=== PATIENT | male | born 1950 | race Caucasian/White ===

== ENCOUNTER 2017-06-25 06:55 | Inpatient (IN) ==
[2017-06-25] MEDS ORDERED: DIAZEPAM 5 MG TABLET PO ONE ×2 (07:51→13:22)
[2017-06-25 08:33] LABS: Basophils # 0.1 10*3/uL (0.0-0.2); Eosinophils # 0.1 10*3/uL (0.0-0.87); Eosinophils % 1.6 % (0.00-10.9); Hematocrit 39.7 VOL% (42.0-52.0); Hemoglobin 14.1 GM/DL (14.0-18.0); Immature Granulocytes % 0.3 %; Immature Granulocytes Absolute 0.02 #; Lymphocytes # 1.4 10*3/uL (1.4-4.0); Lymphocytes % 20.5 % (21.2-54.2); Mean Corpuscular HGB Conc 35.5 GM/DL (32-36); Mean Corpuscular Hemoglobin 30 PG (27-34); Mean Platelet Volume 8.4 FL (9.6-12.0); Monocytes # 0.7 10*3/uL (0.11-0.8); Monocytes % 9.4 % (1.7-12.7); Neutrophils # 4.7 10*3/uL (1.4-7.4); Neutrophils % 67.2 % (38.7-73.9); Platelet Count 255 T/CUMM (130-400); Red Blood Count 4.67 MC/CUMM (3.8-5.5); Red Cell Distribution Width 12.7 % (9.3-17.3)
[2017-06-25] MEDS ORDERED: DIAZEPAM 5 MG TABLET ONE ×2 (08:34→13:18)
[2017-06-25 08:42] LABS: INR 1.1; PT Patient Result 11.4 SECS; Partial Thromboplastin Time 30.8 SECS (0-40)
[2017-06-25] MEDS: SODIUM CHLORIDE 0.45% 1,000 ML IV SCH (08:51)
--- NOTE | 2017-06-25 09:02 | IR History and Physical Update ---
IR Pre-Procedure - History and Physical H&P was reviewed, the patient examined and there: are no changes in the patients condition since last H&P was completed. Reason for procedure:: 67-year-old male with right upper lobe pulmonary nodule, positive PET scan. Needs biopsy. Severe COPD with emphysema. High risk of pneumothorax. - Dictation Physical: refer to scanned H&P - Physical Exam Vital Signs: Last Vital Signs Temp 98.1 F 06/25/17 07:51 Pulse 82 06/25/17 07:51 Resp 18 06/25/17 07:51 BP 126/79 06/25/17 07:51 Pulse Ox 95 06/25/17 07:51 Mental Status: alert and oriented - Sedation IR anesthesia plan for sedation: none ASA Class: III - Risks Risks: Procedures explained. Risks discussed include, but not limited to, the following:[Bleeding including hemoptysis, pneumothorax, chest tube placement, hospitalization] All questions answered. The following alternatives were discussed:[None] Risks and benefits discussed with: patient Consent obtained from: patient Assessment and Plan - Time spent with patient Time spent with patient: Less than 30 minutes (1) Pulmonary nodule Status: Chronic Assessment and plan: Assessment: Right upper lobe pulmonary nodule, positive PET scan. Plan: Percutaneous biopsy under CT guidance. Current Visit: Yes
--- NOTE | 2017-06-25 14:03 | Operative Note ---
Date of procedure: 06/25/17 Pre-op diagnosis: RUL SPN Post-op diagnosis: same Procedure: CT guided biopsy RUL pulmonary nodule Anesthesia: local Surgeon / Physician: Owen Franklin Estimated blood loss: none Specimens: other (2 x 18 ga cores) Condition: stable Disposition: same day Results - Labs CBC & BMP: 06/25/17 08:29 - Impressions Successful biopsy Discharge Plan - Discharge Data Disposition: Disch To Home/Self Care Condition at Discharge: Stable Discharge Diet: advance to your usual diet Activity: resume usual activities as tolerated Hygiene: no restrictions Weight Bearing at Discharge: full weight bearing Driving: not for (24 hours) - Discharge Medications No Action Metoprolol Succinate Xl 50 tablet PO DAILY Budesonide/Formoterol 160-4.5 [Symbicort 160-4.5] 2 puff INH BID Melatonin 5 mg Tablet 5 mg PO BEDTIME Diltiazem Cd Cap [Cardizem Cd] 120 mg PO DAILY capsule Aspirin [Ecotrin] 81 mg PO DAILY Theophylline ER Tab 100 mg PO BID Tamsulosin [Flomax] 0.4 mg PO DAILY Montelukast Tab [Singulair Tab] 10 mg PO DAILY Ipratropium/Albuterol Inhaler [Combivent Respimat Inhaler] 1 puff INH DIRECTED - Follow Up or Referral Follow Up: Kristopher Marte MD [Primary Care Provider] - - Forms/Instructions Instructions: Noel Biopsy by Radiology
--- NOTE | 2017-06-25 14:18 | XRay Report ---
Exam: XR chest post procedure Date: 06/25/2017 7:53 AM Indication: Post Right lung biopsy Comparison: None Technical: Inspiration and expiration imaging Findings: Patchy area of masslike density in the right upper chest measuring approximately up to 6.3 cm. Underlying COPD with hyperinflation is present. ASVD is present. Small pneumothorax is present in the apical region measuring 2.9 cm. Impression: 1. Right apical pneumothorax measuring approximately 5% to 10% at this time with masslike densities in the right mid chest with underlying COPD. Critical test Findings discussed with Dr. Franklin PROCEDURE INTERPRETED AT [facility] DEPARTMENT OF RADIOLOGY Final Report Signed by: Dr. Kristopher Lofton
--- NOTE | 2017-06-25 15:13 | CT Report ---
CT biopsy lung wo coreRT Indication: Right upper lobe pulmonary nodule. CT-GUIDED BIOPSY RIGHT UPPER LOBE PULMONARY NODULE Description: A formal timeout was performed. Patient was placed supine on the CT table and storage management architect imaging obtained. The right midaxillary skin upper chest wall skin overlying the target lesion was prepped and draped in a sterile fashion. 5 cc 1% lidocaine was injected. Under CT fluoroscopic guidance, a 17-gauge guide needle was advanced into the lesion. Multiple 18-gauge core biopsies were obtained. Specimen was sent for routine pathology. The needle was removed and final CT imaging showed no evidence of pneumothorax. Patient tolerated the procedure well. Specimen: 2 x 18 gauge core samples right upper lobe pulmonary nodule Impression: CT-guided biopsy right upper lobe pulmonary nodule. PROCEDURE INTERPRETED AT [facility] DEPARTMENT OF RADIOLOGY Final Report Signed by: Owen Franklin M.D.
--- NOTE | 2017-06-25 16:11 | XRay Report ---
XR chest inspiration expiratio Indication: Lung biopsy. Pneumothorax post procedure. Post procedure chest radiograph, 2 views: Inspiratory and expiratory views of the chest were obtained. Right pneumothorax has increased in size since 1406 hours. Is now approximately 25%. Impression: Increasing right pneumothorax. PROCEDURE INTERPRETED AT [facility] DEPARTMENT OF RADIOLOGY Final Report Signed by: Owen Franklin M.D.
--- NOTE | 2017-06-25 16:18 | Post Interventional Procedure ---
Pre-op diagnosis: Worsening pneumothorax after lung biopsy Post-op diagnosis: same Procedure: Right chest tube placement Flouroscopy: 0.1 min Radiologist: Owen Franklin Anesthesia: local Specimens: none sent Estimated blood loss: none Complications: none Condition: stable Description/Findings: LCWS overnight Assessment and Plan - Time spent with patient Time spent with patient: Less than 30 minutes (1) Pulmonary nodule Status: Chronic Assessment and plan: Assessment: Right upper lobe pulmonary nodule, positive PET scan. Plan: Percutaneous biopsy under CT guidance. Current Visit: Yes
--- NOTE | 2017-06-25 17:19 | XRay Report ---
XR chest post procedure Indication: Right chest tube placement for pneumothorax following lung biopsy. Chest 2 views: Small caliber anterior right chest tube has been placed since the study obtained 1 hour earlier. The right pneumothorax is decreased in size, now 10%. Right upper lobe nodule and atelectasis of the basilar segment right upper lobe are present but improved from the previous exam. Impression: Placement of chest tube with decreased size of pneumothorax, now 10%. Improved aeration right lung. PROCEDURE INTERPRETED AT [facility] DEPARTMENT OF RADIOLOGY Final Report Signed by: Owen Franklin M.D.
--- NOTE | 2017-06-25 18:33 | Pulmonology History & Physical ---
History of Present Illness Chief complaint: Pneumothorax. COPD. Asthma. Right upper lung pulmonary nodule. History of present illness: Rob Loja, [facility], acting as scribe for Dr. Kristopher Marte Mr. Panchal is a 67-year-old white male who earlier today underwent CT-guided needle biopsy of the right upper lung pulmonary nodule by interventional radiology. Initially postbiopsy there was a right apical pneumothorax measuring approximately 5-10% but on repeat chest x-ray several hours later this had increased to approximately 25%. We were contacted by Dr. Franklin for admission after chest tube was placed. The patient was seen today along with his . He is now on the floor with a chest tube in place. He is doing well and is without complaints. The patient and his state that they were told that Dr. Franklin was able to get 3 good specimens. There was sent to pathology and the results are, of course, pending at the time of this dictation. The patient denies any increased shortness of breath. There is been no cardiac angina or palpitations. No dysphasia or reflux. No hemoptysis. No TIA symptoms or syncope. No change in bowel or bladder habits. All other systems are reviewed and were negative. Allergies: SSKI and Augmentin Medications: See list Past medical history: Positive for allergic sinusitis, COPD with bronchospastic disease, high blood pressure, BPH which is followed by Dr. Jarret Jernigan, colon polyps followed by Dr. Narayanan, negative C scope in July 2016, and hospitalization in 2014 with severe pneumonia. [facility] showed a new nodule in the periphery of the right upper lung. This was not present on chest x-rays dating back a number of years. PET scan was done and this showed highly avid uptake in the right upper lung pulmonary nodule compatible with hypermetabolic malignancy. No additional abnormal pulmonary or mediastinal uptake was seen. Also there was highly avid uptake involving a segment of the proximal to mid sigmoid colon. Corresponding CT findings suggestive the possibility of possible low-grade diverticulitis. Dr. Faby Narayanan said to consider endoscopy to help exclude the possibility of underlying colon cancer. Social history: Previously Dr. Aparicio have been the patient's primary care doctor. Patient is a college graduate. 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 The patient is . His 's name is Salena. Family history: His father had colon cancer. His mother had pancreatic cancer and also her mother had pancreatic cancer. His mother also had lung cancer and he is not certain whether this was primary or metastatic. Past procedures: The patient had pulmonary function test on 06/28/2013 and at that time his forced vital capacity was 2.06 L or 49% of predicted. FEV1 was 0.82 L or 24% of predicted. His O2 sats were 98% on room air. Pulmonary function test done 05/13/2017 showed severe obstructive disease. FEV1/FVC was 37 % of predicted. FEF 25/75 was 13% of predicted. Marked positive response to inhaled bronchodilators. 16% increase in FVC. 6% increase in FEV1. 2% increase in FEF 25/75. No restrictive disease. FVC was 3.13 L or 79% of predicted. DLCO was 56%. DLCO/VA was 53%. Severe diffusion defect. O2 sat was 96%. Severe decrease in maximum voluntary ventilation at 38 L/min or 32% of predicted. Improvement compared to studies done 06/28/2013. FVC has increased from 2.06 L to 3.13 L. FEV1 has increased from 0.82 L to 1.04 L. MCV is essentially unchanged. Previously 35 L/min now 38 L/min. Patient had bronchoscopy by Dr. Aparicio 01/06/2015. There were no abnormalities found. Laboratory: White count is 7000 with 67.2% segs, 20.5% lymphs, 9.4% monos; H&H 14.1/39.7 with low to low normal indices and normal red blood cell distribution with; platelet count 255,000; INR 1.1 Home Medications Medication Instructions Recorded Confirmed Type Budesonide/Formoterol 160-4.5 2 puff INH BID 01/06/15 06/25/17 History [Symbicort 160-4.5] Metoprolol Succinate Xl 50 tablet PO DAILY 01/06/15 06/25/17 History Melatonin 5 mg Tablet 5 mg PO BEDTIME 01/07/15 06/25/17 History Diltiazem Cd Cap [Cardizem Cd] 120 mg PO DAILY capsule 01/10/15 06/25/17 Rx Aspirin [Ecotrin] 81 mg PO DAILY 06/20/17 06/25/17 History Ipratropium/Albuterol Inhaler 1 puff INH DIRECTED 06/20/17 06/25/17 History [Combivent Respimat Inhaler] Montelukast Tab [Singulair Tab] 10 mg PO DAILY 06/25/17 06/25/17 History Tamsulosin [Flomax] 0.4 mg PO DAILY 06/25/17 06/25/17 History Theophylline ER Tab 100 mg PO BID 06/25/17 06/25/17 History Allergies Allergy/AdvReac Type Severity Reaction Status Date / Time Amoxicillin [From Augmentin] Allergy Mild RASH Verified 06/25/17 07:42 clavulanic acid Allergy Mild RASH Verified 06/25/17 07:42 [From Augmentin] SSKI Allergy SWELLING Uncoded 06/25/17 07:42 Medical,Surgical,& Family Hx - Medical History Cardio: History of: Cardiac Dysrhythmia (tachycardia DUE TO PNEUMONIA.), Hypertension, Cardiovascular Problems (DR BROWN SIGNED OFF 2014.) Neurology: No history of: Seizures HEENT: History of: Eye Problem (GLASSES.), Dental Problems (UPPER DENTURE) Respiratory: History of: Bronchitis (SEASONAL), COPD, Pneumonia, Respiratory Problems (FLU VAC- YES 2015; PNEU VAC- YES.) Genitourinary: History of: Prostate Problems (BPH) Gastrointestinal: History of: GERD (OCCASIONAL), Polyps (REMOVED.), GI Problems (GI INFECTION .) Musculoskeletal: History of: Back/Neck Problems (brachial cleft cyst removal 1995. BACK PAIN.) Hematology: History of: Anemia No history of: Blood Transfusion Reaction - Surgical History Cardiac Surgeries: Patient Denies: Cardiac Catheterization Abdominal Surgeries: Surgical HX of: Colonoscopy (DR NARAYANAN), EGD Orthopedic Surgeries: Patient denies;: Spinal Surgery - Family History Family History: Reports;: Family Cancer (Mother and Father ca) - Social History Smoking Status: Former smoker Frequency of Alcohol Use: Rarely Type of Drug Use: None Results - Labs CBC & BMP: 06/25/17 08:29 Exam (Pulmonay) H&P - Constitutional Vitals: Period Temp Pulse Resp BP Sys/Paz Pulse Ox Last 24 Hr 97.3 F-98.1 F 81-106 16-24 114-136/62-90 88-95 Exam: Psych: Oriented x 3; a pleasant and cooperative patient HEENT: Pupils, irises, sclera, conjunctiva, and eyelids are normal. The face is symmetrical without rash or masses. Lips, tongue, buccal mucosa, soft and hard palates, and pharynx are WNL Neck: Symmetrical. Thyroid was not palpated. Lymphatics: No submandibular, cervical, or supraclavicular adenopathy Chest: Symmetrical and hyperinflated with mild to moderate prolongation of expiration; chest tube is in place CV: Heart sounds were distant. There was no appreciable murmur, rub or gallop Arterial: Carotids reveal good upstroke without bruit. Upper extremity pulses were palpable. Lower extremity pulses were not palpated. There was no evidence of ischemia. Venous: Exam of the neck, upper, and lower extremities is normal Abd: No appreciable organomegaly, masses, tenderness, or bruit; Bowel sounds are positive 4; The aorta was not palpated /Rectal: Deferred Extremities: No clubbing, cyanosis, edema, or obvious DVT Skin: No cancerous or infectious lesions of the exposed, examined skin; the perineal area was not examined M/S: Age appropriate loss of the normal curvature of the cervical, thoracic, and lumbar spine Neurological: Cranial nerves are intact, Long tract motor function is intact; Sensory exam was not done; gait was not tested. The remainder of the exam was noncontributory. Impression: #1: Acute pneumothorax status post CT-guided needle biopsy of a right upper lung pulmonary nodule requiring chest tube placement #2: Right upper lung pulmonary nodule requiring CT-guided needle biopsy. Pathology is pending. #3: COPD with bronchospastic disease #4: Past history of tobacco abuse. Stop smoking in 2010. #5: BPH followed by Dr. Jarret Jernigan #6: Hypertension #7: History of recurrent upper respiratory infections which exacerbate his pulmonary problems #8: See past history Plan: #1: Admit to inpatient #2: Chest x-ray in the morning #3: Chest tube management as per Dr. Franklin #4: Resume home medications #5: Follow-up pathology when available #6: See orders
[2017-06-25] MEDS ORDERED: IPRATROPIUM/ALBUTEROL INHALER INH SCH (19:00)
[2017-06-25] MEDS: BUDESONIDE/FORMOTEROL 160-4.5 INHALER 6 GM INH SCH (20:59)
[2017-06-25] MEDS ORDERED: MELATONIN 3 MG TABLET PO SCH (21:00)
[2017-06-25] MEDS: THEOPHYLLINE ER 100 MG TABLET PO SCH (21:22)
--- NOTE | 2017-06-26 08:34 | XRay Report ---
XR chest 2V Date: 06/26/2017 4:00 AM History: Chest tube Comparison: 06/25/2017 Technique: PA and lateral chest Findings: The heart remains small and compressed by the over expanded lungs. Stable right pleural catheter. Smaller less than 10% right pneumothorax. Minimally reduced parenchymal findings in the right upper lobe with persistent nodule. Stable mediastinum and osseous structures. Impression: Bullous emphysema with smaller less than 10% right pneumothorax and stable right pleural catheter. Reduced hemorrhage/infiltration in the right upper lobe at junction of right lower lobe with residual underlying nodule. PROCEDURE INTERPRETED AT [facility] DEPARTMENT OF RADIOLOGY Final Report Signed by: Dr. Jacki Ross
[2017-06-26] MEDS ORDERED: TAMSULOSIN 0.4 MG CAPSULE PO SCH (09:00)
[2017-06-26] MEDS ORDERED: ASPIRIN EC 81 MG TABLET PO SCH (09:00)
[2017-06-26] MEDS ORDERED: METOPROLOL SUCCINATE XL 50 MG TABLET PO SCH (09:00)
[2017-06-26] MEDS ORDERED: DILTIAZEM CD 120 MG CAPSULE PO SCH (09:00)
[2017-06-26] MEDS ORDERED: MONTELUKAST 10 MG TABLET PO SCH (09:00)
[2017-06-26] MEDS: THEOPHYLLINE ER 100 MG TABLET PO SCH (09:46)
[2017-06-26] MEDS: BUDESONIDE/FORMOTEROL 160-4.5 INHALER 6 GM INH SCH (09:51)
--- NOTE | 2017-06-26 10:37 | Pulmonology Progress Note ---
Pulmonary - PN: Subj Interval history: Rob Loja, [facility]-, acting as scribe for Dr. Kristopher Marte Mr. Panchal is a 67-year-old white male who was admitted 06/25/2017. At the time of admission, our impressions were: #1: Acute pneumothorax status post CT-guided needle biopsy of a right upper lung pulmonary nodule requiring chest tube placement #2: Right upper lung pulmonary nodule requiring CT-guided needle biopsy. Pathology is pending. #3: COPD with bronchospastic disease #4: Past history of tobacco abuse. Stop smoking in 2010. #5: BPH followed by Dr. Jarret Jernigan #6: Hypertension #7: History of recurrent upper respiratory infections which exacerbate his pulmonary problems #8: See past history 06/26/2017. Patient was seen today along with his , his client renewal specialist, and Mariana Panchal RN. Patient's chest x-ray this morning shows a less than 10% right pneumothorax. The right pleural catheter is stable. Suction has been removed and the stopcock has been turned off as per Dr. Franklin. Repeat chest x-ray is pending at the time of this dictation. Hopefully the pneumothorax is will not enlarged. If it does not, we anticipate discharge later on this afternoon. This was discussed with the patient and his to their understanding and they are in agreement. Yesterday the patient underwent needle biopsy of the right upper lung nodule. Pathology is still pending. Medications have been reviewed. Her medications were restarted yesterday. Labs been reviewed. No new labs were drawn today. Exam (Progress Note) - Constitutional Vitals: Period Temp Pulse Resp BP Sys/Paz Pulse Ox Last 24 Hr 97.3 F-98.2 F 75-106 16-24 114-136/62-90 88-95 Exam: Chest is fairly clear; chest tube is in place Heart no gallop Abdomen is nontender and nondistended; bowel sounds are positive 4 Extremities with nothing to suggest acute deep venous thrombophlebitis Psychiatric oriented 3 Neurologic long-term motor function is intact Plan: Follow-up repeat chest x-ray when available. Continue other present treatment. If pneumothorax does not enlarge, anticipate discharge later on this afternoon. Results - Labs CBC & BMP: 06/25/17 08:29 Specialty Discharge - Follow Up or Referrals Follow up with: Kristopher Marte MD [Primary Care Provider] -
[2017-06-26] MEDS: SODIUM CHLORIDE 0.45% 1,000 ML IV SCH (11:06)
[2017-06-26 13:14] VITALS: BP 130/76
--- NOTE | 2017-06-26 13:19 | Event Note ---
Chest tube clamped for 4 hours. A 2% right apical pneumothorax has remained stable during that time. Chest tube removed. Okay to discharge.
--- NOTE | 2017-06-26 13:26 | XRay Report ---
XR chest inspiration expiratio Indication: Follow-up tiny apical pneumothorax after 4 hours chest tube clamped. Post procedure chest radiograph, 2 views: Inspiratory and expiratory views of the chest were obtained. Tiny right apical pneumothorax is unchanged after chest tube removed. Impression: No change in tiny apical pneumothorax. PROCEDURE INTERPRETED AT [facility] DEPARTMENT OF RADIOLOGY Final Report Signed by: Owen Franklin M.D.
--- NOTE | 2017-06-26 13:27 | Interventional Radiology Rpt ---
IR thoracentesis w cath insert Indication: Right pneumothorax after lung biopsy. Progressive symptoms. RIGHT CHEST TUBE PLACEMENT WITH FLUOROSCOPY Description: A formal timeout was performed. Right upper anterior chest wall was prepped and draped in a sterile fashion. Under fluoroscopic guidance, a vascular needle was advanced into the right pleural space between the anterior right second and third ribs. Needle was exchanged over a wire for a 8 [place]ian pigtail drain catheter. Pigtail was formed in the pleural space and anchored with a StatLock device. Patient was placed on a Pleur-evac and transferred to the floor in stable condition. Fluoroscopy time: 0.1 minute, one image saved. Impression: Placement of small-caliber right chest tube for pneumothorax. PROCEDURE INTERPRETED AT [facility] DEPARTMENT OF RADIOLOGY Final Report Signed by: Owen Franklin M.D.
--- NOTE | 2017-06-26 13:28 | XRay Report ---
XR chest inspiration expiratio Indication: Chest tube clamped for 4 hours. Post procedure chest radiograph, 2 views: Inspiratory and expiratory views of the chest were obtained. A 2% right apical pneumothorax has been stable since 4 hours ago. Chest tube position is unchanged. Impression: Stable tiny right apical pneumothorax. PROCEDURE INTERPRETED AT [facility] DEPARTMENT OF RADIOLOGY Final Report Signed by: Owen Franklin M.D.
--- NOTE | 2017-06-26 18:26 | Discharge Summary ---
Hospital Course - Hospital Course Hospital Course: Rob Loja, [facility], acting as scribe for Dr. Kristopher Marte Mr. Panchal is a 67-year-old white male who underwent CT-guided needle biopsy of a right upper lung pulmonary nodule on 06/25/2017. Initially, postbiopsy there is a right apical pneumothorax measuring approximately 5-10% but on repeat chest x-ray several hours later this had increased to approximately 25%. Dr. Franklin contacted Dr. Marte and it was felt in the patient's best interest to hospitalize him. Dr. Franklin placed a chest tube in the patient was admitted to Dr. Marte's service. The next day the chest tube was clamped and chest x-ray showed a less than 10% right pneumothorax. The chest tube was removed and chest x-ray proximally 4 hours later showed no change in the tiny right apical pneumothorax. In speaking with Dr. Franklin, it was felt that the patient was safe for discharge which was earlier than initially thought was going to be possible. The patient was stable. He had no shortness of breath. There was no hemoptysis. He has been scheduled for follow-up appointment with Rob Loja , nurse practitioner, in approximately 1 week. At discharge, pathology from the needle biopsy is pending. White count is 7000 with 67.2% segs, 20.5% lymphs, 9.4% monos; H&H 14.1/39.7 with low to low normal indices and normal red blood cell distribution width; platelet count 255,000; INR 1.1 For more information regarding Mr. Panchal' past medical history, social history, family history, past procedures, admit labs, admit x-ray and admit exam, please see the admission note dated 06/25/2017. Impression: #1: Acute pneumothorax status post CT-guided needle biopsy of a right upper lung pulmonary nodule requiring chest tube placement #2: Right upper lung pulmonary nodule requiring CT-guided needle biopsy. Pathology is pending. #3: COPD with bronchospastic disease #4: Past history of tobacco abuse. Stop smoking in 2010. #5: BPH followed by Dr. Jarret Jernigan #6: Hypertension #7: History of recurrent upper respiratory infections which exacerbate his pulmonary problems #8: See past history Plan: Flomax 0.4 mg daily, melatonin 5 mg at bedtime, Combivent Respimat inhaler as needed, Cardizem CD 120 mg daily, Symbicort 160/4.52 puffs twice daily, Ecotrin 81 mg daily, theophylline ER 100 mg twice daily, metoprolol succinate XL 50 mg daily, and Singulair 10 mg daily. The patient has been scheduled to follow-up with Rob Loja, nurse practitioner, in approximately 1 week. He can be seen sooner if needed. Specialty Discharge - Follow Up or Referrals Follow up with: Kristopher Marte MD [Primary Care Provider] - 07/03/17 1:00 pm (Appointment with Rob Loja BIOPSYCHOLOGIST) Discharge Plan - Discharge Data Disposition: Disch To Home/Self Care - Discharge Medications Continue Metoprolol Succinate Xl 50 tablet PO DAILY Budesonide/Formoterol 160-4.5 [Symbicort 160-4.5] 2 puff INH BID Melatonin 5 mg Tablet 5 mg PO BEDTIME Diltiazem Cd Cap [Cardizem Cd] 120 mg PO DAILY capsule Aspirin [Ecotrin] 81 mg PO DAILY Theophylline ER Tab 100 mg PO BID Tamsulosin [Flomax] 0.4 mg PO DAILY Montelukast Tab [Singulair Tab] 10 mg PO DAILY Ipratropium/Albuterol Inhaler [Combivent Respimat Inhaler] 1 puff INH DIRECTED - Follow Up or Referral Follow Up: Kristopher Marte MD [Primary Care Provider] - 07/03/17 1:00 pm (Appointment with Rob Loja BIOPSYCHOLOGIST) - Forms/Instructions Instructions: Chest Tubes (DC), Dyspnea (GEN), Noel Biopsy by Radiology Exam - Constitutional Vitals: Period Temp Pulse Resp BP Sys/Paz Pulse Ox Last 24 Hr 97.6 F-98.2 F 75-97 18-20 119-130/69-89 92-95 DS: Provider Date of admission: 06/25/17 18:36 Primary care physician: Kristopher Marte MD Attending physician on admission: Owen Franklin MD Discharging clinician: SHANIQUA Modi
--- NOTE | 2017-07-07 11:15 | Pathology Report from [facility] ---
[facility] ACCESSION # : [id number] PATIENT NAME : Mick Hines ORDERING DR : ELOISE COOPER MD CLINICAL HX: RUL lung nodule - Positive PET scan - Smoker POST-OP DX: Same SPECIMEN INFO: Right upper lobe lung, CT kai cut biopsy x 2 GROSS DESCRIPTION: The specimen is received in formalin labeled with the patients name CORNELIA HINES and RUL LUNG consists of four chaves tissue fragments measuring from 0.3 x 0.1 cm to 1.0 x 0.1 cm. Submitted in one cassette. 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 Nuclear crowing/ molding is present. Numerous mitoses are identified. The majority of tumor cells have little cytoplasm, however, there are focal areas where the tumor cells have increased amount of cytoplasm. Submitted immunostains demonstrate that the tumor cells are TTF-1 and synaptophysin positive, focally CK7 positive , and CK20, napsin A and p40 negative. This staining pattern and the histologic appearance support the diagnosis of high grade neuroendocrine carcinoma, and the lack of nucleoli, the scant amount of cytoplasm in the majority of tumor cells and nuclear crowding/molding favors small cell carcinoma. COLLECTED DATE: 06/25/2017 [facility] REPORT DATE: 07/07/2017 ELECTRONICALLY SIGNED BY: uW Teixeira M.D. 07/07/2017 - 7:28:52 [facility]D
--- NOTE | 2017-07-08 09:02 | Physician Query Form ---
CLICK EDIT DOCUMENT TO SELECT QUERY ANSWER --> OK --> SIGN Risa Singh RN, CCDS Certified Clinical [employer] (W) [phone] (F) [phone] [email or web address] PROVIDERS: Make your selection(s) from the choices in EACH section by typing an "x" and enter comments in the comment section. Please use your independent medical judgment in providing your response. This request does not imply that any particular answer is desired or expected. 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 Nuclear crowing/ molding is present. Numerous mitoses are identified. The majority of tumor cells have little cytoplasm, however, there are focal areas where the tumor cells have increased amount of cytoplasm. Submitted immunostains demonstrate that the tumor cells are TTF-1 and synaptophysin positive, focally CK7 positive , and CK20, napsin A and p40 negative. This staining pattern and the histologic appearance support the diagnosis of high grade neuroendocrine carcinoma, and the lack of nucleoli, the scant amount of cytoplasm in the majority of tumor cells and nuclear crowding/molding favors small cell carcinoma. Abnormal Pathology findings are not reported unless an authorized provider indicates their clinical significance Please select the best choice: ( ) I agree with the Pathology findings ( ) I disagree with the Pathology findings ( ) No clinical significance ( ) Other/clarification of findings, please specify: ( ) Clinically unable to determine COMMENTS: PLEASE ALSO DOCUMENT RESPONSE IN PROGRESS NOTES AND/OR DISCHARGE SUMMARY Use of terms such as suspected, likely, or probable (associated with a specific diagnosis that is being evaluated, monitored, or treated as if it exists) are acceptable and can be restated in the discharge summary if not ruled out. [facility]
--- NOTE | 2017-07-08 13:30 | Physician Query Form ---
CLICK EDIT DOCUMENT TO SELECT QUERY ANSWER --> OK --> SIGN Risa Singh RN, CCDS Certified Clinical [employer] (W) [phone] (F) [phone] [email or web address] PROVIDERS: Make your selection(s) from the choices in EACH section by typing an "x" and enter comments in the comment section. Please use your independent medical judgment in providing your response. This request does not imply that any particular answer is desired or expected. 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 Nuclear crowing/molding is present. Numerous mitoses are identified. The majority of tumor cells have little cytoplasm, however, there are focal areas where the tumor cells have increased amount of cytoplasm. Submitted immunostains demonstrate that the tumor cells are TTF-1 and synaptophysin positive, focally CK7 positive, and CK20, napsin A and p40 negative. This staining pattern and the histologic appearance support the diagnosis of high grade neuroendocrine carcinoma, and the lack of nucleoli, the scant amount of cytoplasm in the majority of tumor cells and nuclear crowding/molding favors small cell carcinoma. Abnormal Pathology findings are not reported unless an authorized provider indicates their clinical significance Please select the best choice: ( ) I agree with the Pathology findings ( ) I disagree with the Pathology findings ( ) No clinical significance ( ) Other/clarification of findings, please specify: ( ) Clinically unable to determine COMMENTS: Why do you want to know if I (we) agree? That is the pathologist's job. Dr. Marte says you can ask the pathologist if he/she agrees. That might be more meaningful. PLEASE ALSO DOCUMENT RESPONSE IN PROGRESS NOTES AND/OR DISCHARGE SUMMARY Use of terms such as suspected, likely, or probable (associated with a specific diagnosis that is being evaluated, monitored, or treated as if it exists) are acceptable and can be restated in the discharge summary if not ruled out. JUAN A
== END 2017-06-26 15:44 | disposition home or self-care (01) | DRG 201 ==
LOC: N.RAD 06:55 → N.SDSINP 06:56 → N.5E 16:44
PROVIDERS: ADMIT Radiology Diagnostic Radiology; ATTEND Radiology Diagnostic Radiology

== ENCOUNTER 2019-05-22 15:00 | Inpatient (IN) ==
[2019-05-22] MEDS ORDERED: methylPREDNISolone SOD SUC 125 MG/2 ML VIAL IV STA (15:57)
[2019-05-22] MEDS ORDERED: ONDANSETRON 4 MG/2 ML VIAL IV STA (15:57)
[2019-05-22] MEDS ORDERED: LEVOFLOXACIN INJ 750 MG in PREMIX 1 EACH IV STA (15:57)
[2019-05-22] MEDS ORDERED: ALBUTEROL 2.5 MG/3 ML NEB RESP TX SCH (16:00)
[2019-05-22 16:45] LABS: Basophils # 0.1 10*3/uL (0.0-0.2); Basophils % 0.5 % (0.0-0.8); Hematocrit 45.4 VOL% (42.0-52.0); Immature Granulocytes % 0.5 %; Immature Granulocytes Absolute 0.07 #; Lymphocytes # 0.7 10*3/uL (1.4-4.0); Lymphocytes % 5.3 % (21.2-54.2); Mean Corpuscular HGB Conc 35.2 GM/DL (32-36); Mean Platelet Volume 9.2 FL (9.6-12.0); Monocytes % 8.7 % (1.7-12.7); Platelet Count 344 T/CUMM (130-400); Red Blood Count 5.16 MC/CUMM (3.8-5.5); Red Cell Distribution Width 11.7 % (9.3-17.3); White Blood Count 12.9 T/CUMM (4-12)
[2019-05-22 16:54] LABS: INR 1.1; PT Patient Result 11.4 SECS (9.6-12.2); Partial Thromboplastin Time 27.5 SECS (20.8-36.0)
[2019-05-22 17:10] LABS: Alanine Aminotransferase 18 U/L (16-61); Albumin 3.7 G/DL (3.4-5.0); Alkaline Phosphatase 60 U/L (45-117); Aspartate Amino Transferase 17 U/L (0-37); Blood Urea Nitrogen 74 MG/DL (7-18); Calcium 10.4 MG/DL (8.5-10.1); Glucose 145 MG/DL (74-106); Osmolality,Calculated 279.2 MOS/KG (273-304); Total Protein 8.1 G/DL (6.4-8.3)
[2019-05-22 17:11] LABS: Troponin I < 0.015 NG/ML (0.00-0.045)
[2019-05-22] MEDS ORDERED: SODIUM CHLORIDE 0.9% 1,000 ML IV STA (17:18)
[2019-05-22] MEDS ORDERED: DIPHENHYDRAMINE ACETAMINOPHEN PO PRN (17:25)
[2019-05-22] MEDS ORDERED: METOPROLOL TARTRATE 5 MG/5 ML VIAL IV STA (17:45)
[2019-05-22] MEDS ORDERED: ZALEPLON 5 MG CAPSULE PO PRN (17:51)
[2019-05-22] MEDS ORDERED: PROMETHAZINE 25 MG/1 ML VIAL IM PRN (17:51)
[2019-05-22] MEDS ORDERED: ACETAMINOPHEN 325 MG TABLET PO PRN (17:51)
[2019-05-22] MEDS ORDERED: guaiFENesin/DM ER 600-30 MG TABLET PO PRN (17:51)
[2019-05-22] MEDS ORDERED: ONDANSETRON 4 MG/2 ML VIAL IV PRN (17:51)
[2019-05-22] MEDS ORDERED: diphenhydrAMINE CAP 25 MG CAPSULE PO PRN (17:51)
[2019-05-22] MEDS ORDERED: SODIUM CHLORIDE 0.45% 1,000 ML IV SCH (18:00)
[2019-05-22] MEDS ORDERED: SODIUM CHLORIDE 0.9% 1,000 ML IV SCH (19:00)
[2019-05-22] MEDS: methylPREDNISolone SOD SUC 40 MG/1 ML VIAL IV SCH (20:22)
[2019-05-22] MEDS: HEPARIN 5,000 UNIT/1 ML VIAL SUBCUT SCH (20:23)
[2019-05-22] MEDS: MELATONIN 3 MG TABLET PO SCH (20:23)
[2019-05-22] MEDS: DOCUSATE SODIUM 100 MG CAPSULE PO SCH (20:23)
[2019-05-22] MEDS: METOPROLOL TARTRATE 50 MG TABLET PO SCH (20:23)
[2019-05-22] MEDS: SODIUM CHLORIDE 0.9% 1,000 ML IV SCH (20:38)
[2019-05-22] MEDS: ALBUTEROL/IPRATROPIUM 3 ML NEB RESP TX SCH (20:46)
[2019-05-22] MEDS ORDERED: THEOPHYLLINE ER 100 MG TABLET PO SCH (21:00)
[2019-05-22] MEDS ORDERED: ALUM/MAG/SIMETH/LIDO VISC 1:1 30 ML BOTTLE PO ONE (21:51)
[2019-05-22] MEDS ORDERED: LEVALBUTEROL 0.31 MG/3 ML NEB RESP TX PRN (21:52)
[2019-05-22] MEDS: BUDESONIDE/FORMOTEROL 160-4.5 INHALER 6 GM INH SCH (22:18)
[2019-05-23] MEDS: ALBUTEROL/IPRATROPIUM 3 ML NEB RESP TX SCH ×2 (00:49→10:04)
[2019-05-23 01:48] LABS: Apearance,Urine Slightly Hazy (Clear); Bilirubin,Urine Negative (Negative); Blood, Urine Small mg/dL (Negative); Glucose,Urine (UA) Negative (Negative); Hyaline Casts,Urine 54 /LPF (0-3); Ketones,Urine 5 mg/dL (Negative); Mucus,Urine Occasional /LPF (Occasional); Nitrite,Urine Negative (Negative); Protein,Urine Negative; RBC,Urine 1 /HPF (0-4); Renal Epithelial Cells,Urine Occasional /HPF (<1); Squamous Epithelial Cell,Urine Occasional /HPF (0-10); Urine Color Yellow (Yellow); Urine Specific Gravity 1.018 (1.001-1.035); Urine Urobilinogen < 2.0 EU/DL (0.2-1.0); WBC,Urine 7 /HPF (0-6)
[2019-05-23 03:13] LABS: Basophils % 0.2 % (0.0-0.8); Hematocrit 40.1 VOL% (42.0-52.0); Hemoglobin 14.1 GM/DL (14.0-18.0); Immature Granulocytes % 0.4 %; Immature Granulocytes Absolute 0.04 #; Lymphocytes # 0.5 10*3/uL (1.4-4.0); Lymphocytes % 5.1 % (21.2-54.2); Mean Corpuscular HGB Conc 35.2 GM/DL (32-36); Mean Corpuscular Volume 88.3 FL (87-102); Mean Platelet Volume 9.1 FL (9.6-12.0); Monocytes % 3.9 % (1.7-12.7); Neutrophils % 90.4 % (38.7-73.9); Platelet Count 291 T/CUMM (130-400); Red Blood Count 4.54 MC/CUMM (3.8-5.5); Red Cell Distribution Width 11.7 % (9.3-17.3); White Blood Count 9.5 T/CUMM (4-12)
[2019-05-23] MEDS: methylPREDNISolone SOD SUC 40 MG/1 ML VIAL IV SCH (03:22)
[2019-05-23] MEDS: HEPARIN 5,000 UNIT/1 ML VIAL SUBCUT SCH ×3 (03:22→17:16)
[2019-05-23 03:31] LABS: Bilirubin,Total 0.8 MG/DL (0.2-1.0); Calcium 9.1 MG/DL (8.5-10.1); Osmolality,Calculated 281.8 MOS/KG (273-304); Total Protein 6.6 G/DL (6.4-8.3)
[2019-05-23 03:35] LABS: Risk Ratio 2.18; Thyroid Stimulating Hormone 0.516 uIU/ml (0.358-3.74); VLDL CHOLESTEROL 16.8 MG/DL
[2019-05-23] MEDS ORDERED: LEVALBUTEROL 1.25 MG/3 ML NEB RESP TX PRN ×2 (04:05→07:04)
[2019-05-23] MEDS: SODIUM CHLORIDE 0.9% 1,000 ML IV SCH ×3 (04:08→18:57)
[2019-05-23] MEDS ORDERED: METOPROLOL TARTRATE 5 MG/5 ML VIAL IV ONE (04:58)
[2019-05-23] MEDS: TAMSULOSIN 0.4 MG CAPSULE PO SCH (08:14)
[2019-05-23] MEDS: BUDESONIDE/FORMOTEROL 160-4.5 INHALER 6 GM INH SCH ×2 (08:14→21:46)
[2019-05-23] MEDS: ACETYLCYSTEINE 600 MG CAPSULE PO SCH (08:14)
[2019-05-23] MEDS: DOCUSATE SODIUM 100 MG CAPSULE PO SCH ×2 (08:14→21:46)
[2019-05-23] MEDS: MONTELUKAST 10 MG TABLET PO SCH (08:14)
[2019-05-23] MEDS: METOPROLOL TARTRATE 50 MG TABLET PO SCH ×2 (08:14→21:46)
[2019-05-23] MEDS ORDERED: METOPROLOL TARTRATE 5 MG/5 ML VIAL IV PRN (08:19)
[2019-05-23] MEDS ORDERED: MORPHINE 4 MG/1 ML VIAL IV ONE (08:32)
[2019-05-23] MEDS ORDERED: LORazepam 2 MG/1 ML VIAL IV ONE (08:32)
[2019-05-23 08:43] LABS: ABG Base Excess 1.1 MMOL/L (-2.5-2.5); ABG HCO3 25.2 MMOL/L (20-26); ABG PCO2 60.8 MM HG (35-48); ABG PH 7.298 (7.35-7.45); ABG TCO2 25.6 MMOL/L (23-27)
[2019-05-23] MEDS ORDERED: ASPIRIN EC 81 MG TABLET PO SCH (09:00)
[2019-05-23] MEDS ORDERED: ALPRAZolam 0.25 MG TABLET PO SCH (09:00)
[2019-05-23] MEDS ORDERED: PANTOPRAZOLE 40 MG TABLET PO SCH (09:00)
[2019-05-23] MEDS ORDERED: METOPROLOL SUCCINATE XL 50 MG TABLET PO SCH (09:00)
[2019-05-23 09:07] LABS: Basophils # 0.1 10*3/uL (0.0-0.2); Basophils % 0.4 % (0.0-0.8); Hematocrit 44.3 VOL% (42.0-52.0); Hemoglobin 15.1 GM/DL (14.0-18.0); Immature Granulocytes % 0.5 %; Immature Granulocytes Absolute 0.06 #; Lymphocytes # 0.5 10*3/uL (1.4-4.0); Lymphocytes % 4.1 % (21.2-54.2); Mean Corpuscular HGB Conc 34.1 GM/DL (32-36); Mean Corpuscular Volume 90.2 FL (87-102); Monocytes % 4.2 % (1.7-12.7); Neutrophils % 90.8 % (38.7-73.9); Platelet Count 354 T/CUMM (130-400); Red Blood Count 4.91 MC/CUMM (3.8-5.5); Red Cell Distribution Width 11.9 % (9.3-17.3); White Blood Count 12.4 T/CUMM (4-12)
[2019-05-23] MEDS: MEROPENEM 500 MG in SODIUM CHLORIDE 0.9% 100 ML IV SCH ×2 (09:20→21:47)
[2019-05-23 09:27] LABS: Band Neutrophils 59 % (0-10); Lymphocytes 4 % (20-55); Metamyelocytes 5 %; Platelet Estimate Normal; Segmented Neutrophils 29 % (50-85); Total Cells Counted 100
[2019-05-23] MEDS: methylPREDNISolone SOD SUC 125 MG/2 ML VIAL IV SCH ×2 (09:27→18:01)
[2019-05-23 09:32] LABS: Anisocytosis Slight; Macrocytosis Slight
[2019-05-23 09:40] LABS: Osmolality,Calculated 284.7 MOS/KG (273-304)
[2019-05-23] MEDS ORDERED: ALBUTEROL NEB SOLN 5 MG/ML 20 ML/BOTTLE CONT NEB ONE (09:45)
[2019-05-23 09:56] LABS: Alanine Aminotransferase 16 U/L (16-61); Albumin 2.8 G/DL (3.4-5.0); Alkaline Phosphatase 43 U/L (45-117); Aspartate Amino Transferase 24 U/L (0-37); Blood Urea Nitrogen 71 MG/DL (7-18); CKMB % 3.8 %; Calcium 8.9 MG/DL (8.5-10.1); Glucose 149 MG/DL (74-106); Osmolality,Calculated 281.9 MOS/KG (273-304); Total Protein 6.3 G/DL (6.4-8.3); Troponin I < 0.015 NG/ML (0.00-0.045)
[2019-05-23] MEDS: AZITHROMYCIN INJ 500 MG in SODIUM CHLORIDE 0.9% 250 ML IV SCH (10:02)
[2019-05-23] MEDS: LEVALBUTEROL 1.25 MG/3 ML NEB RESP TX SCH ×4 (10:45→23:37)
[2019-05-23] MEDS ORDERED: LEVOFLOXACIN INJ 500 MG in PREMIX 1 EACH IV SCH (11:00)
[2019-05-23 11:30] LABS: Allen Test Positive; Pt O2 Delivery Device BIPAP
[2019-05-23 11:35] LABS: ABG Base Excess -1.5 MMOL/L (-2.5-2.5); ABG HCO3 26.2 MMOL/L (20-26); ABG Oxygen Saturation 98.7 % (95-100); ABG PCO2 55.7 MM HG (35-48); ABG PO2 173.8 MM HG (80-95); ABG TCO2 27.9 MMOL/L (23-27)
[2019-05-23 14:20] LABS: Allen Test Positive; Pt O2 Delivery Device BIPAP
[2019-05-23 14:21] LABS: ABG Base Excess -2.3 MMOL/L (-2.5-2.5); ABG HCO3 22.5 MMOL/L (20-26); ABG Oxygen Saturation 98.7 % (95-100); ABG PCO2 51.8 MM HG (35-48); ABG PH 7.296 (7.35-7.45); ABG TCO2 21.7 MMOL/L (23-27)
[2019-05-23] MEDS ORDERED: ETOMIDATE 20 MG/10 ML VIAL IV ONE ×2 (14:32→14:40)
[2019-05-23] MEDS ORDERED: SUCCINYLCHOLINE 200 MG/10 ML VIAL ONE (14:33)
[2019-05-23] MEDS ORDERED: NOREPINEPHRINE 4 MG/4 ML VIAL IV ONE (14:54)
[2019-05-23] MEDS ORDERED: SODIUM CHLORIDE 0.9% 1,000 ML IV ONE (15:03)
[2019-05-23] MEDS ORDERED: NOREPINEPHRINE 8 MG in SODIUM CHLORIDE 0.9% 242 ML IV PRN (15:03)
[2019-05-23] MEDS: THEOPHYLLINE ER (24 HR) 200 MG CAPSULE PO SCH (15:46)
[2019-05-23] MEDS: MORPHINE 4 MG/1 ML VIAL IV PRN (16:01)
[2019-05-23 16:04] LABS: Apearance,Urine Slightly Hazy (Clear); Bilirubin,Urine Negative (Negative); Blood, Urine Negative (Negative); Glucose,Urine (UA) Negative (Negative); Ketones,Urine 5 mg/dL (Negative); Mucus,Urine Occasional /LPF (Occasional); Nitrite,Urine Negative (Negative); Protein,Urine Negative; RBC,Urine 1 /HPF (0-4); Urine Color Yellow (Yellow); Urine Specific Gravity 1.021 (1.001-1.035); Urine Urobilinogen < 2.0 EU/DL (0.2-1.0); WBC,Urine 3 /HPF (0-6)
[2019-05-23 16:23] LABS: ABG Base Excess -2.9 MMOL/L (-2.5-2.5); ABG Oxygen Saturation 99.3 % (95-100); ABG PCO2 60.8 MM HG (35-48); ABG TCO2 23.2 MMOL/L (23-27); Allen Test Positive; Pt O2 Delivery Device Ventilator
[2019-05-23] MEDS: DEXMEDETOMIDINE 200 MCG in SODIUM CHLORIDE 0.9% 48 ML IV PRN (16:39)
[2019-05-23] MEDS: MELATONIN 3 MG TABLET PO SCH (21:45)
[2019-05-23] MEDS: PANTOPRAZOLE 40 MG VIAL IV SCH (21:48)
[2019-05-24] MEDS: methylPREDNISolone SOD SUC 125 MG/2 ML VIAL IV SCH ×3 (00:49→17:48)
[2019-05-24] MEDS: DEXMEDETOMIDINE 200 MCG in SODIUM CHLORIDE 0.9% 48 ML IV PRN ×5 (01:13→23:04)
[2019-05-24] MEDS: LEVALBUTEROL 1.25 MG/3 ML NEB RESP TX SCH ×6 (02:07→23:10)
[2019-05-24 03:24] LABS: ABG Base Excess 0.8 MMOL/L (-2.5-2.5); ABG HCO3 25.1 MMOL/L (20-26); ABG Oxygen Saturation 96.1 % (95-100); ABG PH 7.383 (7.35-7.45); ABG PO2 80.2 MM HG (80-95); ABG TCO2 23.2 MMOL/L (23-27); Allen Test Positive; Pt O2 Delivery Device Ventilator
[2019-05-24] MEDS: MEROPENEM 1,000 MG in SODIUM CHLORIDE 0.9% 100 ML IV SCH ×3 (04:58→20:57)
[2019-05-24 09:01] LABS: Basophils # 0.1 10*3/uL (0.0-0.2); Basophils % 0.5 % (0.0-0.8); Hematocrit 34.1 VOL% (42.0-52.0); Immature Granulocytes % 1.4 %; Immature Granulocytes Absolute 0.25 #; Lymphocytes # 0.6 10*3/uL (1.4-4.0); Lymphocytes % 3.3 % (21.2-54.2); Mean Corpuscular HGB Conc 34.6 GM/DL (32-36); Mean Corpuscular Volume 91.4 FL (87-102); Mean Platelet Volume 9.8 FL (9.6-12.0); Monocytes % 4.2 % (1.7-12.7); Neutrophils % 90.6 % (38.7-73.9)
[2019-05-24 09:09] LABS: Albumin 2.5 G/DL (3.4-5.0); Bilirubin,Total 0.8 MG/DL (0.2-1.0); Calcium 9.2 MG/DL (8.5-10.1); Osmolality,Calculated 294.8 MOS/KG (273-304); Total Protein 5.8 G/DL (6.4-8.3)
[2019-05-24 09:11] LABS: Hemoglobin 11.8 GM/DL (14.0-18.0); Red Blood Count 3.73 MC/CUMM (3.8-5.5); White Blood Count 17.9 T/CUMM (4-12)
[2019-05-24 09:12] LABS: Platelet Count 261 T/CUMM (130-400)
[2019-05-24] MEDS: AZITHROMYCIN INJ 500 MG in SODIUM CHLORIDE 0.9% 250 ML IV SCH (09:32)
[2019-05-24] MEDS: LEVOFLOXACIN INJ 500 MG in PREMIX 1 EACH IV SCH (09:32)
[2019-05-24] MEDS: PANTOPRAZOLE 40 MG VIAL IV SCH ×2 (09:33→20:51)
[2019-05-24 09:41] LABS: Band Neutrophils 14 % (0-10); Hypochromasia 1+; Lymphocytes 2 % (20-55); Platelet Estimate Adequate; Segmented Neutrophils 82 % (50-85); Total Cells Counted 100
[2019-05-24 09:42] LABS: Macrocytosis Slight
[2019-05-24] MEDS: TAMSULOSIN 0.4 MG CAPSULE PO SCH (10:29)
[2019-05-24] MEDS: ACETYLCYSTEINE 600 MG CAPSULE PO SCH (10:29)
[2019-05-24] MEDS: MONTELUKAST 10 MG TABLET PO SCH (10:29)
[2019-05-24] MEDS: BUDESONIDE/FORMOTEROL 160-4.5 INHALER 6 GM INH SCH ×2 (10:30→21:54)
[2019-05-24] MEDS: METOPROLOL TARTRATE 50 MG TABLET PO SCH ×2 (10:30→20:52)
[2019-05-24] MEDS ORDERED: AMINOPHYLLINE 250 MG in SODIUM CHLORIDE 0.9% 100 ML IV ONE (11:00)
[2019-05-24] MEDS: SODIUM CHLORIDE 0.9% 1,000 ML IV SCH (13:41)
[2019-05-24] MEDS: ASPIRIN CHEW 81 MG TABLET PO SCH (13:42)
[2019-05-24] MEDS: DOCUSATE SODIUM 100 MG CAPSULE PO SCH ×2 (13:42→20:52)
[2019-05-24] MEDS ORDERED: LEVOFLOXACIN INJ 750 MG in PREMIX 1 EACH IV SCH ×2 (17:00→18:00)
[2019-05-24] MEDS: AMINOPHYLLINE 500 MG in SODIUM CHLORIDE 0.9% 480 ML IV SCH (17:49)
[2019-05-24] MEDS: MELATONIN 3 MG TABLET PO SCH (20:51)
[2019-05-24] MEDS: THEOPHYLLINE ER (24 HR) 200 MG CAPSULE PO SCH (22:25)
[2019-05-25] MEDS: methylPREDNISolone SOD SUC 125 MG/2 ML VIAL IV SCH ×3 (01:42→20:57)
[2019-05-25] MEDS: LEVALBUTEROL 1.25 MG/3 ML NEB RESP TX SCH ×5 (02:31→20:14)
[2019-05-25] MEDS: SODIUM CHLORIDE 0.9% 1,000 ML IV SCH ×2 (03:22→16:13)
[2019-05-25 04:05] LABS: Basophils % 0.3 % (0.0-0.8); Hematocrit 30.4 VOL% (42.0-52.0); Hemoglobin 10.3 GM/DL (14.0-18.0); Immature Granulocytes % 1.3 %; Immature Granulocytes Absolute 0.14 #; Lymphocytes # 0.3 10*3/uL (1.4-4.0); Lymphocytes % 2.9 % (21.2-54.2); Mean Corpuscular HGB Conc 33.9 GM/DL (32-36); Mean Corpuscular Volume 92.1 FL (87-102); Mean Platelet Volume 10.1 FL (9.6-12.0); Monocytes % 5.8 % (1.7-12.7); Neutrophils % 89.7 % (38.7-73.9); Platelet Count 213 T/CUMM (130-400); Red Cell Distribution Width 12.2 % (9.3-17.3); White Blood Count 10.8 T/CUMM (4-12)
[2019-05-25 04:26] LABS: Allen Test Positive; Pt O2 Delivery Device Ventilator
[2019-05-25 04:28] LABS: ABG Base Excess 1.5 MMOL/L (-2.5-2.5); ABG HCO3 26.9 MMOL/L (20-26); ABG Oxygen Saturation 98.4 % (95-100); ABG PCO2 45.7 MM HG (35-48); ABG PH 7.387 (7.35-7.45); ABG PO2 128.3 MM HG (80-95); ABG TCO2 28.3 MMOL/L (23-27)
[2019-05-25] MEDS: DEXMEDETOMIDINE 200 MCG in SODIUM CHLORIDE 0.9% 48 ML IV PRN ×4 (04:29→20:35)
[2019-05-25 04:39] LABS: Albumin 2.2 G/DL (3.4-5.0); Bilirubin,Total 0.8 MG/DL (0.2-1.0); Calcium 8.7 MG/DL (8.5-10.1); Osmolality,Calculated 296.1 MOS/KG (273-304); Total Protein 5.3 G/DL (6.4-8.3)
[2019-05-25 04:48] LABS: Band Neutrophils 28 % (0-10); Lymphocytes 2 % (20-55); Metamyelocytes 2 %; Segmented Neutrophils 63 % (50-85); Total Cells Counted 100
[2019-05-25 04:49] LABS: Hypochromasia 2+; Platelet Estimate Normal
[2019-05-25] MEDS: MEROPENEM 1,000 MG in SODIUM CHLORIDE 0.9% 100 ML IV SCH ×3 (04:54→20:58)
[2019-05-25] MEDS: PANTOPRAZOLE 40 MG VIAL IV SCH ×2 (09:26→20:58)
[2019-05-25] MEDS: LEVOFLOXACIN INJ 500 MG in PREMIX 1 EACH IV SCH (09:27)
[2019-05-25] MEDS: AZITHROMYCIN INJ 500 MG in SODIUM CHLORIDE 0.9% 250 ML IV SCH ×2 (09:27→10:51)
[2019-05-25] MEDS ORDERED: POTASSIUM PHOSPHATE 30 MMOL in SODIUM CHLORIDE 0.9% 250 ML IV ONE (12:00)
[2019-05-25] MEDS ORDERED: PROPOFOL 200 MG/20 ML VIAL IV ONE (13:26)
[2019-05-25] MEDS ORDERED: ETOMIDATE 40 MG/20 ML VIAL IV ONE (13:26)
[2019-05-25] MEDS: DOCUSATE SODIUM 100 MG CAPSULE PO SCH (13:30)
[2019-05-25] MEDS: TAMSULOSIN 0.4 MG CAPSULE PO SCH (13:30)
[2019-05-25] MEDS: ASPIRIN CHEW 81 MG TABLET PO SCH (13:30)
[2019-05-25] MEDS: METOPROLOL TARTRATE 50 MG TABLET PO SCH (13:30)
[2019-05-25] MEDS: MONTELUKAST 10 MG TABLET PO SCH (13:31)
[2019-05-25] MEDS: BUDESONIDE/FORMOTEROL 160-4.5 INHALER 6 GM INH SCH (13:31)
[2019-05-25] MEDS: ACETYLCYSTEINE 600 MG CAPSULE PO SCH (13:31)
[2019-05-25] MEDS: FLUCONAZOLE INJ 100 MG in IV BAG 1 EACH IV SCH (13:51)
[2019-05-25] MEDS: MORPHINE 4 MG/1 ML VIAL IV PRN ×2 (16:21→23:23)
[2019-05-25] MEDS: AMINOPHYLLINE 500 MG in SODIUM CHLORIDE 0.9% 480 ML IV SCH (18:27)
[2019-05-25] MEDS: METOCLOPRAMIDE 10 MG/2 ML VIAL IV SCH ×2 (18:27→23:23)
[2019-05-26] MEDS: LEVALBUTEROL 1.25 MG/3 ML NEB RESP TX SCH ×7 (00:08→22:56)
[2019-05-26] MEDS: DEXMEDETOMIDINE 200 MCG in SODIUM CHLORIDE 0.9% 48 ML IV PRN ×4 (01:03→21:48)
[2019-05-26 03:46] LABS: Basophils # 0.1 10*3/uL (0.0-0.2); Basophils % 0.7 % (0.0-0.8); Hematocrit 34.3 VOL% (42.0-52.0); Hemoglobin 11.1 GM/DL (14.0-18.0); Immature Granulocytes % 3.2 %; Immature Granulocytes Absolute 0.49 #; Lymphocytes % 6.8 % (21.2-54.2); Mean Corpuscular HGB Conc 32.4 GM/DL (32-36); Mean Corpuscular Volume 96.6 FL (87-102); Mean Platelet Volume 10.2 FL (9.6-12.0); Monocytes % 0.7 % (1.7-12.7); Neutrophils % 88.6 % (38.7-73.9); Platelet Count 179 T/CUMM (130-400); Red Blood Count 3.55 MC/CUMM (3.8-5.5); Red Cell Distribution Width 12.8 % (9.3-17.3); White Blood Count 15.3 T/CUMM (4-12)
[2019-05-26] MEDS: MORPHINE 4 MG/1 ML VIAL IV PRN ×2 (03:48→17:30)
[2019-05-26 04:11] LABS: Band Neutrophils 6 % (0-10); Hypochromasia Slight; Lymphocytes 3 % (20-55); Platelet Estimate Adequate; Segmented Neutrophils 86 % (50-85); Total Cells Counted 100
[2019-05-26 04:28] LABS: Albumin 2.2 G/DL (3.4-5.0); Bilirubin,Total 0.5 MG/DL (0.2-1.0); Calcium 8.2 MG/DL (8.5-10.1); Osmolality,Calculated 302.3 MOS/KG (273-304); Total Protein 4.9 G/DL (6.4-8.3)
[2019-05-26 04:36] LABS: ABG Base Excess 0.5 MMOL/L (-2.5-2.5); ABG HCO3 24.9 MMOL/L (20-26); ABG Oxygen Saturation 98.6 % (95-100); ABG PCO2 51.7 MM HG (35-48); ABG PH 7.329 (7.35-7.45); ABG TCO2 24.6 MMOL/L (23-27)
[2019-05-26 04:37] LABS: Allen Test Positive; Pt O2 Delivery Device Ventilator
[2019-05-26] MEDS: SODIUM CHLORIDE 0.9% 1,000 ML IV SCH ×3 (05:27→18:55)
[2019-05-26] MEDS: MEROPENEM 1,000 MG in SODIUM CHLORIDE 0.9% 100 ML IV SCH ×3 (05:41→21:40)
[2019-05-26] MEDS: METOCLOPRAMIDE 10 MG/2 ML VIAL IV SCH ×3 (06:35→18:22)
[2019-05-26] MEDS: PANTOPRAZOLE 40 MG VIAL IV SCH ×2 (10:42→21:36)
[2019-05-26] MEDS: methylPREDNISolone SOD SUC 125 MG/2 ML VIAL IV SCH ×2 (10:43→21:38)
[2019-05-26] MEDS: LEVOFLOXACIN INJ 500 MG in PREMIX 1 EACH IV SCH (10:43)
[2019-05-26] MEDS: FLUCONAZOLE INJ 100 MG in IV BAG 1 EACH IV SCH (10:43)
[2019-05-26] MEDS: FAT EMULSION 20% 250 ML IV SCH (16:12)
[2019-05-26] MEDS ORDERED: DEXTROSE 10% 1,000 ML IV PRN (17:00)
[2019-05-26] MEDS: AMINOPHYLLINE 500 MG in SODIUM CHLORIDE 0.9% 480 ML IV SCH (18:23)
[2019-05-26] MEDS: TRACE ELEMENTS (5) 1 ML, MULTIVITAMIN INJ 10 ML in AMINO ACIDS/DEXT/LYTES 4.25-5% 2,000 ML IV SCH (20:53)
[2019-05-26] MEDS: METOPROLOL TARTRATE 5 MG/5 ML VIAL IV SCH (22:28)
[2019-05-27] MEDS: METOCLOPRAMIDE 10 MG/2 ML VIAL IV SCH ×5 (00:28→23:04)
[2019-05-27] MEDS: METOPROLOL TARTRATE 5 MG/5 ML VIAL IV SCH ×5 (00:30→23:07)
[2019-05-27] MEDS: DEXMEDETOMIDINE 200 MCG in SODIUM CHLORIDE 0.9% 48 ML IV PRN ×2 (02:35→10:59)
[2019-05-27] MEDS: LEVALBUTEROL 1.25 MG/3 ML NEB RESP TX SCH ×6 (02:36→22:33)
[2019-05-27 04:07] LABS: ABG Base Excess 5.8 MMOL/L (-2.5-2.5); ABG HCO3 31.3 MMOL/L (20-26); ABG Oxygen Saturation 96.8 % (95-100); ABG PH 7.415 (7.35-7.45); ABG PO2 92.6 MM HG (80-95); ABG TCO2 32.9 MMOL/L (23-27); Allen Test Positive; Pt O2 Delivery Device Ventilator
[2019-05-27 04:10] LABS: Basophils # 0.2 10*3/uL (0.0-0.2); Basophils % 0.8 % (0.0-0.8); Hematocrit 32.6 VOL% (42.0-52.0); Hemoglobin 10.6 GM/DL (14.0-18.0); Immature Granulocytes % 2.1 %; Immature Granulocytes Absolute 0.41 #; Lymphocytes # 0.4 10*3/uL (1.4-4.0); Lymphocytes % 1.8 % (21.2-54.2); Mean Corpuscular HGB Conc 32.5 GM/DL (32-36); Mean Corpuscular Volume 96.4 FL (87-102); Mean Platelet Volume 9.6 FL (9.6-12.0); Monocytes % 2.6 % (1.7-12.7); NRBC # 0.02 10*3/uL; Neutrophils % 92.7 % (38.7-73.9); Platelet Count 225 T/CUMM (130-400); Red Blood Count 3.38 MC/CUMM (3.8-5.5); Red Cell Distribution Width 12.9 % (9.3-17.3); White Blood Count 19.8 T/CUMM (4-12)
[2019-05-27 04:29] LABS: INR 1.1; PT Patient Result 11.5 SECS (9.6-12.2); Partial Thromboplastin Time 28.7 SECS (20.8-36.0)
[2019-05-27 04:34] LABS: Bilirubin,Total 0.5 MG/DL (0.2-1.0); Calcium 8.1 MG/DL (8.5-10.1)
[2019-05-27 04:36] LABS: Prealbumin 8.4 MG/DL (20-40)
[2019-05-27 04:59] LABS: Band Neutrophils 1 % (0-10); Lymphocytes 2 % (20-55); Platelet Estimate Normal; Polychromasia Few; Segmented Neutrophils 95 % (50-85); Smudge Cells Few; Total Cells Counted 100
[2019-05-27] MEDS: MEROPENEM 1,000 MG in SODIUM CHLORIDE 0.9% 100 ML IV SCH ×3 (05:46→20:20)
[2019-05-27 08:19] LABS: ABG Base Excess 6.8 MMOL/L (-2.5-2.5); ABG HCO3 30.6 MMOL/L (20-26); ABG Oxygen Saturation 98.6 % (95-100); ABG PCO2 59.5 MM HG (35-48); ABG PH 7.366 (7.35-7.45); ABG TCO2 30.5 MMOL/L (23-27)
[2019-05-27] MEDS: SODIUM CHLORIDE 0.9% 1,000 ML IV SCH ×2 (08:41→12:57)
[2019-05-27] MEDS ORDERED: DEXTROSE 50% 25 GM/50 ML VIAL IV PRN (10:49)
[2019-05-27] MEDS ORDERED: GLUCAGON 1 MG VIAL IM PRN (10:49)
[2019-05-27] MEDS: DORNASE ALFA 2.5 MG/2.5 ML VIAL RESP TX SCH ×2 (11:10→20:49)
[2019-05-27] MEDS: SODIUM CHLORIDE 0.45% 1,000 ML IV SCH (11:17)
[2019-05-27] MEDS: methylPREDNISolone SOD SUC 125 MG/2 ML VIAL IV SCH (11:18)
[2019-05-27] MEDS: FLUCONAZOLE INJ 100 MG in IV BAG 1 EACH IV SCH (11:19)
[2019-05-27] MEDS: LEVOFLOXACIN INJ 500 MG in PREMIX 1 EACH IV SCH (11:20)
[2019-05-27] MEDS: PANTOPRAZOLE 40 MG VIAL IV SCH ×2 (11:20→20:18)
[2019-05-27] MEDS ORDERED: POTASSIUM PHOSPHATE 40 MMOL in SODIUM CHLORIDE 0.9% 250 ML IV ONE (12:00)
[2019-05-27] MEDS: INSULIN LISPRO 100 UNIT/ML SUBCUT SCH ×2 (12:16→17:49)
[2019-05-27 13:36] LABS: ABG Base Excess 8.3 MMOL/L (-2.5-2.5); ABG Oxygen Saturation 92.9 % (95-100); ABG PCO2 52.1 MM HG (35-48); ABG PH 7.426 (7.35-7.45); ABG PO2 61.7 MM HG (80-95); ABG TCO2 30.7 MMOL/L (23-27)
[2019-05-27] MEDS: FAT EMULSION 20% 250 ML IV SCH (14:38)
[2019-05-27 14:47] LABS: ABG Base Excess 8.6 MMOL/L (-2.5-2.5); ABG HCO3 32.3 MMOL/L (20-26); ABG Oxygen Saturation 93.8 % (95-100); ABG PCO2 50.6 MM HG (35-48); ABG PH 7.438 (7.35-7.45); ABG PO2 63.1 MM HG (80-95); ABG TCO2 30.6 MMOL/L (23-27)
[2019-05-27] MEDS: AMINOPHYLLINE 500 MG in SODIUM CHLORIDE 0.9% 480 ML IV SCH (17:50)
[2019-05-27] MEDS ORDERED: LORazepam 2 MG/1 ML VIAL IV PRN (18:01)
[2019-05-27] MEDS ORDERED: LORazepam 2 MG/1 ML VIAL ONE (18:22)
[2019-05-27] MEDS: TRACE ELEMENTS (5) 1 ML, MULTIVITAMIN INJ 10 ML in AMINO ACIDS/DEXT/LYTES 4.25-5% 2,000 ML IV SCH (18:30)
[2019-05-28] MEDS: SODIUM CHLORIDE 0.45% 1,000 ML IV SCH ×2 (00:08→14:50)
[2019-05-28] MEDS: INSULIN LISPRO 100 UNIT/ML SUBCUT SCH ×5 (00:26→23:41)
[2019-05-28] MEDS: LEVALBUTEROL 1.25 MG/3 ML NEB RESP TX SCH ×6 (02:29→23:28)
[2019-05-28 05:11] LABS: Hemoglobin 12.5 GM/DL (14.0-18.0); Immature Granulocytes % 3.6 %; Immature Granulocytes Absolute 1.45 #; Lymphocytes # 0.6 10*3/uL (1.4-4.0); Lymphocytes % 1.4 % (21.2-54.2); Mean Corpuscular HGB Conc 32.1 GM/DL (32-36); Mean Platelet Volume 10.6 FL (9.6-12.0); Monocytes % 1.9 % (1.7-12.7); NRBC # 0.02 10*3/uL; Neutrophils % 93.1 % (38.7-73.9); Platelet Count 228 T/CUMM (130-400); Red Blood Count 4.02 MC/CUMM (3.8-5.5); Red Cell Distribution Width 12.9 % (9.3-17.3)
[2019-05-28] MEDS: METOCLOPRAMIDE 10 MG/2 ML VIAL IV SCH ×4 (05:12→23:42)
[2019-05-28] MEDS: METOPROLOL TARTRATE 5 MG/5 ML VIAL IV SCH ×4 (05:14→23:42)
[2019-05-28] MEDS: MEROPENEM 1,000 MG in SODIUM CHLORIDE 0.9% 100 ML IV SCH ×3 (05:19→20:42)
[2019-05-28 05:22] LABS: White Blood Count 40.6 T/CUMM (4-12)
[2019-05-28 05:33] LABS: Band Neutrophils 2 % (0-10); Lymphocytes 2 % (20-55); Platelet Estimate Adequate; Segmented Neutrophils 95 % (50-85); Total Cells Counted 100
[2019-05-28 06:02] LABS: Calcium 8.5 MG/DL (8.5-10.1)
[2019-05-28] MEDS: DORNASE ALFA 2.5 MG/2.5 ML VIAL RESP TX SCH ×2 (07:38→20:47)
[2019-05-28] MEDS ORDERED: METOPROLOL TARTRATE 5 MG/5 ML VIAL IV ONE ×2 (09:01→10:28)
[2019-05-28 09:20] LABS: ABG Base Excess 3.6 MMOL/L (-2.5-2.5); ABG HCO3 27.6 MMOL/L (20-26); ABG Oxygen Saturation 95.9 % (95-100); ABG PCO2 60.8 MM HG (35-48); ABG PH 7.322 (7.35-7.45); ABG PO2 81.7 MM HG (80-95); ABG TCO2 28.2 MMOL/L (23-27); Allen Test Positive
[2019-05-28] MEDS: LEVOFLOXACIN INJ 500 MG in PREMIX 1 EACH IV SCH (09:38)
[2019-05-28] MEDS: PANTOPRAZOLE 40 MG VIAL IV SCH ×2 (09:38→20:42)
[2019-05-28] MEDS: FLUCONAZOLE INJ 100 MG in IV BAG 1 EACH IV SCH (11:23)
[2019-05-28] MEDS: methylPREDNISolone SOD SUC 40 MG/1 ML VIAL IV SCH (11:29)
[2019-05-28] MEDS ORDERED: DILTIAZEM 50 MG/10 ML VIAL IV ONE (11:33)
[2019-05-28] MEDS ORDERED: DILTIAZEM 25 MG/5 ML VIAL IV ONE (11:35)
[2019-05-28] MEDS ORDERED: dilTIAZem Drip 125 MG/125 ML PREMIX IV SCH (13:30)
[2019-05-28 14:42] LABS: ABG Base Excess 1.3 MMOL/L (-2.5-2.5); ABG HCO3 25.4 MMOL/L (20-26); ABG PCO2 66.6 MM HG (35-48); ABG PH 7.266 (7.35-7.45); ABG PO2 71.2 MM HG (80-95); ABG TCO2 27.3 MMOL/L (23-27); Allen Test Positive; Pt O2 Delivery Device CPAP
[2019-05-28] MEDS: TRACE ELEMENTS (5) 1 ML, MULTIVITAMIN INJ 10 ML in AMINO ACIDS/DEXT/LYTES 4.25-5% 2,000 ML IV SCH (15:21)
[2019-05-28] MEDS: FAT EMULSION 20% 250 ML IV SCH (15:35)
[2019-05-28] MEDS: TRACE ELEMENTS (5) 1 ML, MULTIVITAMIN INJ 10 ML in AMINO ACIDS/DEXT/LYTES 5-15% 1,000 ML IV SCH ×2 (15:49→17:45)
[2019-05-28 15:59] LABS: ABG Base Excess 1.9 MMOL/L (-2.5-2.5); ABG HCO3 26.1 MMOL/L (20-26); ABG Oxygen Saturation 95.5 % (95-100); ABG PCO2 55.7 MM HG (35-48); ABG PH 7.327 (7.35-7.45); ABG PO2 77.5 MM HG (80-95); ABG TCO2 26.1 MMOL/L (23-27); Allen Test Positive; Pt O2 Delivery Device BIPAP
[2019-05-28] MEDS ORDERED: ETOMIDATE 20 MG/10 ML VIAL IV ONE ×2 (16:43→16:50)
[2019-05-28] MEDS ORDERED: PROPOFOL 1,000 MG/100 ML BOTTLE IV ONE (16:44)
[2019-05-28] MEDS ORDERED: SUCCINYLCHOLINE 200 MG/10 ML VIAL ONE (16:44)
[2019-05-28] MEDS ORDERED: SUCCINYLCHOLINE 200 MG/10 ML VIAL IV ONE (16:50)
[2019-05-28] MEDS: METOPROLOL TARTRATE 5 MG/5 ML VIAL IV ONE ×2 (17:09→17:44)
[2019-05-28] MEDS ORDERED: LORazepam 2 MG/1 ML VIAL IV ONE (17:21)
[2019-05-28] MEDS ORDERED: SODIUM CHLORIDE 0.9% 1,000 ML IV ONE (17:36)
[2019-05-28 17:39] LABS: Calcium 8.1 MG/DL (8.5-10.1); Osmolality,Calculated 283.7 MOS/KG (273-304)
[2019-05-28] MEDS: DEXMEDETOMIDINE 200 MCG in SODIUM CHLORIDE 0.9% 48 ML IV PRN (17:59)
[2019-05-28] MEDS ORDERED: PROPOFOL 1,000 MG/100 ML BOTTLE IV SCH (18:00)
[2019-05-28 18:12] LABS: ABG Base Excess 0.8 MMOL/L (-2.5-2.5); ABG HCO3 25.2 MMOL/L (20-26); ABG Oxygen Saturation 99.9 % (95-100); ABG PCO2 58.4 MM HG (35-48); ABG PH 7.297 (7.35-7.45); ABG TCO2 25.9 MMOL/L (23-27)
[2019-05-28] MEDS: AMINOPHYLLINE 500 MG in SODIUM CHLORIDE 0.9% 480 ML IV SCH (18:41)
[2019-05-28] MEDS: LORazepam 2 MG/1 ML VIAL IV PRN (21:23)
[2019-05-28] MEDS: NOREPINEPHRINE 8 MG in SODIUM CHLORIDE 0.9% 242 ML IV PRN (23:01)
[2019-05-29] MEDS: DEXMEDETOMIDINE 200 MCG in SODIUM CHLORIDE 0.9% 48 ML IV PRN ×6 (00:10→23:28)
[2019-05-29] MEDS: LEVALBUTEROL 1.25 MG/3 ML NEB RESP TX SCH ×7 (04:11→23:04)
[2019-05-29 04:28] LABS: ABG HCO3 27.1 MMOL/L (20-26); ABG Oxygen Saturation 99.8 % (95-100); ABG PCO2 39.5 MM HG (35-48); ABG PH 7.445 (7.35-7.45); ABG TCO2 24.4 MMOL/L (23-27); Allen Test Positive; Pt O2 Delivery Device Ventilator
[2019-05-29] MEDS: MORPHINE 4 MG/1 ML VIAL IV PRN ×2 (05:09→23:20)
[2019-05-29] MEDS: LORazepam 2 MG/1 ML VIAL IV PRN ×2 (05:36→21:47)
[2019-05-29] MEDS: MEROPENEM 1,000 MG in SODIUM CHLORIDE 0.9% 100 ML IV SCH ×3 (06:05→20:59)
[2019-05-29] MEDS: METOPROLOL TARTRATE 5 MG/5 ML VIAL IV SCH ×4 (06:05→23:41)
[2019-05-29] MEDS: INSULIN LISPRO 100 UNIT/ML SUBCUT SCH ×4 (06:06→23:42)
[2019-05-29] MEDS: METOCLOPRAMIDE 10 MG/2 ML VIAL IV SCH ×4 (06:06→23:42)
[2019-05-29 06:13] LABS: Calcium 8.3 MG/DL (8.5-10.1); Osmolality,Calculated 286.5 MOS/KG (273-304)
[2019-05-29 06:26] LABS: Basophils % 0.1 % (0.0-0.8); Hematocrit 32.3 VOL% (42.0-52.0); Hemoglobin 10.6 GM/DL (14.0-18.0); Immature Granulocytes % 4.5 %; Immature Granulocytes Absolute 1.54 #; Lymphocytes # 0.6 10*3/uL (1.4-4.0); Lymphocytes % 1.9 % (21.2-54.2); Mean Corpuscular HGB Conc 32.8 GM/DL (32-36); Mean Corpuscular Volume 96.7 FL (87-102); Monocytes % 2.2 % (1.7-12.7); NRBC # 0.02 10*3/uL; Neutrophils % 91.3 % (38.7-73.9); Platelet Count 225 T/CUMM (130-400); Red Blood Count 3.34 MC/CUMM (3.8-5.5); Red Cell Distribution Width 12.6 % (9.3-17.3); White Blood Count 34.5 T/CUMM (4-12)
[2019-05-29 07:22] LABS: Band Neutrophils 10 % (0-10); Lymphocytes 4 % (20-55); Platelet Estimate Normal; Segmented Neutrophils 82 % (50-85); Total Cells Counted 100
[2019-05-29 07:23] LABS: Anisocytosis Slight
[2019-05-29] MEDS: DORNASE ALFA 2.5 MG/2.5 ML VIAL RESP TX SCH ×2 (07:37→19:09)
[2019-05-29] MEDS: PANTOPRAZOLE 40 MG VIAL IV SCH ×2 (09:48→20:59)
[2019-05-29] MEDS: LEVOFLOXACIN INJ 500 MG in PREMIX 1 EACH IV SCH (09:48)
[2019-05-29] MEDS: FLUCONAZOLE INJ 100 MG in IV BAG 1 EACH IV SCH (12:20)
[2019-05-29] MEDS: methylPREDNISolone SOD SUC 40 MG/1 ML VIAL IV SCH (12:21)
[2019-05-29] MEDS: NOREPINEPHRINE 8 MG in SODIUM CHLORIDE 0.9% 242 ML IV PRN (15:14)
[2019-05-29] MEDS: TRACE ELEMENTS (5) 1 ML, MULTIVITAMIN INJ 10 ML in AMINO ACIDS/DEXT/LYTES 5-15% 2,000 ML IV SCH (16:12)
[2019-05-29] MEDS: FAT EMULSION 20% 250 ML IV SCH (16:12)
[2019-05-29] MEDS: AMINOPHYLLINE 500 MG in SODIUM CHLORIDE 0.9% 480 ML IV SCH (19:01)
[2019-05-30] MEDS: LEVALBUTEROL 1.25 MG/3 ML NEB RESP TX SCH ×6 (02:38→23:39)
[2019-05-30 04:21] LABS: ABG Oxygen Saturation 98.2 % (95-100); ABG PCO2 43.4 MM HG (35-48); ABG PH 7.396 (7.35-7.45); ABG TCO2 27.4 MMOL/L (23-27); Allen Test Positive; Pt O2 Delivery Device Ventilator
[2019-05-30] MEDS: DEXMEDETOMIDINE 200 MCG in SODIUM CHLORIDE 0.9% 48 ML IV PRN ×4 (04:46→21:30)
[2019-05-30] MEDS: MEROPENEM 1,000 MG in SODIUM CHLORIDE 0.9% 100 ML IV SCH ×3 (04:47→20:46)
[2019-05-30 05:45] LABS: Osmolality,Calculated 290.3 MOS/KG (273-304)
[2019-05-30] MEDS: METOPROLOL TARTRATE 5 MG/5 ML VIAL IV SCH ×4 (06:01→23:08)
[2019-05-30] MEDS: METOCLOPRAMIDE 10 MG/2 ML VIAL IV SCH ×4 (06:01→23:08)
[2019-05-30] MEDS: INSULIN LISPRO 100 UNIT/ML SUBCUT SCH ×4 (06:01→23:39)
[2019-05-30] MEDS: DORNASE ALFA 2.5 MG/2.5 ML VIAL RESP TX SCH ×2 (07:53→19:31)
[2019-05-30] MEDS: LEVOFLOXACIN INJ 500 MG in PREMIX 1 EACH IV SCH (09:14)
[2019-05-30] MEDS: PANTOPRAZOLE 40 MG VIAL IV SCH ×2 (09:14→20:45)
[2019-05-30] MEDS: FLUCONAZOLE INJ 100 MG in IV BAG 1 EACH IV SCH (11:39)
[2019-05-30] MEDS: methylPREDNISolone SOD SUC 40 MG/1 ML VIAL IV SCH (11:40)
[2019-05-30] MEDS: LORazepam 2 MG/1 ML VIAL IV PRN (11:59)
[2019-05-30] MEDS: FAT EMULSION 20% 250 ML IV SCH (17:10)
[2019-05-30] MEDS: TRACE ELEMENTS (5) 1 ML, MULTIVITAMIN INJ 10 ML in AMINO ACIDS/DEXT/LYTES 5-15% 2,000 ML IV SCH (18:40)
[2019-05-30] MEDS: AMINOPHYLLINE 500 MG in SODIUM CHLORIDE 0.9% 480 ML IV SCH (18:42)
[2019-05-30] MEDS: MORPHINE 4 MG/1 ML VIAL IV PRN (23:07)
[2019-05-31] MEDS: DEXMEDETOMIDINE 200 MCG in SODIUM CHLORIDE 0.9% 48 ML IV PRN ×3 (02:12→11:31)
[2019-05-31] MEDS: LEVALBUTEROL 1.25 MG/3 ML NEB RESP TX SCH ×5 (03:42→19:33)
[2019-05-31 04:13] LABS: ABG HCO3 23.6 MMOL/L (20-26); ABG PCO2 51.5 MM HG (35-48); ABG TCO2 23.5 MMOL/L (23-27); Pt O2 Delivery Device Ventilator
[2019-05-31 05:40] LABS: Basophils # 0.1 10*3/uL (0.0-0.2); Basophils % 0.4 % (0.0-0.8); Hematocrit 31.6 VOL% (42.0-52.0); Hemoglobin 10.4 GM/DL (14.0-18.0); Immature Granulocytes % 4.1 %; Immature Granulocytes Absolute 0.93 #; Lymphocytes # 0.4 10*3/uL (1.4-4.0); Lymphocytes % 1.8 % (21.2-54.2); Mean Corpuscular HGB Conc 32.9 GM/DL (32-36); Mean Corpuscular Volume 95.2 FL (87-102); Mean Platelet Volume 10.3 FL (9.6-12.0); Monocytes % 2.3 % (1.7-12.7); Neutrophils % 91.4 % (38.7-73.9); Platelet Count 213 T/CUMM (130-400); Red Blood Count 3.32 MC/CUMM (3.8-5.5); Red Cell Distribution Width 12.5 % (9.3-17.3); White Blood Count 22.7 T/CUMM (4-12)
[2019-05-31] MEDS: METOCLOPRAMIDE 10 MG/2 ML VIAL IV SCH ×4 (06:02→23:38)
[2019-05-31] MEDS: METOPROLOL TARTRATE 5 MG/5 ML VIAL IV SCH ×4 (06:02→23:39)
[2019-05-31] MEDS: MEROPENEM 1,000 MG in SODIUM CHLORIDE 0.9% 100 ML IV SCH ×2 (06:03→15:40)
[2019-05-31] MEDS: INSULIN LISPRO 100 UNIT/ML SUBCUT SCH ×4 (06:03→23:38)
[2019-05-31 06:16] LABS: Calcium 8.4 MG/DL (8.5-10.1); Osmolality,Calculated 289.3 MOS/KG (273-304)
[2019-05-31 06:20] LABS: Prealbumin 12.9 MG/DL (20-40)
[2019-05-31 06:50] LABS: Band Neutrophils 1 % (0-10); Lymphocytes 1 % (20-55); Platelet Estimate Adequate; Segmented Neutrophils 97 % (50-85); Total Cells Counted 100
[2019-05-31] MEDS: DORNASE ALFA 2.5 MG/2.5 ML VIAL RESP TX SCH ×2 (08:12→19:43)
[2019-05-31] MEDS: LEVOFLOXACIN INJ 500 MG in PREMIX 1 EACH IV SCH (09:20)
[2019-05-31] MEDS: PANTOPRAZOLE 40 MG VIAL IV SCH ×2 (09:23→20:41)
[2019-05-31] MEDS: FLUCONAZOLE INJ 100 MG in IV BAG 1 EACH IV SCH (10:47)
[2019-05-31] MEDS: methylPREDNISolone SOD SUC 40 MG/1 ML VIAL IV SCH (10:47)
[2019-05-31] MEDS: MORPHINE 4 MG/1 ML VIAL IV PRN (11:28)
[2019-05-31] MEDS: FAT EMULSION 20% 250 ML IV SCH (15:39)
[2019-05-31] MEDS: DEXMEDETOMIDINE 400 MCG in SODIUM CHLORIDE 0.9% 96 ML IV PRN (16:56)
[2019-05-31] MEDS: TRACE ELEMENTS (5) 1 ML, MULTIVITAMIN INJ 10 ML in AMINO ACIDS/DEXT/LYTES 5-15% 2,000 ML IV SCH (18:30)
[2019-05-31] MEDS: LORazepam 2 MG/1 ML VIAL IV PRN (21:42)
[2019-06-01] MEDS: LEVALBUTEROL 1.25 MG/3 ML NEB RESP TX SCH ×7 (01:50→22:55)
[2019-06-01] MEDS: MORPHINE 4 MG/1 ML VIAL IV PRN ×2 (02:31→13:17)
[2019-06-01] MEDS: DEXMEDETOMIDINE 400 MCG in SODIUM CHLORIDE 0.9% 96 ML IV PRN ×4 (03:20→20:04)
[2019-06-01 03:35] LABS: ABG Base Excess 0.2 MMOL/L (-2.5-2.5); ABG HCO3 25.7 MMOL/L (20-26); ABG Oxygen Saturation 96.7 % (95-100); ABG PH 7.374 (7.35-7.45); ABG PO2 91.7 MM HG (80-95); Allen Test Positive; Pt O2 Delivery Device Ventilator
[2019-06-01] MEDS: AMINOPHYLLINE 500 MG in SODIUM CHLORIDE 0.9% 480 ML IV SCH (04:01)
[2019-06-01 04:55] LABS: Basophils % 0.2 % (0.0-0.8); Hematocrit 28.5 VOL% (42.0-52.0); Hemoglobin 9.3 GM/DL (14.0-18.0); Immature Granulocytes % 3.1 %; Immature Granulocytes Absolute 0.67 #; Lymphocytes # 0.3 10*3/uL (1.4-4.0); Lymphocytes % 1.2 % (21.2-54.2); Mean Corpuscular HGB Conc 32.6 GM/DL (32-36); Mean Corpuscular Volume 95.3 FL (87-102); Mean Platelet Volume 10.7 FL (9.6-12.0); Monocytes % 2.1 % (1.7-12.7); Neutrophils % 93.4 % (38.7-73.9); Platelet Count 209 T/CUMM (130-400); Red Blood Count 2.99 MC/CUMM (3.8-5.5); Red Cell Distribution Width 12.5 % (9.3-17.3); White Blood Count 21.9 T/CUMM (4-12)
[2019-06-01 05:13] LABS: Calcium 8.3 MG/DL (8.5-10.1); Osmolality,Calculated 288.3 MOS/KG (273-304)
[2019-06-01 05:25] LABS: Hypochromasia 1+; Lymphocytes 2 % (20-55); Ovalocytes Slight; Platelet Estimate Adequate; Segmented Neutrophils 95 % (50-85); Total Cells Counted 100
[2019-06-01] MEDS: INSULIN LISPRO 100 UNIT/ML SUBCUT SCH ×3 (05:56→18:33)
[2019-06-01] MEDS: METOCLOPRAMIDE 10 MG/2 ML VIAL IV SCH ×4 (05:57→23:55)
[2019-06-01] MEDS: METOPROLOL TARTRATE 5 MG/5 ML VIAL IV SCH ×4 (05:57→23:55)
[2019-06-01] MEDS: DORNASE ALFA 2.5 MG/2.5 ML VIAL RESP TX SCH ×2 (07:43→20:05)
[2019-06-01] MEDS ORDERED: LORazepam 2 MG/1 ML VIAL ONE (09:20)
[2019-06-01] MEDS: LORazepam 2 MG/1 ML VIAL IV PRN ×2 (09:23→20:19)
[2019-06-01] MEDS: PANTOPRAZOLE 40 MG VIAL IV SCH ×2 (09:32→20:19)
[2019-06-01] MEDS: methylPREDNISolone SOD SUC 40 MG/1 ML VIAL IV SCH (12:09)
[2019-06-01] MEDS: FLUCONAZOLE INJ 100 MG in IV BAG 1 EACH IV SCH (12:16)
[2019-06-01] MEDS: TRACE ELEMENTS (5) 1 ML, MULTIVITAMIN INJ 10 ML in AMINO ACIDS/DEXT/LYTES 5-15% 2,000 ML IV SCH (17:12)
[2019-06-02] MEDS: INSULIN LISPRO 100 UNIT/ML SUBCUT SCH ×4 (00:21→17:47)
[2019-06-02] MEDS: LEVALBUTEROL 1.25 MG/3 ML NEB RESP TX SCH ×6 (03:10→23:54)
[2019-06-02] MEDS: AMINOPHYLLINE 500 MG in SODIUM CHLORIDE 0.9% 480 ML IV SCH (03:30)
[2019-06-02 04:16] LABS: ABG Base Excess 0.8 MMOL/L (-2.5-2.5); ABG HCO3 25.6 MMOL/L (20-26); ABG Oxygen Saturation 98.1 % (95-100); ABG PCO2 41.6 MM HG (35-48); ABG PH 7.407 (7.35-7.45); ABG TCO2 26.9 MMOL/L (23-27)
[2019-06-02 05:13] LABS: Basophils # 0.1 10*3/uL (0.0-0.2); Basophils % 0.3 % (0.0-0.8); Hematocrit 29.8 VOL% (42.0-52.0); Hemoglobin 9.8 GM/DL (14.0-18.0); Immature Granulocytes % 1.9 %; Immature Granulocytes Absolute 0.48 #; Lymphocytes # 0.4 10*3/uL (1.4-4.0); Lymphocytes % 1.6 % (21.2-54.2); Mean Corpuscular HGB Conc 32.9 GM/DL (32-36); Mean Corpuscular Volume 95.2 FL (87-102); Mean Platelet Volume 10.6 FL (9.6-12.0); Monocytes % 1.9 % (1.7-12.7); Neutrophils % 94.3 % (38.7-73.9); Platelet Count 243 T/CUMM (130-400); Red Blood Count 3.13 MC/CUMM (3.8-5.5); Red Cell Distribution Width 12.7 % (9.3-17.3); White Blood Count 25.6 T/CUMM (4-12)
[2019-06-02 05:43] LABS: Band Neutrophils 1 % (0-10); Lymphocytes 1 % (20-55); Segmented Neutrophils 97 % (50-85); Total Cells Counted 100
[2019-06-02 05:44] LABS: Hypochromasia 1+; Platelet Estimate Adequate
[2019-06-02] MEDS: METOPROLOL TARTRATE 5 MG/5 ML VIAL IV SCH ×3 (05:52→17:47)
[2019-06-02] MEDS: METOCLOPRAMIDE 10 MG/2 ML VIAL IV SCH ×3 (05:52→17:47)
[2019-06-02] MEDS: DORNASE ALFA 2.5 MG/2.5 ML VIAL RESP TX SCH ×2 (07:56→20:30)
[2019-06-02] MEDS: FLUCONAZOLE INJ 100 MG in IV BAG 1 EACH IV SCH (10:24)
[2019-06-02] MEDS: PANTOPRAZOLE 40 MG VIAL IV SCH ×2 (10:24→20:56)
[2019-06-02] MEDS: methylPREDNISolone SOD SUC 40 MG/1 ML VIAL IV SCH (11:24)
[2019-06-02] MEDS: AMIODARONE 200 MG TABLET PO SCH ×2 (13:15→20:56)
[2019-06-02] MEDS: DEXMEDETOMIDINE 400 MCG in SODIUM CHLORIDE 0.9% 96 ML IV PRN (15:25)
[2019-06-02] MEDS: LORazepam 2 MG/1 ML VIAL IV PRN (16:42)
[2019-06-02] MEDS: FLUCONAZOLE INJ 200 MG in PREMIX 1 EACH IV SCH (17:47)
[2019-06-03] MEDS: METOCLOPRAMIDE 10 MG/2 ML VIAL IV SCH ×5 (00:29→23:42)
[2019-06-03] MEDS: METOPROLOL TARTRATE 5 MG/5 ML VIAL IV SCH ×5 (00:31→23:35)
[2019-06-03] MEDS: INSULIN LISPRO 100 UNIT/ML SUBCUT SCH ×4 (00:36→18:39)
[2019-06-03] MEDS: DEXMEDETOMIDINE 400 MCG in SODIUM CHLORIDE 0.9% 96 ML IV PRN ×2 (00:44→12:36)
[2019-06-03 03:22] LABS: ABG Base Excess -0.1 MMOL/L (-2.5-2.5); ABG HCO3 24.4 MMOL/L (20-26); ABG Oxygen Saturation 98.9 % (95-100); ABG PCO2 42.3 MM HG (35-48); ABG PH 7.381 (7.35-7.45); ABG TCO2 23.1 MMOL/L (23-27)
[2019-06-03] MEDS: LEVALBUTEROL 1.25 MG/3 ML NEB RESP TX SCH ×6 (03:33→23:10)
[2019-06-03] MEDS: AMINOPHYLLINE 500 MG in SODIUM CHLORIDE 0.9% 480 ML IV SCH (04:31)
[2019-06-03 05:09] LABS: Basophils % 0.1 % (0.0-0.8); Hemoglobin 8.4 GM/DL (14.0-18.0); Immature Granulocytes % 0.9 %; Immature Granulocytes Absolute 0.15 #; Lymphocytes # 0.4 10*3/uL (1.4-4.0); Lymphocytes % 2.4 % (21.2-54.2); Mean Corpuscular HGB Conc 33.6 GM/DL (32-36); Mean Corpuscular Volume 95.1 FL (87-102); Mean Platelet Volume 10.4 FL (9.6-12.0); Monocytes % 2.1 % (1.7-12.7); Neutrophils % 94.5 % (38.7-73.9); Platelet Count 217 T/CUMM (130-400); Red Blood Count 2.63 MC/CUMM (3.8-5.5); Red Cell Distribution Width 12.6 % (9.3-17.3)
[2019-06-03 05:13] LABS: INR 1.1; PT Patient Result 11.6 SECS (9.6-12.2); Partial Thromboplastin Time 33.4 SECS (20.8-36.0)
[2019-06-03 05:30] LABS: Band Neutrophils 1 % (0-10); Hypochromasia 1+; Lymphocytes 3 % (20-55); Platelet Estimate Adequate; Segmented Neutrophils 96 % (50-85); Total Cells Counted 100
[2019-06-03 05:31] LABS: Calcium 7.8 MG/DL (8.5-10.1); Osmolality,Calculated 287.4 MOS/KG (273-304)
[2019-06-03 05:56] LABS: Prealbumin 11.5 MG/DL (20-40)
[2019-06-03] MEDS: DORNASE ALFA 2.5 MG/2.5 ML VIAL RESP TX SCH ×2 (07:27→20:00)
[2019-06-03] MEDS: LORazepam 2 MG/1 ML VIAL IV PRN ×2 (09:17→13:17)
[2019-06-03] MEDS: AMIODARONE 200 MG TABLET PO SCH ×3 (09:23→21:59)
[2019-06-03] MEDS: PANTOPRAZOLE 40 MG VIAL IV SCH ×2 (09:31→21:58)
[2019-06-03] MEDS ORDERED: POTASSIUM CHLORIDE RIDER 10 MEQ in PREMIX 1 EACH IV PRN (09:52)
[2019-06-03 11:05] LABS: ABG Base Excess 1.6 MMOL/L (-2.5-2.5); ABG HCO3 25.9 MMOL/L (20-26); ABG Oxygen Saturation 97.5 % (95-100); ABG PCO2 50.7 MM HG (35-48); ABG PH 7.349 (7.35-7.45); ABG PO2 97.4 MM HG (80-95); ABG TCO2 25.7 MMOL/L (23-27); Allen Test Positive
[2019-06-03] MEDS: methylPREDNISolone SOD SUC 40 MG/1 ML VIAL IV SCH (12:13)
[2019-06-03] MEDS: POTASSIUM CHLORIDE RIDER 20 MEQ in PREMIX 1 EACH IV PRN (13:18)
[2019-06-03] MEDS: FLUCONAZOLE INJ 200 MG in PREMIX 1 EACH IV SCH (16:17)
[2019-06-04] MEDS: INSULIN LISPRO 100 UNIT/ML SUBCUT SCH ×4 (00:51→18:18)
[2019-06-04 03:07] LABS: Basophils % 0.1 % (0.0-0.8); Hematocrit 28.3 VOL% (42.0-52.0); Hemoglobin 9.3 GM/DL (14.0-18.0); Immature Granulocytes Absolute 0.21 #; Lymphocytes # 0.4 10*3/uL (1.4-4.0); Lymphocytes % 2.1 % (21.2-54.2); Mean Corpuscular HGB Conc 32.9 GM/DL (32-36); Mean Corpuscular Volume 95.9 FL (87-102); Mean Platelet Volume 10.2 FL (9.6-12.0); Neutrophils % 94.8 % (38.7-73.9); Platelet Count 279 T/CUMM (130-400); Red Blood Count 2.95 MC/CUMM (3.8-5.5); Red Cell Distribution Width 12.7 % (9.3-17.3); White Blood Count 20.3 T/CUMM (4-12)
[2019-06-04] MEDS: LEVALBUTEROL 1.25 MG/3 ML NEB RESP TX SCH ×5 (03:08→19:53)
[2019-06-04 03:16] LABS: INR 1.1; PT Patient Result 11.6 SECS (9.6-12.2); Partial Thromboplastin Time 31.4 SECS (20.8-36.0)
[2019-06-04 03:29] LABS: Calcium 7.7 MG/DL (8.5-10.1); Osmolality,Calculated 281.5 MOS/KG (273-304)
[2019-06-04] MEDS: LORazepam 2 MG/1 ML VIAL IV PRN ×2 (04:10→12:09)
[2019-06-04 04:19] LABS: ABG Base Excess 2.6 MMOL/L (-2.5-2.5); ABG HCO3 26.7 MMOL/L (20-26); ABG Oxygen Saturation 98.5 % (95-100); ABG PCO2 44.7 MM HG (35-48); ABG PH 7.401 (7.35-7.45); ABG TCO2 25.4 MMOL/L (23-27)
[2019-06-04] MEDS: METOPROLOL TARTRATE 5 MG/5 ML VIAL IV SCH ×3 (05:16→18:22)
[2019-06-04] MEDS: METOCLOPRAMIDE 10 MG/2 ML VIAL IV SCH ×3 (05:17→18:19)
[2019-06-04] MEDS: POTASSIUM CHLORIDE RIDER 20 MEQ in PREMIX 1 EACH IV PRN (05:18)
[2019-06-04 05:30] LABS: Lymphocytes 3 % (20-55); Platelet Estimate Normal; Segmented Neutrophils 95 % (50-85); Total Cells Counted 100
[2019-06-04] MEDS: DEXMEDETOMIDINE 400 MCG in SODIUM CHLORIDE 0.9% 96 ML IV PRN ×2 (05:35→16:14)
[2019-06-04] MEDS: DORNASE ALFA 2.5 MG/2.5 ML VIAL RESP TX SCH ×2 (07:08→19:53)
[2019-06-04] MEDS: PANTOPRAZOLE 40 MG VIAL IV SCH ×2 (08:11→21:56)
[2019-06-04] MEDS: AMIODARONE 200 MG TABLET PO SCH ×3 (08:11→21:54)
[2019-06-04] MEDS ORDERED: LORazepam 2 MG/1 ML VIAL ONE (11:59)
[2019-06-04] MEDS: methylPREDNISolone SOD SUC 40 MG/1 ML VIAL IV SCH (12:18)
[2019-06-04] MEDS: ACYCLOVIR INJ 700 MG in SODIUM CHLORIDE 0.9% 250 ML IV SCH ×2 (12:19→18:28)
[2019-06-04] MEDS: FLUCONAZOLE INJ 200 MG in PREMIX 1 EACH IV SCH (16:15)
[2019-06-04] MEDS: AMINOPHYLLINE 500 MG in SODIUM CHLORIDE 0.9% 480 ML IV SCH (16:15)
[2019-06-05] MEDS: INSULIN LISPRO 100 UNIT/ML SUBCUT SCH ×4 (00:30→18:33)
[2019-06-05] MEDS: METOCLOPRAMIDE 10 MG/2 ML VIAL IV SCH ×4 (00:31→18:21)
[2019-06-05] MEDS: METOPROLOL TARTRATE 5 MG/5 ML VIAL IV SCH ×4 (00:33→18:15)
[2019-06-05] MEDS: LEVALBUTEROL 1.25 MG/3 ML NEB RESP TX SCH ×7 (00:50→23:50)
[2019-06-05] MEDS: DEXMEDETOMIDINE 400 MCG in SODIUM CHLORIDE 0.9% 96 ML IV PRN ×3 (01:29→17:38)
[2019-06-05] MEDS: ACYCLOVIR INJ 700 MG in SODIUM CHLORIDE 0.9% 250 ML IV SCH ×3 (03:04→18:30)
[2019-06-05] MEDS: AMINOPHYLLINE 500 MG in SODIUM CHLORIDE 0.9% 480 ML IV SCH (03:04)
[2019-06-05 03:29] LABS: Basophils % 0.1 % (0.0-0.8); Hematocrit 24.3 VOL% (42.0-52.0); Hemoglobin 7.9 GM/DL (14.0-18.0); Immature Granulocytes % 0.8 %; Lymphocytes # 0.3 10*3/uL (1.4-4.0); Lymphocytes % 2.4 % (21.2-54.2); Mean Corpuscular HGB Conc 32.5 GM/DL (32-36); Mean Corpuscular Volume 95.7 FL (87-102); Mean Platelet Volume 10.3 FL (9.6-12.0); Monocytes % 2.3 % (1.7-12.7); Neutrophils % 94.4 % (38.7-73.9); Platelet Count 230 T/CUMM (130-400); Red Blood Count 2.54 MC/CUMM (3.8-5.5); Red Cell Distribution Width 12.6 % (9.3-17.3); White Blood Count 13.1 T/CUMM (4-12)
[2019-06-05 04:16] LABS: ABG Base Excess 0.3 MMOL/L (-2.5-2.5); ABG HCO3 25.8 MMOL/L (20-26); ABG Oxygen Saturation 98.6 % (95-100); ABG PCO2 45.7 MM HG (35-48); ABG PH 7.369 (7.35-7.45); ABG PO2 150.6 MM HG (80-95); ABG TCO2 27.2 MMOL/L (23-27)
[2019-06-05 06:28] LABS: Band Neutrophils 2 % (0-10); Lymphocytes 2 % (20-55); Metamyelocytes 1 %; Segmented Neutrophils 93 % (50-85); Total Cells Counted 100
[2019-06-05 06:29] LABS: Hypochromasia 1+; Platelet Estimate Normal
[2019-06-05] MEDS: DORNASE ALFA 2.5 MG/2.5 ML VIAL RESP TX SCH ×2 (07:31→20:07)
[2019-06-05] MEDS: AMIODARONE 200 MG TABLET PO SCH ×3 (08:58→20:18)
[2019-06-05] MEDS: PANTOPRAZOLE 40 MG VIAL IV SCH ×2 (08:59→20:19)
[2019-06-05] MEDS: methylPREDNISolone SOD SUC 40 MG/1 ML VIAL IV SCH (12:02)
[2019-06-05] MEDS ORDERED: LORazepam 2 MG/1 ML VIAL ONE (14:36)
[2019-06-05] MEDS: LORazepam 2 MG/1 ML VIAL IV PRN (14:43)
[2019-06-05] MEDS: MICAFUNGIN 100 MG in SODIUM CHLORIDE 0.9% 100 ML IV SCH (14:47)
[2019-06-06] MEDS: INSULIN LISPRO 100 UNIT/ML SUBCUT SCH ×4 (00:04→18:18)
[2019-06-06] MEDS: LORazepam 2 MG/1 ML VIAL IV PRN ×4 (00:06→20:47)
[2019-06-06] MEDS: METOPROLOL TARTRATE 5 MG/5 ML VIAL IV SCH ×2 (00:08→06:37)
[2019-06-06] MEDS: METOCLOPRAMIDE 10 MG/2 ML VIAL IV SCH ×4 (00:13→18:19)
[2019-06-06] MEDS: ACYCLOVIR INJ 700 MG in SODIUM CHLORIDE 0.9% 250 ML IV SCH ×3 (02:52→18:22)
[2019-06-06] MEDS: DEXMEDETOMIDINE 400 MCG in SODIUM CHLORIDE 0.9% 96 ML IV PRN ×3 (03:12→19:57)
[2019-06-06 04:06] LABS: ABG Base Excess -0.1 MMOL/L (-2.5-2.5); ABG Oxygen Saturation 98.6 % (95-100); ABG PCO2 49.8 MM HG (35-48); ABG PH 7.336 (7.35-7.45); ABG PO2 148.4 MM HG (80-95); ABG TCO2 27.6 MMOL/L (23-27); Allen Test Positive; Pt O2 Delivery Device Ventilator
[2019-06-06] MEDS: LEVALBUTEROL 1.25 MG/3 ML NEB RESP TX SCH ×6 (04:12→22:29)
[2019-06-06 05:07] LABS: Basophils % 0.1 % (0.0-0.8); Hematocrit 25.4 VOL% (42.0-52.0); Hemoglobin 8.3 GM/DL (14.0-18.0); Immature Granulocytes % 0.6 %; Immature Granulocytes Absolute 0.12 #; Lymphocytes # 0.4 10*3/uL (1.4-4.0); Lymphocytes % 1.9 % (21.2-54.2); Mean Corpuscular HGB Conc 32.7 GM/DL (32-36); Mean Corpuscular Volume 94.4 FL (87-102); Mean Platelet Volume 10.9 FL (9.6-12.0); Monocytes % 2.4 % (1.7-12.7); Platelet Count 282 T/CUMM (130-400); Red Blood Count 2.69 MC/CUMM (3.8-5.5); Red Cell Distribution Width 12.4 % (9.3-17.3); White Blood Count 18.8 T/CUMM (4-12)
[2019-06-06 05:23] LABS: Calcium 7.4 MG/DL (8.5-10.1); Osmolality,Calculated 288.1 MOS/KG (273-304)
[2019-06-06 05:54] LABS: Band Neutrophils 1 % (0-10); Hypochromasia 2+; Lymphocytes 1 % (20-55); Platelet Estimate Normal; Segmented Neutrophils 96 % (50-85); Total Cells Counted 100
[2019-06-06] MEDS: AMINOPHYLLINE 500 MG in SODIUM CHLORIDE 0.9% 480 ML IV SCH (06:36)
[2019-06-06] MEDS: DORNASE ALFA 2.5 MG/2.5 ML VIAL RESP TX SCH ×2 (08:17→19:26)
[2019-06-06] MEDS ORDERED: MAGNESIUM SULF RIDER 2 GM in PREMIX 1 EACH IV ONE (09:21)
[2019-06-06] MEDS: PANTOPRAZOLE 40 MG VIAL IV SCH ×2 (09:28→20:50)
[2019-06-06] MEDS: AMIODARONE 200 MG TABLET PO SCH ×3 (09:28→20:47)
[2019-06-06] MEDS: methylPREDNISolone SOD SUC 40 MG/1 ML VIAL IV SCH (11:00)
[2019-06-06] MEDS ORDERED: LORazepam 2 MG/1 ML VIAL ONE (13:27)
[2019-06-06] MEDS: MICAFUNGIN 100 MG in SODIUM CHLORIDE 0.9% 100 ML IV SCH (15:19)
[2019-06-06] MEDS: METOPROLOL TARTRATE 5 MG/5 ML VIAL IV PRN ×2 (15:19→21:45)
[2019-06-07] MEDS: INSULIN LISPRO 100 UNIT/ML SUBCUT SCH ×4 (00:20→19:02)
[2019-06-07] MEDS: METOCLOPRAMIDE 10 MG/2 ML VIAL IV SCH ×4 (00:21→19:08)
[2019-06-07] MEDS: LEVALBUTEROL 1.25 MG/3 ML NEB RESP TX SCH ×5 (02:42→20:20)
[2019-06-07] MEDS: ACYCLOVIR INJ 700 MG in SODIUM CHLORIDE 0.9% 250 ML IV SCH ×3 (02:50→19:08)
[2019-06-07 03:37] LABS: Basophils % 0.1 % (0.0-0.8); Hematocrit 24.4 VOL% (42.0-52.0); Hemoglobin 8.2 GM/DL (14.0-18.0); Immature Granulocytes % 0.7 %; Immature Granulocytes Absolute 0.12 #; Lymphocytes # 0.4 10*3/uL (1.4-4.0); Lymphocytes % 2.6 % (21.2-54.2); Mean Corpuscular HGB Conc 33.6 GM/DL (32-36); Mean Corpuscular Volume 93.8 FL (87-102); Mean Platelet Volume 10.1 FL (9.6-12.0); Monocytes % 3.1 % (1.7-12.7); Neutrophils % 93.5 % (38.7-73.9); Platelet Count 280 T/CUMM (130-400); Red Cell Distribution Width 12.4 % (9.3-17.3); White Blood Count 16.6 T/CUMM (4-12)
[2019-06-07 03:43] LABS: ABG Base Excess 0.9 MMOL/L (-2.5-2.5); ABG HCO3 25.2 MMOL/L (20-26); ABG Oxygen Saturation 96.6 % (95-100); ABG PCO2 45.5 MM HG (35-48); ABG PH 7.371 (7.35-7.45); ABG PO2 85.8 MM HG (80-95); ABG TCO2 24.6 MMOL/L (23-27); Allen Test Positive; Pt O2 Delivery Device Ventilator
[2019-06-07 03:47] LABS: PT Patient Result 11.3 SECS (9.6-12.2); Partial Thromboplastin Time 27.4 SECS (20.8-36.0)
[2019-06-07 04:02] LABS: Calcium 7.7 MG/DL (8.5-10.1); Osmolality,Calculated 277.7 MOS/KG (273-304)
[2019-06-07 04:06] LABS: Prealbumin 14.5 MG/DL (20-40)
[2019-06-07] MEDS: LORazepam 2 MG/1 ML VIAL IV PRN ×3 (04:10→20:13)
[2019-06-07 04:23] LABS: Lymphocytes 4 % (20-55); Segmented Neutrophils 92 % (50-85); Total Cells Counted 100
[2019-06-07 04:25] LABS: Hypochromasia 1+; Platelet Estimate Normal; Reactive Lymphocytes Few
[2019-06-07] MEDS: AMINOPHYLLINE 500 MG in SODIUM CHLORIDE 0.9% 480 ML IV SCH (05:55)
[2019-06-07] MEDS: DEXMEDETOMIDINE 400 MCG in SODIUM CHLORIDE 0.9% 96 ML IV PRN ×2 (06:12→14:40)
[2019-06-07] MEDS: DORNASE ALFA 2.5 MG/2.5 ML VIAL RESP TX SCH ×2 (07:43→20:20)
[2019-06-07] MEDS: PANTOPRAZOLE 40 MG VIAL IV SCH ×2 (09:14→20:13)
[2019-06-07] MEDS: AMIODARONE 200 MG TABLET PO SCH ×3 (09:14→20:13)
[2019-06-07] MEDS ORDERED: MAGNESIUM SULF RIDER 4 GM in PREMIX 1 EACH IV PRN (09:54)
[2019-06-07] MEDS ORDERED: SODIUM CHLORIDE 0.9% 1,000 ML IV PRN (09:55)
[2019-06-07 10:37] LABS: Albumin 1.6 G/DL (3.4-5.0); Bilirubin,Direct 0.14 MG/DL (0.0-0.20); Bilirubin,Indirect 0.3 MG/DL (0.0-1.0); Bilirubin,Total 0.4 MG/DL (0.2-1.0); Total Protein 5.4 G/DL (6.4-8.3)
[2019-06-07] MEDS: methylPREDNISolone SOD SUC 40 MG/1 ML VIAL IV SCH (11:50)
[2019-06-07] MEDS: MICAFUNGIN 100 MG in SODIUM CHLORIDE 0.9% 100 ML IV SCH (14:39)
[2019-06-07 17:57] LABS: Hematocrit 31.8 VOL% (42.0-52.0)
[2019-06-07 17:59] LABS: Hemoglobin 10.7 GM/DL (14.0-18.0)
[2019-06-07] MEDS: METOPROLOL TARTRATE 50 MG TABLET PO SCH (20:13)
[2019-06-08] MEDS: LEVALBUTEROL 1.25 MG/3 ML NEB RESP TX SCH ×7 (00:33→23:17)
[2019-06-08] MEDS: INSULIN LISPRO 100 UNIT/ML SUBCUT SCH ×4 (00:33→18:36)
[2019-06-08] MEDS: METOCLOPRAMIDE 10 MG/2 ML VIAL IV SCH ×4 (01:06→18:36)
[2019-06-08] MEDS: DEXMEDETOMIDINE 400 MCG in SODIUM CHLORIDE 0.9% 96 ML IV PRN ×3 (01:24→23:30)
[2019-06-08] MEDS: ACYCLOVIR INJ 700 MG in SODIUM CHLORIDE 0.9% 250 ML IV SCH ×3 (03:22→22:35)
[2019-06-08 04:13] LABS: ABG Base Excess 0.7 MMOL/L (-2.5-2.5); ABG HCO3 25.1 MMOL/L (20-26); ABG Oxygen Saturation 97.7 % (95-100); ABG PCO2 42.4 MM HG (35-48); ABG PH 7.392 (7.35-7.45); ABG PO2 96.5 MM HG (80-95); Allen Test Positive; Pt O2 Delivery Device Ventilator
[2019-06-08 04:16] LABS: Basophils % 0.1 % (0.0-0.8); Hematocrit 29.5 VOL% (42.0-52.0); Hemoglobin 9.8 GM/DL (14.0-18.0); Immature Granulocytes % 0.4 %; Immature Granulocytes Absolute 0.05 #; Lymphocytes # 0.4 10*3/uL (1.4-4.0); Lymphocytes % 3.1 % (21.2-54.2); Mean Corpuscular HGB Conc 33.2 GM/DL (32-36); Mean Corpuscular Volume 88.3 FL (87-102); Mean Platelet Volume 10.7 FL (9.6-12.0); Neutrophils % 94.4 % (38.7-73.9); Platelet Count 238 T/CUMM (130-400); Red Blood Count 3.34 MC/CUMM (3.8-5.5); Red Cell Distribution Width 15.3 % (9.3-17.3); White Blood Count 12.4 T/CUMM (4-12)
[2019-06-08 04:18] LABS: INR 1.1; PT Patient Result 12.1 SECS (9.6-12.2); Partial Thromboplastin Time 29.7 SECS (20.8-36.0)
[2019-06-08 04:22] LABS: Calcium 7.8 MG/DL (8.5-10.1); Osmolality,Calculated 275.8 MOS/KG (273-304)
[2019-06-08 04:33] LABS: Albumin 1.5 G/DL (3.4-5.0); Bilirubin,Direct 0.24 MG/DL (0.0-0.20); Bilirubin,Indirect 0.5 MG/DL (0.0-1.0); Bilirubin,Total 0.7 MG/DL (0.2-1.0); Total Protein 5.1 G/DL (6.4-8.3)
[2019-06-08 04:46] LABS: Band Neutrophils 2 % (0-10); Hypochromasia Slight; Lymphocytes 3 % (20-55); Platelet Estimate Normal; Segmented Neutrophils 92 % (50-85); Total Cells Counted 100
[2019-06-08] MEDS: POTASSIUM CHLORIDE RIDER 20 MEQ in PREMIX 1 EACH IV PRN (04:48)
[2019-06-08] MEDS: MAGNESIUM SULF RIDER 2 GM in PREMIX 1 EACH IV PRN (04:48)
[2019-06-08] MEDS: AMINOPHYLLINE 500 MG in SODIUM CHLORIDE 0.9% 480 ML IV SCH (05:48)
[2019-06-08] MEDS: DORNASE ALFA 2.5 MG/2.5 ML VIAL RESP TX SCH ×2 (07:17→20:30)
[2019-06-08] MEDS: METOPROLOL TARTRATE 50 MG TABLET PO SCH ×2 (10:02→22:35)
[2019-06-08] MEDS: AMIODARONE 200 MG TABLET PO SCH ×3 (10:03→22:35)
[2019-06-08] MEDS: PANTOPRAZOLE 40 MG VIAL IV SCH ×2 (10:03→22:34)
[2019-06-08] MEDS: LORazepam 2 MG/1 ML VIAL IV PRN (13:14)
[2019-06-08] MEDS: methylPREDNISolone SOD SUC 40 MG/1 ML VIAL IV SCH (13:15)
[2019-06-08] MEDS: MICAFUNGIN 100 MG in SODIUM CHLORIDE 0.9% 100 ML IV SCH (15:04)
[2019-06-08] MEDS: ENOXAPARIN 60 MG/0.6 ML SYRINGE SUBCUT SCH (18:35)
[2019-06-09] MEDS: INSULIN LISPRO 100 UNIT/ML SUBCUT SCH ×4 (00:31→18:41)
[2019-06-09] MEDS: METOCLOPRAMIDE 10 MG/2 ML VIAL IV SCH ×4 (00:54→18:41)
[2019-06-09] MEDS: LEVALBUTEROL 1.25 MG/3 ML NEB RESP TX SCH ×6 (02:23→23:52)
[2019-06-09] MEDS: LORazepam 2 MG/1 ML VIAL IV PRN ×2 (04:30→20:49)
[2019-06-09 04:31] LABS: Basophils % 0.1 % (0.0-0.8); Hematocrit 29.6 VOL% (42.0-52.0); Hemoglobin 9.9 GM/DL (14.0-18.0); Immature Granulocytes % 0.6 %; Immature Granulocytes Absolute 0.06 #; Lymphocytes # 0.3 10*3/uL (1.4-4.0); Lymphocytes % 3.3 % (21.2-54.2); Mean Corpuscular HGB Conc 33.4 GM/DL (32-36); Mean Corpuscular Volume 89.4 FL (87-102); Mean Platelet Volume 10.5 FL (9.6-12.0); Monocytes % 2.3 % (1.7-12.7); Neutrophils % 93.7 % (38.7-73.9); Platelet Count 251 T/CUMM (130-400); Red Blood Count 3.31 MC/CUMM (3.8-5.5); Red Cell Distribution Width 14.5 % (9.3-17.3)
[2019-06-09 04:32] LABS: INR 1.1; PT Patient Result 11.8 SECS (9.6-12.2)
[2019-06-09 04:43] LABS: Calcium 7.7 MG/DL (8.5-10.1); Osmolality,Calculated 278.5 MOS/KG (273-304)
[2019-06-09 05:01] LABS: Albumin 1.6 G/DL (3.4-5.0); Bilirubin,Direct 0.23 MG/DL (0.0-0.20); Bilirubin,Indirect 0.4 MG/DL (0.0-1.0); Bilirubin,Total 0.6 MG/DL (0.2-1.0); Total Protein 4.6 G/DL (6.4-8.3)
[2019-06-09 05:14] LABS: Lymphocytes 4 % (20-55); Platelet Estimate Adequate; Segmented Neutrophils 95 % (50-85); Total Cells Counted 100
[2019-06-09 05:15] LABS: Hypochromasia 1+
[2019-06-09] MEDS: AMINOPHYLLINE 500 MG in SODIUM CHLORIDE 0.9% 480 ML IV SCH (05:19)
[2019-06-09] MEDS: ENOXAPARIN 60 MG/0.6 ML SYRINGE SUBCUT SCH ×2 (05:19→18:41)
[2019-06-09] MEDS: POTASSIUM CHLORIDE RIDER 20 MEQ in PREMIX 1 EACH IV PRN (05:27)
[2019-06-09] MEDS: MAGNESIUM SULF RIDER 2 GM in PREMIX 1 EACH IV PRN (05:31)
[2019-06-09] MEDS: ACYCLOVIR INJ 700 MG in SODIUM CHLORIDE 0.9% 250 ML IV SCH ×3 (05:35→22:30)
[2019-06-09 05:46] LABS: ABG HCO3 25.3 MMOL/L (20-26); ABG Oxygen Saturation 98.3 % (95-100); ABG PCO2 42.6 MM HG (35-48); ABG PH 7.393 (7.35-7.45); ABG TCO2 23.8 MMOL/L (23-27); Allen Test Positive; Pt O2 Delivery Device Ventilator
[2019-06-09] MEDS: DEXMEDETOMIDINE 400 MCG in SODIUM CHLORIDE 0.9% 96 ML IV PRN ×2 (08:30→17:27)
[2019-06-09] MEDS: DORNASE ALFA 2.5 MG/2.5 ML VIAL RESP TX SCH ×2 (08:38→20:05)
[2019-06-09] MEDS: AMIODARONE 200 MG TABLET PO SCH ×3 (10:07→20:49)
[2019-06-09] MEDS: TAMSULOSIN 0.4 MG CAPSULE PO SCH (10:07)
[2019-06-09] MEDS: methylPREDNISolone SOD SUC 40 MG/1 ML VIAL IV SCH (10:07)
[2019-06-09] MEDS: MONTELUKAST 10 MG TABLET PO SCH (10:07)
[2019-06-09] MEDS: METOPROLOL TARTRATE 50 MG TABLET PO SCH ×2 (10:08→20:49)
[2019-06-09] MEDS: PANTOPRAZOLE 40 MG VIAL IV SCH ×2 (10:18→20:52)
[2019-06-09] MEDS: MICAFUNGIN 100 MG in SODIUM CHLORIDE 0.9% 100 ML IV SCH (13:11)
[2019-06-09] MEDS ORDERED: MEROPENEM 500 MG in SODIUM CHLORIDE 0.9% 100 ML IV SCH (13:30)
[2019-06-09] MEDS: MEROPENEM 500 MG in SODIUM CHLORIDE 0.9% 100 ML IV SCH ×2 (15:26→20:52)
[2019-06-09] MEDS ORDERED: ENOXAPARIN 40 MG/0.4 ML SYRINGE SUBCUT SCH (18:00)
[2019-06-10] MEDS: METOCLOPRAMIDE 10 MG/2 ML VIAL IV SCH ×4 (01:02→18:00)
[2019-06-10] MEDS: INSULIN LISPRO 100 UNIT/ML SUBCUT SCH ×4 (01:10→18:00)
[2019-06-10] MEDS: LEVALBUTEROL 1.25 MG/3 ML NEB RESP TX SCH ×5 (03:22→19:40)
[2019-06-10 03:37] LABS: ABG HCO3 25.9 MMOL/L (20-26); ABG Oxygen Saturation 97.7 % (95-100); ABG PCO2 42.7 MM HG (35-48); ABG PH 7.401 (7.35-7.45); ABG PO2 109.3 MM HG (80-95); ABG TCO2 27.2 MMOL/L (23-27); Allen Test Positive; Pt O2 Delivery Device Ventilator
[2019-06-10] MEDS: DEXMEDETOMIDINE 400 MCG in SODIUM CHLORIDE 0.9% 96 ML IV PRN ×3 (03:42→22:56)
[2019-06-10] MEDS: MEROPENEM 500 MG in SODIUM CHLORIDE 0.9% 100 ML IV SCH ×4 (03:55→21:57)
[2019-06-10 04:14] LABS: Basophils % 0.1 % (0.0-0.8); Hematocrit 29.9 VOL% (42.0-52.0); Hemoglobin 9.9 GM/DL (14.0-18.0); Immature Granulocytes % 0.5 %; Immature Granulocytes Absolute 0.05 #; Lymphocytes # 0.4 10*3/uL (1.4-4.0); Lymphocytes % 4.5 % (21.2-54.2); Mean Corpuscular HGB Conc 33.1 GM/DL (32-36); Mean Corpuscular Volume 89.3 FL (87-102); Monocytes % 3.5 % (1.7-12.7); Neutrophils % 91.4 % (38.7-73.9); Platelet Count 274 T/CUMM (130-400); Red Blood Count 3.35 MC/CUMM (3.8-5.5); Red Cell Distribution Width 13.8 % (9.3-17.3); White Blood Count 9.3 T/CUMM (4-12)
[2019-06-10 04:18] LABS: Albumin 1.5 G/DL (3.4-5.0); Bilirubin,Total 0.5 MG/DL (0.2-1.0); Calcium 7.7 MG/DL (8.5-10.1); Total Protein 5.3 G/DL (6.4-8.3)
[2019-06-10 04:34] LABS: Prealbumin 14.1 MG/DL (20-40)
[2019-06-10 04:37] LABS: Band Neutrophils 1 % (0-10); Lymphocytes 5 % (20-55); Segmented Neutrophils 88 % (50-85); Total Cells Counted 100
[2019-06-10 04:38] LABS: Hypochromasia 1+; Platelet Estimate Adequate
[2019-06-10] MEDS: ENOXAPARIN 60 MG/0.6 ML SYRINGE SUBCUT SCH ×2 (05:18→18:00)
[2019-06-10] MEDS: POTASSIUM CHLORIDE RIDER 20 MEQ in PREMIX 1 EACH IV PRN (05:21)
[2019-06-10] MEDS: MAGNESIUM SULF RIDER 2 GM in PREMIX 1 EACH IV PRN (05:25)
[2019-06-10] MEDS: ACYCLOVIR INJ 700 MG in SODIUM CHLORIDE 0.9% 250 ML IV SCH ×3 (06:00→21:58)
[2019-06-10] MEDS: DORNASE ALFA 2.5 MG/2.5 ML VIAL RESP TX SCH (07:32)
[2019-06-10] MEDS: TAMSULOSIN 0.4 MG CAPSULE PO SCH (10:49)
[2019-06-10] MEDS: METOPROLOL TARTRATE 50 MG TABLET PO SCH ×2 (10:49→21:45)
[2019-06-10] MEDS: AMIODARONE 200 MG TABLET PO SCH ×3 (10:49→21:54)
[2019-06-10] MEDS: PANTOPRAZOLE 40 MG VIAL IV SCH ×2 (10:52→21:55)
[2019-06-10] MEDS: MONTELUKAST 10 MG TABLET PO SCH (10:55)
[2019-06-10] MEDS: methylPREDNISolone SOD SUC 40 MG/1 ML VIAL IV SCH (12:19)
[2019-06-10] MEDS: ACETYLCYSTEINE 20% 800 MG/4 ML VIAL RESP TX SCH ×2 (14:18→19:40)
[2019-06-10] MEDS: AMINOPHYLLINE 500 MG in SODIUM CHLORIDE 0.9% 480 ML IV SCH (15:29)
[2019-06-10] MEDS: MICAFUNGIN 100 MG in SODIUM CHLORIDE 0.9% 100 ML IV SCH (15:29)
[2019-06-11] MEDS: LEVALBUTEROL 1.25 MG/3 ML NEB RESP TX SCH ×6 (00:22→20:45)
[2019-06-11] MEDS: ACETYLCYSTEINE 20% 800 MG/4 ML VIAL RESP TX SCH ×4 (00:22→20:46)
[2019-06-11] MEDS: INSULIN LISPRO 100 UNIT/ML SUBCUT SCH ×4 (00:44→17:35)
[2019-06-11 03:34] LABS: ABG Base Excess 1.6 MMOL/L (-2.5-2.5); ABG HCO3 25.8 MMOL/L (20-26); ABG Oxygen Saturation 98.7 % (95-100); ABG PCO2 41.9 MM HG (35-48); ABG PH 7.408 (7.35-7.45); ABG TCO2 23.7 MMOL/L (23-27); Allen Test Positive; Pt O2 Delivery Device Ventilator
[2019-06-11] MEDS: MEROPENEM 500 MG in SODIUM CHLORIDE 0.9% 100 ML IV SCH ×4 (04:30→21:30)
[2019-06-11 04:42] LABS: Basophils % 0.2 % (0.0-0.8); Hematocrit 27.6 VOL% (42.0-52.0); Hemoglobin 9.2 GM/DL (14.0-18.0); Immature Granulocytes % 0.5 %; Immature Granulocytes Absolute 0.03 #; Lymphocytes # 0.3 10*3/uL (1.4-4.0); Lymphocytes % 5.1 % (21.2-54.2); Mean Corpuscular HGB Conc 33.3 GM/DL (32-36); Mean Corpuscular Volume 90.5 FL (87-102); Mean Platelet Volume 9.7 FL (9.6-12.0); Monocytes % 4.9 % (1.7-12.7); NRBC # 0.02 10*3/uL; Neutrophils % 89.3 % (38.7-73.9); Platelet Count 252 T/CUMM (130-400); Red Blood Count 3.05 MC/CUMM (3.8-5.5); Red Cell Distribution Width 13.6 % (9.3-17.3); White Blood Count 5.9 T/CUMM (4-12)
[2019-06-11 05:04] LABS: INR 1.1; PT Patient Result 11.4 SECS (9.6-12.2); Partial Thromboplastin Time 30.1 SECS (20.8-36.0)
[2019-06-11 05:11] LABS: Band Neutrophils 1 % (0-10); Hypochromasia 1+; Lymphocytes 5 % (20-55); Platelet Estimate Adequate; Segmented Neutrophils 92 % (50-85); Total Cells Counted 100
[2019-06-11 05:16] LABS: Albumin 1.6 G/DL (3.4-5.0); Bilirubin,Total 0.5 MG/DL (0.2-1.0); Calcium 7.6 MG/DL (8.5-10.1); Osmolality,Calculated 266.4 MOS/KG (273-304)
[2019-06-11] MEDS: METOCLOPRAMIDE 10 MG/2 ML VIAL IV SCH ×4 (05:58→18:17)
[2019-06-11] MEDS: ACYCLOVIR INJ 700 MG in SODIUM CHLORIDE 0.9% 250 ML IV SCH (06:00)
[2019-06-11] MEDS: ENOXAPARIN 60 MG/0.6 ML SYRINGE SUBCUT SCH ×2 (06:00→18:17)
[2019-06-11] MEDS: DEXMEDETOMIDINE 400 MCG in SODIUM CHLORIDE 0.9% 96 ML IV PRN (06:41)
[2019-06-11] MEDS: AMINOPHYLLINE 500 MG in SODIUM CHLORIDE 0.9% 480 ML IV SCH (08:02)
[2019-06-11] MEDS: POTASSIUM CHLORIDE RIDER 20 MEQ in PREMIX 1 EACH IV PRN (08:17)
[2019-06-11] MEDS ORDERED: DEXTROSE 10% 250 ML BAG IV PRN (11:58)
[2019-06-11 12:57] LABS: ABG Base Excess 0.2 MMOL/L (-2.5-2.5); ABG HCO3 24.6 MMOL/L (20-26); ABG Oxygen Saturation 94.7 % (95-100); ABG PH 7.373 (7.35-7.45); ABG PO2 73.5 MM HG (80-95); ABG TCO2 23.3 MMOL/L (23-27); Allen Test Positive
[2019-06-11] MEDS: AMIODARONE 200 MG TABLET PO SCH ×3 (14:31→21:33)
[2019-06-11] MEDS: TAMSULOSIN 0.4 MG CAPSULE PO SCH (14:32)
[2019-06-11] MEDS: ALPRAZolam 0.25 MG TABLET PER TUBE SCH ×2 (14:32→21:29)
[2019-06-11] MEDS: methylPREDNISolone SOD SUC 40 MG/1 ML VIAL IV SCH (15:07)
[2019-06-11] MEDS: MICAFUNGIN 100 MG in SODIUM CHLORIDE 0.9% 100 ML IV SCH (15:07)
[2019-06-11] MEDS: MONTELUKAST 10 MG TABLET PO SCH (15:19)
[2019-06-11] MEDS: PANTOPRAZOLE 40 MG VIAL IV SCH ×3 (15:22→21:30)
[2019-06-11] MEDS: METOPROLOL TARTRATE 50 MG TABLET PO SCH ×2 (16:06→21:31)
[2019-06-12] MEDS: INSULIN LISPRO 100 UNIT/ML SUBCUT SCH ×4 (00:12→18:05)
[2019-06-12] MEDS: METOCLOPRAMIDE 10 MG/2 ML VIAL IV SCH ×4 (00:13→18:13)
[2019-06-12] MEDS: LEVALBUTEROL 1.25 MG/3 ML NEB RESP TX SCH ×6 (00:37→19:46)
[2019-06-12] MEDS: ACETYLCYSTEINE 20% 800 MG/4 ML VIAL RESP TX SCH ×4 (00:37→19:46)
[2019-06-12] MEDS: AMINOPHYLLINE 500 MG in SODIUM CHLORIDE 0.9% 480 ML IV SCH ×2 (00:39→06:08)
[2019-06-12 04:18] LABS: ABG Base Excess -0.4 MMOL/L (-2.5-2.5); ABG Oxygen Saturation 96.8 % (95-100); ABG PCO2 44.8 MM HG (35-48); ABG PH 7.359 (7.35-7.45); ABG PO2 88.4 MM HG (80-95); ABG TCO2 22.8 MMOL/L (23-27); Pt O2 Delivery Device Venturi Mask
[2019-06-12] MEDS: MEROPENEM 500 MG in SODIUM CHLORIDE 0.9% 100 ML IV SCH ×3 (04:30→15:49)
[2019-06-12 05:00] LABS: Albumin 1.8 G/DL (3.4-5.0); Bilirubin,Total 0.6 MG/DL (0.2-1.0); Calcium 8.1 MG/DL (8.5-10.1); Osmolality,Calculated 266.2 MOS/KG (273-304); Total Protein 5.8 G/DL (6.4-8.3)
[2019-06-12 05:21] LABS: Basophils % 0.1 % (0.0-0.8); Hematocrit 31.8 VOL% (42.0-52.0); Hemoglobin 10.6 GM/DL (14.0-18.0); Immature Granulocytes % 0.1 %; Immature Granulocytes Absolute 0.01 #; Lymphocytes # 0.2 10*3/uL (1.4-4.0); Lymphocytes % 3.2 % (21.2-54.2); Mean Corpuscular HGB Conc 33.3 GM/DL (32-36); Mean Corpuscular Volume 90.1 FL (87-102); Mean Platelet Volume 10.3 FL (9.6-12.0); Monocytes % 3.7 % (1.7-12.7); Neutrophils % 92.9 % (38.7-73.9); Platelet Count 323 T/CUMM (130-400); Red Blood Count 3.53 MC/CUMM (3.8-5.5); Red Cell Distribution Width 13.7 % (9.3-17.3); White Blood Count 7.3 T/CUMM (4-12)
[2019-06-12 05:39] LABS: Anisocytosis 1+; Band Neutrophils 1 % (0-10); Hypochromasia 1+; Lymphocytes 5 % (20-55); Segmented Neutrophils 89 % (50-85); Total Cells Counted 100
[2019-06-12 05:40] LABS: Platelet Estimate Adequate
[2019-06-12] MEDS: ENOXAPARIN 60 MG/0.6 ML SYRINGE SUBCUT SCH (05:44)
[2019-06-12] MEDS: POTASSIUM CHLORIDE RIDER 20 MEQ in PREMIX 1 EACH IV PRN (05:44)
[2019-06-12] MEDS: PANTOPRAZOLE 40 MG VIAL IV SCH ×2 (10:15→21:21)
[2019-06-12] MEDS: TAMSULOSIN 0.4 MG CAPSULE PO SCH (10:17)
[2019-06-12] MEDS: MONTELUKAST 10 MG TABLET PO SCH (10:17)
[2019-06-12] MEDS: METOPROLOL TARTRATE 50 MG TABLET PO SCH ×2 (10:18→21:21)
[2019-06-12] MEDS: AMIODARONE 200 MG TABLET PO SCH ×3 (10:19→21:22)
[2019-06-12] MEDS: ALPRAZolam 0.25 MG TABLET PER TUBE SCH ×2 (10:43→21:22)
[2019-06-12] MEDS: methylPREDNISolone SOD SUC 40 MG/1 ML VIAL IV SCH (11:43)
[2019-06-12] MEDS: MICAFUNGIN 100 MG in SODIUM CHLORIDE 0.9% 100 ML IV SCH (15:49)
[2019-06-12] MEDS: FUROSEMIDE 20 MG/2 ML VIAL IV SCH (15:50)
[2019-06-12] MEDS: cefTRIAXone 1,000 MG in SYRINGE 1 EACH IV SCH (18:13)
[2019-06-12] MEDS: APIXABAN 5 MG TABLET PO SCH (21:22)
[2019-06-12] MEDS: THEOPHYLLINE 5.33 MG/ML 30 ML/BOTTLE PO SCH (21:24)
[2019-06-13] MEDS: LEVALBUTEROL 1.25 MG/3 ML NEB RESP TX SCH ×6 (00:03→20:05)
[2019-06-13] MEDS: ACETYLCYSTEINE 20% 800 MG/4 ML VIAL RESP TX SCH ×4 (00:03→20:05)
[2019-06-13] MEDS: METOCLOPRAMIDE 10 MG/2 ML VIAL IV SCH ×4 (00:29→18:47)
[2019-06-13] MEDS: INSULIN LISPRO 100 UNIT/ML SUBCUT SCH ×4 (00:29→18:27)
[2019-06-13 04:05] LABS: ABG Base Excess 1.7 MMOL/L (-2.5-2.5); ABG HCO3 25.9 MMOL/L (20-26); ABG Oxygen Saturation 98.7 % (95-100); ABG PCO2 53.8 MM HG (35-48); ABG PH 7.333 (7.35-7.45); ABG TCO2 25.9 MMOL/L (23-27)
[2019-06-13 05:02] LABS: Basophils % 0.2 % (0.0-0.8); Hematocrit 30.9 VOL% (42.0-52.0); Hemoglobin 10.2 GM/DL (14.0-18.0); Immature Granulocytes % 0.5 %; Immature Granulocytes Absolute 0.03 #; Lymphocytes # 0.4 10*3/uL (1.4-4.0); Mean Corpuscular Volume 90.1 FL (87-102); Mean Platelet Volume 9.5 FL (9.6-12.0); Monocytes % 7.5 % (1.7-12.7); Neutrophils % 84.8 % (38.7-73.9); Platelet Count 315 T/CUMM (130-400); Red Blood Count 3.43 MC/CUMM (3.8-5.5); Red Cell Distribution Width 13.5 % (9.3-17.3); White Blood Count 5.7 T/CUMM (4-12)
[2019-06-13 05:29] LABS: Albumin 1.7 G/DL (3.4-5.0); Bilirubin,Total 0.4 MG/DL (0.2-1.0); Calcium 7.8 MG/DL (8.5-10.1); Osmolality,Calculated 261.7 MOS/KG (273-304); Total Protein 5.4 G/DL (6.4-8.3)
[2019-06-13] MEDS: THEOPHYLLINE 5.33 MG/ML 30 ML/BOTTLE PO SCH ×3 (06:01→21:59)
[2019-06-13] MEDS: PANTOPRAZOLE 40 MG VIAL IV SCH ×2 (09:14→20:27)
[2019-06-13] MEDS: FUROSEMIDE 20 MG/2 ML VIAL IV SCH ×2 (09:14→16:18)
[2019-06-13] MEDS: MONTELUKAST 10 MG TABLET PO SCH (09:15)
[2019-06-13] MEDS: METOPROLOL TARTRATE 50 MG TABLET PO SCH ×2 (09:16→20:26)
[2019-06-13] MEDS: TAMSULOSIN 0.4 MG CAPSULE PO SCH (09:16)
[2019-06-13] MEDS: APIXABAN 5 MG TABLET PO SCH ×2 (09:16→20:26)
[2019-06-13] MEDS: AMIODARONE 200 MG TABLET PO SCH ×3 (09:17→20:26)
[2019-06-13] MEDS: POTASSIUM CHLORIDE RIDER 20 MEQ in PREMIX 1 EACH IV PRN (09:20)
[2019-06-13] MEDS ORDERED: POTASSIUM CHLORIDE 20 MEQ TABLET PO SCH (10:30)
[2019-06-13] MEDS: methylPREDNISolone SOD SUC 40 MG/1 ML VIAL IV SCH (11:44)
[2019-06-13] MEDS: ALPRAZolam 0.25 MG TABLET PER TUBE SCH ×2 (11:48→20:26)
[2019-06-13] MEDS: POTASSIUM CHLORIDE 20 MEQ/15 ML UDCUP PO SCH ×2 (12:37→20:26)
[2019-06-13] MEDS: cefTRIAXone 1,000 MG in SYRINGE 1 EACH IV SCH (16:18)
[2019-06-14] MEDS: LEVALBUTEROL 1.25 MG/3 ML NEB RESP TX SCH ×7 (00:03→22:35)
[2019-06-14] MEDS: ACETYLCYSTEINE 20% 800 MG/4 ML VIAL RESP TX SCH ×4 (00:03→19:50)
[2019-06-14] MEDS: METOCLOPRAMIDE 10 MG/2 ML VIAL IV SCH ×4 (00:31→18:51)
[2019-06-14] MEDS: INSULIN LISPRO 100 UNIT/ML SUBCUT SCH ×4 (00:35→18:50)
[2019-06-14 03:39] LABS: ABG Base Excess 3.7 MMOL/L (-2.5-2.5); ABG HCO3 27.8 MMOL/L (20-26); ABG Oxygen Saturation 91.6 % (95-100); ABG PCO2 40.5 MM HG (35-48); ABG PH 7.455 (7.35-7.45); ABG PO2 59.5 MM HG (80-95); ABG TCO2 29.1 MMOL/L (23-27); Pt O2 Delivery Device Room Air
[2019-06-14 05:43] LABS: Basophils % 0.5 % (0.0-0.8); Eosinophils % 0.2 % (0.00-10.9); Hematocrit 33.9 VOL% (42.0-52.0); Hemoglobin 11.4 GM/DL (14.0-18.0); Immature Granulocytes % 0.3 %; Immature Granulocytes Absolute 0.02 #; Lymphocytes # 0.4 10*3/uL (1.4-4.0); Lymphocytes % 6.1 % (21.2-54.2); Mean Corpuscular HGB Conc 33.6 GM/DL (32-36); Mean Corpuscular Volume 88.5 FL (87-102); Mean Platelet Volume 9.6 FL (9.6-12.0); Monocytes % 9.1 % (1.7-12.7); Neutrophils % 83.8 % (38.7-73.9); Platelet Count 391 T/CUMM (130-400); Red Blood Count 3.83 MC/CUMM (3.8-5.5); Red Cell Distribution Width 13.4 % (9.3-17.3); White Blood Count 6.6 T/CUMM (4-12)
[2019-06-14] MEDS: THEOPHYLLINE 5.33 MG/ML 30 ML/BOTTLE PO SCH ×3 (05:58→21:32)
[2019-06-14 05:59] LABS: Bilirubin,Total 0.4 MG/DL (0.2-1.0); Calcium 8.4 MG/DL (8.5-10.1); Osmolality,Calculated 262.7 MOS/KG (273-304); Total Protein 6.1 G/DL (6.4-8.3)
[2019-06-14] MEDS: POTASSIUM CHLORIDE RIDER 20 MEQ in PREMIX 1 EACH IV PRN (06:21)
[2019-06-14] MEDS: AMIODARONE 200 MG TABLET PO SCH ×3 (08:35→21:31)
[2019-06-14] MEDS: ALPRAZolam 0.25 MG TABLET PER TUBE SCH ×2 (08:35→21:31)
[2019-06-14] MEDS: APIXABAN 5 MG TABLET PO SCH ×2 (08:35→21:31)
[2019-06-14] MEDS: MONTELUKAST 10 MG TABLET PO SCH (08:35)
[2019-06-14] MEDS: TAMSULOSIN 0.4 MG CAPSULE PO SCH (08:35)
[2019-06-14] MEDS: METOPROLOL TARTRATE 50 MG TABLET PO SCH ×2 (08:35→21:32)
[2019-06-14] MEDS: PANTOPRAZOLE 40 MG VIAL IV SCH ×2 (08:38→21:31)
[2019-06-14] MEDS: FUROSEMIDE 20 MG/2 ML VIAL IV SCH ×2 (08:42→16:35)
[2019-06-14] MEDS: POTASSIUM CHLORIDE 20 MEQ/15 ML UDCUP PO SCH ×2 (09:30→21:32)
[2019-06-14 09:43] VITALS: BP 171/90
[2019-06-14] MEDS: methylPREDNISolone SOD SUC 40 MG/1 ML VIAL IV SCH (12:42)
[2019-06-14] MEDS: cefTRIAXone 1,000 MG in SYRINGE 1 EACH IV SCH (16:42)
[2019-06-15] MEDS: INSULIN LISPRO 100 UNIT/ML SUBCUT SCH ×2 (00:30→07:01)
[2019-06-15] MEDS: METOCLOPRAMIDE 10 MG/2 ML VIAL IV SCH ×4 (00:31→17:28)
[2019-06-15] MEDS: ACETYLCYSTEINE 20% 800 MG/4 ML VIAL RESP TX SCH ×3 (01:00→13:30)
[2019-06-15] MEDS: LEVALBUTEROL 1.25 MG/3 ML NEB RESP TX SCH ×4 (02:18→14:00)
[2019-06-15 02:57] LABS: ABG Base Excess 3.7 MMOL/L (-2.5-2.5); ABG HCO3 27.6 MMOL/L (20-26); ABG Oxygen Saturation 96.4 % (95-100); ABG PCO2 41.7 MM HG (35-48); ABG PH 7.438 (7.35-7.45); ABG PO2 83.1 MM HG (80-95); ABG TCO2 24.8 MMOL/L (23-27); Allen Test Positive
[2019-06-15 04:24] LABS: Basophils % 0.3 % (0.0-0.8); Hematocrit 34.2 VOL% (42.0-52.0); Hemoglobin 11.5 GM/DL (14.0-18.0); Immature Granulocytes % 0.4 %; Immature Granulocytes Absolute 0.03 #; Lymphocytes # 0.4 10*3/uL (1.4-4.0); Lymphocytes % 5.7 % (21.2-54.2); Mean Corpuscular HGB Conc 33.6 GM/DL (32-36); Mean Corpuscular Volume 87.5 FL (87-102); Mean Platelet Volume 9.5 FL (9.6-12.0); Monocytes % 10.3 % (1.7-12.7); Neutrophils % 83.3 % (38.7-73.9); Platelet Count 434 T/CUMM (130-400); Red Blood Count 3.91 MC/CUMM (3.8-5.5); Red Cell Distribution Width 13.9 % (9.3-17.3); White Blood Count 6.7 T/CUMM (4-12)
[2019-06-15 04:49] LABS: Calcium 8.5 MG/DL (8.5-10.1); Osmolality,Calculated 269.2 MOS/KG (273-304)
[2019-06-15 06:12] LABS: Band Neutrophils 2 % (0-10); Lymphocytes 4 % (20-55); Segmented Neutrophils 89 % (50-85); Total Cells Counted 100
[2019-06-15 06:13] LABS: Hypochromasia 1+; Microcytosis Slight; Platelet Estimate Increased
[2019-06-15] MEDS: MAGNESIUM SULF RIDER 2 GM in PREMIX 1 EACH IV PRN (06:47)
[2019-06-15] MEDS: POTASSIUM CHLORIDE RIDER 20 MEQ in PREMIX 1 EACH IV PRN (06:49)
[2019-06-15] MEDS ORDERED: METOPROLOL TARTRATE 50 MG TABLET PO SCH (09:00)
[2019-06-15] MEDS: FUROSEMIDE 20 MG/2 ML VIAL IV SCH (09:07)
[2019-06-15] MEDS: TAMSULOSIN 0.4 MG CAPSULE PO SCH (09:28)
[2019-06-15] MEDS: ALPRAZolam 0.25 MG TABLET PER TUBE SCH (09:28)
[2019-06-15] MEDS: MONTELUKAST 10 MG TABLET PO SCH (09:29)
[2019-06-15] MEDS: POTASSIUM CHLORIDE 20 MEQ/15 ML UDCUP PO SCH (09:29)
[2019-06-15] MEDS: AMIODARONE 200 MG TABLET PO SCH ×2 (09:29→15:49)
[2019-06-15] MEDS: APIXABAN 5 MG TABLET PO SCH (09:29)
[2019-06-15] MEDS: PANTOPRAZOLE 40 MG VIAL IV SCH (09:30)
[2019-06-15] MEDS ORDERED: DEXTROSE 5% NACL 0.45% 1,000 ML IV SCH (09:30)
[2019-06-15] MEDS: THEOPHYLLINE 5.33 MG/ML 30 ML/BOTTLE PO SCH ×2 (09:30→15:49)
[2019-06-15] MEDS: methylPREDNISolone SOD SUC 40 MG/1 ML VIAL IV SCH (12:18)
[2019-06-15] MEDS: cefTRIAXone 1,000 MG in SYRINGE 1 EACH IV SCH (17:28)
== END 2019-06-15 18:40 | DRG 870 ==
LOC: N.ED 15:00 → N.EDINP 17:44 → SUATTDRO 17:44 → N.5E 18:14 → N.CC 05-23 08:53
PROVIDERS: ADMIT Internal Medicine; ATTEND Internal Medicine

== ENCOUNTER 2019-06-15 21:08 | Inpatient (IN) ==
[2019-06-15] MEDS ORDERED: CIPROFLOXACIN IV ONE (22:55)
[2019-06-15] MEDS ORDERED: metroNIDAZOLE INJ 500 MG in PREMIX 1 EACH IV ONE (22:56)
[2019-06-15] MEDS ORDERED: POTASSIUM CHLORIDE RIDER 10 MEQ in PREMIX 1 EACH IV PRN (23:00)
[2019-06-15] MEDS ORDERED: PANTOPRAZOLE 40 MG VIAL IV SCH (23:00)
[2019-06-15] MEDS ORDERED: POTASSIUM CHLORIDE RIDER 20 MEQ in PREMIX 1 EACH IV PRN (23:00)
[2019-06-15] MEDS ORDERED: MAGNESIUM SULF RIDER 2 GM in PREMIX 1 EACH IV PRN (23:00)
[2019-06-15] MEDS ORDERED: MAGNESIUM SULF RIDER 4 GM in PREMIX 1 EACH IV PRN (23:00)
[2019-06-15 23:02] LABS: Basophils % 0.4 % (0.0-0.8); Hematocrit 36.2 VOL% (42.0-52.0); Hemoglobin 12.2 GM/DL (14.0-18.0); Immature Granulocytes % 0.7 %; Immature Granulocytes Absolute 0.05 #; Lymphocytes # 0.2 10*3/uL (1.4-4.0); Lymphocytes % 2.9 % (21.2-54.2); Mean Corpuscular HGB Conc 33.7 GM/DL (32-36); Mean Corpuscular Volume 88.9 FL (87-102); Mean Platelet Volume 9.1 FL (9.6-12.0); Monocytes % 5.5 % (1.7-12.7); Neutrophils % 90.5 % (38.7-73.9); Platelet Count 448 T/CUMM (130-400); Red Blood Count 4.07 MC/CUMM (3.8-5.5); Red Cell Distribution Width 14.1 % (9.3-17.3); White Blood Count 7.7 T/CUMM (4-12)
[2019-06-15 23:11] LABS: INR 1.1; PT Patient Result 12.2 SECS (9.6-12.2); Partial Thromboplastin Time 26.4 SECS (20.8-36.0)
[2019-06-15 23:24] LABS: Calcium 8.6 MG/DL (8.5-10.1); Osmolality,Calculated 275.5 MOS/KG (273-304)
[2019-06-15] MEDS ORDERED: TISSUE ADHESIVE 1 EACH APPLICATOR TOP ONE (23:24)
[2019-06-15] MEDS ORDERED: LIDOCAINE 1% 20 ML VIAL ONE (23:24)
[2019-06-15] MEDS ORDERED: BUPIVACAINE 0.25% /EPI 10 ML VIAL ONE (23:24)
[2019-06-16] MEDS ORDERED: NOREPINEPHRINE 4 MG/4 ML VIAL IV ONE ×2 (00:01→23:19)
[2019-06-16 00:25] LABS: Band Neutrophils 3 % (0-10); Lymphocytes 3 % (20-55); Segmented Neutrophils 87 % (50-85); Total Cells Counted 100
[2019-06-16 00:26] LABS: Anisocytosis 1+; Platelet Estimate Normal
[2019-06-16] MEDS: NOREPINEPHRINE 8 MG in SODIUM CHLORIDE 0.9% 242 ML IV PRN ×2 (00:55→23:21)
[2019-06-16] MEDS ORDERED: propofoL 200 MG/20 ML VIAL IV ONE (01:16)
[2019-06-16] MEDS ORDERED: CALCIUM CHLORIDE 1,000 MG/10 ML VIAL IV ONE (01:16)
[2019-06-16] MEDS ORDERED: DESFLURANE 1 UNIT/15 MINUTE INH ONE (01:16)
[2019-06-16] MEDS ORDERED: LIDOCAINE 100 MG/5 ML SYRINGE ONE (01:16)
[2019-06-16] MEDS ORDERED: ALBUMIN 5% 12.5 GM/250 ML VIAL IV ONE (01:16)
[2019-06-16] MEDS ORDERED: fentaNYL 100 MCG/2 ML VIAL ONE (01:17)
[2019-06-16] MEDS ORDERED: HYDROCORTISONE 100 MG VIAL ONE (01:17)
[2019-06-16] MEDS ORDERED: MIDAZOLAM 10 MG/2 ML VIAL ONE (01:17)
[2019-06-16] MEDS ORDERED: LACTATED RINGERS 1,000 ML IV ONE ×2 (01:17→03:51)
[2019-06-16] MEDS ORDERED: SUCCINYLCHOLINE 200 MG/10 ML VIAL ONE (01:17)
[2019-06-16] MEDS ORDERED: EPINEPHrine 1 MG/ML VIAL ONE (01:17)
[2019-06-16] MEDS ORDERED: ROCURONIUM 100 MG/10 ML VIAL IV ONE (01:17)
[2019-06-16] MEDS ORDERED: PHENYLEPHRINE 1 MG/10 ML SYRINGE IV ONE (01:17)
[2019-06-16] MEDS ORDERED: SODIUM CHLORIDE 0.9% 250 ML IV ONE (01:17)
[2019-06-16] MEDS ORDERED: PROMETHAZINE 25 MG/1 ML VIAL IM PRN (01:19)
[2019-06-16] MEDS ORDERED: ONDANSETRON 4 MG/2 ML VIAL IV PRN (01:19)
[2019-06-16] MEDS ORDERED: HYDROmorphone 2 MG/1 ML VIAL IV PRN (01:19)
[2019-06-16 01:41] LABS: ABG Base Excess 0.5 MMOL/L (-2.5-2.5); ABG HCO3 24.8 MMOL/L (20-26); ABG PCO2 41.9 MM HG (35-48); ABG PH 7.391 (7.35-7.45); ABG TCO2 23.3 MMOL/L (23-27)
[2019-06-16 01:48] LABS: Basophils % 0.2 % (0.0-0.8); Hematocrit 26.2 VOL% (42.0-52.0); Hemoglobin 8.8 GM/DL (14.0-18.0); Immature Granulocytes % 0.7 %; Immature Granulocytes Absolute 0.03 #; Lymphocytes # 0.2 10*3/uL (1.4-4.0); Lymphocytes % 3.8 % (21.2-54.2); Mean Corpuscular HGB Conc 33.6 GM/DL (32-36); Mean Corpuscular Volume 89.4 FL (87-102); Mean Platelet Volume 9.2 FL (9.6-12.0); Monocytes % 4.5 % (1.7-12.7); Neutrophils % 90.8 % (38.7-73.9); Platelet Count 304 T/CUMM (130-400); Red Blood Count 2.93 MC/CUMM (3.8-5.5); White Blood Count 4.2 T/CUMM (4-12)
[2019-06-16 01:51] LABS: Calcium 8.6 MG/DL (8.5-10.1)
[2019-06-16] MEDS: LACTATED RINGERS 1,000 ML IV SCH ×3 (01:53→18:28)
[2019-06-16 02:34] LABS: Band Neutrophils 6 % (0-10); Lymphocytes 2 % (20-55); Myelocytes 2 %; Segmented Neutrophils 86 % (50-85); Total Cells Counted 100
[2019-06-16 02:36] LABS: Anisocytosis 1+; Platelet Estimate Adequate
[2019-06-16 03:57] LABS: Basophils % 0.2 % (0.0-0.8); Hematocrit 30.1 VOL% (42.0-52.0); Hemoglobin 9.9 GM/DL (14.0-18.0); Immature Granulocytes % 0.5 %; Immature Granulocytes Absolute 0.05 #; Lymphocytes # 0.2 10*3/uL (1.4-4.0); Lymphocytes % 2.3 % (21.2-54.2); Mean Corpuscular HGB Conc 32.9 GM/DL (32-36); Mean Corpuscular Volume 89.3 FL (87-102); Mean Platelet Volume 9.4 FL (9.6-12.0); Monocytes % 3.1 % (1.7-12.7); Neutrophils % 93.9 % (38.7-73.9); Platelet Count 393 T/CUMM (130-400); Red Blood Count 3.37 MC/CUMM (3.8-5.5); Red Cell Distribution Width 14.3 % (9.3-17.3); White Blood Count 9.3 T/CUMM (4-12)
[2019-06-16 03:58] LABS: ABG Base Excess 0.1 MMOL/L (-2.5-2.5); ABG HCO3 24.5 MMOL/L (20-26); ABG Oxygen Saturation 98.2 % (95-100); ABG PCO2 45.9 MM HG (35-48); ABG PH 7.359 (7.35-7.45); ABG TCO2 23.5 MMOL/L (23-27)
[2019-06-16 04:10] LABS: Calcium 8.9 MG/DL (8.5-10.1); Osmolality,Calculated 282.1 MOS/KG (273-304)
[2019-06-16 04:28] LABS: Band Neutrophils 5 % (0-10); Hypochromasia 1+; Lymphocytes 2 % (20-55); Platelet Estimate Adequate; Segmented Neutrophils 90 % (50-85); Total Cells Counted 100
[2019-06-16] MEDS: metroNIDAZOLE INJ 500 MG in PREMIX 1 EACH IV SCH ×2 (07:04→15:50)
[2019-06-16] MEDS ORDERED: ALBUTEROL 2.5 MG/3 ML NEB RESP TX PRN (07:25)
[2019-06-16] MEDS: POTASSIUM CHLORIDE 20 MEQ/15 ML UDCUP PO SCH ×2 (08:35→20:26)
[2019-06-16] MEDS: METOPROLOL TARTRATE 50 MG TABLET PO SCH ×2 (08:36→20:26)
[2019-06-16] MEDS: AMIODARONE 200 MG TABLET PO SCH ×3 (08:36→20:26)
[2019-06-16] MEDS: TAMSULOSIN 0.4 MG CAPSULE PO SCH (08:36)
[2019-06-16] MEDS: MONTELUKAST 10 MG TABLET PO SCH (08:36)
[2019-06-16] MEDS: methylPREDNISolone SOD SUC 40 MG/1 ML VIAL IV SCH (08:36)
[2019-06-16] MEDS: ALPRAZolam 0.25 MG TABLET PO SCH ×2 (08:36→20:26)
[2019-06-16] MEDS: FAMOTIDINE 20 MG/2 ML VIAL IV SCH ×2 (08:37→20:26)
[2019-06-16] MEDS: AMINOPHYLLINE 500 MG in SODIUM CHLORIDE 0.9% 480 ML IV SCH (10:48)
[2019-06-16] MEDS: ALBUTEROL 2.5 MG/3 ML NEB RESP TX SCH ×3 (11:38→19:15)
[2019-06-16] MEDS: METOCLOPRAMIDE 10 MG/2 ML VIAL IV SCH ×2 (12:07→18:28)
[2019-06-16] MEDS ORDERED: ACETYLCYSTEINE 20% 6,000 MG/30 ML VIAL RESP TX SCH (13:00)
[2019-06-16] MEDS ORDERED: THEOPHYLLINE 5.33 MG/ML 30 ML/BOTTLE PO SCH (14:00)
[2019-06-16] MEDS: ACETYLCYSTEINE 20% 800 MG/4 ML VIAL RESP TX SCH (19:15)
[2019-06-17] MEDS: METOCLOPRAMIDE 10 MG/2 ML VIAL IV SCH ×4 (00:06→18:34)
[2019-06-17] MEDS: ACETYLCYSTEINE 20% 800 MG/4 ML VIAL RESP TX SCH ×5 (00:10→23:56)
[2019-06-17] MEDS: ALBUTEROL 2.5 MG/3 ML NEB RESP TX SCH ×7 (00:10→23:56)
[2019-06-17] MEDS: LACTATED RINGERS 1,000 ML IV PRN ×3 (00:35→19:40)
[2019-06-17] MEDS: LACTATED RINGERS 1,000 ML IV SCH ×3 (04:02→23:40)
[2019-06-17 04:30] LABS: Basophils % 0.4 % (0.0-0.8); Eosinophils % 0.1 % (0.00-10.9); Hematocrit 26.1 VOL% (42.0-52.0); Hemoglobin 8.7 GM/DL (14.0-18.0); Immature Granulocytes % 0.4 %; Immature Granulocytes Absolute 0.04 #; Lymphocytes # 0.5 10*3/uL (1.4-4.0); Lymphocytes % 5.7 % (21.2-54.2); Mean Corpuscular HGB Conc 33.3 GM/DL (32-36); Mean Corpuscular Volume 89.7 FL (87-102); Mean Platelet Volume 9.4 FL (9.6-12.0); Monocytes % 3.8 % (1.7-12.7); Neutrophils % 89.6 % (38.7-73.9); Platelet Count 334 T/CUMM (130-400); Red Blood Count 2.91 MC/CUMM (3.8-5.5); Red Cell Distribution Width 14.5 % (9.3-17.3); White Blood Count 9.5 T/CUMM (4-12)
[2019-06-17 04:38] LABS: ABG Base Excess 1.5 MMOL/L (-2.5-2.5); ABG HCO3 24.9 MMOL/L (20-26); ABG Oxygen Saturation 98.2 % (95-100); ABG PCO2 34.8 MM HG (35-48); ABG PH 7.473 (7.35-7.45); ABG PO2 121.4 MM HG (80-95)
[2019-06-17 04:40] LABS: INR 1.3; PT Patient Result 14.1 SECS (9.6-12.2); Partial Thromboplastin Time 39.4 SECS (20.8-36.0)
[2019-06-17 04:49] LABS: Band Neutrophils 3 % (0-10); Hypochromasia 1+; Lymphocytes 4 % (20-55); Platelet Estimate Adequate; Segmented Neutrophils 91 % (50-85); Total Cells Counted 100
[2019-06-17 04:55] LABS: Albumin 1.8 G/DL (3.4-5.0); Bilirubin,Total 0.6 MG/DL (0.2-1.0); Calcium 7.6 MG/DL (8.5-10.1); Osmolality,Calculated 276.8 MOS/KG (273-304); Total Protein 4.4 G/DL (6.4-8.3)
[2019-06-17] MEDS ORDERED: SODIUM CHLORIDE 0.9% 1,000 ML IV PRN (07:20)
[2019-06-17] MEDS: MONTELUKAST 10 MG TABLET PO SCH (08:25)
[2019-06-17] MEDS: TAMSULOSIN 0.4 MG CAPSULE PO SCH (08:25)
[2019-06-17] MEDS: METOPROLOL TARTRATE 50 MG TABLET PO SCH ×2 (08:25→20:43)
[2019-06-17] MEDS: ALPRAZolam 0.25 MG TABLET PO SCH ×2 (08:26→20:43)
[2019-06-17] MEDS: AMIODARONE 200 MG TABLET PO SCH ×3 (08:26→20:43)
[2019-06-17] MEDS: POTASSIUM CHLORIDE 20 MEQ/15 ML UDCUP PO SCH ×2 (08:27→20:43)
[2019-06-17] MEDS: methylPREDNISolone SOD SUC 40 MG/1 ML VIAL IV SCH (08:28)
[2019-06-17] MEDS: FAMOTIDINE 20 MG/2 ML VIAL IV SCH ×2 (08:28→20:43)
[2019-06-17] MEDS ORDERED: MAGNESIUM SULF RIDER 2 GM in PREMIX 1 EACH IV ONE (09:22)
[2019-06-17] MEDS ORDERED: MAGNESIUM SULF RIDER 4 GM in PREMIX 1 EACH IV ONE (09:24)
[2019-06-17] MEDS ORDERED: POTASSIUM CHLORIDE RIDER 10 MEQ in PREMIX 1 EACH IV PRN (09:24)
[2019-06-17] MEDS ORDERED: MAGNESIUM SULF RIDER 4 GM in PREMIX 1 EACH IV PRN (09:37)
[2019-06-17] MEDS: NOREPINEPHRINE 8 MG in SODIUM CHLORIDE 0.9% 242 ML IV PRN ×2 (10:21→18:35)
[2019-06-17] MEDS: AMINOPHYLLINE 500 MG in SODIUM CHLORIDE 0.9% 480 ML IV SCH (10:21)
[2019-06-17] MEDS ORDERED: METHYLENE BLUE 10 ML VIAL IV ONE (11:37)
[2019-06-17] MEDS ORDERED: PHENYLEPHRINE 10 MG/1 ML VIAL IV ONE ×3 (12:32→13:40)
[2019-06-17] MEDS ORDERED: SEVOFLURANE 1 UNIT/15 MINUTE INH ONE (13:39)
[2019-06-17] MEDS ORDERED: MIDAZOLAM 2 MG/2 ML VIAL ONE (13:39)
[2019-06-17] MEDS ORDERED: SODIUM CHLORIDE 0.9% 500 ML IV ONE (13:40)
[2019-06-17] MEDS ORDERED: ROCURONIUM 100 MG/10 ML VIAL IV ONE (13:40)
[2019-06-17] MEDS ORDERED: LACTATED RINGERS 1,000 ML IV ONE (13:40)
[2019-06-17] MEDS ORDERED: ePHEDrine 50 MG/ML AMP ONE (13:40)
[2019-06-17] MEDS ORDERED: fentaNYL 100 MCG/2 ML VIAL ONE (13:40)
[2019-06-17] MEDS ORDERED: SODIUM CHLORIDE 0.9% 1,000 ML IV ONE (13:41)
[2019-06-17] MEDS: CIPROFLOXACIN INJ 200 MG in PREMIX 1 EACH IV SCH (14:07)
[2019-06-17 14:51] LABS: ABG Base Excess -2.9 MMOL/L (-2.5-2.5); ABG HCO3 22.1 MMOL/L (20-26); ABG PCO2 34.5 MM HG (35-48); ABG PH 7.398 (7.35-7.45); ABG TCO2 18.5 MMOL/L (23-27)
[2019-06-17 14:56] LABS: Basophils # 0.1 10*3/uL (0.0-0.2); Basophils % 0.8 % (0.0-0.8); Hematocrit 39.4 VOL% (42.0-52.0); Immature Granulocytes % 0.8 %; Immature Granulocytes Absolute 0.09 #; Lymphocytes # 0.3 10*3/uL (1.4-4.0); Lymphocytes % 2.8 % (21.2-54.2); Mean Corpuscular HGB Conc 33.5 GM/DL (32-36); Mean Corpuscular Volume 91.2 FL (87-102); Mean Platelet Volume 9.5 FL (9.6-12.0); Monocytes % 2.6 % (1.7-12.7); Platelet Count 354 T/CUMM (130-400); Red Blood Count 4.32 MC/CUMM (3.8-5.5); Red Cell Distribution Width 14.2 % (9.3-17.3); White Blood Count 11.3 T/CUMM (4-12)
[2019-06-17 14:57] LABS: Hemoglobin 13.2 GM/DL (14.0-18.0)
[2019-06-17 15:02] LABS: Calcium 7.4 MG/DL (8.5-10.1); Osmolality,Calculated 279.8 MOS/KG (273-304)
[2019-06-17 15:48] LABS: Band Neutrophils 14 % (0-10); Lymphocytes 1 % (20-55); Platelet Estimate Normal; Segmented Neutrophils 82 % (50-85); Total Cells Counted 100
[2019-06-17] MEDS: POTASSIUM CHLORIDE RIDER 20 MEQ in PREMIX 1 EACH IV PRN (19:33)
[2019-06-18] MEDS: METOCLOPRAMIDE 10 MG/2 ML VIAL IV SCH ×4 (00:19→17:53)
[2019-06-18] MEDS: LACTATED RINGERS 1,000 ML IV PRN ×2 (00:44→09:02)
[2019-06-18 03:24] LABS: Basophils % 0.2 % (0.0-0.8); Hematocrit 33.7 VOL% (42.0-52.0); Hemoglobin 11.6 GM/DL (14.0-18.0); Immature Granulocytes % 0.9 %; Immature Granulocytes Absolute 0.16 #; Lymphocytes # 0.4 10*3/uL (1.4-4.0); Lymphocytes % 2.4 % (21.2-54.2); Mean Corpuscular HGB Conc 34.4 GM/DL (32-36); Mean Corpuscular Volume 89.4 FL (87-102); Mean Platelet Volume 9.8 FL (9.6-12.0); Monocytes % 1.8 % (1.7-12.7); Neutrophils % 94.7 % (38.7-73.9); Platelet Count 312 T/CUMM (130-400); Red Blood Count 3.77 MC/CUMM (3.8-5.5); Red Cell Distribution Width 14.3 % (9.3-17.3); White Blood Count 17.5 T/CUMM (4-12)
[2019-06-18 03:35] LABS: ABG Base Excess -0.3 MMOL/L (-2.5-2.5); ABG HCO3 24.2 MMOL/L (20-26); ABG Oxygen Saturation 99.3 % (95-100); ABG PCO2 31.9 MM HG (35-48); ABG PH 7.461 (7.35-7.45); ABG TCO2 20.1 MMOL/L (23-27)
[2019-06-18] MEDS: CIPROFLOXACIN INJ 200 MG in PREMIX 1 EACH IV SCH ×2 (03:43→13:32)
[2019-06-18 04:01] LABS: Albumin 1.4 G/DL (3.4-5.0); Calcium 7.1 MG/DL (8.5-10.1); Total Protein 3.9 G/DL (6.4-8.3)
[2019-06-18 04:32] LABS: Band Neutrophils 8 % (0-10); Hypochromasia 1+; Lymphocytes 1 % (20-55); Platelet Estimate Adequate; Segmented Neutrophils 88 % (50-85); Total Cells Counted 100
[2019-06-18] MEDS: ALBUTEROL 2.5 MG/3 ML NEB RESP TX SCH ×6 (04:40→22:28)
[2019-06-18] MEDS: POTASSIUM CHLORIDE RIDER 20 MEQ in PREMIX 1 EACH IV PRN (06:01)
[2019-06-18] MEDS: ACETYLCYSTEINE 20% 800 MG/4 ML VIAL RESP TX SCH ×3 (07:07→19:25)
[2019-06-18] MEDS: ALPRAZolam 0.25 MG TABLET PO SCH ×2 (08:44→20:45)
[2019-06-18] MEDS: MONTELUKAST 10 MG TABLET PO SCH (08:44)
[2019-06-18] MEDS: AMIODARONE 200 MG TABLET PO SCH ×3 (08:44→20:45)
[2019-06-18] MEDS: methylPREDNISolone SOD SUC 40 MG/1 ML VIAL IV SCH ×3 (08:46→23:30)
[2019-06-18] MEDS: TAMSULOSIN 0.4 MG CAPSULE PO SCH (08:46)
[2019-06-18] MEDS: POTASSIUM CHLORIDE 20 MEQ/15 ML UDCUP PO SCH ×2 (08:47→20:45)
[2019-06-18] MEDS: METOPROLOL TARTRATE 50 MG TABLET PO SCH ×2 (08:47→20:45)
[2019-06-18] MEDS: metroNIDAZOLE INJ 500 MG in PREMIX 1 EACH IV SCH ×2 (09:03→16:24)
[2019-06-18] MEDS: FAMOTIDINE 20 MG/2 ML VIAL IV SCH ×2 (09:10→20:45)
[2019-06-18] MEDS: LACTATED RINGERS 1,000 ML IV SCH ×2 (10:36→17:18)
[2019-06-18] MEDS ORDERED: DEXTROSE 50% 25 GM/50 ML VIAL IV PRN (12:46)
[2019-06-18] MEDS ORDERED: GLUCAGON 1 MG VIAL IM PRN (12:46)
[2019-06-18] MEDS: AMINOPHYLLINE 500 MG in SODIUM CHLORIDE 0.9% 480 ML IV SCH (13:30)
[2019-06-18] MEDS: NOREPINEPHRINE 8 MG in SODIUM CHLORIDE 0.9% 242 ML IV PRN (13:44)
[2019-06-18] MEDS: INSULIN REGULAR 100 UNIT/ML SUBCUT SCH (17:58)
[2019-06-19] MEDS: LACTATED RINGERS 1,000 ML IV SCH ×4 (00:21→20:49)
[2019-06-19] MEDS: INSULIN REGULAR 100 UNIT/ML SUBCUT SCH ×4 (00:21→18:32)
[2019-06-19] MEDS: METOCLOPRAMIDE 10 MG/2 ML VIAL IV SCH ×4 (00:22→17:40)
[2019-06-19] MEDS: metroNIDAZOLE INJ 500 MG in PREMIX 1 EACH IV SCH ×3 (00:22→17:39)
[2019-06-19] MEDS: ALBUTEROL 2.5 MG/3 ML NEB RESP TX SCH ×6 (01:05→19:20)
[2019-06-19] MEDS: ACETYLCYSTEINE 20% 800 MG/4 ML VIAL RESP TX SCH ×4 (01:05→19:20)
[2019-06-19] MEDS: CIPROFLOXACIN INJ 200 MG in PREMIX 1 EACH IV SCH ×2 (02:45→14:39)
[2019-06-19 04:48] LABS: Basophils % 0.2 % (0.0-0.8); Hematocrit 23.8 VOL% (42.0-52.0); Hemoglobin 7.9 GM/DL (14.0-18.0); Immature Granulocytes Absolute 0.12 #; Lymphocytes # 0.2 10*3/uL (1.4-4.0); Lymphocytes % 1.4 % (21.2-54.2); Mean Corpuscular HGB Conc 33.2 GM/DL (32-36); Mean Corpuscular Volume 91.5 FL (87-102); Mean Platelet Volume 9.6 FL (9.6-12.0); Monocytes % 3.2 % (1.7-12.7); Neutrophils % 94.2 % (38.7-73.9); Platelet Count 204 T/CUMM (130-400); Red Cell Distribution Width 14.6 % (9.3-17.3); White Blood Count 12.4 T/CUMM (4-12)
[2019-06-19 05:02] LABS: Osmolality,Calculated 272.1 MOS/KG (273-304)
[2019-06-19 05:07] LABS: Band Neutrophils 3 % (0-10); Hypochromasia 1+; Lymphocytes 2 % (20-55); Platelet Estimate Adequate; Segmented Neutrophils 93 % (50-85); Total Cells Counted 100
[2019-06-19] MEDS: POTASSIUM CHLORIDE RIDER 20 MEQ in PREMIX 1 EACH IV PRN ×4 (05:40→20:41)
[2019-06-19] MEDS: MAGNESIUM SULF RIDER 2 GM in PREMIX 1 EACH IV PRN (05:40)
[2019-06-19 05:56] LABS: ABG Base Excess 1.2 MMOL/L (-2.5-2.5); ABG HCO3 25.5 MMOL/L (20-26); ABG PCO2 34.7 MM HG (35-48); ABG PH 7.458 (7.35-7.45); ABG TCO2 21.5 MMOL/L (23-27)
[2019-06-19 08:16] LABS: PT Patient Result 11.2 SECS (9.6-12.2); Partial Thromboplastin Time 34.4 SECS (20.8-36.0)
[2019-06-19 10:02] LABS: ABG Base Excess 0.1 MMOL/L (-2.5-2.5); ABG HCO3 24.5 MMOL/L (20-26); ABG Oxygen Saturation 98.9 % (95-100); ABG PCO2 42.6 MM HG (35-48); ABG TCO2 23.4 MMOL/L (23-27)
[2019-06-19] MEDS: POTASSIUM CHLORIDE 20 MEQ/15 ML UDCUP PO SCH ×2 (10:14→20:43)
[2019-06-19] MEDS: AMIODARONE 200 MG TABLET PO SCH ×3 (10:14→20:42)
[2019-06-19] MEDS: TAMSULOSIN 0.4 MG CAPSULE PO SCH (10:14)
[2019-06-19] MEDS: ALPRAZolam 0.25 MG TABLET PO SCH ×2 (10:14→20:42)
[2019-06-19] MEDS: MONTELUKAST 10 MG TABLET PO SCH (10:14)
[2019-06-19] MEDS: METOPROLOL TARTRATE 50 MG TABLET PO SCH ×2 (10:16→20:42)
[2019-06-19] MEDS: FAMOTIDINE 20 MG/2 ML VIAL IV SCH ×2 (10:19→20:43)
[2019-06-19] MEDS: methylPREDNISolone SOD SUC 40 MG/1 ML VIAL IV SCH ×2 (10:22→22:07)
[2019-06-19] MEDS: AMINOPHYLLINE 500 MG in SODIUM CHLORIDE 0.9% 480 ML IV SCH (12:14)
[2019-06-19] MEDS ORDERED: FUROSEMIDE 20 MG/2 ML VIAL IV ONE (13:46)
[2019-06-19] MEDS ORDERED: GENTAMICIN INJ 440 MG in SODIUM CHLORIDE 0.9% 100 ML IV SCH (14:00)
[2019-06-19] MEDS: VANCOMYCIN INJ 1,000 MG in SODIUM CHLORIDE 0.9% 250 ML IV SCH (14:34)
[2019-06-19] MEDS: DEXMEDETOMIDINE 200 MCG in SODIUM CHLORIDE 0.9% 48 ML IV PRN ×2 (17:00→22:07)
[2019-06-19 17:59] LABS: Hematocrit 31.5 VOL% (42.0-52.0); Hemoglobin 10.5 GM/DL (14.0-18.0)
[2019-06-20] MEDS: METOCLOPRAMIDE 10 MG/2 ML VIAL IV SCH ×5 (00:23→23:07)
[2019-06-20] MEDS: INSULIN REGULAR 100 UNIT/ML SUBCUT SCH ×4 (00:23→17:44)
[2019-06-20] MEDS: metroNIDAZOLE INJ 500 MG in PREMIX 1 EACH IV SCH ×3 (00:30→15:38)
[2019-06-20] MEDS: VANCOMYCIN INJ 1,000 MG in SODIUM CHLORIDE 0.9% 250 ML IV SCH ×2 (00:36→13:06)
[2019-06-20] MEDS: POTASSIUM CHLORIDE RIDER 20 MEQ in PREMIX 1 EACH IV PRN (01:39)
[2019-06-20] MEDS: CIPROFLOXACIN INJ 200 MG in PREMIX 1 EACH IV SCH ×2 (02:34→15:40)
[2019-06-20] MEDS: ALBUTEROL 2.5 MG/3 ML NEB RESP TX SCH ×6 (03:07→20:01)
[2019-06-20 03:13] LABS: Basophils % 0.2 % (0.0-0.8); Hematocrit 28.6 VOL% (42.0-52.0); Hemoglobin 9.3 GM/DL (14.0-18.0); Immature Granulocytes % 1.2 %; Immature Granulocytes Absolute 0.13 #; Lymphocytes # 0.2 10*3/uL (1.4-4.0); Lymphocytes % 1.8 % (21.2-54.2); Mean Corpuscular HGB Conc 32.5 GM/DL (32-36); Mean Corpuscular Volume 92.6 FL (87-102); Mean Platelet Volume 9.5 FL (9.6-12.0); Monocytes % 2.8 % (1.7-12.7); Platelet Count 180 T/CUMM (130-400); Red Blood Count 3.09 MC/CUMM (3.8-5.5); Red Cell Distribution Width 14.7 % (9.3-17.3); White Blood Count 10.7 T/CUMM (4-12)
[2019-06-20] MEDS: LACTATED RINGERS 1,000 ML IV SCH ×2 (03:33→10:39)
[2019-06-20 03:52] LABS: Lymphocytes 3 % (20-55); Segmented Neutrophils 95 % (50-85); Total Cells Counted 100
[2019-06-20 03:53] LABS: Burr Cells 2+; Giant Platelets Few; Hypochromasia Slight; Platelet Estimate Normal
[2019-06-20 05:22] LABS: Osmolality,Calculated 275.1 MOS/KG (273-304)
[2019-06-20 05:31] LABS: ABG Base Excess -2.4 MMOL/L (-2.5-2.5); ABG HCO3 22.4 MMOL/L (20-26); ABG Oxygen Saturation 98.9 % (95-100); ABG PCO2 40.1 MM HG (35-48); ABG PH 7.362 (7.35-7.45); ABG TCO2 20.8 MMOL/L (23-27); Allen Test Positive; Pt O2 Delivery Device Ventilator
[2019-06-20] MEDS: MAGNESIUM SULF RIDER 2 GM in PREMIX 1 EACH IV PRN (06:11)
[2019-06-20] MEDS: ACETYLCYSTEINE 20% 800 MG/4 ML VIAL RESP TX SCH ×4 (07:02→20:01)
[2019-06-20] MEDS: DEXMEDETOMIDINE 400 MCG in SODIUM CHLORIDE 0.9% 96 ML IV PRN ×2 (07:30→17:01)
[2019-06-20] MEDS: METOPROLOL TARTRATE 50 MG TABLET PO SCH ×2 (08:08→20:39)
[2019-06-20] MEDS: AMIODARONE 200 MG TABLET PO SCH ×3 (08:08→20:39)
[2019-06-20] MEDS: ALPRAZolam 0.25 MG TABLET PO SCH ×2 (08:08→20:39)
[2019-06-20] MEDS: TAMSULOSIN 0.4 MG CAPSULE PO SCH (08:08)
[2019-06-20] MEDS: MONTELUKAST 10 MG TABLET PO SCH (08:08)
[2019-06-20] MEDS: FAMOTIDINE 20 MG/2 ML VIAL IV SCH ×2 (08:12→20:39)
[2019-06-20] MEDS: POTASSIUM CHLORIDE 20 MEQ/15 ML UDCUP PO SCH ×2 (08:23→20:39)
[2019-06-20] MEDS: methylPREDNISolone SOD SUC 40 MG/1 ML VIAL IV SCH ×2 (10:20→23:02)
[2019-06-20] MEDS: AMINOPHYLLINE 500 MG in SODIUM CHLORIDE 0.9% 480 ML IV SCH (10:26)
[2019-06-20] MEDS ORDERED: FUROSEMIDE 20 MG/2 ML VIAL IV ONE (11:43)
[2019-06-20] MEDS: SODIUM CHLORIDE 0.9% 1,000 ML IV SCH (13:07)
[2019-06-20 17:20] LABS: Basophils % 0.2 % (0.0-0.8); Hematocrit 30.8 VOL% (42.0-52.0); Immature Granulocytes % 0.9 %; Immature Granulocytes Absolute 0.12 #; Lymphocytes # 0.1 10*3/uL (1.4-4.0); Lymphocytes % 0.9 % (21.2-54.2); Mean Corpuscular HGB Conc 32.5 GM/DL (32-36); Mean Corpuscular Volume 91.9 FL (87-102); Mean Platelet Volume 9.4 FL (9.6-12.0); Monocytes % 3.3 % (1.7-12.7); Neutrophils % 94.7 % (38.7-73.9); Platelet Count 199 T/CUMM (130-400); Red Blood Count 3.35 MC/CUMM (3.8-5.5); Red Cell Distribution Width 14.9 % (9.3-17.3); White Blood Count 12.9 T/CUMM (4-12)
[2019-06-20 17:51] LABS: Band Neutrophils 1 % (0-10); Burr Cells Few; Lymphocytes 2 % (20-55); Segmented Neutrophils 94 % (50-85); Total Cells Counted 100
[2019-06-20 17:52] LABS: Platelet Estimate Adequate
[2019-06-21] MEDS: ACETYLCYSTEINE 20% 800 MG/4 ML VIAL RESP TX SCH ×3 (00:02→11:05)
[2019-06-21] MEDS: ALBUTEROL 2.5 MG/3 ML NEB RESP TX SCH ×4 (00:02→11:05)
[2019-06-21] MEDS: INSULIN REGULAR 100 UNIT/ML SUBCUT SCH ×3 (00:11→11:55)
[2019-06-21] MEDS: metroNIDAZOLE INJ 500 MG in PREMIX 1 EACH IV SCH ×2 (00:11→07:53)
[2019-06-21] MEDS: VANCOMYCIN INJ 1,000 MG in SODIUM CHLORIDE 0.9% 250 ML IV SCH ×2 (00:21→13:06)
[2019-06-21] MEDS: DEXMEDETOMIDINE 400 MCG in SODIUM CHLORIDE 0.9% 96 ML IV PRN ×2 (01:53→11:08)
[2019-06-21] MEDS: SODIUM CHLORIDE 0.9% 1,000 ML IV SCH ×2 (01:55→15:20)
[2019-06-21] MEDS: CIPROFLOXACIN INJ 200 MG in PREMIX 1 EACH IV SCH ×2 (01:59→14:07)
[2019-06-21 03:42] LABS: Basophils % 0.3 % (0.0-0.8); Hematocrit 33.9 VOL% (42.0-52.0); Hemoglobin 10.9 GM/DL (14.0-18.0); Immature Granulocytes % 1.4 %; Immature Granulocytes Absolute 0.21 #; Lymphocytes # 0.2 10*3/uL (1.4-4.0); Lymphocytes % 1.1 % (21.2-54.2); Mean Corpuscular HGB Conc 32.2 GM/DL (32-36); Mean Corpuscular Volume 93.4 FL (87-102); Mean Platelet Volume 9.5 FL (9.6-12.0); Monocytes % 2.5 % (1.7-12.7); Neutrophils % 94.7 % (38.7-73.9); Platelet Count 227 T/CUMM (130-400); Red Blood Count 3.63 MC/CUMM (3.8-5.5); Red Cell Distribution Width 15.1 % (9.3-17.3); White Blood Count 14.7 T/CUMM (4-12)
[2019-06-21 03:59] LABS: Calcium 7.1 MG/DL (8.5-10.1)
[2019-06-21 04:00] LABS: PT Patient Result 10.7 SECS (9.6-12.2); Partial Thromboplastin Time 27.9 SECS (20.8-36.0)
[2019-06-21 04:03] LABS: Prealbumin 13.6 MG/DL (20-40)
[2019-06-21 04:03] LABS: ABG Base Excess -1.6 MMOL/L (-2.5-2.5); ABG HCO3 23.1 MMOL/L (20-26); ABG Oxygen Saturation 98.6 % (95-100); ABG PCO2 51.7 MM HG (35-48); ABG TCO2 23.1 MMOL/L (23-27); Allen Test Positive; Pt O2 Delivery Device Ventilator
[2019-06-21 04:04] LABS: Band Neutrophils 3 % (0-10); Burr Cells Few; Lymphocytes 3 % (20-55); Platelet Estimate Normal; Segmented Neutrophils 91 % (50-85); Total Cells Counted 100
[2019-06-21] MEDS: MAGNESIUM SULF RIDER 2 GM in PREMIX 1 EACH IV PRN (05:09)
[2019-06-21] MEDS: POTASSIUM CHLORIDE RIDER 20 MEQ in PREMIX 1 EACH IV PRN (05:09)
[2019-06-21] MEDS: METOCLOPRAMIDE 10 MG/2 ML VIAL IV SCH ×2 (06:05→11:55)
[2019-06-21] MEDS: FAMOTIDINE 20 MG/2 ML VIAL IV SCH (08:52)
[2019-06-21] MEDS: AMIODARONE 200 MG TABLET PO SCH (08:53)
[2019-06-21] MEDS: METOPROLOL TARTRATE 50 MG TABLET PO SCH (08:53)
[2019-06-21] MEDS: POTASSIUM CHLORIDE 20 MEQ/15 ML UDCUP PO SCH (08:53)
[2019-06-21] MEDS: ALPRAZolam 0.25 MG TABLET PO SCH (08:53)
[2019-06-21] MEDS: MONTELUKAST 10 MG TABLET PO SCH (08:53)
[2019-06-21] MEDS: TAMSULOSIN 0.4 MG CAPSULE PO SCH (08:53)
[2019-06-21] MEDS: methylPREDNISolone SOD SUC 40 MG/1 ML VIAL IV SCH (10:12)
[2019-06-21] MEDS: AMINOPHYLLINE 500 MG in SODIUM CHLORIDE 0.9% 480 ML IV SCH (10:14)
[2019-06-21 14:34] VITALS: BP 125/58
[2019-06-30] MEDS ORDERED: INFLUENZA VIRUS VACCINE 0.5 ML SYRINGE IM ONE (09:00)
== END 2019-06-21 15:08 | DRG 329 ==
LOC: SUATTDRO 22:14 → N.CC 22:14
PROVIDERS: ADMIT Surgery; ATTEND Internal Medicine

== ENCOUNTER 2019-06-30 09:32 | Inpatient (IN) ==
[2019-06-30] MEDS ORDERED: ONDANSETRON 4 MG/2 ML VIAL IV PRN (10:51)
[2019-06-30] MEDS ORDERED: ALBUTEROL/IPRATROPIUM 3 ML NEB RESP TX PRN (10:51)
[2019-06-30] MEDS: LACTATED RINGERS 1,000 ML IV SCH ×2 (11:31→21:15)
[2019-06-30 11:32] LABS: Basophils # 0.1 10*3/uL (0.0-0.2); Basophils % 0.2 % (0.0-0.8); Hematocrit 33.8 VOL% (42.0-52.0); Hemoglobin 11.3 GM/DL (14.0-18.0); Immature Granulocytes % 1.5 %; Immature Granulocytes Absolute 0.42 #; Lymphocytes # 0.3 10*3/uL (1.4-4.0); Lymphocytes % 0.9 % (21.2-54.2); Mean Corpuscular HGB Conc 33.4 GM/DL (32-36); Mean Corpuscular Volume 91.4 FL (87-102); Mean Platelet Volume 9.7 FL (9.6-12.0); Neutrophils % 94.4 % (38.7-73.9); Platelet Count 267 T/CUMM (130-400); Red Cell Distribution Width 14.3 % (9.3-17.3); White Blood Count 28.2 T/CUMM (4-12)
[2019-06-30 11:51] LABS: Hypochromasia 1+; Lymphocytes 2 % (20-55); Platelet Estimate Adequate; Segmented Neutrophils 96 % (50-85); Total Cells Counted 100
[2019-06-30 11:52] LABS: Albumin 1.5 G/DL (3.4-5.0); Bilirubin,Total 0.4 MG/DL (0.2-1.0); Calcium 7.3 MG/DL (8.5-10.1); Osmolality,Calculated 265.5 MOS/KG (273-304); Total Protein 4.5 G/DL (6.4-8.3)
[2019-06-30] MEDS: ERTAPENEM 1,000 MG in SODIUM CHLORIDE 0.9% 100 ML IV SCH (12:09)
[2019-06-30] MEDS ORDERED: MAGNESIUM SULF RIDER 4 GM in PREMIX 1 EACH IV PRN (13:31)
[2019-06-30] MEDS ORDERED: DEXTROSE 50% 25 GM/50 ML VIAL IV PRN (16:19)
[2019-06-30] MEDS ORDERED: GLUCAGON 1 MG VIAL IM PRN (16:19)
[2019-06-30] MEDS: INSULIN REGULAR 100 UNIT/ML SUBCUT SCH (18:25)
[2019-06-30] MEDS: HYDROmorphone 2 MG/1 ML VIAL IV PRN (21:45)
[2019-07-01] MEDS: INSULIN REGULAR 100 UNIT/ML SUBCUT SCH ×4 (00:25→17:49)
[2019-07-01] MEDS: HYDROmorphone 2 MG/1 ML VIAL IV PRN (03:45)
[2019-07-01] MEDS: LACTATED RINGERS 1,000 ML IV SCH ×3 (05:30→23:00)
[2019-07-01 05:56] LABS: Prealbumin 28.8 MG/DL (20-40)
[2019-07-01 06:44] LABS: Basophils # 0.1 10*3/uL (0.0-0.2); Basophils % 0.3 % (0.0-0.8); Eosinophils % 0.1 % (0.00-10.9); Hematocrit 33.8 VOL% (42.0-52.0); Hemoglobin 11.3 GM/DL (14.0-18.0); Immature Granulocytes % 1.4 %; Immature Granulocytes Absolute 0.37 #; Lymphocytes # 0.8 10*3/uL (1.4-4.0); Lymphocytes % 3.1 % (21.2-54.2); Mean Corpuscular HGB Conc 33.4 GM/DL (32-36); Mean Corpuscular Volume 90.6 FL (87-102); Mean Platelet Volume 9.6 FL (9.6-12.0); Monocytes % 3.1 % (1.7-12.7); Platelet Count 299 T/CUMM (130-400); Red Blood Count 3.73 MC/CUMM (3.8-5.5); Red Cell Distribution Width 14.3 % (9.3-17.3); White Blood Count 25.9 T/CUMM (4-12)
[2019-07-01 07:04] LABS: Band Neutrophils 1 % (0-10); Hypochromasia 1+; Lymphocytes 3 % (20-55); Ovalocytes Slight; Platelet Estimate Adequate; Segmented Neutrophils 92 % (50-85); Total Cells Counted 100
[2019-07-01 07:07] LABS: Calcium 7.8 MG/DL (8.5-10.1); Osmolality,Calculated 261.7 MOS/KG (273-304)
[2019-07-01] MEDS: PANTOPRAZOLE 40 MG VIAL IV SCH (09:17)
[2019-07-01] MEDS ORDERED: ALBUTEROL 2.5 MG/3 ML NEB RESP TX PRN (09:52)
[2019-07-01] MEDS: ERTAPENEM 1,000 MG in SODIUM CHLORIDE 0.9% 100 ML IV SCH (10:34)
[2019-07-01 10:48] LABS: ABG Base Excess 8.3 MMOL/L (-2.5-2.5); ABG HCO3 31.8 MMOL/L (20-26); ABG Oxygen Saturation 87.4 % (95-100); ABG PCO2 38.8 MM HG (35-48); ABG PH 7.521 (7.35-7.45); ABG PO2 49.3 MM HG (80-95); ABG TCO2 28.1 MMOL/L (23-27); Allen Test Positive
[2019-07-01] MEDS: ALBUTEROL 2.5 MG/3 ML NEB RESP TX SCH ×3 (10:54→19:47)
[2019-07-01] MEDS ORDERED: ACETYLCYSTEINE 20% 6,000 MG/30 ML VIAL RESP TX SCH (13:00)
[2019-07-01] MEDS: MAGNESIUM SULF RIDER 2 GM in PREMIX 1 EACH IV PRN (14:17)
[2019-07-01] MEDS: THEOPHYLLINE 5.33 MG/ML 30 ML/BOTTLE PO SCH ×2 (14:29→22:09)
[2019-07-01 14:53] LABS: ABG Base Excess 4.6 MMOL/L (-2.5-2.5); ABG HCO3 27.8 MMOL/L (20-26); ABG Oxygen Saturation 93.6 % (95-100); ABG PCO2 36.7 MM HG (35-48); ABG PH 7.498 (7.35-7.45); ABG PO2 64.3 MM HG (80-95); Allen Test Positive; Pt O2 Delivery Device Venturi Mask
[2019-07-01] MEDS: ACETYLCYSTEINE 20% 800 MG/4 ML VIAL RESP TX SCH (19:47)
[2019-07-01] MEDS ORDERED: METOPROLOL TARTRATE 50 MG TABLET ONE (21:38)
[2019-07-01] MEDS: METOPROLOL TARTRATE 100 MG TABLET PO SCH (22:09)
[2019-07-01] MEDS: AMIODARONE 200 MG TABLET PO SCH (22:09)
[2019-07-02] MEDS: ALBUTEROL 2.5 MG/3 ML NEB RESP TX SCH ×6 (00:26→19:10)
[2019-07-02] MEDS: ACETYLCYSTEINE 20% 800 MG/4 ML VIAL RESP TX SCH ×4 (00:27→19:10)
[2019-07-02] MEDS: INSULIN REGULAR 100 UNIT/ML SUBCUT SCH ×5 (01:34→23:00)
[2019-07-02 04:43] LABS: Basophils # 0.1 10*3/uL (0.0-0.2); Basophils % 0.2 % (0.0-0.8); Eosinophils # 0.1 10*3/uL (0.0-0.87); Eosinophils % 0.2 % (0.00-10.9); Hematocrit 28.1 VOL% (42.0-52.0); Hemoglobin 9.5 GM/DL (14.0-18.0); Immature Granulocytes % 2.1 %; Immature Granulocytes Absolute 0.49 #; Lymphocytes # 0.4 10*3/uL (1.4-4.0); Lymphocytes % 1.8 % (21.2-54.2); Mean Corpuscular HGB Conc 33.8 GM/DL (32-36); Mean Corpuscular Volume 90.4 FL (87-102); Mean Platelet Volume 9.8 FL (9.6-12.0); Monocytes % 2.6 % (1.7-12.7); Neutrophils % 93.1 % (38.7-73.9); Platelet Count 264 T/CUMM (130-400); Red Blood Count 3.11 MC/CUMM (3.8-5.5); Red Cell Distribution Width 14.3 % (9.3-17.3); White Blood Count 23.9 T/CUMM (4-12)
[2019-07-02 05:04] LABS: INR 1.3; PT Patient Result 13.7 SECS (9.6-12.2); Partial Thromboplastin Time 29.9 SECS (20.8-36.0)
[2019-07-02 05:11] LABS: Calcium 7.6 MG/DL (8.5-10.1); Osmolality,Calculated 263.5 MOS/KG (273-304)
[2019-07-02 05:15] LABS: Eosinophils 1 % (0-10); Lymphocytes 1 % (20-55); Platelet Estimate Normal; Polychromasia Few; Segmented Neutrophils 98 % (50-85); Total Cells Counted 100
[2019-07-02] MEDS: THEOPHYLLINE 5.33 MG/ML 30 ML/BOTTLE PO SCH ×3 (06:22→21:00)
[2019-07-02] MEDS: MAGNESIUM SULF RIDER 2 GM in PREMIX 1 EACH IV PRN (06:30)
[2019-07-02] MEDS: LACTATED RINGERS 1,000 ML IV SCH ×3 (06:30→22:59)
[2019-07-02] MEDS ORDERED: MAGNESIUM SULF RIDER 2 GM in PREMIX 1 EACH IV PRN (06:53)
[2019-07-02] MEDS ORDERED: MAGNESIUM SULF RIDER 4 GM in PREMIX 1 EACH IV PRN (06:53)
[2019-07-02] MEDS ORDERED: MIDAZOLAM 2 MG/2 ML VIAL IV ONE (09:00)
[2019-07-02] MEDS ORDERED: MIDAZOLAM 2 MG/2 ML VIAL ONE (09:19)
[2019-07-02] MEDS: ENOXAPARIN 40 MG/0.4 ML SYRINGE SUBCUT SCH ×2 (09:39→20:17)
[2019-07-02] MEDS: PANTOPRAZOLE 40 MG VIAL IV SCH (09:39)
[2019-07-02] MEDS: MONTELUKAST 10 MG TABLET PO SCH (09:48)
[2019-07-02] MEDS: AMIODARONE 200 MG TABLET PO SCH ×2 (09:48→20:16)
[2019-07-02] MEDS: METOPROLOL TARTRATE 100 MG TABLET PO SCH ×2 (09:48→20:16)
[2019-07-02] MEDS: POTASSIUM CHLORIDE 20 MEQ/15 ML UDCUP PER TUBE PRN ×3 (09:52→13:47)
[2019-07-02] MEDS: ERTAPENEM 1,000 MG in SODIUM CHLORIDE 0.9% 100 ML IV SCH (10:04)
[2019-07-02] MEDS: MEROPENEM 500 MG in SODIUM CHLORIDE 0.9% 100 ML IV SCH ×2 (13:58→20:10)
[2019-07-02] MEDS: LINEZOLID INJ 600 MG in PREMIX 1 EACH IV SCH (16:26)
[2019-07-03] MEDS: ACETYLCYSTEINE 20% 800 MG/4 ML VIAL RESP TX SCH ×4 (00:10→20:01)
[2019-07-03] MEDS: ALBUTEROL 2.5 MG/3 ML NEB RESP TX SCH ×7 (00:10→23:20)
[2019-07-03] MEDS: MEROPENEM 500 MG in SODIUM CHLORIDE 0.9% 100 ML IV SCH ×4 (02:25→19:20)
[2019-07-03] MEDS: LINEZOLID INJ 600 MG in PREMIX 1 EACH IV SCH ×2 (04:00→16:10)
[2019-07-03 04:24] LABS: Basophils % 0.2 % (0.0-0.8); Eosinophils # 0.1 10*3/uL (0.0-0.87); Eosinophils % 0.4 % (0.00-10.9); Hematocrit 28.7 VOL% (42.0-52.0); Hemoglobin 9.6 GM/DL (14.0-18.0); Immature Granulocytes % 1.5 %; Immature Granulocytes Absolute 0.24 #; Lymphocytes # 0.5 10*3/uL (1.4-4.0); Lymphocytes % 3.1 % (21.2-54.2); Mean Corpuscular HGB Conc 33.4 GM/DL (32-36); Mean Corpuscular Volume 91.1 FL (87-102); Monocytes % 3.9 % (1.7-12.7); Neutrophils % 90.9 % (38.7-73.9); Platelet Count 292 T/CUMM (130-400); Red Blood Count 3.15 MC/CUMM (3.8-5.5); Red Cell Distribution Width 14.2 % (9.3-17.3)
[2019-07-03 04:38] LABS: Calcium 7.4 MG/DL (8.5-10.1); Osmolality,Calculated 264.4 MOS/KG (273-304)
[2019-07-03 04:56] LABS: Eosinophils 1 % (0-10); Hypochromasia 1+; Lymphocytes 2 % (20-55); Platelet Estimate Adequate; Segmented Neutrophils 96 % (50-85); Total Cells Counted 100
[2019-07-03] MEDS: INSULIN REGULAR 100 UNIT/ML SUBCUT SCH ×4 (05:32→23:24)
[2019-07-03] MEDS: THEOPHYLLINE 5.33 MG/ML 30 ML/BOTTLE PO SCH ×3 (05:33→21:12)
[2019-07-03] MEDS: LACTATED RINGERS 1,000 ML IV SCH (06:45)
[2019-07-03] MEDS: HYDROmorphone 2 MG/1 ML VIAL IV PRN ×2 (09:27→17:09)
[2019-07-03] MEDS: POTASSIUM CHLORIDE 20 MEQ/15 ML UDCUP PER TUBE PRN (09:29)
[2019-07-03] MEDS: METOPROLOL TARTRATE 100 MG TABLET PO SCH ×2 (09:42→20:25)
[2019-07-03] MEDS: MONTELUKAST 10 MG TABLET PO SCH (09:42)
[2019-07-03] MEDS: ENOXAPARIN 40 MG/0.4 ML SYRINGE SUBCUT SCH ×2 (09:43→20:25)
[2019-07-03] MEDS: AMIODARONE 200 MG TABLET PO SCH ×2 (09:43→20:25)
[2019-07-03] MEDS: MAGNESIUM SULF RIDER 2 GM in PREMIX 1 EACH IV PRN (09:44)
[2019-07-03] MEDS: PANTOPRAZOLE 40 MG VIAL IV SCH (09:45)
[2019-07-03] MEDS ORDERED: FUROSEMIDE 40 MG/4 ML VIAL IV ONE (12:10)
[2019-07-04] MEDS: MEROPENEM 500 MG in SODIUM CHLORIDE 0.9% 100 ML IV SCH ×4 (01:18→19:24)
[2019-07-04] MEDS: HYDROmorphone 2 MG/1 ML VIAL IV PRN (02:10)
[2019-07-04] MEDS: ALBUTEROL 2.5 MG/3 ML NEB RESP TX SCH ×6 (02:20→23:47)
[2019-07-04] MEDS: ACETYLCYSTEINE 20% 800 MG/4 ML VIAL RESP TX SCH ×5 (02:20→23:47)
[2019-07-04] MEDS: LINEZOLID INJ 600 MG in PREMIX 1 EACH IV SCH ×2 (04:00→15:44)
[2019-07-04 04:27] LABS: Basophils # 0.1 10*3/uL (0.0-0.2); Basophils % 0.3 % (0.0-0.8); Eosinophils # 0.1 10*3/uL (0.0-0.87); Eosinophils % 0.5 % (0.00-10.9); Hemoglobin 9.7 GM/DL (14.0-18.0); Immature Granulocytes % 1.7 %; Immature Granulocytes Absolute 0.27 #; Lymphocytes # 0.3 10*3/uL (1.4-4.0); Mean Corpuscular HGB Conc 33.4 GM/DL (32-36); Mean Corpuscular Volume 89.5 FL (87-102); Mean Platelet Volume 10.6 FL (9.6-12.0); Monocytes % 3.8 % (1.7-12.7); Neutrophils % 91.7 % (38.7-73.9); Platelet Count 267 T/CUMM (130-400); Red Blood Count 3.24 MC/CUMM (3.8-5.5); Red Cell Distribution Width 13.7 % (9.3-17.3)
[2019-07-04 04:50] LABS: Blood Urea Nitrogen 10 MG/DL (7-18); Estimated Glom Filtration Rate 161 ML/MIN; Glucose 99 MG/DL (74-106); Osmolality,Calculated 251.4 MOS/KG (273-304)
[2019-07-04 04:51] LABS: Anisocytosis 1+; Band Neutrophils 3 % (0-10); Lymphocytes 1 % (20-55); Platelet Estimate Adequate; Segmented Neutrophils 96 % (50-85); Total Cells Counted 100
[2019-07-04] MEDS: THEOPHYLLINE 5.33 MG/ML 30 ML/BOTTLE PO SCH ×3 (06:21→22:31)
[2019-07-04] MEDS: INSULIN REGULAR 100 UNIT/ML SUBCUT SCH ×4 (06:21→23:01)
[2019-07-04] MEDS: METOPROLOL TARTRATE 100 MG TABLET PO SCH ×2 (08:54→20:15)
[2019-07-04] MEDS: PANTOPRAZOLE 40 MG VIAL IV SCH (08:54)
[2019-07-04] MEDS: MONTELUKAST 10 MG TABLET PO SCH (08:54)
[2019-07-04] MEDS: AMIODARONE 200 MG TABLET PO SCH ×2 (08:54→20:15)
[2019-07-05] MEDS: MEROPENEM 500 MG in SODIUM CHLORIDE 0.9% 100 ML IV SCH (01:30)
[2019-07-05] MEDS ORDERED: ETOMIDATE 20 MG/10 ML VIAL IV ONE (01:38)
[2019-07-05] MEDS ORDERED: SUCCINYLCHOLINE 200 MG/10 ML VIAL ONE (01:39)
[2019-07-05] MEDS ORDERED: NOREPINEPHRINE 16 MG in SODIUM CHLORIDE 0.9% 234 ML IV PRN (02:05)
[2019-07-05] MEDS ORDERED: SODIUM CHLORIDE 0.9% 1,000 ML IV ONE (02:06)
[2019-07-05 02:45] LABS: Blood Urea Nitrogen 11 MG/DL (7-18); Calcium 6.9 MG/DL (8.5-10.1); Estimated Glom Filtration Rate 160 ML/MIN; Glucose 83 MG/DL (74-106); Osmolality,Calculated 246.6 MOS/KG (273-304)
[2019-07-05] MEDS: fentaNYL INJ 1,250 MCG in SODIUM CHLORIDE 0.9% 225 ML IV PRN ×2 (03:16→19:38)
[2019-07-05 03:29] LABS: ABG Base Excess -1.4 MMOL/L (-2.5-2.5); ABG HCO3 23.3 MMOL/L (20-26); ABG PCO2 51.2 MM HG (35-48); ABG PH 7.303 (7.35-7.45); ABG TCO2 23.5 MMOL/L (23-27); Allen Test Positive; Pt O2 Delivery Device Ventilator
[2019-07-05] MEDS: ALBUTEROL 2.5 MG/3 ML NEB RESP TX SCH ×6 (03:39→23:45)
[2019-07-05] MEDS: LINEZOLID INJ 600 MG in PREMIX 1 EACH IV SCH ×2 (04:10→16:15)
[2019-07-05 04:20] LABS: Basophils % 0.2 % (0.0-0.8); Eosinophils # 0.1 10*3/uL (0.0-0.87); Eosinophils % 0.9 % (0.00-10.9); Hematocrit 28.2 VOL% (42.0-52.0); Hemoglobin 9.3 GM/DL (14.0-18.0); Immature Granulocytes % 1.6 %; Immature Granulocytes Absolute 0.24 #; Lymphocytes # 0.4 10*3/uL (1.4-4.0); Lymphocytes % 2.9 % (21.2-54.2); Mean Corpuscular Volume 89.5 FL (87-102); Mean Platelet Volume 9.9 FL (9.6-12.0); Monocytes % 4.4 % (1.7-12.7); Platelet Count 333 T/CUMM (130-400); Red Blood Count 3.15 MC/CUMM (3.8-5.5); Red Cell Distribution Width 13.8 % (9.3-17.3); White Blood Count 14.6 T/CUMM (4-12)
[2019-07-05 04:49] LABS: Prealbumin 16.9 MG/DL (20-40)
[2019-07-05] MEDS: THEOPHYLLINE 5.33 MG/ML 30 ML/BOTTLE PO SCH ×3 (05:33→21:04)
[2019-07-05] MEDS: MAGNESIUM SULF RIDER 2 GM in PREMIX 1 EACH IV PRN (05:45)
[2019-07-05] MEDS: INSULIN REGULAR 100 UNIT/ML SUBCUT SCH ×3 (06:09→20:06)
[2019-07-05 06:37] LABS: Lymphocytes 2 % (20-55); Segmented Neutrophils 95 % (50-85); Total Cells Counted 100
[2019-07-05 06:38] LABS: Anisocytosis 1+; Hypochromasia 1+; Microcytosis 1+; Platelet Estimate Adequate
[2019-07-05] MEDS: ACETYLCYSTEINE 20% 800 MG/4 ML VIAL RESP TX SCH ×4 (07:26→23:45)
[2019-07-05] MEDS ORDERED: SODIUM PHOSPHATE INJ 30 MMOL in SODIUM CHLORIDE 0.9% 250 ML IV ONE (10:00)
[2019-07-05] MEDS ORDERED: cefTAZidime 1,000 MG in SYRINGE 1 EACH IV SCH (11:00)
[2019-07-05] MEDS ORDERED: COSYNTROPIN 0.25 MG VIAL IM ONE (11:00)
[2019-07-05] MEDS: PANTOPRAZOLE 40 MG VIAL IV SCH (11:40)
[2019-07-05] MEDS: DEXTROSE 5% NACL 0.9% 1,000 ML IV SCH (11:40)
[2019-07-05] MEDS: cefTAZidime 1,000 MG in SYRINGE 1 EACH IV SCH ×2 (11:45→20:20)
[2019-07-05] MEDS: AMIODARONE 200 MG TABLET PO SCH ×2 (16:13→20:40)
[2019-07-05] MEDS: MONTELUKAST 10 MG TABLET PO SCH (16:13)
[2019-07-05] MEDS: METOPROLOL TARTRATE 100 MG TABLET PO SCH ×2 (16:13→20:29)
[2019-07-05] MEDS ORDERED: ALTEPLASE 2 MG VIAL INTRACATH ONE (18:08)
[2019-07-05 18:44] LABS: Apearance,Urine CLEAR (Clear); Bilirubin,Urine Negative (Negative); Blood, Urine Large mg/dL (Negative); Glucose,Urine (UA) Negative (Negative); Ketones,Urine Negative (Negative); Mucus,Urine Occasional /LPF (Occasional); Nitrite,Urine Negative (Negative); Protein,Urine Negative; RBC,Urine 188 /HPF (0-4); Urine Color Straw (Yellow); Urine Specific Gravity 1.012 (1.001-1.035); Urine Urobilinogen < 2.0 EU/DL (0.2-1.0); WBC,Urine 15 /HPF (0-6)
[2019-07-05] MEDS: ENOXAPARIN 40 MG/0.4 ML SYRINGE SUBCUT SCH (20:40)
[2019-07-06] MEDS: INSULIN REGULAR 100 UNIT/ML SUBCUT SCH ×4 (00:08→19:34)
[2019-07-06] MEDS: ALBUTEROL 2.5 MG/3 ML NEB RESP TX SCH ×5 (03:22→20:24)
[2019-07-06] MEDS: cefTAZidime 1,000 MG in SYRINGE 1 EACH IV SCH ×3 (03:27→20:25)
[2019-07-06 03:46] LABS: ABG HCO3 27.1 MMOL/L (20-26); ABG PCO2 47.5 MM HG (35-48); ABG PH 7.387 (7.35-7.45); ABG TCO2 26.3 MMOL/L (23-27)
[2019-07-06 03:47] LABS: Allen Test Positive; Pt O2 Delivery Device Ventilator
[2019-07-06] MEDS: LINEZOLID INJ 600 MG in PREMIX 1 EACH IV SCH ×2 (04:22→18:41)
[2019-07-06] MEDS: fentaNYL INJ 1,250 MCG in SODIUM CHLORIDE 0.9% 225 ML IV PRN ×3 (04:23→21:15)
[2019-07-06 05:21] LABS: Basophils % 0.2 % (0.0-0.8); Eosinophils % 0.3 % (0.00-10.9); Hematocrit 24.4 VOL% (42.0-52.0); Hemoglobin 8.1 GM/DL (14.0-18.0); Immature Granulocytes % 1.3 %; Immature Granulocytes Absolute 0.18 #; Lymphocytes # 0.5 10*3/uL (1.4-4.0); Lymphocytes % 3.6 % (21.2-54.2); Mean Corpuscular HGB Conc 33.2 GM/DL (32-36); Mean Platelet Volume 9.7 FL (9.6-12.0); Monocytes % 4.6 % (1.7-12.7); Platelet Count 301 T/CUMM (130-400); Red Blood Count 2.71 MC/CUMM (3.8-5.5); Red Cell Distribution Width 14.3 % (9.3-17.3); White Blood Count 13.4 T/CUMM (4-12)
[2019-07-06 05:24] LABS: Calcium 6.9 MG/DL (8.5-10.1); Osmolality,Calculated 258.9 MOS/KG (273-304)
[2019-07-06] MEDS: DEXTROSE 5% NACL 0.9% 1,000 ML IV SCH ×3 (05:46→19:25)
[2019-07-06] MEDS: THEOPHYLLINE 5.33 MG/ML 30 ML/BOTTLE PO SCH ×3 (05:47→21:54)
[2019-07-06] MEDS: POTASSIUM CHLORIDE 20 MEQ/15 ML UDCUP PER TUBE PRN ×4 (05:49→14:00)
[2019-07-06] MEDS: MAGNESIUM SULF RIDER 2 GM in PREMIX 1 EACH IV PRN (06:00)
[2019-07-06 07:03] LABS: Anisocytosis 1+; Band Neutrophils 16 % (0-10); Eosinophils 1 % (0-10); Lymphocytes 1 % (20-55); Platelet Estimate Normal; Segmented Neutrophils 78 % (50-85); Total Cells Counted 100
[2019-07-06 07:04] LABS: Macrocytosis 1+; Smudge Cells Few
[2019-07-06] MEDS: ACETYLCYSTEINE 20% 800 MG/4 ML VIAL RESP TX SCH ×3 (07:30→20:23)
[2019-07-06] MEDS: ALBUMIN 5% 25 GM in PREMIX 1 EACH IV SCH ×2 (10:13→18:40)
[2019-07-06] MEDS: AMIODARONE 200 MG TABLET PO SCH ×2 (10:17→21:54)
[2019-07-06] MEDS: MONTELUKAST 10 MG TABLET PO SCH (10:17)
[2019-07-06] MEDS: ENOXAPARIN 40 MG/0.4 ML SYRINGE SUBCUT SCH ×2 (10:17→21:54)
[2019-07-06] MEDS: PANTOPRAZOLE 40 MG VIAL IV SCH (10:17)
[2019-07-06] MEDS: METOPROLOL TARTRATE 100 MG TABLET PO SCH ×2 (10:30→21:54)
[2019-07-06] MEDS: methylPREDNISolone SOD SUC 40 MG/1 ML VIAL IV SCH (12:22)
[2019-07-06] MEDS ORDERED: FUROSEMIDE 40 MG/4 ML VIAL IV ONE (19:32)
[2019-07-06 19:58] LABS: Allen Test Positive; Pt O2 Delivery Device Ventilator
[2019-07-06 19:59] LABS: ABG Base Excess 2.9 MMOL/L (-2.5-2.5); ABG HCO3 27.1 MMOL/L (20-26); ABG PCO2 44.5 MM HG (35-48); ABG PH 7.406 (7.35-7.45); ABG TCO2 26.4 MMOL/L (23-27)
[2019-07-07] MEDS: methylPREDNISolone SOD SUC 40 MG/1 ML VIAL IV SCH ×3 (00:55→23:34)
[2019-07-07] MEDS: ALBUMIN 5% 25 GM in PREMIX 1 EACH IV SCH ×4 (00:55→23:34)
[2019-07-07] MEDS: INSULIN REGULAR 100 UNIT/ML SUBCUT SCH ×4 (01:02→18:02)
[2019-07-07] MEDS: fentaNYL INJ 1,250 MCG in SODIUM CHLORIDE 0.9% 225 ML IV PRN ×3 (03:30→17:50)
[2019-07-07 03:51] LABS: ABG Base Excess 4.3 MMOL/L (-2.5-2.5); ABG HCO3 28.3 MMOL/L (20-26); ABG Oxygen Saturation 99.2 % (95-100); ABG PCO2 56.4 MM HG (35-48); ABG PH 7.343 (7.35-7.45); ABG TCO2 29.3 MMOL/L (23-27); Pt O2 Delivery Device Ventilator
[2019-07-07] MEDS: cefTAZidime 1,000 MG in SYRINGE 1 EACH IV SCH ×3 (04:20→20:15)
[2019-07-07] MEDS: LINEZOLID INJ 600 MG in PREMIX 1 EACH IV SCH ×2 (04:45→18:00)
[2019-07-07] MEDS: THEOPHYLLINE 5.33 MG/ML 30 ML/BOTTLE PO SCH ×3 (05:02→21:25)
[2019-07-07 05:21] LABS: INR 1.1; PT Patient Result 11.4 SECS (9.6-12.2); Partial Thromboplastin Time 35.4 SECS (20.8-36.0)
[2019-07-07 05:25] LABS: Calcium 7.2 MG/DL (8.5-10.1); Osmolality,Calculated 267.1 MOS/KG (273-304)
[2019-07-07 05:29] LABS: Basophils % 0.1 % (0.0-0.8); Hematocrit 19.7 VOL% (42.0-52.0); Immature Granulocytes % 1.2 %; Immature Granulocytes Absolute 0.13 #; Lymphocytes # 0.2 10*3/uL (1.4-4.0); Lymphocytes % 1.6 % (21.2-54.2); Mean Corpuscular HGB Conc 32.5 GM/DL (32-36); Mean Corpuscular Volume 93.4 FL (87-102); Mean Platelet Volume 9.2 FL (9.6-12.0); Monocytes % 1.3 % (1.7-12.7); Neutrophils % 95.8 % (38.7-73.9); Platelet Count 222 T/CUMM (130-400); Red Blood Count 2.11 MC/CUMM (3.8-5.5); Red Cell Distribution Width 14.5 % (9.3-17.3); White Blood Count 11.1 T/CUMM (4-12)
[2019-07-07 05:47] LABS: Hemoglobin 6.4 GM/DL (14.0-18.0)
[2019-07-07 05:56] LABS: Lymphocytes 1 % (20-55); Platelet Estimate Normal; Polychromasia Few; Segmented Neutrophils 98 % (50-85); Total Cells Counted 100
[2019-07-07] MEDS ORDERED: SODIUM CHLORIDE 0.9% 1,000 ML IV PRN (06:31)
[2019-07-07] MEDS: ACETYLCYSTEINE 20% 800 MG/4 ML VIAL RESP TX SCH ×2 (06:47→19:40)
[2019-07-07] MEDS: ALBUTEROL 2.5 MG/3 ML NEB RESP TX SCH ×4 (06:47→19:40)
[2019-07-07] MEDS: AMIODARONE 200 MG TABLET PO SCH ×2 (08:27→21:25)
[2019-07-07] MEDS: METOPROLOL TARTRATE 100 MG TABLET PO SCH ×2 (08:27→21:25)
[2019-07-07] MEDS: MONTELUKAST 10 MG TABLET PO SCH (08:27)
[2019-07-07] MEDS: PANTOPRAZOLE 40 MG VIAL IV SCH (08:28)
[2019-07-07] MEDS: DEXTROSE 5% NACL 0.9% 1,000 ML IV SCH ×3 (11:09→22:40)
[2019-07-07] MEDS: FLUCONAZOLE INJ 100 MG in IV BAG 1 EACH IV SCH (12:07)
[2019-07-07] MEDS ORDERED: FUROSEMIDE 40 MG/4 ML VIAL IV ONE (14:51)
[2019-07-07] MEDS ORDERED: PROPOFOL 1,000 MG/100 ML BOTTLE IV ONE (19:00)
[2019-07-07] MEDS: PROPOFOL 1,000 MG/100 ML BOTTLE IV SCH (19:05)
[2019-07-08] MEDS: INSULIN REGULAR 100 UNIT/ML SUBCUT SCH ×5 (00:12→22:59)
[2019-07-08] MEDS: fentaNYL INJ 1,250 MCG in SODIUM CHLORIDE 0.9% 225 ML IV PRN ×2 (01:05→09:30)
[2019-07-08 03:02] LABS: Allen Test Positive; Pt O2 Delivery Device Ventilator
[2019-07-08 03:03] LABS: ABG Base Excess 3.6 MMOL/L (-2.5-2.5); ABG HCO3 29.1 MMOL/L (20-26); ABG Oxygen Saturation 99.2 % (95-100); ABG PCO2 48.9 MM HG (35-48); ABG PH 7.392 (7.35-7.45); ABG PO2 474.2 MM HG (80-95); ABG TCO2 30.6 MMOL/L (23-27)
[2019-07-08] MEDS: cefTAZidime 1,000 MG in SYRINGE 1 EACH IV SCH ×3 (04:20→20:18)
[2019-07-08] MEDS: LINEZOLID INJ 600 MG in PREMIX 1 EACH IV SCH ×2 (04:45→17:10)
[2019-07-08 04:49] LABS: Basophils % 0.1 % (0.0-0.8); Hematocrit 25.7 VOL% (42.0-52.0); Immature Granulocytes % 0.9 %; Immature Granulocytes Absolute 0.11 #; Lymphocytes # 0.3 10*3/uL (1.4-4.0); Lymphocytes % 2.5 % (21.2-54.2); Mean Corpuscular HGB Conc 33.5 GM/DL (32-36); Mean Corpuscular Volume 90.2 FL (87-102); Mean Platelet Volume 9.2 FL (9.6-12.0); Monocytes % 2.7 % (1.7-12.7); Neutrophils % 93.8 % (38.7-73.9); Platelet Count 183 T/CUMM (130-400); Red Blood Count 2.85 MC/CUMM (3.8-5.5); Red Cell Distribution Width 14.9 % (9.3-17.3); White Blood Count 11.7 T/CUMM (4-12)
[2019-07-08 04:50] LABS: Hemoglobin 8.6 GM/DL (14.0-18.0)
[2019-07-08 05:01] LABS: INR 1.1; PT Patient Result 11.9 SECS (9.6-12.2); Partial Thromboplastin Time 34.1 SECS (20.8-36.0)
[2019-07-08 05:14] LABS: Band Neutrophils 2 % (0-10); Hypochromasia 1+; Lymphocytes 2 % (20-55); Microcytosis Slight; Segmented Neutrophils 94 % (50-85); Total Cells Counted 100
[2019-07-08 05:15] LABS: Platelet Estimate Adequate
[2019-07-08 05:16] LABS: Calcium 7.4 MG/DL (8.5-10.1); Osmolality,Calculated 271.1 MOS/KG (273-304)
[2019-07-08] MEDS: THEOPHYLLINE 5.33 MG/ML 30 ML/BOTTLE PO SCH ×3 (05:18→22:49)
[2019-07-08] MEDS: PROPOFOL 1,000 MG/100 ML BOTTLE IV SCH ×3 (06:05→23:07)
[2019-07-08] MEDS: ACETYLCYSTEINE 20% 800 MG/4 ML VIAL RESP TX SCH ×2 (07:16→19:21)
[2019-07-08] MEDS: ALBUTEROL 2.5 MG/3 ML NEB RESP TX SCH ×4 (07:16→19:21)
[2019-07-08] MEDS: ALBUMIN 5% 25 GM in PREMIX 1 EACH IV SCH ×3 (10:07→23:07)
[2019-07-08] MEDS: MONTELUKAST 10 MG TABLET PO SCH (10:07)
[2019-07-08] MEDS: AMIODARONE 200 MG TABLET PO SCH ×2 (10:07→20:18)
[2019-07-08] MEDS: METOPROLOL TARTRATE 100 MG TABLET PO SCH ×2 (10:08→20:18)
[2019-07-08] MEDS: PANTOPRAZOLE 40 MG VIAL IV SCH (10:08)
[2019-07-08] MEDS: POTASSIUM CHLORIDE 20 MEQ/15 ML UDCUP PER TUBE PRN (10:08)
[2019-07-08] MEDS: FLUCONAZOLE INJ 100 MG in IV BAG 1 EACH IV SCH (12:30)
[2019-07-08] MEDS: DEXTROSE 5% NACL 0.9% 1,000 ML IV SCH ×2 (12:30→22:39)
[2019-07-08] MEDS: methylPREDNISolone SOD SUC 40 MG/1 ML VIAL IV SCH ×2 (12:30→22:50)
[2019-07-08] MEDS ORDERED: SODIUM PHOSPHATE INJ 20 MMOL in SODIUM CHLORIDE 0.9% 250 ML IV ONE (14:30)
[2019-07-08] MEDS: MEROPENEM 500 MG in SODIUM CHLORIDE 0.9% 100 ML IV SCH (22:41)
[2019-07-09] MEDS: cefTAZidime 1,000 MG in SYRINGE 1 EACH IV SCH ×3 (02:52→20:03)
[2019-07-09] MEDS: LINEZOLID INJ 600 MG in PREMIX 1 EACH IV SCH ×2 (03:00→17:13)
[2019-07-09] MEDS: DEXTROSE 5% NACL 0.9% 1,000 ML IV SCH ×3 (03:18→20:58)
[2019-07-09 03:31] LABS: ABG Base Excess 0.8 MMOL/L (-2.5-2.5); ABG HCO3 25.2 MMOL/L (20-26); ABG Oxygen Saturation 96.6 % (95-100); ABG PCO2 45.4 MM HG (35-48); ABG PH 7.372 (7.35-7.45); ABG PO2 76.9 MM HG (80-95); ABG TCO2 24.1 MMOL/L (23-27); Allen Test Positive; Pt O2 Delivery Device Ventilator
[2019-07-09] MEDS: THEOPHYLLINE 5.33 MG/ML 30 ML/BOTTLE PO SCH ×3 (05:16→21:11)
[2019-07-09 05:29] LABS: Basophils % 0.2 % (0.0-0.8); Hematocrit 28.5 VOL% (42.0-52.0); Hemoglobin 9.3 GM/DL (14.0-18.0); Immature Granulocytes % 1.2 %; Immature Granulocytes Absolute 0.21 #; Lymphocytes # 0.2 10*3/uL (1.4-4.0); Lymphocytes % 0.9 % (21.2-54.2); Mean Corpuscular HGB Conc 32.6 GM/DL (32-36); Mean Corpuscular Volume 92.2 FL (87-102); Mean Platelet Volume 9.2 FL (9.6-12.0); Monocytes % 2.7 % (1.7-12.7); Platelet Count 224 T/CUMM (130-400); Red Blood Count 3.09 MC/CUMM (3.8-5.5); Red Cell Distribution Width 15.1 % (9.3-17.3)
[2019-07-09 05:31] LABS: INR 1.1; PT Patient Result 11.8 SECS (9.6-12.2); Partial Thromboplastin Time 32.7 SECS (20.8-36.0)
[2019-07-09 05:40] LABS: Calcium 7.5 MG/DL (8.5-10.1); Osmolality,Calculated 281.5 MOS/KG (273-304)
[2019-07-09] MEDS: INSULIN REGULAR 100 UNIT/ML SUBCUT SCH ×4 (05:42→23:31)
[2019-07-09 05:46] LABS: Osmolality,Calculated 283.4 MOS/KG (273-304)
[2019-07-09] MEDS: POTASSIUM CHLORIDE 20 MEQ/15 ML UDCUP PER TUBE PRN ×2 (05:48→10:26)
[2019-07-09 05:50] LABS: Band Neutrophils 2 % (0-10); Hypochromasia 1+; Lymphocytes 1 % (20-55); Platelet Estimate Adequate; Segmented Neutrophils 95 % (50-85); Total Cells Counted 100
[2019-07-09 05:51] LABS: Microcytosis Slight
[2019-07-09] MEDS: ACETYLCYSTEINE 20% 800 MG/4 ML VIAL RESP TX SCH ×2 (08:03→19:45)
[2019-07-09] MEDS: ALBUTEROL 2.5 MG/3 ML NEB RESP TX SCH ×4 (08:03→19:45)
[2019-07-09] MEDS: METOPROLOL TARTRATE 100 MG TABLET PO SCH ×2 (10:23→21:10)
[2019-07-09] MEDS: AMIODARONE 200 MG TABLET PO SCH ×2 (10:23→21:10)
[2019-07-09] MEDS: MONTELUKAST 10 MG TABLET PO SCH (10:23)
[2019-07-09] MEDS: MAGNESIUM SULF RIDER 2 GM in PREMIX 1 EACH IV PRN (10:25)
[2019-07-09] MEDS: ALBUMIN 5% 25 GM in PREMIX 1 EACH IV SCH ×3 (10:27→23:39)
[2019-07-09] MEDS: PANTOPRAZOLE 40 MG VIAL IV SCH (10:27)
[2019-07-09] MEDS: methylPREDNISolone SOD SUC 40 MG/1 ML VIAL IV SCH ×2 (10:27→22:00)
[2019-07-09] MEDS ORDERED: FUROSEMIDE 40 MG/4 ML VIAL IV ONE (10:30)
[2019-07-09] MEDS: ENOXAPARIN 40 MG/0.4 ML SYRINGE SUBCUT SCH ×2 (10:30→21:10)
[2019-07-09] MEDS ORDERED: SODIUM PHOSPHATE INJ 30 MMOL in SODIUM CHLORIDE 0.9% 250 ML IV ONE (13:30)
[2019-07-09] MEDS: FLUCONAZOLE INJ 100 MG in IV BAG 1 EACH IV SCH (14:05)
[2019-07-09] MEDS: PROPOFOL 1,000 MG/100 ML BOTTLE IV SCH ×2 (14:56→20:03)
[2019-07-10] MEDS: cefTAZidime 1,000 MG in SYRINGE 1 EACH IV SCH ×3 (02:30→20:09)
[2019-07-10 04:49] LABS: ABG Base Excess 3.3 MMOL/L (-2.5-2.5); ABG HCO3 27.7 MMOL/L (20-26); ABG Oxygen Saturation 98.1 % (95-100); ABG PCO2 41.6 MM HG (35-48); ABG PH 7.442 (7.35-7.45); ABG PO2 122.8 MM HG (80-95); Allen Test Positive; Pt O2 Delivery Device Ventilator
[2019-07-10 05:11] LABS: Basophils % 0.1 % (0.0-0.8); Hematocrit 27.1 VOL% (42.0-52.0); Hemoglobin 8.9 GM/DL (14.0-18.0); Immature Granulocytes Absolute 0.13 #; Lymphocytes # 0.2 10*3/uL (1.4-4.0); Lymphocytes % 1.4 % (21.2-54.2); Mean Corpuscular HGB Conc 32.8 GM/DL (32-36); Mean Corpuscular Volume 91.9 FL (87-102); Mean Platelet Volume 9.1 FL (9.6-12.0); Monocytes % 2.2 % (1.7-12.7); Neutrophils % 95.3 % (38.7-73.9); Platelet Count 184 T/CUMM (130-400); Red Blood Count 2.95 MC/CUMM (3.8-5.5); Red Cell Distribution Width 14.8 % (9.3-17.3); White Blood Count 12.6 T/CUMM (4-12)
[2019-07-10] MEDS: PROPOFOL 1,000 MG/100 ML BOTTLE IV SCH ×2 (05:17→18:41)
[2019-07-10] MEDS: INSULIN REGULAR 100 UNIT/ML SUBCUT SCH ×4 (05:35→23:58)
[2019-07-10 05:36] LABS: Calcium 7.8 MG/DL (8.5-10.1); Osmolality,Calculated 280.5 MOS/KG (273-304)
[2019-07-10] MEDS: THEOPHYLLINE 5.33 MG/ML 30 ML/BOTTLE PO SCH ×3 (05:38→21:53)
[2019-07-10] MEDS: POTASSIUM CHLORIDE 20 MEQ/15 ML UDCUP PER TUBE PRN ×3 (05:50→14:27)
[2019-07-10 06:03] LABS: Band Neutrophils 1 % (0-10); Hypochromasia 2+; Platelet Estimate Normal; Segmented Neutrophils 98 % (50-85); Total Cells Counted 100
[2019-07-10] MEDS: DEXTROSE 5% NACL 0.9% 1,000 ML IV SCH ×2 (07:15→20:10)
[2019-07-10] MEDS: ACETYLCYSTEINE 20% 800 MG/4 ML VIAL RESP TX SCH ×2 (07:33→19:27)
[2019-07-10] MEDS: ALBUTEROL 2.5 MG/3 ML NEB RESP TX SCH ×4 (07:33→19:27)
[2019-07-10] MEDS: ALBUMIN 5% 25 GM in PREMIX 1 EACH IV SCH ×3 (09:50→23:46)
[2019-07-10] MEDS: ENOXAPARIN 40 MG/0.4 ML SYRINGE SUBCUT SCH ×2 (09:57→20:09)
[2019-07-10] MEDS: PANTOPRAZOLE 40 MG VIAL IV SCH (09:58)
[2019-07-10] MEDS: MONTELUKAST 10 MG TABLET PO SCH (09:58)
[2019-07-10] MEDS: AMIODARONE 200 MG TABLET PO SCH ×2 (09:58→20:09)
[2019-07-10] MEDS: METOPROLOL TARTRATE 100 MG TABLET PO SCH ×2 (09:58→20:09)
[2019-07-10] MEDS: methylPREDNISolone SOD SUC 40 MG/1 ML VIAL IV SCH ×2 (10:02→22:00)
[2019-07-10] MEDS: FLUCONAZOLE INJ 100 MG in IV BAG 1 EACH IV SCH (11:07)
[2019-07-11] MEDS: cefTAZidime 1,000 MG in SYRINGE 1 EACH IV SCH ×3 (03:30→20:01)
[2019-07-11 03:40] LABS: ABG Base Excess 2.3 MMOL/L (-2.5-2.5); ABG HCO3 26.2 MMOL/L (20-26); ABG Oxygen Saturation 98.3 % (95-100); ABG PCO2 37.9 MM HG (35-48); ABG PH 7.457 (7.35-7.45); ABG PO2 122.2 MM HG (80-95); ABG TCO2 27.3 MMOL/L (23-27); Pt O2 Delivery Device Ventilator
[2019-07-11 04:52] LABS: Basophils % 0.1 % (0.0-0.8); Hematocrit 29.1 VOL% (42.0-52.0); Hemoglobin 9.6 GM/DL (14.0-18.0); Immature Granulocytes Absolute 0.16 #; Lymphocytes # 0.1 10*3/uL (1.4-4.0); Lymphocytes % 0.8 % (21.2-54.2); Mean Corpuscular Volume 90.7 FL (87-102); Monocytes % 1.6 % (1.7-12.7); Neutrophils % 96.5 % (38.7-73.9); Platelet Count 175 T/CUMM (130-400); Red Blood Count 3.21 MC/CUMM (3.8-5.5); Red Cell Distribution Width 14.6 % (9.3-17.3); White Blood Count 15.4 T/CUMM (4-12)
[2019-07-11 05:25] LABS: Calcium 8.1 MG/DL (8.5-10.1)
[2019-07-11 05:48] LABS: Anisocytosis 1+; Lymphocytes 2 % (20-55); Microcytosis 1+; Segmented Neutrophils 95 % (50-85); Total Cells Counted 100
[2019-07-11 05:49] LABS: Platelet Estimate Adequate
[2019-07-11] MEDS: THEOPHYLLINE 5.33 MG/ML 30 ML/BOTTLE PO SCH ×3 (05:58→21:56)
[2019-07-11] MEDS: INSULIN REGULAR 100 UNIT/ML SUBCUT SCH ×4 (06:01→23:47)
[2019-07-11] MEDS: ALBUMIN 5% 25 GM in PREMIX 1 EACH IV SCH ×3 (07:33→23:39)
[2019-07-11] MEDS: ACETYLCYSTEINE 20% 800 MG/4 ML VIAL RESP TX SCH ×2 (07:40→20:42)
[2019-07-11] MEDS: ALBUTEROL 2.5 MG/3 ML NEB RESP TX SCH ×4 (07:40→20:43)
[2019-07-11] MEDS: METOPROLOL TARTRATE 100 MG TABLET PO SCH ×2 (09:29→20:01)
[2019-07-11] MEDS: AMIODARONE 200 MG TABLET PO SCH ×2 (09:29→20:01)
[2019-07-11] MEDS: PANTOPRAZOLE 40 MG VIAL IV SCH (09:29)
[2019-07-11] MEDS: ENOXAPARIN 40 MG/0.4 ML SYRINGE SUBCUT SCH (09:29)
[2019-07-11] MEDS: POTASSIUM CHLORIDE 20 MEQ/15 ML UDCUP PER TUBE PRN (09:29)
[2019-07-11] MEDS: MONTELUKAST 10 MG TABLET PO SCH (09:30)
[2019-07-11] MEDS: MICAFUNGIN 100 MG in SODIUM CHLORIDE 0.9% 100 ML IV SCH (09:34)
[2019-07-11] MEDS: PROPOFOL 1,000 MG/100 ML BOTTLE IV SCH ×3 (09:44→23:46)
[2019-07-11] MEDS: methylPREDNISolone SOD SUC 40 MG/1 ML VIAL IV SCH ×2 (10:57→22:03)
[2019-07-11] MEDS: DEXTROSE 5% NACL 0.9% 1,000 ML IV SCH (21:14)
[2019-07-11] MEDS ORDERED: ALBUMIN 5% 12.5 GM/250 ML VIAL IV ONE ×2 (23:32→23:34)
[2019-07-12] MEDS: DEXTROSE 5% NACL 0.9% 1,000 ML IV SCH ×2 (00:16→20:51)
[2019-07-12] MEDS: cefTAZidime 1,000 MG in SYRINGE 1 EACH IV SCH ×3 (02:30→20:51)
[2019-07-12 04:38] LABS: Basophils % 0.2 % (0.0-0.8); Hematocrit 27.5 VOL% (42.0-52.0); Hemoglobin 9.2 GM/DL (14.0-18.0); Immature Granulocytes % 0.9 %; Immature Granulocytes Absolute 0.12 #; Lymphocytes # 0.2 10*3/uL (1.4-4.0); Lymphocytes % 1.2 % (21.2-54.2); Mean Corpuscular HGB Conc 33.5 GM/DL (32-36); Mean Corpuscular Volume 90.5 FL (87-102); Mean Platelet Volume 8.9 FL (9.6-12.0); Monocytes % 1.5 % (1.7-12.7); Neutrophils % 96.2 % (38.7-73.9); Platelet Count 154 T/CUMM (130-400); Red Blood Count 3.04 MC/CUMM (3.8-5.5); Red Cell Distribution Width 14.5 % (9.3-17.3); White Blood Count 13.5 T/CUMM (4-12)
[2019-07-12 04:46] LABS: ABG Base Excess -0.4 MMOL/L (-2.5-2.5); ABG HCO3 24.2 MMOL/L (20-26); ABG Oxygen Saturation 99.2 % (95-100); ABG PCO2 34.6 MM HG (35-48); ABG PH 7.438 (7.35-7.45); ABG TCO2 21.3 MMOL/L (23-27); Allen Test Positive; Pt O2 Delivery Device Ventilator
[2019-07-12 04:53] LABS: INR 1.2; PT Patient Result 12.9 SECS (9.6-12.2); Partial Thromboplastin Time 37.8 SECS (20.8-36.0)
[2019-07-12 05:07] LABS: Hypochromasia 1+; Lymphocytes 1 % (20-55); Microcytosis 1+; Ovalocytes Slight; Platelet Estimate Adequate; Segmented Neutrophils 98 % (50-85); Total Cells Counted 100
[2019-07-12 05:09] LABS: Calcium 8.5 MG/DL (8.5-10.1); Osmolality,Calculated 276.5 MOS/KG (273-304)
[2019-07-12] MEDS: THEOPHYLLINE 5.33 MG/ML 30 ML/BOTTLE PO SCH ×3 (05:10→22:28)
[2019-07-12 05:23] LABS: Prealbumin 13.4 MG/DL (20-40)
[2019-07-12] MEDS: INSULIN REGULAR 100 UNIT/ML SUBCUT SCH ×3 (06:13→18:26)
[2019-07-12] MEDS: ALBUTEROL 2.5 MG/3 ML NEB RESP TX SCH ×4 (07:50→20:12)
[2019-07-12] MEDS: ACETYLCYSTEINE 20% 800 MG/4 ML VIAL RESP TX SCH ×2 (07:50→20:12)
[2019-07-12] MEDS ORDERED: LACTATED RINGERS 1,000 ML IV SCH (08:00)
[2019-07-12] MEDS: PANTOPRAZOLE 40 MG VIAL IV SCH (08:46)
[2019-07-12] MEDS: MICAFUNGIN 100 MG in SODIUM CHLORIDE 0.9% 100 ML IV SCH (08:47)
[2019-07-12] MEDS: FUROSEMIDE 20 MG/2 ML VIAL IV SCH ×2 (11:34→16:07)
[2019-07-12] MEDS: LINEZOLID INJ 600 MG in PREMIX 1 EACH IV SCH ×2 (11:53→22:29)
[2019-07-12] MEDS: methylPREDNISolone SOD SUC 40 MG/1 ML VIAL IV SCH ×2 (11:53→22:25)
[2019-07-12] MEDS ORDERED: PROPOFOL 200 MG/20 ML VIAL IV ONE ×2 (12:00→13:49)
[2019-07-12] MEDS: ALBUMIN 5% 25 GM in PREMIX 1 EACH IV SCH ×2 (12:23→20:51)
[2019-07-12] MEDS: MONTELUKAST 10 MG TABLET PO SCH (14:22)
[2019-07-12] MEDS: AMIODARONE 200 MG TABLET PO SCH ×2 (14:22→20:52)
[2019-07-12] MEDS: METOPROLOL TARTRATE 100 MG TABLET PO SCH ×2 (14:22→20:52)
[2019-07-12] MEDS ORDERED: ALBUMIN 5% 12.5 GM/250 ML VIAL IV ONE (18:24)
[2019-07-12] MEDS: PROPOFOL 1,000 MG/100 ML BOTTLE IV SCH (19:00)
[2019-07-13] MEDS: INSULIN REGULAR 100 UNIT/ML SUBCUT SCH ×4 (00:07→18:15)
[2019-07-13] MEDS: cefTAZidime 1,000 MG in SYRINGE 1 EACH IV SCH ×3 (02:38→20:20)
[2019-07-13 03:28] LABS: ABG Base Excess 1.4 MMOL/L (-2.5-2.5); ABG HCO3 25.7 MMOL/L (20-26); ABG Oxygen Saturation 99.7 % (95-100); ABG PCO2 33.1 MM HG (35-48); ABG PH 7.477 (7.35-7.45); ABG TCO2 22.1 MMOL/L (23-27)
[2019-07-13 05:08] LABS: Basophils % 0.1 % (0.0-0.8); Hematocrit 29.8 VOL% (42.0-52.0); Hemoglobin 9.9 GM/DL (14.0-18.0); Immature Granulocytes % 1.4 %; Immature Granulocytes Absolute 0.19 #; Lymphocytes # 0.2 10*3/uL (1.4-4.0); Lymphocytes % 1.4 % (21.2-54.2); Mean Corpuscular HGB Conc 33.2 GM/DL (32-36); Mean Corpuscular Volume 89.8 FL (87-102); Mean Platelet Volume 9.3 FL (9.6-12.0); Monocytes % 1.9 % (1.7-12.7); Neutrophils % 95.2 % (38.7-73.9); Platelet Count 182 T/CUMM (130-400); Red Blood Count 3.32 MC/CUMM (3.8-5.5); Red Cell Distribution Width 14.2 % (9.3-17.3); White Blood Count 13.5 T/CUMM (4-12)
[2019-07-13 05:21] LABS: Osmolality,Calculated 270.1 MOS/KG (273-304)
[2019-07-13 05:39] LABS: Anisocytosis Slight; Lymphocytes 2 % (20-55); Microcytosis Slight; Platelet Estimate Normal; Segmented Neutrophils 97 % (50-85); Total Cells Counted 100
[2019-07-13 05:42] LABS: Spherocytes Slight
[2019-07-13] MEDS: ALBUMIN 5% 25 GM in PREMIX 1 EACH IV SCH ×3 (05:48→20:59)
[2019-07-13] MEDS: THEOPHYLLINE 5.33 MG/ML 30 ML/BOTTLE PO SCH ×3 (05:49→21:06)
[2019-07-13] MEDS: POTASSIUM CHLORIDE 20 MEQ/15 ML UDCUP PER TUBE PRN (06:39)
[2019-07-13] MEDS: ALBUTEROL 2.5 MG/3 ML NEB RESP TX SCH ×4 (07:22→20:25)
[2019-07-13] MEDS: ACETYLCYSTEINE 20% 800 MG/4 ML VIAL RESP TX SCH ×2 (07:22→20:25)
[2019-07-13] MEDS: METOPROLOL TARTRATE 100 MG TABLET PO SCH ×2 (08:41→20:58)
[2019-07-13] MEDS: AMIODARONE 200 MG TABLET PO SCH ×2 (08:41→20:58)
[2019-07-13] MEDS: FUROSEMIDE 20 MG/2 ML VIAL IV SCH ×3 (08:41→22:00)
[2019-07-13] MEDS: ENOXAPARIN 40 MG/0.4 ML SYRINGE SUBCUT SCH ×2 (08:42→20:58)
[2019-07-13] MEDS: MONTELUKAST 10 MG TABLET PO SCH (08:42)
[2019-07-13] MEDS: PANTOPRAZOLE 40 MG VIAL IV SCH (08:42)
[2019-07-13] MEDS: MICAFUNGIN 100 MG in SODIUM CHLORIDE 0.9% 100 ML IV SCH (08:54)
[2019-07-13] MEDS: LINEZOLID INJ 600 MG in PREMIX 1 EACH IV SCH ×2 (10:41→22:41)
[2019-07-13] MEDS: methylPREDNISolone SOD SUC 40 MG/1 ML VIAL IV SCH ×2 (10:42→22:33)
[2019-07-13] MEDS: PROPOFOL 1,000 MG/100 ML BOTTLE IV SCH ×2 (14:27→20:51)
[2019-07-13] MEDS: DEXTROSE 5% NACL 0.9% 1,000 ML IV SCH ×2 (18:20→21:07)
[2019-07-14] MEDS: INSULIN REGULAR 100 UNIT/ML SUBCUT SCH ×4 (01:34→17:58)
[2019-07-14] MEDS: cefTAZidime 1,000 MG in SYRINGE 1 EACH IV SCH ×3 (02:44→20:13)
[2019-07-14 03:02] LABS: ABG Base Excess 1.7 MMOL/L (-2.5-2.5); ABG HCO3 25.9 MMOL/L (20-26); ABG Oxygen Saturation 99.3 % (95-100); ABG PH 7.464 (7.35-7.45); ABG TCO2 22.2 MMOL/L (23-27); Allen Test Positive; Pt O2 Delivery Device Ventilator
[2019-07-14] MEDS: ALBUMIN 5% 25 GM in PREMIX 1 EACH IV SCH ×3 (05:09→20:15)
[2019-07-14 05:12] LABS: Basophils % 0.1 % (0.0-0.8); Hematocrit 34.1 VOL% (42.0-52.0); Hemoglobin 11.4 GM/DL (14.0-18.0); Immature Granulocytes % 1.7 %; Immature Granulocytes Absolute 0.35 #; Lymphocytes # 0.2 10*3/uL (1.4-4.0); Mean Corpuscular HGB Conc 33.4 GM/DL (32-36); Mean Corpuscular Volume 89.3 FL (87-102); Mean Platelet Volume 9.2 FL (9.6-12.0); Monocytes % 2.1 % (1.7-12.7); Neutrophils % 95.1 % (38.7-73.9); Platelet Count 243 T/CUMM (130-400); Red Blood Count 3.82 MC/CUMM (3.8-5.5); Red Cell Distribution Width 14.4 % (9.3-17.3); White Blood Count 20.9 T/CUMM (4-12)
[2019-07-14] MEDS: THEOPHYLLINE 5.33 MG/ML 30 ML/BOTTLE PO SCH ×3 (05:15→21:23)
[2019-07-14 05:22] LABS: INR 1.2; PT Patient Result 13.3 SECS (9.6-12.2); Partial Thromboplastin Time 36.2 SECS (20.8-36.0)
[2019-07-14 05:27] LABS: Calcium 9.1 MG/DL (8.5-10.1); Osmolality,Calculated 275.1 MOS/KG (273-304)
[2019-07-14 05:39] LABS: Band Neutrophils 1 % (0-10); Hypochromasia 1+; Microcytosis Slight; Platelet Estimate Adequate; Segmented Neutrophils 98 % (50-85); Total Cells Counted 100
[2019-07-14] MEDS: FUROSEMIDE 20 MG/2 ML VIAL IV SCH ×3 (06:11→21:23)
[2019-07-14] MEDS: POTASSIUM CHLORIDE 20 MEQ/15 ML UDCUP PER TUBE PRN ×2 (06:13→09:11)
[2019-07-14] MEDS: ACETYLCYSTEINE 20% 800 MG/4 ML VIAL RESP TX SCH ×2 (07:30→20:15)
[2019-07-14] MEDS: ALBUTEROL 2.5 MG/3 ML NEB RESP TX SCH ×4 (07:30→20:15)
[2019-07-14] MEDS: MONTELUKAST 10 MG TABLET PO SCH (09:11)
[2019-07-14] MEDS: METOPROLOL TARTRATE 100 MG TABLET PO SCH ×2 (09:11→20:14)
[2019-07-14] MEDS: AMIODARONE 200 MG TABLET PO SCH ×2 (09:11→20:12)
[2019-07-14] MEDS: ENOXAPARIN 40 MG/0.4 ML SYRINGE SUBCUT SCH ×2 (09:14→20:12)
[2019-07-14] MEDS: PANTOPRAZOLE 40 MG VIAL IV SCH (09:14)
[2019-07-14] MEDS: MICAFUNGIN 100 MG in SODIUM CHLORIDE 0.9% 100 ML IV SCH (09:27)
[2019-07-14] MEDS: LINEZOLID INJ 600 MG in PREMIX 1 EACH IV SCH ×2 (10:30→22:36)
[2019-07-14] MEDS: methylPREDNISolone SOD SUC 40 MG/1 ML VIAL IV SCH ×2 (11:30→22:36)
[2019-07-14] MEDS: POTASSIUM CHLORIDE 20 MEQ/15 ML UDCUP PER TUBE SCH ×2 (11:30→17:58)
[2019-07-14] MEDS: PROPOFOL 1,000 MG/100 ML BOTTLE IV SCH (13:03)
[2019-07-14] MEDS: DEXTROSE 5% NACL 0.9% 1,000 ML IV SCH (23:37)
[2019-07-15] MEDS: INSULIN REGULAR 100 UNIT/ML SUBCUT SCH ×4 (00:46→18:02)
[2019-07-15] MEDS: POTASSIUM CHLORIDE 20 MEQ/15 ML UDCUP PER TUBE SCH ×3 (02:04→18:02)
[2019-07-15 04:03] LABS: Basophils % 0.1 % (0.0-0.8); Hematocrit 34.7 VOL% (42.0-52.0); Hemoglobin 11.4 GM/DL (14.0-18.0); Immature Granulocytes % 1.5 %; Immature Granulocytes Absolute 0.34 #; Lymphocytes # 0.2 10*3/uL (1.4-4.0); Lymphocytes % 0.9 % (21.2-54.2); Mean Corpuscular HGB Conc 32.9 GM/DL (32-36); Mean Corpuscular Volume 90.6 FL (87-102); Mean Platelet Volume 9.6 FL (9.6-12.0); Monocytes % 1.8 % (1.7-12.7); Neutrophils % 95.7 % (38.7-73.9); Platelet Count 261 T/CUMM (130-400); Red Blood Count 3.83 MC/CUMM (3.8-5.5); Red Cell Distribution Width 14.6 % (9.3-17.3); White Blood Count 23.1 T/CUMM (4-12)
[2019-07-15] MEDS: cefTAZidime 1,000 MG in SYRINGE 1 EACH IV SCH ×3 (04:04→19:50)
[2019-07-15] MEDS: ALBUMIN 5% 25 GM in PREMIX 1 EACH IV SCH ×3 (04:04→20:00)
[2019-07-15 04:26] LABS: Band Neutrophils 3 % (0-10); Hypochromasia 1+; Lymphocytes 1 % (20-55); Microcytosis Slight; Platelet Estimate Adequate; Segmented Neutrophils 94 % (50-85); Total Cells Counted 100
[2019-07-15 04:31] LABS: ABG Base Excess 0.4 MMOL/L (-2.5-2.5); ABG HCO3 24.8 MMOL/L (20-26); ABG Oxygen Saturation 99.6 % (95-100); ABG PCO2 36.4 MM HG (35-48); ABG PH 7.433 (7.35-7.45); ABG TCO2 21.7 MMOL/L (23-27); Allen Test Positive; Pt O2 Delivery Device Ventilator
[2019-07-15 04:40] LABS: Calcium 9.3 MG/DL (8.5-10.1); Osmolality,Calculated 275.1 MOS/KG (273-304)
[2019-07-15 04:45] LABS: Prealbumin 16.4 MG/DL (20-40)
[2019-07-15] MEDS: FUROSEMIDE 20 MG/2 ML VIAL IV SCH ×3 (05:11→20:59)
[2019-07-15] MEDS: THEOPHYLLINE 5.33 MG/ML 30 ML/BOTTLE PO SCH ×3 (05:12→21:00)
[2019-07-15] MEDS: PROPOFOL 1,000 MG/100 ML BOTTLE IV SCH (05:12)
[2019-07-15] MEDS: ALBUTEROL 2.5 MG/3 ML NEB RESP TX SCH ×4 (07:30→19:09)
[2019-07-15] MEDS: ACETYLCYSTEINE 20% 800 MG/4 ML VIAL RESP TX SCH ×2 (07:30→19:09)
[2019-07-15] MEDS: ENOXAPARIN 40 MG/0.4 ML SYRINGE SUBCUT SCH ×2 (08:28→20:57)
[2019-07-15] MEDS: PANTOPRAZOLE 40 MG VIAL IV SCH (08:28)
[2019-07-15] MEDS: POTASSIUM CHLORIDE 20 MEQ/15 ML UDCUP PER TUBE PRN (08:28)
[2019-07-15] MEDS: MONTELUKAST 10 MG TABLET PO SCH (08:29)
[2019-07-15] MEDS: AMIODARONE 200 MG TABLET PO SCH ×2 (08:29→20:57)
[2019-07-15] MEDS: METOPROLOL TARTRATE 100 MG TABLET PO SCH ×2 (08:29→20:57)
[2019-07-15] MEDS: MICAFUNGIN 100 MG in SODIUM CHLORIDE 0.9% 100 ML IV SCH (08:42)
[2019-07-15] MEDS: LINEZOLID INJ 600 MG in PREMIX 1 EACH IV SCH ×2 (09:48→22:25)
[2019-07-15] MEDS: methylPREDNISolone SOD SUC 40 MG/1 ML VIAL IV SCH ×2 (10:00→22:24)
[2019-07-15] MEDS: DEXTROSE 5% NACL 0.9% 1,000 ML IV SCH (22:17)
[2019-07-16] MEDS: INSULIN REGULAR 100 UNIT/ML SUBCUT SCH ×5 (00:14→23:17)
[2019-07-16] MEDS: POTASSIUM CHLORIDE 20 MEQ/15 ML UDCUP PER TUBE SCH ×3 (02:08→18:39)
[2019-07-16] MEDS: PROPOFOL 1,000 MG/100 ML BOTTLE IV SCH ×4 (02:10→23:10)
[2019-07-16] MEDS: cefTAZidime 1,000 MG in SYRINGE 1 EACH IV SCH ×3 (02:50→20:23)
[2019-07-16 04:00] LABS: ABG Base Excess -0.6 MMOL/L (-2.5-2.5); ABG Oxygen Saturation 99.5 % (95-100); ABG PCO2 37.4 MM HG (35-48); ABG PH 7.411 (7.35-7.45); ABG TCO2 21.4 MMOL/L (23-27); Allen Test Positive; Pt O2 Delivery Device Ventilator
[2019-07-16] MEDS: ALBUMIN 5% 25 GM in PREMIX 1 EACH IV SCH ×3 (04:35→20:27)
[2019-07-16 05:06] LABS: Basophils % 0.1 % (0.0-0.8); Immature Granulocytes % 1.1 %; Immature Granulocytes Absolute 0.19 #; Lymphocytes # 0.2 10*3/uL (1.4-4.0); Mean Corpuscular HGB Conc 32.3 GM/DL (32-36); Mean Platelet Volume 9.5 FL (9.6-12.0); Monocytes % 2.4 % (1.7-12.7); Neutrophils % 95.4 % (38.7-73.9); Platelet Count 224 T/CUMM (130-400); Red Blood Count 3.37 MC/CUMM (3.8-5.5); Red Cell Distribution Width 14.6 % (9.3-17.3); White Blood Count 17.8 T/CUMM (4-12)
[2019-07-16 05:16] LABS: INR 1.2; PT Patient Result 12.9 SECS (9.6-12.2); Partial Thromboplastin Time 36.8 SECS (20.8-36.0)
[2019-07-16 05:22] LABS: Calcium 8.9 MG/DL (8.5-10.1); Osmolality,Calculated 267.8 MOS/KG (273-304)
[2019-07-16 05:25] LABS: Band Neutrophils 2 % (0-10); Hypochromasia 1+; Lymphocytes 1 % (20-55); Microcytosis 1+; Segmented Neutrophils 94 % (50-85); Total Cells Counted 100
[2019-07-16 05:26] LABS: Platelet Estimate Normal
[2019-07-16] MEDS: THEOPHYLLINE 5.33 MG/ML 30 ML/BOTTLE PO SCH ×3 (05:40→21:26)
[2019-07-16] MEDS: FUROSEMIDE 20 MG/2 ML VIAL IV SCH ×3 (05:40→21:27)
[2019-07-16] MEDS: ACETYLCYSTEINE 20% 800 MG/4 ML VIAL RESP TX SCH ×2 (07:25→19:37)
[2019-07-16] MEDS: ALBUTEROL 2.5 MG/3 ML NEB RESP TX SCH ×4 (07:25→19:37)
[2019-07-16] MEDS: ENOXAPARIN 40 MG/0.4 ML SYRINGE SUBCUT SCH ×2 (09:38→21:25)
[2019-07-16] MEDS: PANTOPRAZOLE 40 MG VIAL IV SCH (09:38)
[2019-07-16] MEDS: MONTELUKAST 10 MG TABLET PO SCH (09:39)
[2019-07-16] MEDS: METOPROLOL TARTRATE 100 MG TABLET PO SCH ×2 (09:39→21:25)
[2019-07-16] MEDS: AMIODARONE 200 MG TABLET PO SCH ×2 (09:39→21:24)
[2019-07-16] MEDS: MICAFUNGIN 100 MG in SODIUM CHLORIDE 0.9% 100 ML IV SCH (09:40)
[2019-07-16] MEDS: LINEZOLID INJ 600 MG in PREMIX 1 EACH IV SCH ×2 (09:40→21:32)
[2019-07-16] MEDS: methylPREDNISolone SOD SUC 40 MG/1 ML VIAL IV SCH ×2 (10:34→22:00)
[2019-07-16] MEDS: DEXTROSE 5% NACL 0.9% 1,000 ML IV SCH ×2 (13:28→20:30)
[2019-07-17] MEDS: cefTAZidime 1,000 MG in SYRINGE 1 EACH IV SCH ×3 (02:38→20:25)
[2019-07-17] MEDS: POTASSIUM CHLORIDE 20 MEQ/15 ML UDCUP PER TUBE SCH ×3 (02:38→18:16)
[2019-07-17 03:44] LABS: ABG Base Excess -1.1 MMOL/L (-2.5-2.5); ABG HCO3 23.5 MMOL/L (20-26); ABG Oxygen Saturation 99.7 % (95-100); ABG PCO2 36.4 MM HG (35-48); ABG PH 7.411 (7.35-7.45); ABG TCO2 21.1 MMOL/L (23-27); Allen Test Positive; Pt O2 Delivery Device Ventilator
[2019-07-17] MEDS: ALBUMIN 5% 25 GM in PREMIX 1 EACH IV SCH ×3 (04:31→20:29)
[2019-07-17 04:47] LABS: Basophils % 0.1 % (0.0-0.8); Hematocrit 28.9 VOL% (42.0-52.0); Hemoglobin 9.5 GM/DL (14.0-18.0); Immature Granulocytes % 1.8 %; Immature Granulocytes Absolute 0.39 #; Lymphocytes # 0.1 10*3/uL (1.4-4.0); Lymphocytes % 0.5 % (21.2-54.2); Mean Corpuscular HGB Conc 32.9 GM/DL (32-36); Mean Corpuscular Volume 91.7 FL (87-102); Mean Platelet Volume 9.6 FL (9.6-12.0); Monocytes % 1.9 % (1.7-12.7); Neutrophils % 95.7 % (38.7-73.9); Platelet Count 249 T/CUMM (130-400); Red Blood Count 3.15 MC/CUMM (3.8-5.5); Red Cell Distribution Width 14.7 % (9.3-17.3); White Blood Count 22.2 T/CUMM (4-12)
[2019-07-17 05:02] LABS: Calcium 9.4 MG/DL (8.5-10.1); Osmolality,Calculated 274.4 MOS/KG (273-304)
[2019-07-17 05:12] LABS: Platelet Estimate Adequate; Segmented Neutrophils 100 % (50-85); Total Cells Counted 100
[2019-07-17 05:13] LABS: Hypochromasia Slight; Polychromasia Few
[2019-07-17] MEDS: INSULIN REGULAR 100 UNIT/ML SUBCUT SCH ×4 (05:19→23:44)
[2019-07-17] MEDS: FUROSEMIDE 20 MG/2 ML VIAL IV SCH ×3 (05:35→21:35)
[2019-07-17] MEDS: THEOPHYLLINE 5.33 MG/ML 30 ML/BOTTLE PO SCH (05:35)
[2019-07-17] MEDS: ACETYLCYSTEINE 20% 800 MG/4 ML VIAL RESP TX SCH (07:58)
[2019-07-17] MEDS: ALBUTEROL 2.5 MG/3 ML NEB RESP TX SCH ×4 (07:58→19:47)
[2019-07-17] MEDS: METOPROLOL TARTRATE 100 MG TABLET PO SCH ×2 (08:35→21:00)
[2019-07-17] MEDS: MONTELUKAST 10 MG TABLET PO SCH (08:35)
[2019-07-17] MEDS: AMIODARONE 200 MG TABLET PO SCH ×2 (08:35→21:00)
[2019-07-17] MEDS: PANTOPRAZOLE 40 MG VIAL IV SCH (08:36)
[2019-07-17] MEDS: ENOXAPARIN 40 MG/0.4 ML SYRINGE SUBCUT SCH ×2 (08:36→21:00)
[2019-07-17] MEDS: MICAFUNGIN 100 MG in SODIUM CHLORIDE 0.9% 100 ML IV SCH (08:53)
[2019-07-17] MEDS: methylPREDNISolone SOD SUC 40 MG/1 ML VIAL IV SCH ×2 (10:16→22:02)
[2019-07-17] MEDS: LINEZOLID INJ 600 MG in PREMIX 1 EACH IV SCH ×2 (10:18→22:02)
[2019-07-17] MEDS: HYDROmorphone 2 MG/1 ML VIAL IV PRN (21:57)
[2019-07-17] MEDS: PROPOFOL 1,000 MG/100 ML BOTTLE IV SCH (21:58)
[2019-07-17] MEDS: DEXTROSE 5% NACL 0.9% 1,000 ML IV SCH (22:29)
[2019-07-18] MEDS: HYDROmorphone 2 MG/1 ML VIAL IV PRN ×5 (00:09→23:29)
[2019-07-18] MEDS: POTASSIUM CHLORIDE 20 MEQ/15 ML UDCUP PER TUBE SCH ×3 (02:28→17:12)
[2019-07-18 03:20] LABS: ABG Base Excess -0.8 MMOL/L (-2.5-2.5); ABG HCO3 23.7 MMOL/L (20-26); ABG Oxygen Saturation 98.8 % (95-100); ABG PCO2 43.4 MM HG (35-48); ABG PH 7.363 (7.35-7.45); ABG TCO2 22.1 MMOL/L (23-27); Allen Test Positive; Pt O2 Delivery Device Ventilator
[2019-07-18] MEDS: cefTAZidime 1,000 MG in SYRINGE 1 EACH IV SCH ×3 (04:05→20:06)
[2019-07-18] MEDS: ALBUMIN 5% 25 GM in PREMIX 1 EACH IV SCH ×3 (04:45→20:08)
[2019-07-18 04:55] LABS: Basophils # 0.1 10*3/uL (0.0-0.2); Basophils % 0.2 % (0.0-0.8); Hemoglobin 10.8 GM/DL (14.0-18.0); Immature Granulocytes % 1.2 %; Immature Granulocytes Absolute 0.37 #; Lymphocytes # 0.2 10*3/uL (1.4-4.0); Lymphocytes % 0.8 % (21.2-54.2); Mean Corpuscular HGB Conc 32.7 GM/DL (32-36); Mean Corpuscular Volume 92.4 FL (87-102); Mean Platelet Volume 9.4 FL (9.6-12.0); Monocytes % 2.3 % (1.7-12.7); Neutrophils % 95.5 % (38.7-73.9); Platelet Count 331 T/CUMM (130-400); Red Blood Count 3.57 MC/CUMM (3.8-5.5); Red Cell Distribution Width 14.6 % (9.3-17.3)
[2019-07-18 05:16] LABS: Calcium 9.3 MG/DL (8.5-10.1); Osmolality,Calculated 282.4 MOS/KG (273-304)
[2019-07-18 05:20] LABS: Hypochromasia Slight; Platelet Estimate Normal; Polychromasia Few; Segmented Neutrophils 100 % (50-85); Total Cells Counted 100
[2019-07-18] MEDS: FUROSEMIDE 20 MG/2 ML VIAL IV SCH ×3 (05:53→21:00)
[2019-07-18] MEDS: INSULIN REGULAR 100 UNIT/ML SUBCUT SCH ×4 (06:03→23:50)
[2019-07-18] MEDS: ALBUTEROL 2.5 MG/3 ML NEB RESP TX SCH ×4 (08:12→19:31)
[2019-07-18] MEDS: AMIODARONE 200 MG TABLET PO SCH ×2 (09:19→21:00)
[2019-07-18] MEDS: ENOXAPARIN 40 MG/0.4 ML SYRINGE SUBCUT SCH ×2 (09:19→21:01)
[2019-07-18] MEDS: METOPROLOL TARTRATE 100 MG TABLET PO SCH ×2 (09:19→21:00)
[2019-07-18] MEDS: MONTELUKAST 10 MG TABLET PO SCH (09:19)
[2019-07-18] MEDS: PANTOPRAZOLE 40 MG VIAL IV SCH (09:20)
[2019-07-18] MEDS: MICAFUNGIN 100 MG in SODIUM CHLORIDE 0.9% 100 ML IV SCH (09:20)
[2019-07-18] MEDS: DEXTROSE 5% NACL 0.9% 1,000 ML IV SCH ×2 (09:35→21:15)
[2019-07-18] MEDS: POTASSIUM CHLORIDE 20 MEQ/15 ML UDCUP PER TUBE PRN ×2 (11:00→13:15)
[2019-07-18] MEDS: LINEZOLID INJ 600 MG in PREMIX 1 EACH IV SCH ×2 (11:00→22:05)
[2019-07-18] MEDS: methylPREDNISolone SOD SUC 40 MG/1 ML VIAL IV SCH ×2 (11:01→22:02)
[2019-07-18] MEDS: PROPOFOL 1,000 MG/100 ML BOTTLE IV SCH (17:06)
[2019-07-19] MEDS: POTASSIUM CHLORIDE 20 MEQ/15 ML UDCUP PER TUBE SCH ×3 (02:03→17:14)
[2019-07-19 03:46] LABS: ABG Base Excess -1.4 MMOL/L (-2.5-2.5); ABG HCO3 23.3 MMOL/L (20-26); ABG Oxygen Saturation 98.6 % (95-100); ABG PH 7.357 (7.35-7.45); ABG TCO2 22.3 MMOL/L (23-27)
[2019-07-19] MEDS: cefTAZidime 1,000 MG in SYRINGE 1 EACH IV SCH ×3 (03:56→20:29)
[2019-07-19 04:49] LABS: Basophils % 0.1 % (0.0-0.8); Hematocrit 27.6 VOL% (42.0-52.0); Hemoglobin 8.5 GM/DL (14.0-18.0); Immature Granulocytes % 0.7 %; Immature Granulocytes Absolute 0.12 #; Lymphocytes # 0.1 10*3/uL (1.4-4.0); Lymphocytes % 0.6 % (21.2-54.2); Mean Corpuscular HGB Conc 30.8 GM/DL (32-36); Mean Corpuscular Volume 95.2 FL (87-102); Mean Platelet Volume 9.6 FL (9.6-12.0); Monocytes % 1.5 % (1.7-12.7); Neutrophils % 97.1 % (38.7-73.9); Platelet Count 226 T/CUMM (130-400); White Blood Count 17.1 T/CUMM (4-12)
[2019-07-19 04:53] LABS: INR 1.2; PT Patient Result 13.4 SECS (9.6-12.2)
[2019-07-19 04:59] LABS: Partial Thromboplastin Time 42.2 SECS (20.8-36.0)
[2019-07-19 05:26] LABS: Band Neutrophils 4 % (0-10); Hypochromasia 1+; Lymphocytes 1 % (20-55); Segmented Neutrophils 92 % (50-85); Total Cells Counted 100
[2019-07-19 05:27] LABS: Microcytosis Slight; Platelet Estimate Normal
[2019-07-19] MEDS: ALBUMIN 5% 25 GM in PREMIX 1 EACH IV SCH (05:47)
[2019-07-19] MEDS: INSULIN REGULAR 100 UNIT/ML SUBCUT SCH ×4 (05:54→23:47)
[2019-07-19 06:19] LABS: Calcium 9.1 MG/DL (8.5-10.1); Osmolality,Calculated 281.4 MOS/KG (273-304)
[2019-07-19] MEDS: FUROSEMIDE 20 MG/2 ML VIAL IV SCH ×3 (06:25→21:35)
[2019-07-19] MEDS: ALBUTEROL 2.5 MG/3 ML NEB RESP TX SCH ×4 (07:03→19:33)
[2019-07-19] MEDS: PROPOFOL 1,000 MG/100 ML BOTTLE IV SCH ×3 (08:03→21:34)
[2019-07-19] MEDS: METOPROLOL TARTRATE 100 MG TABLET PO SCH ×2 (09:40→21:40)
[2019-07-19] MEDS: ENOXAPARIN 40 MG/0.4 ML SYRINGE SUBCUT SCH ×2 (09:40→21:40)
[2019-07-19] MEDS: PANTOPRAZOLE 40 MG VIAL IV SCH (09:40)
[2019-07-19] MEDS: AMIODARONE 200 MG TABLET PO SCH ×2 (09:40→21:40)
[2019-07-19] MEDS: MONTELUKAST 10 MG TABLET PO SCH (09:41)
[2019-07-19] MEDS: LINEZOLID INJ 600 MG in PREMIX 1 EACH IV SCH ×2 (09:48→23:38)
[2019-07-19] MEDS: methylPREDNISolone SOD SUC 40 MG/1 ML VIAL IV SCH ×2 (10:47→23:41)
[2019-07-19] MEDS: ACETYLCYSTEINE 20% 800 MG/4 ML VIAL RESP TX SCH ×2 (12:19→19:33)
[2019-07-19] MEDS: THEOPHYLLINE 5.33 MG/ML 30 ML/BOTTLE PO SCH ×2 (15:14→21:41)
[2019-07-19] MEDS ORDERED: SODIUM PHOSPHATE INJ 30 MMOL in SODIUM CHLORIDE 0.9% 250 ML IV ONE (16:00)
[2019-07-19] MEDS: DEXTROSE 5% NACL 0.9% 1,000 ML IV SCH (21:33)
[2019-07-20] MEDS: ACETYLCYSTEINE 20% 800 MG/4 ML VIAL RESP TX SCH ×4 (00:46→19:20)
[2019-07-20] MEDS: cefTAZidime 1,000 MG in SYRINGE 1 EACH IV SCH ×3 (02:54→21:01)
[2019-07-20] MEDS: POTASSIUM CHLORIDE 20 MEQ/15 ML UDCUP PER TUBE SCH ×3 (02:54→18:55)
[2019-07-20] MEDS: DEXTROSE 5% NACL 0.9% 1,000 ML IV SCH ×2 (03:20→22:48)
[2019-07-20 04:27] LABS: Basophils % 0.1 % (0.0-0.8); Hematocrit 26.4 VOL% (42.0-52.0); Hemoglobin 8.6 GM/DL (14.0-18.0); Immature Granulocytes Absolute 0.14 #; Lymphocytes # 0.2 10*3/uL (1.4-4.0); Lymphocytes % 1.1 % (21.2-54.2); Mean Corpuscular HGB Conc 32.6 GM/DL (32-36); Mean Corpuscular Volume 92.3 FL (87-102); Mean Platelet Volume 9.6 FL (9.6-12.0); Monocytes % 3.2 % (1.7-12.7); Neutrophils % 94.6 % (38.7-73.9); Platelet Count 240 T/CUMM (130-400); Red Blood Count 2.86 MC/CUMM (3.8-5.5); Red Cell Distribution Width 15.1 % (9.3-17.3); White Blood Count 14.7 T/CUMM (4-12)
[2019-07-20 04:34] LABS: INR 1.1; PT Patient Result 12.4 SECS (9.6-12.2); Partial Thromboplastin Time 35.3 SECS (20.8-36.0)
[2019-07-20 04:38] LABS: Calcium 8.8 MG/DL (8.5-10.1); Osmolality,Calculated 282.1 MOS/KG (273-304)
[2019-07-20 04:46] LABS: ABG Base Excess -0.2 MMOL/L (-2.5-2.5); ABG HCO3 24.3 MMOL/L (20-26); ABG Oxygen Saturation 99.9 % (95-100); ABG PCO2 38.5 MM HG (35-48); ABG PH 7.407 (7.35-7.45); ABG TCO2 22.4 MMOL/L (23-27)
[2019-07-20 04:47] LABS: Allen Test Positive; Pt O2 Delivery Device Ventilator
[2019-07-20 05:03] LABS: Band Neutrophils 1 % (0-10); Hypochromasia 1+; Lymphocytes 1 % (20-55); Microcytosis Slight; Platelet Estimate Adequate; Segmented Neutrophils 95 % (50-85); Total Cells Counted 100
[2019-07-20] MEDS: FUROSEMIDE 20 MG/2 ML VIAL IV SCH ×3 (05:26→21:02)
[2019-07-20] MEDS: INSULIN REGULAR 100 UNIT/ML SUBCUT SCH ×3 (05:30→18:54)
[2019-07-20] MEDS: ALBUTEROL 2.5 MG/3 ML NEB RESP TX SCH ×4 (07:31→19:21)
[2019-07-20] MEDS: ENOXAPARIN 40 MG/0.4 ML SYRINGE SUBCUT SCH ×2 (09:48→21:01)
[2019-07-20] MEDS: MONTELUKAST 10 MG TABLET PO SCH (09:48)
[2019-07-20] MEDS: METOPROLOL TARTRATE 100 MG TABLET PO SCH ×2 (09:49→21:01)
[2019-07-20] MEDS: THEOPHYLLINE 5.33 MG/ML 30 ML/BOTTLE PO SCH ×3 (09:49→21:02)
[2019-07-20] MEDS: AMIODARONE 200 MG TABLET PO SCH ×2 (09:49→21:01)
[2019-07-20] MEDS: PANTOPRAZOLE 40 MG VIAL IV SCH (09:50)
[2019-07-20] MEDS: TOBRAMYCIN 80 MG/2 ML VIAL RESP TX SCH ×2 (10:18→19:21)
[2019-07-20] MEDS: LINEZOLID INJ 600 MG in PREMIX 1 EACH IV SCH ×2 (12:00→21:32)
[2019-07-20] MEDS: methylPREDNISolone SOD SUC 40 MG/1 ML VIAL IV SCH ×2 (12:30→22:48)
[2019-07-20] MEDS: PROPOFOL 1,000 MG/100 ML BOTTLE IV SCH (21:27)
[2019-07-21] MEDS: INSULIN REGULAR 100 UNIT/ML SUBCUT SCH ×5 (00:55→23:08)
[2019-07-21] MEDS: POTASSIUM CHLORIDE 20 MEQ/15 ML UDCUP PER TUBE SCH ×3 (00:59→18:42)
[2019-07-21] MEDS: ACETYLCYSTEINE 20% 800 MG/4 ML VIAL RESP TX SCH ×4 (01:48→19:16)
[2019-07-21 03:23] LABS: Basophils % 0.1 % (0.0-0.8); Hematocrit 27.5 VOL% (42.0-52.0); Hemoglobin 8.9 GM/DL (14.0-18.0); Immature Granulocytes % 1.5 %; Immature Granulocytes Absolute 0.22 #; Lymphocytes # 0.2 10*3/uL (1.4-4.0); Lymphocytes % 1.2 % (21.2-54.2); Mean Corpuscular HGB Conc 32.4 GM/DL (32-36); Mean Platelet Volume 9.7 FL (9.6-12.0); Monocytes % 3.3 % (1.7-12.7); Neutrophils % 93.9 % (38.7-73.9); Platelet Count 269 T/CUMM (130-400); Red Blood Count 2.99 MC/CUMM (3.8-5.5)
[2019-07-21 03:50] LABS: Calcium 8.8 MG/DL (8.5-10.1); Osmolality,Calculated 271.7 MOS/KG (273-304)
[2019-07-21 04:07] LABS: Lymphocytes 1 % (20-55); Platelet Estimate Normal; Segmented Neutrophils 97 % (50-85); Total Cells Counted 100
[2019-07-21] MEDS: FUROSEMIDE 20 MG/2 ML VIAL IV SCH ×3 (04:18→21:04)
[2019-07-21] MEDS: cefTAZidime 1,000 MG in SYRINGE 1 EACH IV SCH ×3 (04:19→19:30)
[2019-07-21 04:34] LABS: ABG HCO3 24.5 MMOL/L (20-26); ABG Oxygen Saturation 99.7 % (95-100); ABG PCO2 36.3 MM HG (35-48); ABG PH 7.429 (7.35-7.45); ABG TCO2 22.2 MMOL/L (23-27); Allen Test Positive; Pt O2 Delivery Device Ventilator
[2019-07-21] MEDS: POTASSIUM CHLORIDE 20 MEQ/15 ML UDCUP PER TUBE PRN (05:36)
[2019-07-21] MEDS: ALBUTEROL 2.5 MG/3 ML NEB RESP TX SCH ×4 (07:37→19:16)
[2019-07-21] MEDS: TOBRAMYCIN 80 MG/2 ML VIAL RESP TX SCH ×2 (08:01→19:39)
[2019-07-21] MEDS: MONTELUKAST 10 MG TABLET PO SCH (09:26)
[2019-07-21] MEDS: AMIODARONE 200 MG TABLET PO SCH ×2 (09:26→21:02)
[2019-07-21] MEDS: METOPROLOL TARTRATE 100 MG TABLET PO SCH ×2 (09:26→21:02)
[2019-07-21] MEDS: PANTOPRAZOLE 40 MG VIAL IV SCH (09:29)
[2019-07-21] MEDS: ENOXAPARIN 40 MG/0.4 ML SYRINGE SUBCUT SCH ×2 (09:29→21:04)
[2019-07-21] MEDS: LINEZOLID INJ 600 MG in PREMIX 1 EACH IV SCH ×2 (09:30→22:16)
[2019-07-21] MEDS: THEOPHYLLINE 5.33 MG/ML 30 ML/BOTTLE PO SCH ×3 (09:34→21:04)
[2019-07-21] MEDS: methylPREDNISolone SOD SUC 40 MG/1 ML VIAL IV SCH ×2 (12:22→22:13)
[2019-07-21] MEDS: DEXTROSE 5% NACL 0.9% 1,000 ML IV SCH (19:20)
[2019-07-21] MEDS: diphenhydrAMINE 25 MG/10 ML UDCUP PEG SCH (21:03)
[2019-07-21] MEDS: PROPOFOL 1,000 MG/100 ML BOTTLE IV SCH (22:05)
[2019-07-22] MEDS: ACETYLCYSTEINE 20% 800 MG/4 ML VIAL RESP TX SCH ×4 (01:29→19:56)
[2019-07-22] MEDS: POTASSIUM CHLORIDE 20 MEQ/15 ML UDCUP PER TUBE SCH ×3 (01:57→17:22)
[2019-07-22 03:43] LABS: ABG Base Excess -0.3 MMOL/L (-2.5-2.5); ABG HCO3 24.2 MMOL/L (20-26); ABG Oxygen Saturation 99.7 % (95-100); ABG PCO2 35.4 MM HG (35-48); ABG PH 7.432 (7.35-7.45); ABG TCO2 21.7 MMOL/L (23-27); Allen Test Positive; Pt O2 Delivery Device Ventilator
[2019-07-22] MEDS: cefTAZidime 1,000 MG in SYRINGE 1 EACH IV SCH ×3 (03:47→19:31)
[2019-07-22 04:33] LABS: Basophils % 0.1 % (0.0-0.8); Hematocrit 26.6 VOL% (42.0-52.0); Hemoglobin 8.6 GM/DL (14.0-18.0); Immature Granulocytes % 1.8 %; Lymphocytes # 0.2 10*3/uL (1.4-4.0); Lymphocytes % 1.2 % (21.2-54.2); Mean Corpuscular HGB Conc 32.3 GM/DL (32-36); Mean Corpuscular Volume 92.4 FL (87-102); Mean Platelet Volume 9.8 FL (9.6-12.0); Monocytes % 2.9 % (1.7-12.7); Platelet Count 281 T/CUMM (130-400); Red Blood Count 2.88 MC/CUMM (3.8-5.5); Red Cell Distribution Width 14.8 % (9.3-17.3); White Blood Count 16.4 T/CUMM (4-12)
[2019-07-22 04:43] LABS: INR 1.1; PT Patient Result 12.2 SECS (9.6-12.2); Partial Thromboplastin Time 30.5 SECS (20.8-36.0)
[2019-07-22 04:48] LABS: Calcium 8.9 MG/DL (8.5-10.1); Osmolality,Calculated 273.5 MOS/KG (273-304)
[2019-07-22 05:02] LABS: Prealbumin 26.8 MG/DL (20-40)
[2019-07-22 05:14] LABS: Band Neutrophils 4 % (0-10); Lymphocytes 2 % (20-55); Metamyelocytes 2 %; Segmented Neutrophils 91 % (50-85); Total Cells Counted 100
[2019-07-22 05:15] LABS: Platelet Estimate Normal
[2019-07-22] MEDS: FUROSEMIDE 20 MG/2 ML VIAL IV SCH ×3 (05:25→21:31)
[2019-07-22] MEDS: INSULIN REGULAR 100 UNIT/ML SUBCUT SCH ×4 (05:46→23:11)
[2019-07-22] MEDS: TOBRAMYCIN 80 MG/2 ML VIAL RESP TX SCH ×2 (07:58→19:56)
[2019-07-22] MEDS: ALBUTEROL 2.5 MG/3 ML NEB RESP TX SCH ×4 (08:04→19:56)
[2019-07-22] MEDS: PANTOPRAZOLE 40 MG VIAL IV SCH (09:34)
[2019-07-22] MEDS: ENOXAPARIN 40 MG/0.4 ML SYRINGE SUBCUT SCH ×2 (09:35→21:35)
[2019-07-22] MEDS: AMIODARONE 200 MG TABLET PO SCH ×2 (09:35→21:32)
[2019-07-22] MEDS: MONTELUKAST 10 MG TABLET PO SCH (09:35)
[2019-07-22] MEDS: METOPROLOL TARTRATE 100 MG TABLET PO SCH ×2 (09:35→21:33)
[2019-07-22] MEDS: THEOPHYLLINE 5.33 MG/ML 30 ML/BOTTLE PO SCH ×3 (09:36→21:36)
[2019-07-22] MEDS: methylPREDNISolone SOD SUC 40 MG/1 ML VIAL IV SCH ×2 (12:30→23:08)
[2019-07-22] MEDS: LINEZOLID INJ 600 MG in PREMIX 1 EACH IV SCH ×2 (12:31→21:35)
[2019-07-22] MEDS ORDERED: SODIUM PHOSPHATE INJ 30 MMOL in SODIUM CHLORIDE 0.9% 250 ML IV ONE (15:00)
[2019-07-22] MEDS: HYDROmorphone 2 MG/1 ML VIAL IV PRN (18:16)
[2019-07-22] MEDS: PROPOFOL 1,000 MG/100 ML BOTTLE IV SCH (23:10)
[2019-07-22] MEDS: DEXTROSE 5% NACL 0.9% 1,000 ML IV SCH (23:10)
[2019-07-23] MEDS: ACETYLCYSTEINE 20% 800 MG/4 ML VIAL RESP TX SCH ×4 (01:25→19:25)
[2019-07-23] MEDS: ALBUTEROL 2.5 MG/3 ML NEB RESP TX PRN (01:25)
[2019-07-23] MEDS: diphenhydrAMINE 25 MG/10 ML UDCUP PEG SCH ×2 (01:31→21:16)
[2019-07-23] MEDS: HYDROmorphone 2 MG/1 ML VIAL IV PRN ×3 (02:18→20:26)
[2019-07-23] MEDS: POTASSIUM CHLORIDE 20 MEQ/15 ML UDCUP PER TUBE SCH ×3 (02:18→18:29)
[2019-07-23] MEDS: cefTAZidime 1,000 MG in SYRINGE 1 EACH IV SCH ×3 (03:10→20:26)
[2019-07-23 03:12] LABS: ABG Base Excess -0.3 MMOL/L (-2.5-2.5); ABG HCO3 24.2 MMOL/L (20-26); ABG Oxygen Saturation 99.4 % (95-100); ABG PCO2 40.8 MM HG (35-48); ABG PH 7.388 (7.35-7.45); ABG TCO2 22.7 MMOL/L (23-27); Allen Test Positive; Pt O2 Delivery Device Ventilator
[2019-07-23 04:03] LABS: Calcium 8.7 MG/DL (8.5-10.1); Osmolality,Calculated 278.5 MOS/KG (273-304)
[2019-07-23 04:13] LABS: Basophils # 0.1 10*3/uL (0.0-0.2); Basophils % 0.3 % (0.0-0.8); Hemoglobin 8.8 GM/DL (14.0-18.0); Lymphocytes # 0.5 10*3/uL (1.4-4.0); Lymphocytes % 2.1 % (21.2-54.2); Mean Corpuscular HGB Conc 32.6 GM/DL (32-36); Mean Corpuscular Volume 91.8 FL (87-102); Mean Platelet Volume 9.8 FL (9.6-12.0); Monocytes % 2.8 % (1.7-12.7); Neutrophils % 90.8 % (38.7-73.9); Platelet Count 376 T/CUMM (130-400); Red Blood Count 2.94 MC/CUMM (3.8-5.5); Red Cell Distribution Width 14.7 % (9.3-17.3); White Blood Count 22.7 T/CUMM (4-12)
[2019-07-23 04:19] LABS: INR 1.2; PT Patient Result 12.7 SECS (9.6-12.2); Partial Thromboplastin Time 29.9 SECS (20.8-36.0)
[2019-07-23 05:00] LABS: Lymphocytes 3 % (20-55); Segmented Neutrophils 96 % (50-85); Total Cells Counted 100
[2019-07-23 05:01] LABS: Anisocytosis Slight; Microcytosis Slight; Platelet Estimate Normal
[2019-07-23 05:02] LABS: Hypochromasia Slight; Stomatocytes Slight
[2019-07-23] MEDS: FUROSEMIDE 20 MG/2 ML VIAL IV SCH ×3 (05:39→22:56)
[2019-07-23] MEDS: INSULIN REGULAR 100 UNIT/ML SUBCUT SCH ×3 (05:51→18:28)
[2019-07-23] MEDS: ALBUTEROL 2.5 MG/3 ML NEB RESP TX SCH ×4 (06:48→19:25)
[2019-07-23] MEDS: TOBRAMYCIN 80 MG/2 ML VIAL RESP TX SCH ×2 (06:48→19:25)
[2019-07-23] MEDS: PANTOPRAZOLE 40 MG VIAL IV SCH (08:35)
[2019-07-23] MEDS: METOPROLOL TARTRATE 100 MG TABLET PO SCH ×2 (08:35→21:16)
[2019-07-23] MEDS: AMIODARONE 200 MG TABLET PO SCH ×2 (08:35→21:17)
[2019-07-23] MEDS: THEOPHYLLINE 5.33 MG/ML 30 ML/BOTTLE PO SCH ×3 (08:35→21:18)
[2019-07-23] MEDS: ENOXAPARIN 40 MG/0.4 ML SYRINGE SUBCUT SCH ×2 (08:35→21:18)
[2019-07-23] MEDS: MONTELUKAST 10 MG TABLET PO SCH (08:36)
[2019-07-23] MEDS: LINEZOLID INJ 600 MG in PREMIX 1 EACH IV SCH ×2 (09:37→21:37)
[2019-07-23] MEDS: ALBUMIN 5% 25 GM in PREMIX 1 EACH IV SCH ×2 (11:20→21:32)
[2019-07-23] MEDS: methylPREDNISolone SOD SUC 40 MG/1 ML VIAL IV SCH ×2 (11:21→22:45)
[2019-07-23] MEDS: DEXTROSE 5% NACL 0.9% 1,000 ML IV SCH (19:21)
[2019-07-23] MEDS: PROPOFOL 1,000 MG/100 ML BOTTLE IV SCH (21:19)
[2019-07-24] MEDS: INSULIN REGULAR 100 UNIT/ML SUBCUT SCH ×4 (00:10→18:04)
[2019-07-24] MEDS: ACETYLCYSTEINE 20% 800 MG/4 ML VIAL RESP TX SCH ×4 (01:05→19:29)
[2019-07-24] MEDS: HYDROmorphone 2 MG/1 ML VIAL IV PRN ×3 (02:35→11:13)
[2019-07-24] MEDS: POTASSIUM CHLORIDE 20 MEQ/15 ML UDCUP PER TUBE SCH ×3 (02:45→18:05)
[2019-07-24] MEDS: cefTAZidime 1,000 MG in SYRINGE 1 EACH IV SCH ×3 (02:45→18:30)
[2019-07-24] MEDS: PROPOFOL 1,000 MG/100 ML BOTTLE IV SCH ×2 (03:28→21:26)
[2019-07-24 03:48] LABS: ABG Base Excess 0.2 MMOL/L (-2.5-2.5); ABG HCO3 24.6 MMOL/L (20-26); ABG PCO2 38.8 MM HG (35-48); ABG PH 7.412 (7.35-7.45); ABG PO2 82.7 MM HG (80-95); ABG TCO2 22.7 MMOL/L (23-27); Pt O2 Delivery Device Ventilator
[2019-07-24 04:58] LABS: Basophils # 0.1 10*3/uL (0.0-0.2); Basophils % 0.2 % (0.0-0.8); Hematocrit 26.4 VOL% (42.0-52.0); Hemoglobin 8.6 GM/DL (14.0-18.0); Immature Granulocytes % 4.1 %; Immature Granulocytes Absolute 1.18 #; Lymphocytes # 0.2 10*3/uL (1.4-4.0); Lymphocytes % 0.7 % (21.2-54.2); Mean Corpuscular HGB Conc 32.6 GM/DL (32-36); Mean Corpuscular Volume 92.3 FL (87-102); Mean Platelet Volume 10.2 FL (9.6-12.0); Platelet Count 340 T/CUMM (130-400); Red Blood Count 2.86 MC/CUMM (3.8-5.5); Red Cell Distribution Width 14.8 % (9.3-17.3)
[2019-07-24 05:52] LABS: Band Neutrophils 2 % (0-10); Lymphocytes 3 % (20-55); Segmented Neutrophils 93 % (50-85); Total Cells Counted 100
[2019-07-24 05:54] LABS: Anisocytosis 1+; Platelet Estimate Normal
[2019-07-24] MEDS: ALBUTEROL 2.5 MG/3 ML NEB RESP TX SCH ×4 (07:09→19:29)
[2019-07-24] MEDS: TOBRAMYCIN 80 MG/2 ML VIAL RESP TX SCH ×2 (07:25→19:29)
[2019-07-24] MEDS: AMIODARONE 200 MG TABLET PO SCH ×2 (08:03→21:03)
[2019-07-24] MEDS: THEOPHYLLINE 5.33 MG/ML 30 ML/BOTTLE PO SCH ×3 (08:03→21:04)
[2019-07-24] MEDS: METOPROLOL TARTRATE 100 MG TABLET PO SCH ×2 (08:03→21:03)
[2019-07-24] MEDS: ENOXAPARIN 40 MG/0.4 ML SYRINGE SUBCUT SCH ×2 (08:15→21:04)
[2019-07-24] MEDS: MONTELUKAST 10 MG TABLET PO SCH (08:15)
[2019-07-24] MEDS: PANTOPRAZOLE 40 MG VIAL IV SCH (08:21)
[2019-07-24] MEDS: LINEZOLID INJ 600 MG in PREMIX 1 EACH IV SCH ×2 (09:30→22:23)
[2019-07-24] MEDS: ALBUMIN 5% 25 GM in PREMIX 1 EACH IV SCH ×2 (09:30→22:22)
[2019-07-24] MEDS: FUROSEMIDE 20 MG/2 ML VIAL IV SCH ×2 (10:40→23:19)
[2019-07-24] MEDS: methylPREDNISolone SOD SUC 40 MG/1 ML VIAL IV SCH ×2 (11:00→22:10)
[2019-07-24 11:20] LABS: Apearance,Urine Clear (Clear); Glucose,Urine (UA) Negative (Negative); Ketones,Urine Negative (Negative); Protein,Urine 100 MG/DL; Urine Color Yellow (Yellow)
[2019-07-24 11:21] LABS: Nitrite,Urine Negative (Negative)
[2019-07-24] MEDS: metroNIDAZOLE INJ 500 MG in PREMIX 1 EACH IV SCH ×2 (11:21→18:00)
[2019-07-24 11:22] LABS: Bilirubin,Urine Trace mg/dL (Negative)
[2019-07-24 11:26] LABS: Blood, Urine Large mg/dL (Negative)
[2019-07-24 11:27] LABS: Urine Urobilinogen < 2.0 EU/DL (0.2-1.0)
[2019-07-24] MEDS: VANCOMYCIN 50 MG/ML 60 ML/BOTTLE PER TUBE SCH ×2 (14:40→20:01)
[2019-07-24] MEDS: DEXTROSE 5% LACTATED RINGERS 1,000 ML IV SCH (16:12)
[2019-07-24] MEDS: diphenhydrAMINE 25 MG/10 ML UDCUP PEG SCH (21:03)
[2019-07-25] MEDS: ACETYLCYSTEINE 20% 800 MG/4 ML VIAL RESP TX SCH ×4 (00:28→20:40)
[2019-07-25] MEDS: INSULIN REGULAR 100 UNIT/ML SUBCUT SCH ×4 (00:39→17:40)
[2019-07-25] MEDS: VANCOMYCIN 50 MG/ML 60 ML/BOTTLE PER TUBE SCH ×4 (00:39→17:45)
[2019-07-25] MEDS: DEXTROSE 5% LACTATED RINGERS 1,000 ML IV SCH ×4 (01:10→22:40)
[2019-07-25] MEDS: cefTAZidime 1,000 MG in SYRINGE 1 EACH IV SCH ×3 (02:33→21:10)
[2019-07-25] MEDS: POTASSIUM CHLORIDE 20 MEQ/15 ML UDCUP PER TUBE SCH ×3 (02:33→17:44)
[2019-07-25] MEDS: metroNIDAZOLE INJ 500 MG in PREMIX 1 EACH IV SCH ×3 (02:35→18:00)
[2019-07-25 03:55] LABS: ABG Base Excess 0.8 MMOL/L (-2.5-2.5); ABG HCO3 25.2 MMOL/L (20-26); ABG Oxygen Saturation 99.6 % (95-100); ABG PCO2 34.4 MM HG (35-48); ABG PH 7.458 (7.35-7.45); ABG TCO2 22.3 MMOL/L (23-27); Allen Test Positive; Pt O2 Delivery Device Ventilator
[2019-07-25 04:29] LABS: Basophils # 0.1 10*3/uL (0.0-0.2); Basophils % 0.2 % (0.0-0.8); Hematocrit 21.8 VOL% (42.0-52.0); Immature Granulocytes % 2.7 %; Immature Granulocytes Absolute 0.95 #; Lymphocytes # 0.2 10*3/uL (1.4-4.0); Lymphocytes % 0.6 % (21.2-54.2); Mean Corpuscular HGB Conc 32.1 GM/DL (32-36); Mean Corpuscular Volume 92.8 FL (87-102); Mean Platelet Volume 9.9 FL (9.6-12.0); Monocytes % 1.3 % (1.7-12.7); Neutrophils % 95.2 % (38.7-73.9); Platelet Count 203 T/CUMM (130-400); Red Blood Count 2.35 MC/CUMM (3.8-5.5); Red Cell Distribution Width 15.1 % (9.3-17.3); White Blood Count 35.1 T/CUMM (4-12)
[2019-07-25 05:10] LABS: Calcium 8.5 MG/DL (8.5-10.1); Osmolality,Calculated 277.4 MOS/KG (273-304)
[2019-07-25] MEDS: POTASSIUM CHLORIDE 20 MEQ/15 ML UDCUP PER TUBE PRN (05:35)
[2019-07-25 05:41] LABS: Band Neutrophils 2 % (0-10); Lymphocytes 1 % (20-55); Segmented Neutrophils 97 % (50-85); Total Cells Counted 100
[2019-07-25 05:42] LABS: Microcytosis 1+; Platelet Estimate Normal
[2019-07-25 05:43] LABS: Anisocytosis Slight
[2019-07-25] MEDS: ALBUTEROL 2.5 MG/3 ML NEB RESP TX SCH ×4 (07:44→20:39)
[2019-07-25] MEDS: TOBRAMYCIN 80 MG/2 ML VIAL RESP TX SCH ×2 (07:44→20:39)
[2019-07-25] MEDS: PROPOFOL 1,000 MG/100 ML BOTTLE IV SCH ×2 (07:45→22:39)
[2019-07-25] MEDS: PANTOPRAZOLE 40 MG VIAL IV SCH (10:22)
[2019-07-25] MEDS: MONTELUKAST 10 MG TABLET PO SCH (10:24)
[2019-07-25] MEDS: METOPROLOL TARTRATE 100 MG TABLET PO SCH ×2 (10:29→21:45)
[2019-07-25] MEDS: THEOPHYLLINE 5.33 MG/ML 30 ML/BOTTLE PO SCH ×3 (10:29→21:45)
[2019-07-25] MEDS: AMIODARONE 200 MG TABLET PO SCH ×2 (10:29→21:45)
[2019-07-25] MEDS: ALBUMIN 5% 25 GM in PREMIX 1 EACH IV SCH ×2 (10:30→21:46)
[2019-07-25] MEDS: ENOXAPARIN 40 MG/0.4 ML SYRINGE SUBCUT SCH ×2 (10:31→21:45)
[2019-07-25] MEDS: methylPREDNISolone SOD SUC 40 MG/1 ML VIAL IV SCH ×2 (10:34→22:57)
[2019-07-25] MEDS: LINEZOLID INJ 600 MG in PREMIX 1 EACH IV SCH ×2 (10:36→23:07)
[2019-07-25] MEDS: FUROSEMIDE 20 MG/2 ML VIAL IV SCH ×2 (11:28→23:00)
[2019-07-25] MEDS ORDERED: SODIUM CHLORIDE 0.9% 1,000 ML IV PRN (12:45)
[2019-07-25 21:36] LABS: Hematocrit 24.6 VOL% (42.0-52.0)
[2019-07-25] MEDS: diphenhydrAMINE 25 MG/10 ML UDCUP PEG SCH (21:42)
[2019-07-26] MEDS: VANCOMYCIN 50 MG/ML 60 ML/BOTTLE PER TUBE SCH ×4 (01:01→18:01)
[2019-07-26] MEDS: POTASSIUM CHLORIDE 20 MEQ/15 ML UDCUP PER TUBE SCH ×3 (01:01→17:59)
[2019-07-26] MEDS: INSULIN REGULAR 100 UNIT/ML SUBCUT SCH ×5 (01:28→23:18)
[2019-07-26] MEDS: ACETYLCYSTEINE 20% 800 MG/4 ML VIAL RESP TX SCH ×4 (02:13→19:30)
[2019-07-26] MEDS: metroNIDAZOLE INJ 500 MG in PREMIX 1 EACH IV SCH ×3 (04:00→18:01)
[2019-07-26] MEDS: cefTAZidime 1,000 MG in SYRINGE 1 EACH IV SCH ×3 (04:30→20:27)
[2019-07-26 05:15] LABS: ABG Base Excess -1.5 MMOL/L (-2.5-2.5); ABG HCO3 23.2 MMOL/L (20-26); ABG Oxygen Saturation 99.9 % (95-100); ABG PCO2 36.5 MM HG (35-48); ABG PH 7.406 (7.35-7.45); ABG TCO2 21.6 MMOL/L (23-27); Pt O2 Delivery Device Ventilator
[2019-07-26 05:24] LABS: INR 1.3; PT Patient Result 13.9 SECS (9.6-12.2)
[2019-07-26 05:32] LABS: Basophils % 0.1 % (0.0-0.8); Hematocrit 21.3 VOL% (42.0-52.0); Hemoglobin 6.9 GM/DL (14.0-18.0); Immature Granulocytes % 1.8 %; Immature Granulocytes Absolute 0.44 #; Lymphocytes # 0.2 10*3/uL (1.4-4.0); Lymphocytes % 0.7 % (21.2-54.2); Mean Corpuscular HGB Conc 32.4 GM/DL (32-36); Mean Platelet Volume 10.4 FL (9.6-12.0); Monocytes % 1.1 % (1.7-12.7); Neutrophils % 96.3 % (38.7-73.9); Platelet Count 128 T/CUMM (130-400); Red Blood Count 2.42 MC/CUMM (3.8-5.5); Red Cell Distribution Width 17.1 % (9.3-17.3); White Blood Count 24.5 T/CUMM (4-12)
[2019-07-26 05:37] LABS: Calcium 8.4 MG/DL (8.5-10.1); Osmolality,Calculated 272.5 MOS/KG (273-304); Partial Thromboplastin Time 48.2 SECS (20.8-36.0)
[2019-07-26 05:42] LABS: Prealbumin 9.6 MG/DL (20-40)
[2019-07-26 06:19] LABS: Band Neutrophils 3 % (0-10); Hypochromasia 1+; Lymphocytes 2 % (20-55); Microcytosis Slight; Platelet Estimate Normal; Segmented Neutrophils 95 % (50-85); Total Cells Counted 100
[2019-07-26] MEDS ORDERED: SODIUM CHLORIDE 0.9% 1,000 ML IV PRN ×2 (06:42→07:13)
[2019-07-26] MEDS: ALBUTEROL 2.5 MG/3 ML NEB RESP TX SCH ×4 (08:15→19:30)
[2019-07-26] MEDS: DEXTROSE 5% LACTATED RINGERS 1,000 ML IV SCH ×2 (08:18→17:14)
[2019-07-26] MEDS: TOBRAMYCIN 80 MG/2 ML VIAL RESP TX SCH ×2 (08:37→19:30)
[2019-07-26] MEDS: HYDROmorphone 2 MG/1 ML VIAL IV PRN (09:30)
[2019-07-26] MEDS ORDERED: LIDOCAINE 1%/EPI INJ 20 ML VIAL ONE (09:53)
[2019-07-26] MEDS: MONTELUKAST 10 MG TABLET PO SCH (10:13)
[2019-07-26] MEDS: AMIODARONE 200 MG TABLET PO SCH ×2 (10:14→21:14)
[2019-07-26] MEDS: THEOPHYLLINE 5.33 MG/ML 30 ML/BOTTLE PO SCH ×3 (10:14→21:15)
[2019-07-26] MEDS: PANTOPRAZOLE 40 MG VIAL IV SCH (10:16)
[2019-07-26] MEDS: METOPROLOL TARTRATE 100 MG TABLET PO SCH ×2 (10:17→21:14)
[2019-07-26] MEDS: FUROSEMIDE 20 MG/2 ML VIAL IV SCH ×2 (11:42→23:30)
[2019-07-26] MEDS: LINEZOLID INJ 600 MG in PREMIX 1 EACH IV SCH ×2 (11:53→23:06)
[2019-07-26] MEDS: ALBUMIN 5% 25 GM in PREMIX 1 EACH IV SCH ×2 (12:25→22:59)
[2019-07-26] MEDS: methylPREDNISolone SOD SUC 40 MG/1 ML VIAL IV SCH ×2 (12:27→23:00)
[2019-07-26] MEDS ORDERED: SODIUM PHOSPHATE INJ 30 MMOL in SODIUM CHLORIDE 0.9% 250 ML IV ONE (14:00)
[2019-07-26 14:58] LABS: Hematocrit 26.1 VOL% (42.0-52.0)
[2019-07-26 15:01] LABS: Hemoglobin 8.5 GM/DL (14.0-18.0)
[2019-07-26] MEDS: MAGNESIUM SULF RIDER 2 GM in PREMIX 1 EACH IV PRN (17:15)
[2019-07-26] MEDS: diphenhydrAMINE 25 MG/10 ML UDCUP PEG SCH (21:14)
[2019-07-26] MEDS: PROPOFOL 1,000 MG/100 ML BOTTLE IV SCH (22:59)
[2019-07-27] MEDS: ALBUTEROL 2.5 MG/3 ML NEB RESP TX PRN (00:44)
[2019-07-27] MEDS: ACETYLCYSTEINE 20% 800 MG/4 ML VIAL RESP TX SCH ×4 (00:44→19:40)
[2019-07-27] MEDS: VANCOMYCIN 50 MG/ML 60 ML/BOTTLE PER TUBE SCH ×5 (00:59→23:25)
[2019-07-27] MEDS: POTASSIUM CHLORIDE 20 MEQ/15 ML UDCUP PER TUBE SCH ×3 (01:00→18:29)
[2019-07-27] MEDS: cefTAZidime 1,000 MG in SYRINGE 1 EACH IV SCH ×3 (03:23→20:06)
[2019-07-27] MEDS: metroNIDAZOLE INJ 500 MG in PREMIX 1 EACH IV SCH ×3 (03:23→18:44)
[2019-07-27] MEDS: DEXTROSE 5% LACTATED RINGERS 1,000 ML IV SCH ×3 (03:45→23:25)
[2019-07-27 03:51] LABS: ABG Base Excess -1.3 MMOL/L (-2.5-2.5); ABG HCO3 23.3 MMOL/L (20-26); ABG Oxygen Saturation 99.5 % (95-100); ABG PCO2 41.9 MM HG (35-48); ABG PH 7.365 (7.35-7.45); ABG TCO2 22.2 MMOL/L (23-27); Allen Test Positive; Pt O2 Delivery Device Ventilator
[2019-07-27 05:06] LABS: Basophils % 0.1 % (0.0-0.8); Hematocrit 26.1 VOL% (42.0-52.0); Hemoglobin 8.4 GM/DL (14.0-18.0); Immature Granulocytes % 1.7 %; Immature Granulocytes Absolute 0.36 #; Lymphocytes # 0.1 10*3/uL (1.4-4.0); Lymphocytes % 0.4 % (21.2-54.2); Mean Corpuscular HGB Conc 32.2 GM/DL (32-36); Mean Corpuscular Volume 88.2 FL (87-102); Mean Platelet Volume 10.1 FL (9.6-12.0); Monocytes % 0.9 % (1.7-12.7); NRBC # 0.02 10*3/uL; Neutrophils % 96.9 % (38.7-73.9); Platelet Count 160 T/CUMM (130-400); Red Blood Count 2.96 MC/CUMM (3.8-5.5); White Blood Count 21.1 T/CUMM (4-12)
[2019-07-27 05:19] LABS: Calcium 8.1 MG/DL (8.5-10.1); Osmolality,Calculated 279.8 MOS/KG (273-304)
[2019-07-27 05:38] LABS: Band Neutrophils 2 % (0-10); Hypochromasia 1+; Lymphocytes 2 % (20-55); Ovalocytes Slight; Platelet Estimate Adequate; Segmented Neutrophils 94 % (50-85); Total Cells Counted 100
[2019-07-27 05:39] LABS: Microcytosis Slight
[2019-07-27] MEDS: INSULIN REGULAR 100 UNIT/ML SUBCUT SCH ×4 (06:19→23:23)
[2019-07-27] MEDS: TOBRAMYCIN 80 MG/2 ML VIAL RESP TX SCH ×2 (07:08→19:20)
[2019-07-27] MEDS: ALBUTEROL 2.5 MG/3 ML NEB RESP TX SCH ×4 (07:08→19:40)
[2019-07-27] MEDS: METOPROLOL TARTRATE 100 MG TABLET PO SCH ×2 (09:19→20:07)
[2019-07-27] MEDS: AMIODARONE 200 MG TABLET PO SCH ×2 (09:19→20:07)
[2019-07-27] MEDS: PANTOPRAZOLE 40 MG VIAL IV SCH (09:19)
[2019-07-27] MEDS: MONTELUKAST 10 MG TABLET PO SCH (09:19)
[2019-07-27] MEDS: THEOPHYLLINE 5.33 MG/ML 30 ML/BOTTLE PO SCH ×3 (09:27→20:07)
[2019-07-27] MEDS: LINEZOLID INJ 600 MG in PREMIX 1 EACH IV SCH ×2 (11:00→21:43)
[2019-07-27] MEDS: ALBUMIN 5% 25 GM in PREMIX 1 EACH IV SCH ×2 (12:30→21:42)
[2019-07-27] MEDS: methylPREDNISolone SOD SUC 40 MG/1 ML VIAL IV SCH ×2 (12:36→23:24)
[2019-07-27] MEDS: HYDROmorphone 2 MG/1 ML VIAL IV PRN ×3 (12:55→20:29)
[2019-07-27] MEDS: FUROSEMIDE 20 MG/2 ML VIAL IV SCH ×2 (13:06→21:43)
[2019-07-27] MEDS ORDERED: POTASSIUM PHOSPHATE 30 MMOL in SODIUM CHLORIDE 0.9% 250 ML IV ONE (15:00)
[2019-07-27 19:20] LABS: CDT Result Negative (Negative); CDT Specimen Source STOOL
[2019-07-27] MEDS: diphenhydrAMINE 25 MG/10 ML UDCUP PEG SCH (20:07)
[2019-07-27] MEDS: PROPOFOL 1,000 MG/100 ML BOTTLE IV SCH (23:21)
[2019-07-28] MEDS: ACETYLCYSTEINE 20% 800 MG/4 ML VIAL RESP TX SCH ×4 (00:40→19:35)
[2019-07-28] MEDS: DEXTROSE 5% LACTATED RINGERS 1,000 ML IV SCH ×4 (00:50→19:11)
[2019-07-28] MEDS: HYDROmorphone 2 MG/1 ML VIAL IV PRN (01:09)
[2019-07-28] MEDS: POTASSIUM CHLORIDE 20 MEQ/15 ML UDCUP PER TUBE SCH ×3 (01:20→17:45)
[2019-07-28] MEDS: metroNIDAZOLE INJ 500 MG in PREMIX 1 EACH IV SCH ×3 (02:23→18:04)
[2019-07-28] MEDS: cefTAZidime 1,000 MG in SYRINGE 1 EACH IV SCH ×3 (03:00→20:28)
[2019-07-28 03:38] LABS: ABG Base Excess -2.1 MMOL/L (-2.5-2.5); ABG HCO3 22.6 MMOL/L (20-26); ABG PCO2 54.3 MM HG (35-48); ABG PH 7.279 (7.35-7.45); ABG PO2 78.7 MM HG (80-95); ABG TCO2 23.1 MMOL/L (23-27)
[2019-07-28 05:46] LABS: Basophils # 0.1 10*3/uL (0.0-0.2); Basophils % 0.3 % (0.0-0.8); Hematocrit 33.6 VOL% (42.0-52.0); Hemoglobin 10.9 GM/DL (14.0-18.0); Immature Granulocytes Absolute 0.33 #; Lymphocytes # 0.1 10*3/uL (1.4-4.0); Lymphocytes % 0.4 % (21.2-54.2); Mean Corpuscular HGB Conc 32.4 GM/DL (32-36); Mean Corpuscular Volume 88.9 FL (87-102); Mean Platelet Volume 10.3 FL (9.6-12.0); NRBC # 0.06 10*3/uL; Neutrophils % 97.3 % (38.7-73.9); Platelet Count 258 T/CUMM (130-400); Red Blood Count 3.78 MC/CUMM (3.8-5.5); Red Cell Distribution Width 16.8 % (9.3-17.3); White Blood Count 33.2 T/CUMM (4-12)
[2019-07-28 05:53] LABS: INR 1.3; PT Patient Result 14.5 SECS (9.6-12.2); Partial Thromboplastin Time 34.8 SECS (20.8-36.0)
[2019-07-28 06:03] LABS: Band Neutrophils 4 % (0-10); Hypochromasia 1+; Platelet Estimate Adequate; Segmented Neutrophils 95 % (50-85); Total Cells Counted 100
[2019-07-28 06:04] LABS: Microcytosis Slight
[2019-07-28 06:09] LABS: Calcium 8.5 MG/DL (8.5-10.1); Osmolality,Calculated 283.7 MOS/KG (273-304)
[2019-07-28] MEDS: INSULIN REGULAR 100 UNIT/ML SUBCUT SCH ×4 (06:24→23:53)
[2019-07-28] MEDS: VANCOMYCIN 50 MG/ML 60 ML/BOTTLE PER TUBE SCH ×4 (06:25→23:50)
[2019-07-28] MEDS: ALBUTEROL 2.5 MG/3 ML NEB RESP TX SCH ×4 (08:15→19:35)
[2019-07-28] MEDS: TOBRAMYCIN 80 MG/2 ML VIAL RESP TX SCH ×2 (08:16→19:35)
[2019-07-28] MEDS: MORPHINE 4 MG/1 ML VIAL IV PRN ×2 (08:27→20:30)
[2019-07-28 08:58] LABS: Troponin I 0.019 NG/ML (0.00-0.045)
[2019-07-28] MEDS: AMIODARONE 200 MG TABLET PO SCH ×2 (09:55→20:28)
[2019-07-28] MEDS: MONTELUKAST 10 MG TABLET PO SCH (09:55)
[2019-07-28] MEDS: METOPROLOL TARTRATE 100 MG TABLET PO SCH ×2 (09:55→20:28)
[2019-07-28] MEDS: PANTOPRAZOLE 40 MG VIAL IV SCH (09:55)
[2019-07-28] MEDS: THEOPHYLLINE 5.33 MG/ML 30 ML/BOTTLE PO SCH ×3 (09:55→20:29)
[2019-07-28] MEDS: ALBUMIN 5% 25 GM in PREMIX 1 EACH IV SCH ×2 (10:00→17:46)
[2019-07-28] MEDS: LINEZOLID INJ 600 MG in PREMIX 1 EACH IV SCH ×2 (10:03→21:55)
[2019-07-28 10:39] LABS: Troponin I 0.024 NG/ML (0.00-0.045)
[2019-07-28] MEDS: FUROSEMIDE 20 MG/2 ML VIAL IV SCH ×2 (11:00→19:18)
[2019-07-28] MEDS: methylPREDNISolone SOD SUC 40 MG/1 ML VIAL IV SCH ×2 (11:10→21:59)
[2019-07-28 12:43] LABS: Troponin I 0.018 NG/ML (0.00-0.045)
[2019-07-28] MEDS: diphenhydrAMINE 25 MG/10 ML UDCUP PEG SCH (20:28)
[2019-07-29] MEDS: ALBUTEROL 2.5 MG/3 ML NEB RESP TX PRN (01:05)
[2019-07-29] MEDS: ACETYLCYSTEINE 20% 800 MG/4 ML VIAL RESP TX SCH ×4 (01:05→18:58)
[2019-07-29] MEDS: POTASSIUM CHLORIDE 20 MEQ/15 ML UDCUP PER TUBE SCH ×3 (03:02→17:45)
[2019-07-29] MEDS: ALBUMIN 5% 25 GM in PREMIX 1 EACH IV SCH ×3 (03:03→17:30)
[2019-07-29] MEDS: MORPHINE 4 MG/1 ML VIAL IV PRN ×2 (03:21→11:27)
[2019-07-29] MEDS: FUROSEMIDE 20 MG/2 ML VIAL IV SCH ×3 (03:43→18:29)
[2019-07-29] MEDS: cefTAZidime 1,000 MG in SYRINGE 1 EACH IV SCH ×3 (03:44→20:13)
[2019-07-29] MEDS: metroNIDAZOLE INJ 500 MG in PREMIX 1 EACH IV SCH (03:44)
[2019-07-29 04:20] LABS: ABG HCO3 24.5 MMOL/L (20-26); ABG Oxygen Saturation 98.8 % (95-100); ABG PCO2 54.2 MM HG (35-48); ABG PH 7.305 (7.35-7.45); ABG TCO2 25.1 MMOL/L (23-27); Allen Test Positive; Pt O2 Delivery Device Ventilator
[2019-07-29 04:36] LABS: Basophils # 0.1 10*3/uL (0.0-0.2); Basophils % 0.3 % (0.0-0.8); Hematocrit 25.7 VOL% (42.0-52.0); Immature Granulocytes % 2.1 %; Immature Granulocytes Absolute 0.42 #; Lymphocytes # 0.1 10*3/uL (1.4-4.0); Lymphocytes % 0.5 % (21.2-54.2); Mean Corpuscular HGB Conc 31.1 GM/DL (32-36); Mean Corpuscular Volume 91.5 FL (87-102); Mean Platelet Volume 10.1 FL (9.6-12.0); Monocytes % 1.6 % (1.7-12.7); Neutrophils % 95.5 % (38.7-73.9); Platelet Count 122 T/CUMM (130-400); Red Blood Count 2.81 MC/CUMM (3.8-5.5); Red Cell Distribution Width 16.7 % (9.3-17.3); White Blood Count 20.2 T/CUMM (4-12)
[2019-07-29 04:45] LABS: Calcium 8.2 MG/DL (8.5-10.1)
[2019-07-29 05:05] LABS: Band Neutrophils 2 % (0-10); Hypochromasia 1+; Lymphocytes 1 % (20-55); Ovalocytes Slight; Platelet Estimate Normal; Segmented Neutrophils 95 % (50-85); Total Cells Counted 100
[2019-07-29 05:06] LABS: Microcytosis Slight
[2019-07-29] MEDS: DEXTROSE 5% LACTATED RINGERS 1,000 ML IV SCH ×2 (05:11→15:13)
[2019-07-29] MEDS: PROPOFOL 1,000 MG/100 ML BOTTLE IV SCH ×3 (05:48→21:32)
[2019-07-29] MEDS: INSULIN REGULAR 100 UNIT/ML SUBCUT SCH ×4 (06:30→23:09)
[2019-07-29] MEDS: VANCOMYCIN 50 MG/ML 60 ML/BOTTLE PER TUBE SCH (06:30)
[2019-07-29] MEDS: ALBUTEROL 2.5 MG/3 ML NEB RESP TX SCH ×4 (07:36→18:59)
[2019-07-29] MEDS: TOBRAMYCIN 80 MG/2 ML VIAL RESP TX SCH ×2 (07:50→18:59)
[2019-07-29] MEDS: FLUCONAZOLE INJ 200 MG in PREMIX 1 EACH IV SCH (09:20)
[2019-07-29] MEDS: AMIODARONE 200 MG TABLET PO SCH ×2 (09:21→20:13)
[2019-07-29] MEDS: PANTOPRAZOLE 40 MG VIAL IV SCH (09:21)
[2019-07-29] MEDS: THEOPHYLLINE 5.33 MG/ML 30 ML/BOTTLE PO SCH ×3 (09:21→21:08)
[2019-07-29] MEDS: MONTELUKAST 10 MG TABLET PO SCH (09:21)
[2019-07-29] MEDS: METOPROLOL TARTRATE 100 MG TABLET PO SCH ×2 (09:21→20:13)
[2019-07-29] MEDS ORDERED: SODIUM CHLORIDE 0.9% 1,000 ML IV PRN (10:03)
[2019-07-29] MEDS: LINEZOLID INJ 600 MG in PREMIX 1 EACH IV SCH ×2 (11:00→22:59)
[2019-07-29] MEDS: methylPREDNISolone SOD SUC 40 MG/1 ML VIAL IV SCH ×2 (11:03→22:59)
[2019-07-29] MEDS ORDERED: POTASSIUM PHOSPHATE 30 MMOL in SODIUM CHLORIDE 0.9% 250 ML IV ONE (13:00)
[2019-07-29] MEDS: diphenhydrAMINE 25 MG/10 ML UDCUP PEG SCH (20:13)
[2019-07-30] MEDS: ACETYLCYSTEINE 20% 800 MG/4 ML VIAL RESP TX SCH ×4 (00:28→19:07)
[2019-07-30] MEDS: POTASSIUM CHLORIDE 20 MEQ/15 ML UDCUP PER TUBE SCH ×3 (02:02→18:27)
[2019-07-30] MEDS: ALBUMIN 5% 25 GM in PREMIX 1 EACH IV SCH ×3 (02:03→18:24)
[2019-07-30] MEDS: FUROSEMIDE 20 MG/2 ML VIAL IV SCH ×3 (03:10→18:24)
[2019-07-30] MEDS: cefTAZidime 1,000 MG in SYRINGE 1 EACH IV SCH ×3 (03:30→19:32)
[2019-07-30] MEDS: DEXTROSE 5% LACTATED RINGERS 1,000 ML IV SCH ×4 (03:31→12:34)
[2019-07-30 04:08] LABS: Allen Test Positive; Pt O2 Delivery Device Ventilator
[2019-07-30 04:10] LABS: ABG HCO3 30.3 MMOL/L (20-26); ABG Oxygen Saturation 98.2 % (95-100); ABG PCO2 48.7 MM HG (35-48); ABG PH 7.412 (7.35-7.45); ABG PO2 112.8 MM HG (80-95); ABG TCO2 31.8 MMOL/L (23-27)
[2019-07-30 04:28] LABS: Basophils % 0.2 % (0.0-0.8); Hematocrit 26.9 VOL% (42.0-52.0); Hemoglobin 8.9 GM/DL (14.0-18.0); Immature Granulocytes % 6.5 %; Immature Granulocytes Absolute 0.83 #; Lymphocytes # 0.1 10*3/uL (1.4-4.0); Lymphocytes % 0.9 % (21.2-54.2); Mean Corpuscular HGB Conc 33.1 GM/DL (32-36); Mean Corpuscular Volume 87.3 FL (87-102); Mean Platelet Volume 11.2 FL (9.6-12.0); Monocytes % 2.3 % (1.7-12.7); Neutrophils % 90.1 % (38.7-73.9); Red Blood Count 3.08 MC/CUMM (3.8-5.5); Red Cell Distribution Width 16.5 % (9.3-17.3); White Blood Count 12.8 T/CUMM (4-12)
[2019-07-30 04:31] LABS: Platelet Count 90 T/CUMM (130-400)
[2019-07-30 04:49] LABS: Calcium 8.8 MG/DL (8.5-10.1); Osmolality,Calculated 277.7 MOS/KG (273-304)
[2019-07-30 05:12] LABS: Band Neutrophils 1 % (0-10); Lymphocytes 1 % (20-55); Platelet Estimate Decreased; Polychromasia Few; Segmented Neutrophils 95 % (50-85); Total Cells Counted 100
[2019-07-30] MEDS: INSULIN REGULAR 100 UNIT/ML SUBCUT SCH ×4 (05:43→23:31)
[2019-07-30] MEDS: MAGNESIUM SULF RIDER 2 GM in PREMIX 1 EACH IV PRN (05:44)
[2019-07-30] MEDS: PROPOFOL 1,000 MG/100 ML BOTTLE IV SCH (05:51)
[2019-07-30] MEDS: ALBUTEROL 2.5 MG/3 ML NEB RESP TX SCH ×4 (08:17→19:07)
[2019-07-30] MEDS: TOBRAMYCIN 80 MG/2 ML VIAL RESP TX SCH ×2 (08:35→19:18)
[2019-07-30] MEDS: AMIODARONE 200 MG TABLET PO SCH ×2 (10:18→21:00)
[2019-07-30] MEDS: THEOPHYLLINE 5.33 MG/ML 30 ML/BOTTLE PO SCH ×3 (10:19→21:02)
[2019-07-30] MEDS: METOPROLOL TARTRATE 100 MG TABLET PO SCH ×2 (10:19→21:00)
[2019-07-30] MEDS: MONTELUKAST 10 MG TABLET PO SCH (10:19)
[2019-07-30] MEDS: PANTOPRAZOLE 40 MG VIAL IV SCH (10:20)
[2019-07-30] MEDS: FLUCONAZOLE INJ 200 MG in PREMIX 1 EACH IV SCH (10:23)
[2019-07-30] MEDS: methylPREDNISolone SOD SUC 40 MG/1 ML VIAL IV SCH ×2 (10:24→22:57)
[2019-07-30] MEDS: LINEZOLID INJ 600 MG in PREMIX 1 EACH IV SCH ×2 (10:24→22:58)
[2019-07-30] MEDS: FAT EMULSION 20% 250 ML IV SCH (13:04)
[2019-07-30] MEDS ORDERED: ELECTROLYTE CONCENTRATE 20 ML, TRACE ELEMENTS (5) 1 ML, MULTIVITAMIN INJ 10 ML, POTASSI... IV SCH (17:00)
[2019-07-30] MEDS ORDERED: DEXTROSE 10% 1,000 ML IV PRN (17:00)
[2019-07-30] MEDS: diphenhydrAMINE 25 MG/10 ML UDCUP PEG SCH (21:00)
[2019-07-30] MEDS: MORPHINE 4 MG/1 ML VIAL IV PRN (23:32)
[2019-07-31] MEDS: ACETYLCYSTEINE 20% 800 MG/4 ML VIAL RESP TX SCH ×4 (00:49→19:20)
[2019-07-31] MEDS: POTASSIUM CHLORIDE 20 MEQ/15 ML UDCUP PER TUBE SCH ×3 (02:24→17:51)
[2019-07-31] MEDS: ALBUMIN 5% 25 GM in PREMIX 1 EACH IV SCH ×3 (02:27→18:04)
[2019-07-31] MEDS: FUROSEMIDE 20 MG/2 ML VIAL IV SCH ×3 (03:41→19:12)
[2019-07-31] MEDS: cefTAZidime 1,000 MG in SYRINGE 1 EACH IV SCH ×3 (03:55→20:15)
[2019-07-31 04:23] LABS: Basophils % 0.2 % (0.0-0.8); Hematocrit 27.6 VOL% (42.0-52.0); Hemoglobin 9.1 GM/DL (14.0-18.0); Immature Granulocytes % 2.9 %; Immature Granulocytes Absolute 0.31 #; Lymphocytes # 0.1 10*3/uL (1.4-4.0); Mean Corpuscular Volume 89.3 FL (87-102); Mean Platelet Volume 11.4 FL (9.6-12.0); Monocytes % 1.5 % (1.7-12.7); NRBC # 0.03 10*3/uL; Neutrophils % 94.4 % (38.7-73.9); Platelet Count 91 T/CUMM (130-400); Red Blood Count 3.09 MC/CUMM (3.8-5.5); Red Cell Distribution Width 16.1 % (9.3-17.3); White Blood Count 10.8 T/CUMM (4-12)
[2019-07-31 04:36] LABS: Calcium 8.4 MG/DL (8.5-10.1); Osmolality,Calculated 282.5 MOS/KG (273-304)
[2019-07-31 04:51] LABS: Band Neutrophils 5 % (0-10); Lymphocytes 2 % (20-55); Metamyelocytes 1 %; Promyelocytes 1 %; Segmented Neutrophils 90 % (50-85)
[2019-07-31 05:06] LABS: Hypochromasia 1+; Platelet Estimate Adequate
[2019-07-31 05:07] LABS: Total Cells Counted 100
[2019-07-31] MEDS: INSULIN REGULAR 100 UNIT/ML SUBCUT SCH ×4 (06:16→23:16)
[2019-07-31] MEDS: PROPOFOL 1,000 MG/100 ML BOTTLE IV SCH ×2 (06:19→22:22)
[2019-07-31] MEDS: ALBUTEROL 2.5 MG/3 ML NEB RESP TX SCH ×4 (06:46→19:20)
[2019-07-31] MEDS: TOBRAMYCIN 80 MG/2 ML VIAL RESP TX SCH ×2 (06:46→19:20)
[2019-07-31] MEDS: FLUCONAZOLE INJ 200 MG in PREMIX 1 EACH IV SCH (09:20)
[2019-07-31 09:22] LABS: Pt O2 Delivery Device Ventilator
[2019-07-31 09:23] LABS: ABG Base Excess 4.8 MMOL/L (-2.5-2.5); ABG HCO3 28.8 MMOL/L (20-26); ABG PH 7.389 (7.35-7.45); ABG TCO2 28.2 MMOL/L (23-27)
[2019-07-31] MEDS: POTASSIUM CHLORIDE 20 MEQ/15 ML UDCUP PER TUBE PRN ×2 (09:33→12:09)
[2019-07-31] MEDS: THEOPHYLLINE 5.33 MG/ML 30 ML/BOTTLE PO SCH ×3 (09:33→20:58)
[2019-07-31] MEDS: MONTELUKAST 10 MG TABLET PO SCH (09:33)
[2019-07-31] MEDS: METOPROLOL TARTRATE 100 MG TABLET PO SCH ×2 (09:33→20:58)
[2019-07-31] MEDS: AMIODARONE 200 MG TABLET PO SCH ×2 (09:33→20:58)
[2019-07-31] MEDS: LINEZOLID INJ 600 MG in PREMIX 1 EACH IV SCH ×2 (10:38→22:43)
[2019-07-31] MEDS: methylPREDNISolone SOD SUC 40 MG/1 ML VIAL IV SCH ×2 (10:45→22:41)
[2019-07-31] MEDS: DEXTROSE 5% LACTATED RINGERS 1,000 ML IV SCH (12:35)
[2019-07-31] MEDS: PANTOPRAZOLE 40 MG VIAL IV SCH (13:12)
[2019-07-31] MEDS: MORPHINE 4 MG/1 ML VIAL IV PRN (14:11)
[2019-07-31] MEDS: FAT EMULSION 20% 250 ML IV SCH (15:03)
[2019-07-31] MEDS: ELECTROLYTE CONCENTRATE 40 ML, TRACE ELEMENTS (5) 1 ML, MULTIVITAMIN INJ 10 ML, POTASSI... IV SCH (16:39)
[2019-07-31] MEDS: diphenhydrAMINE 25 MG/10 ML UDCUP PEG SCH (20:58)
[2019-08-01] MEDS: ALBUTEROL 2.5 MG/3 ML NEB RESP TX PRN (01:10)
[2019-08-01] MEDS: ACETYLCYSTEINE 20% 800 MG/4 ML VIAL RESP TX SCH ×4 (01:10→19:31)
[2019-08-01] MEDS: METOPROLOL TARTRATE 5 MG/5 ML VIAL IV PRN ×2 (01:35→11:31)
[2019-08-01] MEDS: POTASSIUM CHLORIDE 20 MEQ/15 ML UDCUP PER TUBE SCH ×3 (02:26→18:11)
[2019-08-01] MEDS: ALBUMIN 5% 25 GM in PREMIX 1 EACH IV SCH ×3 (02:27→18:16)
[2019-08-01] MEDS: FUROSEMIDE 20 MG/2 ML VIAL IV SCH ×2 (03:07→10:13)
[2019-08-01] MEDS ORDERED: hydrALAZINE 25 MG TABLET PO ONE (03:23)
[2019-08-01] MEDS: HYDROmorphone 2 MG/1 ML VIAL IV PRN ×2 (03:28→17:15)
[2019-08-01 03:33] LABS: ABG Base Excess 3.6 MMOL/L (-2.5-2.5); ABG HCO3 30.9 MMOL/L (20-26); ABG Oxygen Saturation 98.1 % (95-100); ABG PH 7.315 (7.35-7.45); ABG PO2 116.2 MM HG (80-95); ABG TCO2 32.8 MMOL/L (23-27); Allen Test Positive; Pt O2 Delivery Device Ventilator
[2019-08-01] MEDS: cefTAZidime 1,000 MG in SYRINGE 1 EACH IV SCH ×3 (04:21→20:20)
[2019-08-01] MEDS: PROPOFOL 1,000 MG/100 ML BOTTLE IV SCH (05:03)
[2019-08-01 05:30] LABS: Basophils % 0.3 % (0.0-0.8); Hematocrit 28.6 VOL% (42.0-52.0); Immature Granulocytes % 2.2 %; Lymphocytes # 0.2 10*3/uL (1.4-4.0); Lymphocytes % 1.1 % (21.2-54.2); Mean Corpuscular HGB Conc 31.5 GM/DL (32-36); Mean Corpuscular Volume 91.1 FL (87-102); Mean Platelet Volume 11.1 FL (9.6-12.0); Monocytes % 1.6 % (1.7-12.7); NRBC # 0.02 10*3/uL; Neutrophils % 94.8 % (38.7-73.9); Platelet Count 102 T/CUMM (130-400); Red Blood Count 3.14 MC/CUMM (3.8-5.5); White Blood Count 13.5 T/CUMM (4-12)
[2019-08-01 05:56] LABS: Calcium 8.1 MG/DL (8.5-10.1); Osmolality,Calculated 283.8 MOS/KG (273-304)
[2019-08-01 06:12] LABS: Band Neutrophils 9 % (0-10); Hypochromasia 2+; Lymphocytes 2 % (20-55); Platelet Estimate Decreased; Segmented Neutrophils 87 % (50-85); Total Cells Counted 100
[2019-08-01] MEDS: INSULIN REGULAR 100 UNIT/ML SUBCUT SCH ×4 (06:32→23:45)
[2019-08-01] MEDS: ALBUTEROL 2.5 MG/3 ML NEB RESP TX SCH ×4 (07:33→19:31)
[2019-08-01] MEDS: TOBRAMYCIN 80 MG/2 ML VIAL RESP TX SCH ×2 (07:41→19:31)
[2019-08-01] MEDS: PANTOPRAZOLE 40 MG VIAL IV SCH (09:37)
[2019-08-01] MEDS: POTASSIUM CHLORIDE 20 MEQ/15 ML UDCUP PER TUBE PRN (09:38)
[2019-08-01] MEDS: hydrALAZINE 25 MG TABLET PO SCH ×4 (09:41→20:46)
[2019-08-01] MEDS: MONTELUKAST 10 MG TABLET PO SCH (09:41)
[2019-08-01] MEDS: METOPROLOL TARTRATE 100 MG TABLET PO SCH ×2 (09:41→20:46)
[2019-08-01] MEDS: AMIODARONE 200 MG TABLET PO SCH ×2 (09:41→20:46)
[2019-08-01] MEDS: FLUCONAZOLE INJ 200 MG in PREMIX 1 EACH IV SCH (09:52)
[2019-08-01] MEDS: methylPREDNISolone SOD SUC 40 MG/1 ML VIAL IV SCH ×2 (10:14→23:10)
[2019-08-01] MEDS: LINEZOLID INJ 600 MG in PREMIX 1 EACH IV SCH ×2 (11:07→23:10)
[2019-08-01] MEDS: THEOPHYLLINE 5.33 MG/ML 30 ML/BOTTLE PO SCH ×3 (11:32→20:47)
[2019-08-01] MEDS: FUROSEMIDE 40 MG/4 ML VIAL IV SCH (12:57)
[2019-08-01] MEDS: MAGNESIUM SULF RIDER 2 GM in PREMIX 1 EACH IV PRN (12:58)
[2019-08-01] MEDS: DEXTROSE 5% LACTATED RINGERS 1,000 ML IV SCH (13:24)
[2019-08-01] MEDS: FAT EMULSION 20% 250 ML IV SCH (14:49)
[2019-08-01] MEDS: ELECTROLYTE CONCENTRATE 40 ML, TRACE ELEMENTS (5) 1 ML, MULTIVITAMIN INJ 10 ML, POTASSI... IV SCH (17:49)
[2019-08-01] MEDS: diphenhydrAMINE 25 MG/10 ML UDCUP PEG SCH (20:46)
[2019-08-02] MEDS: PROPOFOL 1,000 MG/100 ML BOTTLE IV SCH ×3 (00:43→22:18)
[2019-08-02] MEDS: ACETYLCYSTEINE 20% 800 MG/4 ML VIAL RESP TX SCH ×4 (00:48→19:32)
[2019-08-02] MEDS: ALBUMIN 5% 25 GM in PREMIX 1 EACH IV SCH ×3 (02:06→18:00)
[2019-08-02] MEDS: POTASSIUM CHLORIDE 20 MEQ/15 ML UDCUP PER TUBE SCH ×3 (02:06→18:06)
[2019-08-02] MEDS: cefTAZidime 1,000 MG in SYRINGE 1 EACH IV SCH ×3 (03:30→20:44)
[2019-08-02 03:59] LABS: ABG Base Excess 2.2 MMOL/L (-2.5-2.5); ABG HCO3 26.4 MMOL/L (20-26); ABG Oxygen Saturation 97.7 % (95-100); ABG PCO2 63.7 MM HG (35-48); ABG PH 7.286 (7.35-7.45); ABG PO2 96.9 MM HG (80-95); ABG TCO2 27.9 MMOL/L (23-27)
[2019-08-02 04:29] LABS: Basophils % 0.2 % (0.0-0.8); Hematocrit 30.3 VOL% (42.0-52.0); Hemoglobin 9.5 GM/DL (14.0-18.0); Immature Granulocytes % 5.1 %; Immature Granulocytes Absolute 0.83 #; Lymphocytes # 0.1 10*3/uL (1.4-4.0); Lymphocytes % 0.7 % (21.2-54.2); Mean Corpuscular HGB Conc 31.4 GM/DL (32-36); Mean Corpuscular Volume 92.4 FL (87-102); Mean Platelet Volume 10.7 FL (9.6-12.0); Monocytes % 1.3 % (1.7-12.7); NRBC # 0.02 10*3/uL; Neutrophils % 92.7 % (38.7-73.9); Platelet Count 105 T/CUMM (130-400); Red Blood Count 3.28 MC/CUMM (3.8-5.5); Red Cell Distribution Width 15.9 % (9.3-17.3); White Blood Count 16.4 T/CUMM (4-12)
[2019-08-02] MEDS: HYDROmorphone 2 MG/1 ML VIAL IV PRN ×3 (04:35→20:45)
[2019-08-02 04:47] LABS: Calcium 8.5 MG/DL (8.5-10.1)
[2019-08-02 04:54] LABS: INR 1.3; PT Patient Result 13.8 SECS (9.6-12.2)
[2019-08-02 04:55] LABS: Lymphocytes 1 % (20-55); Segmented Neutrophils 98 % (50-85)
[2019-08-02 04:56] LABS: Hypochromasia 1+; Platelet Estimate Decreased; Stomatocytes Few
[2019-08-02 04:57] LABS: Total Cells Counted 100
[2019-08-02 05:18] LABS: Prealbumin 14.8 MG/DL (20-40)
[2019-08-02] MEDS: INSULIN REGULAR 100 UNIT/ML SUBCUT SCH ×3 (06:45→18:36)
[2019-08-02] MEDS ORDERED: SEVOFLURANE 1 UNIT/15 MINUTE INH ONE (08:09)
[2019-08-02] MEDS ORDERED: MIDAZOLAM 2 MG/2 ML VIAL ONE (08:10)
[2019-08-02] MEDS ORDERED: ROCURONIUM 100 MG/10 ML VIAL IV ONE (08:10)
[2019-08-02] MEDS: TOBRAMYCIN 80 MG/2 ML VIAL RESP TX SCH ×2 (08:13→19:32)
[2019-08-02] MEDS: ALBUTEROL 2.5 MG/3 ML NEB RESP TX SCH ×4 (08:13→19:32)
[2019-08-02 09:46] LABS: ABG Base Excess 4.4 MMOL/L (-2.5-2.5); ABG HCO3 31.4 MMOL/L (20-26); ABG Oxygen Saturation 99.1 % (95-100); ABG PCO2 60.1 MM HG (35-48); ABG PH 7.336 (7.35-7.45); ABG PO2 378.8 MM HG (80-95); ABG TCO2 33.3 MMOL/L (23-27); Allen Test Positive; Pt O2 Delivery Device Ventilator
[2019-08-02] MEDS: PANTOPRAZOLE 40 MG VIAL IV SCH (10:18)
[2019-08-02] MEDS: methylPREDNISolone SOD SUC 40 MG/1 ML VIAL IV SCH ×2 (10:27→22:17)
[2019-08-02] MEDS: AMIODARONE 200 MG TABLET PO SCH ×2 (10:34→20:45)
[2019-08-02] MEDS: MONTELUKAST 10 MG TABLET PO SCH (10:34)
[2019-08-02] MEDS: hydrALAZINE 25 MG TABLET PO SCH ×4 (10:35→20:45)
[2019-08-02] MEDS: METOPROLOL TARTRATE 100 MG TABLET PO SCH ×2 (10:38→20:45)
[2019-08-02] MEDS: FLUCONAZOLE INJ 200 MG in PREMIX 1 EACH IV SCH (10:56)
[2019-08-02] MEDS: LINEZOLID INJ 600 MG in PREMIX 1 EACH IV SCH ×2 (10:56→22:17)
[2019-08-02] MEDS: THEOPHYLLINE 5.33 MG/ML 30 ML/BOTTLE PO SCH ×3 (10:56→20:45)
[2019-08-02] MEDS ORDERED: POTASSIUM PHOSPHATE 30 MMOL in SODIUM CHLORIDE 0.9% 250 ML IV ONE (11:00)
[2019-08-02] MEDS: FUROSEMIDE 40 MG/4 ML VIAL IV SCH ×3 (11:54→18:22)
[2019-08-02] MEDS ORDERED: ALBUMIN 5% 12.5 GM/250 ML VIAL IV ONE (13:57)
[2019-08-02] MEDS: FAT EMULSION 20% 250 ML IV SCH (14:13)
[2019-08-02] MEDS: DEXTROSE 5% LACTATED RINGERS 1,000 ML IV SCH (14:35)
[2019-08-02] MEDS: ELECTROLYTE CONCENTRATE 40 ML, TRACE ELEMENTS (5) 1 ML, MULTIVITAMIN INJ 10 ML, POTASSI... IV SCH (16:33)
[2019-08-02] MEDS: diphenhydrAMINE 25 MG/10 ML UDCUP PEG SCH (20:45)
[2019-08-03] MEDS: ACETYLCYSTEINE 20% 800 MG/4 ML VIAL RESP TX SCH ×4 (00:21→19:11)
[2019-08-03] MEDS: INSULIN REGULAR 100 UNIT/ML SUBCUT SCH ×4 (00:27→17:57)
[2019-08-03] MEDS: POTASSIUM CHLORIDE 20 MEQ/15 ML UDCUP PER TUBE SCH ×3 (02:00→17:59)
[2019-08-03] MEDS: PROPOFOL 1,000 MG/100 ML BOTTLE IV SCH ×2 (03:20→23:21)
[2019-08-03] MEDS: FUROSEMIDE 40 MG/4 ML VIAL IV SCH ×3 (04:14→17:58)
[2019-08-03] MEDS: ALBUMIN 5% 25 GM in PREMIX 1 EACH IV SCH (04:15)
[2019-08-03] MEDS: cefTAZidime 1,000 MG in SYRINGE 1 EACH IV SCH ×3 (04:15→20:21)
[2019-08-03 04:38] LABS: ABG Base Excess 4.1 MMOL/L (-2.5-2.5); ABG HCO3 28.1 MMOL/L (20-26); ABG Oxygen Saturation 99.3 % (95-100); ABG PCO2 52.4 MM HG (35-48); ABG PH 7.372 (7.35-7.45); ABG TCO2 27.5 MMOL/L (23-27); Allen Test Positive; Pt O2 Delivery Device Ventilator
[2019-08-03 05:03] LABS: Basophils % 0.2 % (0.0-0.8); Hemoglobin 10.2 GM/DL (14.0-18.0); Immature Granulocytes % 7.2 %; Immature Granulocytes Absolute 1.11 #; Lymphocytes # 0.1 10*3/uL (1.4-4.0); Lymphocytes % 0.8 % (21.2-54.2); Mean Corpuscular HGB Conc 31.9 GM/DL (32-36); Mean Corpuscular Volume 90.4 FL (87-102); Mean Platelet Volume 11.4 FL (9.6-12.0); Monocytes % 1.4 % (1.7-12.7); NRBC # 0.02 10*3/uL; Neutrophils % 90.4 % (38.7-73.9); Platelet Count 102 T/CUMM (130-400); Red Blood Count 3.54 MC/CUMM (3.8-5.5); Red Cell Distribution Width 15.9 % (9.3-17.3); White Blood Count 15.4 T/CUMM (4-12)
[2019-08-03 05:14] LABS: Calcium 8.6 MG/DL (8.5-10.1)
[2019-08-03 05:22] LABS: Band Neutrophils 2 % (0-10); Hypochromasia 1+; Nucleated Red Blood Cells 1 (0-5); Platelet Estimate Decreased; Segmented Neutrophils 95 % (50-85); Total Cells Counted 100
[2019-08-03] MEDS ORDERED: BUPIVACAINE 0.25% /EPI 10 ML VIAL ONE (06:26)
[2019-08-03] MEDS ORDERED: SEVOFLURANE 1 UNIT/15 MINUTE INH ONE (07:57)
[2019-08-03] MEDS ORDERED: MIDAZOLAM 2 MG/2 ML VIAL ONE (07:57)
[2019-08-03] MEDS ORDERED: ePHEDrine 50 MG/ML AMP ONE (07:57)
[2019-08-03] MEDS ORDERED: PHENYLEPHRINE 1 MG/10 ML SYRINGE IV ONE (07:57)
[2019-08-03] MEDS: ALBUTEROL 2.5 MG/3 ML NEB RESP TX SCH ×4 (08:10→19:11)
[2019-08-03] MEDS: TOBRAMYCIN 80 MG/2 ML VIAL RESP TX SCH ×2 (08:10→19:11)
[2019-08-03] MEDS: PANTOPRAZOLE 40 MG VIAL IV SCH (09:08)
[2019-08-03] MEDS: METOPROLOL TARTRATE 100 MG TABLET PO SCH ×2 (09:10→20:21)
[2019-08-03] MEDS: hydrALAZINE 25 MG TABLET PO SCH ×4 (09:11→20:21)
[2019-08-03] MEDS: AMIODARONE 200 MG TABLET PO SCH ×2 (09:11→20:20)
[2019-08-03] MEDS: MONTELUKAST 10 MG TABLET PO SCH (09:11)
[2019-08-03] MEDS: THEOPHYLLINE 5.33 MG/ML 30 ML/BOTTLE PO SCH ×3 (09:12→20:51)
[2019-08-03] MEDS: FLUCONAZOLE INJ 200 MG in PREMIX 1 EACH IV SCH (09:23)
[2019-08-03] MEDS: ALBUMIN 25% 25 GM in PREMIX 1 EACH IV SCH ×2 (10:17→17:57)
[2019-08-03] MEDS: LINEZOLID INJ 600 MG in PREMIX 1 EACH IV SCH ×2 (10:25→23:22)
[2019-08-03] MEDS: methylPREDNISolone SOD SUC 40 MG/1 ML VIAL IV SCH ×2 (10:49→23:23)
[2019-08-03] MEDS: ELECTROLYTE CONCENTRATE 40 ML, TRACE ELEMENTS (5) 1 ML, MULTIVITAMIN INJ 10 ML, POTASSI... IV SCH ×2 (11:03→16:56)
[2019-08-03] MEDS: DEXTROSE 5% LACTATED RINGERS 1,000 ML IV SCH (14:40)
[2019-08-03] MEDS: FAT EMULSION 20% 250 ML IV SCH (14:54)
[2019-08-03] MEDS: diphenhydrAMINE 25 MG/10 ML UDCUP PEG SCH (20:20)
[2019-08-03] MEDS: MORPHINE 4 MG/1 ML VIAL IV PRN (23:23)
[2019-08-03] MEDS: METOPROLOL TARTRATE 5 MG/5 ML VIAL IV PRN (23:50)
[2019-08-04] MEDS: ACETYLCYSTEINE 20% 800 MG/4 ML VIAL RESP TX SCH ×4 (00:55→20:05)
[2019-08-04] MEDS: INSULIN REGULAR 100 UNIT/ML SUBCUT SCH ×4 (02:00→18:12)
[2019-08-04] MEDS: ALBUMIN 25% 25 GM in PREMIX 1 EACH IV SCH ×3 (02:05→17:35)
[2019-08-04] MEDS: FUROSEMIDE 40 MG/4 ML VIAL IV SCH ×3 (02:30→17:58)
[2019-08-04] MEDS: POTASSIUM CHLORIDE 20 MEQ/15 ML UDCUP PER TUBE SCH ×3 (02:45→17:58)
[2019-08-04] MEDS: cefTAZidime 1,000 MG in SYRINGE 1 EACH IV SCH ×3 (04:00→21:08)
[2019-08-04 04:33] LABS: Allen Test Positive; Pt O2 Delivery Device Ventilator
[2019-08-04 04:37] LABS: ABG Base Excess 2.8 MMOL/L (-2.5-2.5); ABG HCO3 30.1 MMOL/L (20-26); ABG Oxygen Saturation 97.5 % (95-100); ABG PCO2 61.8 MM HG (35-48); ABG PH 7.306 (7.35-7.45)
[2019-08-04 04:49] LABS: Basophils # 0.1 10*3/uL (0.0-0.2); Basophils % 0.3 % (0.0-0.8); Hematocrit 30.5 VOL% (42.0-52.0); Hemoglobin 9.4 GM/DL (14.0-18.0); Immature Granulocytes % 5.3 %; Immature Granulocytes Absolute 0.99 #; Lymphocytes # 0.2 10*3/uL (1.4-4.0); Lymphocytes % 0.9 % (21.2-54.2); Mean Corpuscular HGB Conc 30.8 GM/DL (32-36); Mean Corpuscular Volume 92.7 FL (87-102); Mean Platelet Volume 11.6 FL (9.6-12.0); Monocytes % 1.3 % (1.7-12.7); NRBC # 0.04 10*3/uL; Neutrophils % 92.2 % (38.7-73.9); Platelet Count 102 T/CUMM (130-400); Red Blood Count 3.29 MC/CUMM (3.8-5.5); Red Cell Distribution Width 16.1 % (9.3-17.3); White Blood Count 18.7 T/CUMM (4-12)
[2019-08-04 05:04] LABS: Calcium 8.4 MG/DL (8.5-10.1); INR 1.1; Osmolality,Calculated 287.2 MOS/KG (273-304); PT Patient Result 12.1 SECS (9.6-12.2); Partial Thromboplastin Time 33.7 SECS (20.8-36.0)
[2019-08-04 05:12] LABS: Band Neutrophils 7 % (0-10); Hypochromasia 1+; Lymphocytes 1 % (20-55); Platelet Estimate Decreased; Segmented Neutrophils 92 % (50-85); Total Cells Counted 100
[2019-08-04] MEDS: ALBUTEROL 2.5 MG/3 ML NEB RESP TX SCH ×4 (07:28→20:05)
[2019-08-04] MEDS: TOBRAMYCIN 80 MG/2 ML VIAL RESP TX SCH ×2 (07:28→20:30)
[2019-08-04] MEDS: dilTIAZem Drip 125 MG/125 ML PREMIX IV SCH (09:27)
[2019-08-04] MEDS: FLUCONAZOLE INJ 200 MG in PREMIX 1 EACH IV SCH (09:28)
[2019-08-04] MEDS: PANTOPRAZOLE 40 MG VIAL IV SCH (09:34)
[2019-08-04] MEDS: hydrALAZINE 25 MG TABLET PO SCH ×4 (09:35→21:10)
[2019-08-04] MEDS: AMIODARONE 200 MG TABLET PO SCH ×2 (09:35→21:09)
[2019-08-04] MEDS: THEOPHYLLINE 5.33 MG/ML 30 ML/BOTTLE PO SCH ×3 (09:35→21:10)
[2019-08-04] MEDS: MONTELUKAST 10 MG TABLET PO SCH (09:35)
[2019-08-04] MEDS: METOPROLOL TARTRATE 100 MG TABLET PO SCH ×2 (09:35→21:09)
[2019-08-04] MEDS: LINEZOLID INJ 600 MG in PREMIX 1 EACH IV SCH ×2 (11:00→22:12)
[2019-08-04] MEDS: methylPREDNISolone SOD SUC 40 MG/1 ML VIAL IV SCH ×2 (11:10→22:11)
[2019-08-04 13:39] LABS: Troponin I 0.069 NG/ML (0.00-0.045)
[2019-08-04] MEDS: FAT EMULSION 20% 250 ML IV SCH (14:54)
[2019-08-04] MEDS: DEXTROSE 5% LACTATED RINGERS 1,000 ML IV SCH (15:11)
[2019-08-04] MEDS: PROPOFOL 1,000 MG/100 ML BOTTLE IV SCH ×3 (16:15→23:26)
[2019-08-04] MEDS: ELECTROLYTE CONCENTRATE 40 ML, TRACE ELEMENTS (5) 1 ML, MULTIVITAMIN INJ 10 ML, POTASSI... IV SCH (17:55)
[2019-08-04] MEDS: diphenhydrAMINE 25 MG/10 ML UDCUP PEG SCH (21:09)
[2019-08-04] MEDS: MORPHINE 4 MG/1 ML VIAL IV PRN (22:50)
[2019-08-05] MEDS: INSULIN REGULAR 100 UNIT/ML SUBCUT SCH ×4 (00:18→18:01)
[2019-08-05] MEDS: ACETYLCYSTEINE 20% 800 MG/4 ML VIAL RESP TX SCH ×4 (00:42→19:18)
[2019-08-05] MEDS: ALBUMIN 25% 25 GM in PREMIX 1 EACH IV SCH ×3 (02:00→18:03)
[2019-08-05] MEDS: FUROSEMIDE 40 MG/4 ML VIAL IV SCH ×3 (02:12→18:02)
[2019-08-05] MEDS: POTASSIUM CHLORIDE 20 MEQ/15 ML UDCUP PER TUBE SCH ×3 (02:12→18:03)
[2019-08-05] MEDS: cefTAZidime 1,000 MG in SYRINGE 1 EACH IV SCH ×3 (03:35→20:19)
[2019-08-05] MEDS: MORPHINE 4 MG/1 ML VIAL IV PRN ×2 (03:45→12:05)
[2019-08-05 03:51] LABS: ABG Base Excess 1.8 MMOL/L (-2.5-2.5); ABG HCO3 25.9 MMOL/L (20-26); ABG Oxygen Saturation 91.5 % (95-100); ABG PCO2 59.5 MM HG (35-48); ABG PH 7.298 (7.35-7.45); ABG PO2 64.2 MM HG (80-95); ABG TCO2 27.4 MMOL/L (23-27)
[2019-08-05] MEDS: dilTIAZem Drip 125 MG/125 ML PREMIX IV SCH (03:56)
[2019-08-05 04:52] LABS: Basophils % 0.2 % (0.0-0.8); Hematocrit 24.7 VOL% (42.0-52.0); Hemoglobin 7.5 GM/DL (14.0-18.0); Immature Granulocytes % 5.1 %; Immature Granulocytes Absolute 0.62 #; Lymphocytes # 0.1 10*3/uL (1.4-4.0); Mean Corpuscular HGB Conc 30.4 GM/DL (32-36); Mean Corpuscular Volume 93.2 FL (87-102); Mean Platelet Volume 11.9 FL (9.6-12.0); Monocytes % 0.9 % (1.7-12.7); NRBC # 0.04 10*3/uL; Neutrophils % 92.8 % (38.7-73.9); Red Blood Count 2.65 MC/CUMM (3.8-5.5); Red Cell Distribution Width 16.1 % (9.3-17.3); White Blood Count 12.3 T/CUMM (4-12)
[2019-08-05 04:57] LABS: Platelet Count 73 T/CUMM (130-400)
[2019-08-05 05:18] LABS: Calcium 8.5 MG/DL (8.5-10.1)
[2019-08-05 05:21] LABS: Band Neutrophils 2 % (0-10); Hypochromasia 1+; Nucleated Red Blood Cells 1 (0-5); Platelet Estimate Decreased; Segmented Neutrophils 97 % (50-85); Total Cells Counted 100
[2019-08-05] MEDS: ALBUTEROL 2.5 MG/3 ML NEB RESP TX SCH ×4 (07:30→19:18)
[2019-08-05] MEDS: TOBRAMYCIN 80 MG/2 ML VIAL RESP TX SCH ×2 (07:50→19:38)
[2019-08-05] MEDS: hydrALAZINE 25 MG TABLET PO SCH ×4 (09:52→20:19)
[2019-08-05] MEDS: METOPROLOL TARTRATE 100 MG TABLET PO SCH ×2 (09:52→20:20)
[2019-08-05] MEDS: AMIODARONE 200 MG TABLET PO SCH ×2 (09:52→20:18)
[2019-08-05] MEDS: MONTELUKAST 10 MG TABLET PO SCH (09:52)
[2019-08-05] MEDS: PANTOPRAZOLE 40 MG VIAL IV SCH ×2 (09:53→20:18)
[2019-08-05] MEDS: LINEZOLID INJ 600 MG in PREMIX 1 EACH IV SCH ×2 (09:54→23:03)
[2019-08-05 10:02] LABS: ABG Base Excess 2.4 MMOL/L (-2.5-2.5); ABG HCO3 26.5 MMOL/L (20-26); ABG Oxygen Saturation 96.7 % (95-100); ABG PCO2 63.4 MM HG (35-48); ABG PH 7.287 (7.35-7.45); ABG PO2 83.2 MM HG (80-95); ABG TCO2 28.3 MMOL/L (23-27); Allen Test Positive; Pt O2 Delivery Device Ventilator
[2019-08-05] MEDS ORDERED: SODIUM CHLORIDE 0.9% 1,000 ML IV PRN ×2 (10:15→14:43)
[2019-08-05] MEDS: FLUCONAZOLE INJ 200 MG in PREMIX 1 EACH IV SCH (11:06)
[2019-08-05] MEDS: THEOPHYLLINE 5.33 MG/ML 30 ML/BOTTLE PO SCH ×3 (11:06→20:19)
[2019-08-05] MEDS: methylPREDNISolone SOD SUC 40 MG/1 ML VIAL IV SCH ×2 (11:06→22:54)
[2019-08-05 11:18] LABS: ABG Base Excess 1.2 MMOL/L (-2.5-2.5); ABG HCO3 25.4 MMOL/L (20-26); ABG Oxygen Saturation 97.7 % (95-100); ABG PCO2 61.1 MM HG (35-48); ABG PH 7.282 (7.35-7.45); ABG PO2 94.7 MM HG (80-95); ABG TCO2 27.1 MMOL/L (23-27); Allen Test Positive; Pt O2 Delivery Device Ventilator
[2019-08-05 14:20] LABS: ABG Base Excess -0.7 MMOL/L (-2.5-2.5); ABG HCO3 23.8 MMOL/L (20-26); ABG Oxygen Saturation 93.4 % (95-100); ABG PO2 75.6 MM HG (80-95); ABG TCO2 28.6 MMOL/L (23-27)
[2019-08-05 14:24] LABS: ABG PCO2 83.8 MM HG (35-48)
[2019-08-05] MEDS ORDERED: VECURONIUM 10 MG VIAL IV ONE (14:31)
[2019-08-05 15:18] LABS: ABG Base Excess 0.8 MMOL/L (-2.5-2.5); ABG HCO3 25.2 MMOL/L (20-26); ABG Oxygen Saturation 97.5 % (95-100); ABG PCO2 61.7 MM HG (35-48); ABG PH 7.276 (7.35-7.45); ABG PO2 93.3 MM HG (80-95); ABG TCO2 26.8 MMOL/L (23-27); Pt O2 Delivery Device Ventilator
[2019-08-05] MEDS: VECURONIUM 100 MG in SODIUM CHLORIDE 0.9% 100 ML IV SCH (15:48)
[2019-08-05] MEDS ORDERED: POTASSIUM PHOSPHATE 30 MMOL in SODIUM CHLORIDE 0.9% 250 ML IV ONE (16:00)
[2019-08-05] MEDS: FAT EMULSION 20% 250 ML IV SCH (16:21)
[2019-08-05 17:20] LABS: ABG Base Excess 1.9 MMOL/L (-2.5-2.5); ABG HCO3 26.1 MMOL/L (20-26); ABG Oxygen Saturation 98.1 % (95-100); ABG PH 7.299 (7.35-7.45); ABG PO2 95.3 MM HG (80-95); ABG TCO2 27.2 MMOL/L (23-27); Pt O2 Delivery Device Ventilator
[2019-08-05] MEDS: ELECTROLYTE CONCENTRATE 40 ML, TRACE ELEMENTS (5) 1 ML, MULTIVITAMIN INJ 10 ML, POTASSI... IV SCH (18:02)
[2019-08-05] MEDS: PROPOFOL 1,000 MG/100 ML BOTTLE IV SCH ×2 (18:30→21:55)
[2019-08-05] MEDS: diphenhydrAMINE 25 MG/10 ML UDCUP PEG SCH (20:17)
[2019-08-05] MEDS: POTASSIUM PHOS/SOD PHOS POWDER 250 MG PACK PO SCH (20:19)
[2019-08-06] MEDS: ALBUTEROL 2.5 MG/3 ML NEB RESP TX PRN (00:19)
[2019-08-06] MEDS: ACETYLCYSTEINE 20% 800 MG/4 ML VIAL RESP TX SCH ×4 (00:19→20:10)
[2019-08-06] MEDS: INSULIN REGULAR 100 UNIT/ML SUBCUT SCH ×4 (00:38→17:49)
[2019-08-06] MEDS: ALBUMIN 25% 25 GM in PREMIX 1 EACH IV SCH ×3 (00:38→17:09)
[2019-08-06] MEDS: FUROSEMIDE 40 MG/4 ML VIAL IV SCH ×3 (00:38→17:25)
[2019-08-06] MEDS: POTASSIUM CHLORIDE 20 MEQ/15 ML UDCUP PER TUBE SCH ×3 (02:05→17:50)
[2019-08-06] MEDS: cefTAZidime 1,000 MG in SYRINGE 1 EACH IV SCH ×3 (02:56→20:21)
[2019-08-06] MEDS: dilTIAZem Drip 125 MG/125 ML PREMIX IV SCH (03:02)
[2019-08-06 03:35] LABS: ABG Base Excess 4.2 MMOL/L (-2.5-2.5); ABG Oxygen Saturation 97.6 % (95-100); ABG PCO2 58.8 MM HG (35-48); ABG PO2 107.8 MM HG (80-95); ABG TCO2 32.8 MMOL/L (23-27); Allen Test Positive; Pt O2 Delivery Device Ventilator
[2019-08-06] MEDS: PROPOFOL 1,000 MG/100 ML BOTTLE IV SCH ×3 (03:51→20:51)
[2019-08-06 04:07] LABS: INR 1.2; PT Patient Result 12.6 SECS (9.6-12.2)
[2019-08-06 04:09] LABS: Basophils % 0.2 % (0.0-0.8); Hematocrit 28.9 VOL% (42.0-52.0); Hemoglobin 8.9 GM/DL (14.0-18.0); Immature Granulocytes Absolute 0.73 #; Lymphocytes # 0.1 10*3/uL (1.4-4.0); Lymphocytes % 1.1 % (21.2-54.2); Mean Corpuscular HGB Conc 30.8 GM/DL (32-36); Mean Corpuscular Volume 93.2 FL (87-102); Mean Platelet Volume 12.5 FL (9.6-12.0); Monocytes % 1.5 % (1.7-12.7); NRBC # 0.05 10*3/uL; Neutrophils % 91.2 % (38.7-73.9); Platelet Count 82 T/CUMM (130-400); Red Cell Distribution Width 15.9 % (9.3-17.3); White Blood Count 12.2 T/CUMM (4-12)
[2019-08-06 04:28] LABS: Calcium 8.7 MG/DL (8.5-10.1); Osmolality,Calculated 295.8 MOS/KG (273-304)
[2019-08-06 04:49] LABS: Band Neutrophils 3 % (0-10); Hypochromasia 1+; Lymphocytes 1 % (20-55); Platelet Estimate Decreased; Segmented Neutrophils 94 % (50-85); Total Cells Counted 100
[2019-08-06] MEDS: ALBUTEROL 2.5 MG/3 ML NEB RESP TX SCH ×4 (07:49→20:10)
[2019-08-06] MEDS: TOBRAMYCIN 80 MG/2 ML VIAL RESP TX SCH ×2 (07:49→20:11)
[2019-08-06] MEDS: THEOPHYLLINE 5.33 MG/ML 30 ML/BOTTLE PO SCH ×3 (10:41→20:23)
[2019-08-06] MEDS: POTASSIUM PHOS/SOD PHOS POWDER 250 MG PACK PO SCH ×3 (10:41→20:22)
[2019-08-06] MEDS: PANTOPRAZOLE 40 MG VIAL IV SCH ×2 (10:41→20:22)
[2019-08-06] MEDS: MONTELUKAST 10 MG TABLET PO SCH (10:41)
[2019-08-06] MEDS: AMIODARONE 200 MG TABLET PO SCH ×2 (10:41→20:22)
[2019-08-06] MEDS: METOPROLOL TARTRATE 100 MG TABLET PO SCH ×2 (10:41→20:22)
[2019-08-06] MEDS: hydrALAZINE 25 MG TABLET PO SCH ×4 (10:41→20:22)
[2019-08-06] MEDS: LINEZOLID INJ 600 MG in PREMIX 1 EACH IV SCH ×2 (10:42→22:50)
[2019-08-06] MEDS: methylPREDNISolone SOD SUC 40 MG/1 ML VIAL IV SCH ×2 (10:42→22:50)
[2019-08-06] MEDS: FLUCONAZOLE INJ 200 MG in PREMIX 1 EACH IV SCH (12:06)
[2019-08-06] MEDS ORDERED: SEVOFLURANE 1 UNIT/15 MINUTE INH ONE (13:28)
[2019-08-06] MEDS: VECURONIUM 100 MG in SODIUM CHLORIDE 0.9% 100 ML IV SCH (16:57)
[2019-08-06] MEDS: ELECTROLYTE CONCENTRATE 40 ML, TRACE ELEMENTS (5) 1 ML, MULTIVITAMIN INJ 10 ML, POTASSI... IV SCH (17:09)
[2019-08-06] MEDS: FAT EMULSION 20% 250 ML IV SCH (18:05)
[2019-08-06] MEDS: diphenhydrAMINE 25 MG/10 ML UDCUP PEG SCH (20:23)
[2019-08-07] MEDS: INSULIN REGULAR 100 UNIT/ML SUBCUT SCH ×4 (00:39→18:46)
[2019-08-07] MEDS: ALBUMIN 25% 25 GM in PREMIX 1 EACH IV SCH ×3 (00:39→17:38)
[2019-08-07] MEDS: ACETYLCYSTEINE 20% 800 MG/4 ML VIAL RESP TX SCH ×4 (00:43→19:52)
[2019-08-07] MEDS: FUROSEMIDE 40 MG/4 ML VIAL IV SCH ×3 (01:32→18:45)
[2019-08-07] MEDS: POTASSIUM CHLORIDE 20 MEQ/15 ML UDCUP PER TUBE SCH ×3 (02:52→17:39)
[2019-08-07] MEDS: dilTIAZem Drip 125 MG/125 ML PREMIX IV SCH (02:53)
[2019-08-07] MEDS: cefTAZidime 1,000 MG in SYRINGE 1 EACH IV SCH ×3 (03:41→20:33)
[2019-08-07 04:23] LABS: Basophils # 0.1 10*3/uL (0.0-0.2); Basophils % 0.5 % (0.0-0.8); Hematocrit 31.2 VOL% (42.0-52.0); Hemoglobin 9.5 GM/DL (14.0-18.0); Immature Granulocytes % 4.2 %; Immature Granulocytes Absolute 0.74 #; Lymphocytes # 0.2 10*3/uL (1.4-4.0); Mean Corpuscular HGB Conc 30.4 GM/DL (32-36); Mean Corpuscular Volume 96.6 FL (87-102); Mean Platelet Volume 12.4 FL (9.6-12.0); Monocytes % 1.1 % (1.7-12.7); NRBC # 0.04 10*3/uL; Neutrophils % 93.2 % (38.7-73.9); Platelet Count 72 T/CUMM (130-400); Red Blood Count 3.23 MC/CUMM (3.8-5.5); Red Cell Distribution Width 16.5 % (9.3-17.3); White Blood Count 17.8 T/CUMM (4-12)
[2019-08-07 04:30] LABS: ABG Base Excess 2.1 MMOL/L (-2.5-2.5); ABG HCO3 32.1 MMOL/L (20-26); ABG Oxygen Saturation 94.8 % (95-100); ABG PO2 84.5 MM HG (80-95); ABG TCO2 34.8 MMOL/L (23-27); Allen Test Positive; Pt O2 Delivery Device Ventilator
[2019-08-07 04:34] LABS: ABG PCO2 86.1 MM HG (35-48)
[2019-08-07 05:30] LABS: Anisocytosis 1+; Band Neutrophils 16 % (0-10); Lymphocytes 2 % (20-55); Myelocytes 1 %; Segmented Neutrophils 79 % (50-85); Total Cells Counted 100
[2019-08-07 05:31] LABS: Platelet Estimate Decreased
[2019-08-07] MEDS: ALBUTEROL 2.5 MG/3 ML NEB RESP TX SCH ×4 (07:21→19:52)
[2019-08-07] MEDS: TOBRAMYCIN 80 MG/2 ML VIAL RESP TX SCH ×2 (07:21→20:03)
[2019-08-07] MEDS: FLUCONAZOLE INJ 200 MG in PREMIX 1 EACH IV SCH (09:00)
[2019-08-07 09:50] LABS: ABG Base Excess 3.1 MMOL/L (-2.5-2.5); ABG HCO3 27.1 MMOL/L (20-26); ABG Oxygen Saturation 96.5 % (95-100); ABG PCO2 60.8 MM HG (35-48); ABG PO2 78.6 MM HG (80-95); ABG TCO2 28.3 MMOL/L (23-27)
[2019-08-07 09:51] LABS: Allen Test Positive; Pt O2 Delivery Device Ventilator
[2019-08-07] MEDS: hydrALAZINE 25 MG TABLET PO SCH ×4 (10:45→20:38)
[2019-08-07] MEDS: THEOPHYLLINE 5.33 MG/ML 30 ML/BOTTLE PO SCH ×3 (10:45→20:37)
[2019-08-07] MEDS: AMIODARONE 200 MG TABLET PO SCH ×2 (10:45→20:37)
[2019-08-07] MEDS: MONTELUKAST 10 MG TABLET PO SCH (10:45)
[2019-08-07] MEDS: METOPROLOL TARTRATE 100 MG TABLET PO SCH ×2 (10:45→20:37)
[2019-08-07] MEDS: POTASSIUM PHOS/SOD PHOS POWDER 250 MG PACK PO SCH ×3 (10:45→20:38)
[2019-08-07 11:06] LABS: Albumin 4.8 G/DL (3.4-5.0); Bilirubin,Total 1.2 MG/DL (0.2-1.0); Calcium 8.3 MG/DL (8.5-10.1); Osmolality,Calculated 291.4 MOS/KG (273-304)
[2019-08-07] MEDS: PANTOPRAZOLE 40 MG VIAL IV SCH ×2 (11:08→20:36)
[2019-08-07] MEDS: LINEZOLID INJ 600 MG in PREMIX 1 EACH IV SCH ×2 (11:52→22:03)
[2019-08-07] MEDS: methylPREDNISolone SOD SUC 40 MG/1 ML VIAL IV SCH ×2 (11:53→22:04)
[2019-08-07] MEDS: VECURONIUM 100 MG in SODIUM CHLORIDE 0.9% 100 ML IV SCH (15:03)
[2019-08-07] MEDS: FAT EMULSION 20% 250 ML IV SCH (15:15)
[2019-08-07] MEDS: diphenhydrAMINE 25 MG/10 ML UDCUP PEG SCH (20:37)
[2019-08-07] MEDS: PROPOFOL 1,000 MG/100 ML BOTTLE IV SCH (20:38)
[2019-08-07] MEDS: ELECTROLYTE CONCENTRATE 40 ML, TRACE ELEMENTS (5) 1 ML, MULTIVITAMIN INJ 10 ML, POTASSI... IV SCH (22:03)
[2019-08-08] MEDS: ALBUMIN 25% 25 GM in PREMIX 1 EACH IV SCH ×3 (00:41→17:53)
[2019-08-08] MEDS: INSULIN REGULAR 100 UNIT/ML SUBCUT SCH ×4 (00:41→17:54)
[2019-08-08] MEDS: PROPOFOL 1,000 MG/100 ML BOTTLE IV SCH ×2 (00:42→22:25)
[2019-08-08] MEDS: ALBUTEROL 2.5 MG/3 ML NEB RESP TX PRN (01:23)
[2019-08-08] MEDS: ACETYLCYSTEINE 20% 800 MG/4 ML VIAL RESP TX SCH ×4 (01:23→19:34)
[2019-08-08] MEDS: cefTAZidime 1,000 MG in SYRINGE 1 EACH IV SCH ×3 (02:58→20:45)
[2019-08-08] MEDS: POTASSIUM CHLORIDE 20 MEQ/15 ML UDCUP PER TUBE SCH ×3 (02:58→17:55)
[2019-08-08] MEDS: FUROSEMIDE 40 MG/4 ML VIAL IV SCH ×3 (02:58→17:54)
[2019-08-08] MEDS: dilTIAZem Drip 125 MG/125 ML PREMIX IV SCH (03:40)
[2019-08-08 04:17] LABS: Basophils # 0.1 10*3/uL (0.0-0.2); Basophils % 0.3 % (0.0-0.8); Hemoglobin 8.8 GM/DL (14.0-18.0); Immature Granulocytes % 4.6 %; Immature Granulocytes Absolute 0.73 #; Lymphocytes # 0.2 10*3/uL (1.4-4.0); Lymphocytes % 1.2 % (21.2-54.2); Mean Corpuscular HGB Conc 29.3 GM/DL (32-36); Mean Corpuscular Volume 96.8 FL (87-102); Mean Platelet Volume 12.8 FL (9.6-12.0); Monocytes % 1.8 % (1.7-12.7); NRBC # 0.05 10*3/uL; Neutrophils % 92.1 % (38.7-73.9); Platelet Count 71 T/CUMM (130-400); Red Cell Distribution Width 16.4 % (9.3-17.3); White Blood Count 15.8 T/CUMM (4-12)
[2019-08-08 04:37] LABS: Bilirubin,Total 1.2 MG/DL (0.2-1.0); Osmolality,Calculated 294.2 MOS/KG (273-304); Total Protein 7.1 G/DL (6.4-8.3)
[2019-08-08 05:12] LABS: Band Neutrophils 8 % (0-10); Lymphocytes 1 % (20-55); Platelet Estimate Decreased; Segmented Neutrophils 89 % (50-85); Total Cells Counted 100
[2019-08-08 05:36] LABS: ABG Base Excess 2.2 MMOL/L (-2.5-2.5); ABG HCO3 26.3 MMOL/L (20-26); ABG PH 7.254 (7.35-7.45); Allen Test Positive; Pt O2 Delivery Device Ventilator
[2019-08-08 05:39] LABS: ABG PCO2 70.2 MM HG (35-48)
[2019-08-08] MEDS: TOBRAMYCIN 80 MG/2 ML VIAL RESP TX SCH ×2 (07:13→19:33)
[2019-08-08] MEDS: ALBUTEROL 2.5 MG/3 ML NEB RESP TX SCH ×4 (07:13→19:32)
[2019-08-08 09:33] LABS: ABG Base Excess 2.1 MMOL/L (-2.5-2.5); ABG HCO3 26.3 MMOL/L (20-26); ABG Oxygen Saturation 94.9 % (95-100); ABG PCO2 61.7 MM HG (35-48); ABG PH 7.293 (7.35-7.45); ABG TCO2 27.7 MMOL/L (23-27); Allen Test Positive; Pt O2 Delivery Device Ventilator
[2019-08-08] MEDS: AMIODARONE 200 MG TABLET PO SCH ×2 (10:40→22:24)
[2019-08-08] MEDS: MONTELUKAST 10 MG TABLET PO SCH (10:40)
[2019-08-08] MEDS: METOPROLOL TARTRATE 100 MG TABLET PO SCH ×2 (10:40→22:24)
[2019-08-08] MEDS: POTASSIUM PHOS/SOD PHOS POWDER 250 MG PACK PO SCH ×3 (10:40→22:24)
[2019-08-08] MEDS: THEOPHYLLINE 5.33 MG/ML 30 ML/BOTTLE PO SCH ×3 (10:40→22:24)
[2019-08-08] MEDS: hydrALAZINE 25 MG TABLET PO SCH ×4 (10:41→22:24)
[2019-08-08] MEDS: fentaNYL INJ 1,250 MCG in SODIUM CHLORIDE 0.9% 225 ML IV PRN (10:41)
[2019-08-08] MEDS: PANTOPRAZOLE 40 MG VIAL IV SCH ×2 (10:44→22:24)
[2019-08-08] MEDS: methylPREDNISolone SOD SUC 40 MG/1 ML VIAL IV SCH ×2 (10:44→22:25)
[2019-08-08] MEDS: LINEZOLID INJ 600 MG in PREMIX 1 EACH IV SCH ×2 (10:45→22:25)
[2019-08-08] MEDS: FLUCONAZOLE INJ 200 MG in PREMIX 1 EACH IV SCH (13:01)
[2019-08-08] MEDS: FAT EMULSION 20% 250 ML IV SCH (14:20)
[2019-08-08 16:54] LABS: ABG Base Excess 1.2 MMOL/L (-2.5-2.5); ABG HCO3 25.3 MMOL/L (20-26); ABG Oxygen Saturation 88.9 % (95-100); ABG PH 7.211 (7.35-7.45); ABG PO2 60.5 MM HG (80-95); ABG TCO2 29.1 MMOL/L (23-27); Allen Test Positive; Pt O2 Delivery Device Ventilator
[2019-08-08 16:57] LABS: ABG PCO2 77.3 MM HG (35-48)
[2019-08-08] MEDS: ELECTROLYTE CONCENTRATE 40 ML, TRACE ELEMENTS (5) 1 ML, MULTIVITAMIN INJ 10 ML, POTASSI... IV SCH (20:04)
[2019-08-08] MEDS: diphenhydrAMINE 25 MG/10 ML UDCUP PEG SCH (22:24)
[2019-08-09] MEDS: ACETYLCYSTEINE 20% 800 MG/4 ML VIAL RESP TX SCH ×4 (00:42→19:22)
[2019-08-09] MEDS: INSULIN REGULAR 100 UNIT/ML SUBCUT SCH ×4 (00:58→18:08)
[2019-08-09] MEDS: POTASSIUM CHLORIDE 20 MEQ/15 ML UDCUP PER TUBE SCH ×3 (02:24→18:37)
[2019-08-09] MEDS: ALBUMIN 25% 25 GM in PREMIX 1 EACH IV SCH ×3 (02:40→17:45)
[2019-08-09] MEDS: FUROSEMIDE 40 MG/4 ML VIAL IV SCH ×3 (03:00→17:45)
[2019-08-09] MEDS: dilTIAZem Drip 125 MG/125 ML PREMIX IV SCH (04:11)
[2019-08-09] MEDS: cefTAZidime 1,000 MG in SYRINGE 1 EACH IV SCH ×2 (04:50→13:02)
[2019-08-09 04:55] LABS: INR 1.3; PT Patient Result 14.1 SECS (9.6-12.2); Partial Thromboplastin Time 33.4 SECS (20.8-36.0)
[2019-08-09 05:00] LABS: ABG Base Excess 4.1 MMOL/L (-2.5-2.5); ABG Oxygen Saturation 92.1 % (95-100); ABG PCO2 61.2 MM HG (35-48); ABG PO2 61.3 MM HG (80-95); ABG TCO2 29.3 MMOL/L (23-27); Pt O2 Delivery Device Ventilator
[2019-08-09] MEDS: fentaNYL INJ 1,250 MCG in SODIUM CHLORIDE 0.9% 225 ML IV PRN (05:00)
[2019-08-09 05:01] LABS: Albumin 4.2 G/DL (3.4-5.0); Bilirubin,Total 0.9 MG/DL (0.2-1.0); Osmolality,Calculated 290.8 MOS/KG (273-304)
[2019-08-09 06:14] LABS: Basophils # 0.1 10*3/uL (0.0-0.2); Basophils % 0.4 % (0.0-0.8); Hematocrit 30.7 VOL% (42.0-52.0); Hemoglobin 9.3 GM/DL (14.0-18.0); Immature Granulocytes % 5.9 %; Immature Granulocytes Absolute 0.96 #; Lymphocytes # 0.4 10*3/uL (1.4-4.0); Lymphocytes % 2.5 % (21.2-54.2); Mean Corpuscular HGB Conc 30.3 GM/DL (32-36); Mean Corpuscular Volume 95.6 FL (87-102); Mean Platelet Volume 13.6 FL (9.6-12.0); Monocytes % 2.7 % (1.7-12.7); NRBC # 0.09 10*3/uL; Neutrophils % 88.5 % (38.7-73.9); Platelet Count 62 T/CUMM (130-400); Red Blood Count 3.21 MC/CUMM (3.8-5.5); Red Cell Distribution Width 16.5 % (9.3-17.3); White Blood Count 16.2 T/CUMM (4-12)
[2019-08-09 07:05] LABS: Band Neutrophils 37 % (0-10); Lymphocytes 2 % (20-55); Metamyelocytes 1 %; Myelocytes 2 %; Nucleated Red Blood Cells 1 (0-5); Platelet Estimate Decreased; Segmented Neutrophils 57 % (50-85); Total Cells Counted 100
[2019-08-09 07:06] LABS: Anisocytosis 2+; Basophilic Stippling Slight
[2019-08-09] MEDS: ALBUTEROL 2.5 MG/3 ML NEB RESP TX SCH ×4 (07:20→19:22)
[2019-08-09] MEDS: TOBRAMYCIN 80 MG/2 ML VIAL RESP TX SCH ×2 (07:42→19:22)
[2019-08-09] MEDS: PANTOPRAZOLE 40 MG VIAL IV SCH ×2 (09:55→21:01)
[2019-08-09] MEDS: POTASSIUM PHOS/SOD PHOS POWDER 250 MG PACK PO SCH ×3 (11:55→21:00)
[2019-08-09] MEDS: AMIODARONE 200 MG TABLET PO SCH ×2 (11:56→21:00)
[2019-08-09] MEDS: hydrALAZINE 25 MG TABLET PO SCH ×4 (11:56→21:01)
[2019-08-09] MEDS: MONTELUKAST 10 MG TABLET PO SCH (11:56)
[2019-08-09] MEDS: METOPROLOL TARTRATE 100 MG TABLET PO SCH ×2 (11:57→21:01)
[2019-08-09] MEDS: methylPREDNISolone SOD SUC 40 MG/1 ML VIAL IV SCH ×2 (12:20→23:00)
[2019-08-09] MEDS: MICAFUNGIN 100 MG in SODIUM CHLORIDE 0.9% 100 ML IV SCH (12:26)
[2019-08-09] MEDS: THEOPHYLLINE 5.33 MG/ML 30 ML/BOTTLE PO SCH ×3 (12:59→21:01)
[2019-08-09] MEDS: FLUCONAZOLE INJ 200 MG in PREMIX 1 EACH IV SCH (13:01)
[2019-08-09] MEDS: LINEZOLID INJ 600 MG in PREMIX 1 EACH IV SCH (13:02)
[2019-08-09] MEDS: diphenhydrAMINE 25 MG/10 ML UDCUP PEG SCH (21:00)
[2019-08-09] MEDS: PROPOFOL 1,000 MG/100 ML BOTTLE IV SCH (22:38)
[2019-08-10] MEDS ORDERED: FUROSEMIDE 20 MG/2 ML VIAL ONE (00:36)
[2019-08-10] MEDS: ACETYLCYSTEINE 20% 800 MG/4 ML VIAL RESP TX SCH ×4 (00:45→21:39)
[2019-08-10] MEDS: ALBUTEROL 2.5 MG/3 ML NEB RESP TX PRN (00:45)
[2019-08-10] MEDS: ALBUMIN 25% 25 GM in PREMIX 1 EACH IV SCH ×3 (00:54→16:46)
[2019-08-10] MEDS: INSULIN REGULAR 100 UNIT/ML SUBCUT SCH ×4 (00:54→18:46)
[2019-08-10] MEDS: FUROSEMIDE 40 MG/4 ML VIAL IV SCH ×3 (01:18→16:58)
[2019-08-10] MEDS: POTASSIUM CHLORIDE 20 MEQ/15 ML UDCUP PER TUBE SCH ×3 (02:25→17:39)
[2019-08-10] MEDS: dilTIAZem Drip 125 MG/125 ML PREMIX IV SCH (02:25)
[2019-08-10 04:08] LABS: ABG Base Excess 6.2 MMOL/L (-2.5-2.5); ABG Oxygen Saturation 97.3 % (95-100); ABG PCO2 65.5 MM HG (35-48); ABG PH 7.323 (7.35-7.45); ABG TCO2 31.5 MMOL/L (23-27); Allen Test Positive; Pt O2 Delivery Device Ventilator
[2019-08-10 05:08] LABS: Basophils # 0.1 10*3/uL (0.0-0.2); Basophils % 0.3 % (0.0-0.8); Hematocrit 29.4 VOL% (42.0-52.0); Immature Granulocytes % 5.2 %; Immature Granulocytes Absolute 1.04 #; Lymphocytes # 0.3 10*3/uL (1.4-4.0); Lymphocytes % 1.4 % (21.2-54.2); Mean Corpuscular HGB Conc 30.6 GM/DL (32-36); Mean Corpuscular Volume 95.5 FL (87-102); Mean Platelet Volume 12.4 FL (9.6-12.0); Monocytes % 2.4 % (1.7-12.7); NRBC # 0.05 10*3/uL; Neutrophils % 90.7 % (38.7-73.9); Platelet Count 79 T/CUMM (130-400); Red Blood Count 3.08 MC/CUMM (3.8-5.5); Red Cell Distribution Width 16.6 % (9.3-17.3); White Blood Count 19.8 T/CUMM (4-12)
[2019-08-10 05:16] LABS: INR 1.3; PT Patient Result 14.1 SECS (9.6-12.2)
[2019-08-10 05:32] LABS: Band Neutrophils 2 % (0-10); Hypochromasia 1+; Lymphocytes 1 % (20-55); Platelet Estimate Decreased; Segmented Neutrophils 95 % (50-85); Total Cells Counted 100
[2019-08-10 05:44] LABS: Albumin 4.6 G/DL (3.4-5.0); Bilirubin,Total 1.6 MG/DL (0.2-1.0); Calcium 8.9 MG/DL (8.5-10.1); Osmolality,Calculated 285.2 MOS/KG (273-304); Total Protein 6.5 G/DL (6.4-8.3)
[2019-08-10] MEDS: ALBUTEROL 2.5 MG/3 ML NEB RESP TX SCH ×4 (07:14→21:39)
[2019-08-10] MEDS: TOBRAMYCIN 80 MG/2 ML VIAL RESP TX SCH ×2 (07:32→22:00)
[2019-08-10] MEDS: MORPHINE 4 MG/1 ML VIAL IV PRN ×2 (09:12→21:37)
[2019-08-10] MEDS: hydrALAZINE 25 MG TABLET PO SCH ×4 (09:47→21:45)
[2019-08-10] MEDS: MONTELUKAST 10 MG TABLET PO SCH (09:48)
[2019-08-10] MEDS: AMIODARONE 200 MG TABLET PO SCH ×2 (09:48→21:38)
[2019-08-10] MEDS: METOPROLOL TARTRATE 100 MG TABLET PO SCH ×2 (09:48→21:38)
[2019-08-10] MEDS: POTASSIUM PHOS/SOD PHOS POWDER 250 MG PACK PO SCH ×3 (09:49→21:38)
[2019-08-10] MEDS: PANTOPRAZOLE 40 MG VIAL IV SCH ×2 (09:53→21:37)
[2019-08-10] MEDS: MICAFUNGIN 100 MG in SODIUM CHLORIDE 0.9% 100 ML IV SCH (09:53)
[2019-08-10] MEDS: THEOPHYLLINE 5.33 MG/ML 30 ML/BOTTLE PO SCH ×3 (10:00→21:45)
[2019-08-10] MEDS: methylPREDNISolone SOD SUC 40 MG/1 ML VIAL IV SCH ×2 (10:07→23:05)
[2019-08-10] MEDS: DEXMEDETOMIDINE 200 MCG in SODIUM CHLORIDE 0.9% 48 ML IV PRN (19:54)
[2019-08-10] MEDS: diphenhydrAMINE 25 MG/10 ML UDCUP PEG SCH (21:37)
[2019-08-10] MEDS: PIPERACILLIN/TAZOBACTAM 3,375 MG in SODIUM CHLORIDE 0.9% 100 ML IV SCH (23:06)
[2019-08-10] MEDS: PROPOFOL 1,000 MG/100 ML BOTTLE IV SCH (23:06)
[2019-08-10] MEDS: ACETAMINOPHEN 325 MG/10.15 ML UDCUP PO PRN (23:15)
[2019-08-11] MEDS: INSULIN REGULAR 100 UNIT/ML SUBCUT SCH ×4 (00:01→18:12)
[2019-08-11] MEDS: ALBUTEROL 2.5 MG/3 ML NEB RESP TX PRN (00:47)
[2019-08-11] MEDS: ACETYLCYSTEINE 20% 800 MG/4 ML VIAL RESP TX SCH ×4 (00:47→19:47)
[2019-08-11] MEDS: ALBUMIN 25% 25 GM in PREMIX 1 EACH IV SCH ×3 (01:35→20:32)
[2019-08-11] MEDS: FUROSEMIDE 40 MG/4 ML VIAL IV SCH ×3 (01:52→21:02)
[2019-08-11] MEDS: POTASSIUM CHLORIDE 20 MEQ/15 ML UDCUP PER TUBE SCH ×3 (01:52→18:12)
[2019-08-11] MEDS: dilTIAZem Drip 125 MG/125 ML PREMIX IV SCH (03:11)
[2019-08-11 03:57] LABS: ABG Base Excess 7.5 MMOL/L (-2.5-2.5); ABG HCO3 31.3 MMOL/L (20-26); ABG Oxygen Saturation 99.2 % (95-100); ABG PCO2 60.6 MM HG (35-48); ABG PH 7.361 (7.35-7.45); Allen Test Positive; Pt O2 Delivery Device Ventilator
[2019-08-11 04:36] LABS: Basophils % 0.3 % (0.0-0.8); Hemoglobin 8.4 GM/DL (14.0-18.0); Immature Granulocytes Absolute 0.21 #; Lymphocytes # 0.2 10*3/uL (1.4-4.0); Lymphocytes % 1.7 % (21.2-54.2); Mean Corpuscular Volume 97.2 FL (87-102); Mean Platelet Volume 13.1 FL (9.6-12.0); Monocytes % 2.3 % (1.7-12.7); NRBC # 0.02 10*3/uL; Neutrophils % 93.7 % (38.7-73.9); Platelet Count 54 T/CUMM (130-400); Red Blood Count 2.88 MC/CUMM (3.8-5.5); Red Cell Distribution Width 16.7 % (9.3-17.3); White Blood Count 10.7 T/CUMM (4-12)
[2019-08-11 04:48] LABS: INR 1.2; PT Patient Result 13.5 SECS (9.6-12.2); Partial Thromboplastin Time 35.2 SECS (20.8-36.0)
[2019-08-11 04:59] LABS: Band Neutrophils 7 % (0-10); Hypochromasia 1+; Lymphocytes 3 % (20-55); Platelet Estimate Decreased; Segmented Neutrophils 89 % (50-85); Total Cells Counted 100
[2019-08-11 05:06] LABS: Albumin 4.6 G/DL (3.4-5.0); Bilirubin,Total 1.4 MG/DL (0.2-1.0); Calcium 8.9 MG/DL (8.5-10.1); Osmolality,Calculated 298.5 MOS/KG (273-304); Total Protein 6.5 G/DL (6.4-8.3)
[2019-08-11] MEDS: PIPERACILLIN/TAZOBACTAM 3,375 MG in SODIUM CHLORIDE 0.9% 100 ML IV SCH ×2 (06:41→15:38)
[2019-08-11] MEDS: TOBRAMYCIN 80 MG/2 ML VIAL RESP TX SCH ×2 (07:06→19:47)
[2019-08-11] MEDS: ALBUTEROL 2.5 MG/3 ML NEB RESP TX SCH ×4 (07:06→19:47)
[2019-08-11] MEDS: hydrALAZINE 25 MG TABLET PO SCH ×4 (11:14→20:34)
[2019-08-11] MEDS: MONTELUKAST 10 MG TABLET PO SCH (11:14)
[2019-08-11] MEDS: AMIODARONE 200 MG TABLET PO SCH ×2 (11:14→20:33)
[2019-08-11] MEDS: POTASSIUM PHOS/SOD PHOS POWDER 250 MG PACK PO SCH ×3 (11:15→20:34)
[2019-08-11] MEDS: METOPROLOL TARTRATE 100 MG TABLET PO SCH ×2 (11:15→20:34)
[2019-08-11] MEDS: THEOPHYLLINE 5.33 MG/ML 30 ML/BOTTLE PO SCH ×3 (11:17→20:34)
[2019-08-11] MEDS: PANTOPRAZOLE 40 MG VIAL IV SCH ×2 (11:21→20:31)
[2019-08-11] MEDS: methylPREDNISolone SOD SUC 40 MG/1 ML VIAL IV SCH ×2 (11:30→22:08)
[2019-08-11] MEDS: DEXMEDETOMIDINE 200 MCG in SODIUM CHLORIDE 0.9% 48 ML IV PRN ×2 (11:39→22:37)
[2019-08-11] MEDS: MICAFUNGIN 100 MG in SODIUM CHLORIDE 0.9% 100 ML IV SCH (11:50)
[2019-08-11] MEDS: MORPHINE 4 MG/1 ML VIAL IV PRN (20:33)
[2019-08-11] MEDS: diphenhydrAMINE 25 MG/10 ML UDCUP PEG SCH (20:34)
[2019-08-11] MEDS: CIPROFLOXACIN INJ 400 MG in PREMIX 1 EACH IV SCH (21:02)
[2019-08-11] MEDS: PROPOFOL 1,000 MG/100 ML BOTTLE IV SCH (22:09)
[2019-08-12] MEDS: INSULIN REGULAR 100 UNIT/ML SUBCUT SCH ×4 (00:34→19:44)
[2019-08-12] MEDS: ACETYLCYSTEINE 20% 800 MG/4 ML VIAL RESP TX SCH ×4 (01:28→20:01)
[2019-08-12] MEDS: POTASSIUM CHLORIDE 20 MEQ/15 ML UDCUP PER TUBE SCH ×3 (02:52→19:44)
[2019-08-12] MEDS: dilTIAZem Drip 125 MG/125 ML PREMIX IV SCH (02:56)
[2019-08-12 05:02] LABS: Basophils % 0.3 % (0.0-0.8); Hematocrit 24.4 VOL% (42.0-52.0); Hemoglobin 7.6 GM/DL (14.0-18.0); Immature Granulocytes % 0.5 %; Immature Granulocytes Absolute 0.04 #; Lymphocytes # 0.2 10*3/uL (1.4-4.0); Lymphocytes % 2.1 % (21.2-54.2); Mean Corpuscular HGB Conc 31.1 GM/DL (32-36); Mean Corpuscular Volume 93.1 FL (87-102); Mean Platelet Volume 13.4 FL (9.6-12.0); Monocytes % 2.8 % (1.7-12.7); NRBC # 0.03 10*3/uL; Neutrophils % 94.3 % (38.7-73.9); Platelet Count 62 T/CUMM (130-400); Red Blood Count 2.62 MC/CUMM (3.8-5.5); Red Cell Distribution Width 16.9 % (9.3-17.3)
[2019-08-12] MEDS: ALBUMIN 25% 25 GM in PREMIX 1 EACH IV SCH ×3 (05:02→20:39)
[2019-08-12 05:15] LABS: ABG Base Excess 6.8 MMOL/L (-2.5-2.5); ABG HCO3 30.7 MMOL/L (20-26); ABG Oxygen Saturation 99.6 % (95-100); ABG PH 7.383 (7.35-7.45); ABG TCO2 30.4 MMOL/L (23-27); Allen Test Positive; Pt O2 Delivery Device Ventilator
[2019-08-12 05:17] LABS: Prealbumin 11.9 MG/DL (20-40)
[2019-08-12 05:19] LABS: Calcium 9.1 MG/DL (8.5-10.1)
[2019-08-12 05:26] LABS: Band Neutrophils 11 % (0-10); Eosinophils 1 % (0-10); Lymphocytes 2 % (20-55); Segmented Neutrophils 84 % (50-85); Total Cells Counted 100
[2019-08-12 05:27] LABS: Hypochromasia 1+; Platelet Estimate Decreased
[2019-08-12] MEDS: FUROSEMIDE 40 MG/4 ML VIAL IV SCH ×3 (05:38→22:02)
[2019-08-12] MEDS: ALBUTEROL 2.5 MG/3 ML NEB RESP TX SCH ×4 (07:00→20:01)
[2019-08-12] MEDS: TOBRAMYCIN 80 MG/2 ML VIAL RESP TX SCH ×2 (07:16→20:01)
[2019-08-12] MEDS: AMIODARONE 200 MG TABLET PO SCH ×2 (09:12→20:37)
[2019-08-12] MEDS: hydrALAZINE 25 MG TABLET PO SCH ×4 (09:13→20:37)
[2019-08-12] MEDS: THEOPHYLLINE 5.33 MG/ML 30 ML/BOTTLE PO SCH ×3 (09:13→20:38)
[2019-08-12] MEDS: MONTELUKAST 10 MG TABLET PO SCH (09:13)
[2019-08-12] MEDS: POTASSIUM PHOS/SOD PHOS POWDER 250 MG PACK PO SCH ×3 (09:13→20:38)
[2019-08-12] MEDS: METOPROLOL TARTRATE 100 MG TABLET PO SCH ×2 (09:13→20:37)
[2019-08-12] MEDS: PANTOPRAZOLE 40 MG VIAL IV SCH ×2 (09:14→20:36)
[2019-08-12] MEDS: CIPROFLOXACIN INJ 400 MG in PREMIX 1 EACH IV SCH ×2 (09:14→20:37)
[2019-08-12] MEDS ORDERED: SODIUM CHLORIDE 0.9% 1,000 ML IV PRN (09:48)
[2019-08-12] MEDS: MICAFUNGIN 100 MG in SODIUM CHLORIDE 0.9% 100 ML IV SCH (10:00)
[2019-08-12] MEDS: TOBRAMYCIN INJ 320 MG in SODIUM CHLORIDE 0.9% 100 ML IV SCH (10:45)
[2019-08-12] MEDS: methylPREDNISolone SOD SUC 40 MG/1 ML VIAL IV SCH (11:28)
[2019-08-12] MEDS: DEXMEDETOMIDINE 200 MCG in SODIUM CHLORIDE 0.9% 48 ML IV PRN (16:11)
[2019-08-12] MEDS ORDERED: FUROSEMIDE 20 MG/2 ML VIAL ONE (20:32)
[2019-08-12] MEDS: diphenhydrAMINE 25 MG/10 ML UDCUP PEG SCH (20:36)
[2019-08-12] MEDS: PROPOFOL 1,000 MG/100 ML BOTTLE IV SCH (22:03)
[2019-08-13] MEDS: ACETYLCYSTEINE 20% 800 MG/4 ML VIAL RESP TX SCH ×4 (00:02→19:42)
[2019-08-13] MEDS: INSULIN REGULAR 100 UNIT/ML SUBCUT SCH ×4 (00:18→17:48)
[2019-08-13] MEDS: methylPREDNISolone SOD SUC 40 MG/1 ML VIAL IV SCH ×3 (00:18→22:39)
[2019-08-13] MEDS: POTASSIUM CHLORIDE 20 MEQ/15 ML UDCUP PER TUBE SCH ×3 (01:43→17:48)
[2019-08-13] MEDS: dilTIAZem Drip 125 MG/125 ML PREMIX IV SCH (02:30)
[2019-08-13 04:26] LABS: Basophils % 0.5 % (0.0-0.8); Hematocrit 28.8 VOL% (42.0-52.0); Hemoglobin 9.1 GM/DL (14.0-18.0); Immature Granulocytes % 1.4 %; Immature Granulocytes Absolute 0.11 #; Lymphocytes # 0.2 10*3/uL (1.4-4.0); Lymphocytes % 2.4 % (21.2-54.2); Mean Corpuscular HGB Conc 31.6 GM/DL (32-36); Mean Corpuscular Volume 91.1 FL (87-102); Mean Platelet Volume 13.3 FL (9.6-12.0); Monocytes % 3.1 % (1.7-12.7); NRBC # 0.06 10*3/uL; Neutrophils % 92.6 % (38.7-73.9); Red Blood Count 3.16 MC/CUMM (3.8-5.5); Red Cell Distribution Width 16.5 % (9.3-17.3); White Blood Count 7.8 T/CUMM (4-12)
[2019-08-13 04:28] LABS: Platelet Count 67 T/CUMM (130-400)
[2019-08-13 04:32] LABS: ABG Base Excess 7.4 MMOL/L (-2.5-2.5); ABG HCO3 32.8 MMOL/L (20-26); ABG PH 7.426 (7.35-7.45); ABG PO2 91.4 MM HG (80-95); ABG TCO2 34.4 MMOL/L (23-27); Allen Test Positive; Pt O2 Delivery Device Ventilator
[2019-08-13 04:37] LABS: INR 1.2; PT Patient Result 12.9 SECS (9.6-12.2); Partial Thromboplastin Time 36.4 SECS (20.8-36.0)
[2019-08-13 04:50] LABS: Band Neutrophils 14 % (0-10); Lymphocytes 1 % (20-55); Platelet Estimate Decreased; Polychromasia Few; Segmented Neutrophils 84 % (50-85); Total Cells Counted 100
[2019-08-13 04:51] LABS: Anisocytosis 1+; Hypochromasia Slight
[2019-08-13 04:53] LABS: Albumin 4.5 G/DL (3.4-5.0); Bilirubin,Total 1.6 MG/DL (0.2-1.0); Calcium 9.4 MG/DL (8.5-10.1); Osmolality,Calculated 305.7 MOS/KG (273-304); Total Protein 6.8 G/DL (6.4-8.3)
[2019-08-13] MEDS: ALBUMIN 25% 25 GM in PREMIX 1 EACH IV SCH ×3 (06:02→21:09)
[2019-08-13] MEDS: FUROSEMIDE 40 MG/4 ML VIAL IV SCH ×3 (06:14→21:10)
[2019-08-13] MEDS: ALBUTEROL 2.5 MG/3 ML NEB RESP TX SCH ×4 (07:38→19:42)
[2019-08-13] MEDS: TOBRAMYCIN 80 MG/2 ML VIAL RESP TX SCH ×2 (07:55→20:00)
[2019-08-13] MEDS ORDERED: SODIUM CHLORIDE 0.9% 1,000 ML IV PRN ×2 (09:00→09:03)
[2019-08-13] MEDS: AMIODARONE 200 MG TABLET PO SCH ×2 (10:46→21:10)
[2019-08-13] MEDS: hydrALAZINE 25 MG TABLET PO SCH ×4 (10:47→21:08)
[2019-08-13] MEDS: MONTELUKAST 10 MG TABLET PO SCH (10:47)
[2019-08-13] MEDS: POTASSIUM PHOS/SOD PHOS POWDER 250 MG PACK PO SCH ×3 (10:47→21:08)
[2019-08-13] MEDS: THEOPHYLLINE 5.33 MG/ML 30 ML/BOTTLE PO SCH ×3 (10:48→21:07)
[2019-08-13] MEDS: METOPROLOL TARTRATE 100 MG TABLET PO SCH ×2 (10:48→21:09)
[2019-08-13] MEDS: CIPROFLOXACIN INJ 400 MG in PREMIX 1 EACH IV SCH (10:49)
[2019-08-13] MEDS: PANTOPRAZOLE 40 MG VIAL IV SCH ×2 (10:49→21:07)
[2019-08-13] MEDS: MORPHINE 4 MG/1 ML VIAL IV PRN (10:50)
[2019-08-13] MEDS: MICAFUNGIN 100 MG in SODIUM CHLORIDE 0.9% 100 ML IV SCH (11:04)
[2019-08-13] MEDS: TOBRAMYCIN INJ 320 MG in SODIUM CHLORIDE 0.9% 100 ML IV SCH ×2 (11:11→12:35)
[2019-08-13] MEDS: LEVOFLOXACIN INJ 500 MG in PREMIX 1 EACH IV SCH (11:12)
[2019-08-13] MEDS: DEXMEDETOMIDINE 200 MCG in SODIUM CHLORIDE 0.9% 48 ML IV PRN ×2 (15:39→20:58)
[2019-08-13] MEDS: diphenhydrAMINE 25 MG/10 ML UDCUP PEG SCH (21:10)
[2019-08-13] MEDS: PROPOFOL 1,000 MG/100 ML BOTTLE IV SCH (21:11)
[2019-08-14] MEDS: ALBUTEROL 2.5 MG/3 ML NEB RESP TX PRN (00:20)
[2019-08-14] MEDS: ACETYLCYSTEINE 20% 800 MG/4 ML VIAL RESP TX SCH ×4 (00:20→19:25)
[2019-08-14] MEDS: INSULIN REGULAR 100 UNIT/ML SUBCUT SCH ×5 (00:36→23:49)
[2019-08-14] MEDS: POTASSIUM CHLORIDE 20 MEQ/15 ML UDCUP PER TUBE SCH ×3 (01:14→18:46)
[2019-08-14 03:50] LABS: ABG Base Excess 3.5 MMOL/L (-2.5-2.5); ABG HCO3 28.4 MMOL/L (20-26); ABG Oxygen Saturation 98.8 % (95-100); ABG PCO2 44.1 MM HG (35-48); ABG PH 7.426 (7.35-7.45); ABG PO2 193.4 MM HG (80-95); ABG TCO2 29.7 MMOL/L (23-27); Allen Test Positive; Pt O2 Delivery Device Ventilator
[2019-08-14] MEDS: dilTIAZem Drip 125 MG/125 ML PREMIX IV SCH (04:10)
[2019-08-14] MEDS: ALBUMIN 25% 25 GM in PREMIX 1 EACH IV SCH ×3 (04:26→20:41)
[2019-08-14 04:34] LABS: Basophils % 0.5 % (0.0-0.8); Hematocrit 31.7 VOL% (42.0-52.0); Hemoglobin 10.1 GM/DL (14.0-18.0); Immature Granulocytes % 1.6 %; Immature Granulocytes Absolute 0.12 #; Lymphocytes # 0.2 10*3/uL (1.4-4.0); Lymphocytes % 2.2 % (21.2-54.2); Mean Corpuscular HGB Conc 31.9 GM/DL (32-36); Mean Corpuscular Volume 91.4 FL (87-102); NRBC # 0.03 10*3/uL; Neutrophils % 92.7 % (38.7-73.9); Platelet Count 73 T/CUMM (130-400); Red Blood Count 3.47 MC/CUMM (3.8-5.5); Red Cell Distribution Width 16.8 % (9.3-17.3); White Blood Count 7.7 T/CUMM (4-12)
[2019-08-14 04:50] LABS: Albumin 4.6 G/DL (3.4-5.0); Bilirubin,Total 1.2 MG/DL (0.2-1.0); Calcium 9.1 MG/DL (8.5-10.1); Osmolality,Calculated 305.6 MOS/KG (273-304); Total Protein 6.8 G/DL (6.4-8.3)
[2019-08-14 05:06] LABS: Hypochromasia 1+; Lymphocytes 2 % (20-55); Microcytosis 1+; Platelet Estimate Decreased; Polychromasia Few; Segmented Neutrophils 94 % (50-85); Total Cells Counted 100
[2019-08-14] MEDS: FUROSEMIDE 40 MG/4 ML VIAL IV SCH ×3 (05:21→23:48)
[2019-08-14] MEDS: POTASSIUM CHLORIDE 20 MEQ/15 ML UDCUP PER TUBE PRN (05:55)
[2019-08-14] MEDS: ALBUTEROL 2.5 MG/3 ML NEB RESP TX SCH ×4 (07:33→19:25)
[2019-08-14] MEDS: TOBRAMYCIN 80 MG/2 ML VIAL RESP TX SCH ×2 (08:03→19:45)
[2019-08-14] MEDS: hydrALAZINE 25 MG TABLET PO SCH ×4 (09:01→20:41)
[2019-08-14] MEDS: MONTELUKAST 10 MG TABLET PO SCH (09:02)
[2019-08-14] MEDS: POTASSIUM PHOS/SOD PHOS POWDER 250 MG PACK PO SCH ×3 (09:02→20:41)
[2019-08-14] MEDS: AMIODARONE 200 MG TABLET PO SCH ×2 (09:02→20:41)
[2019-08-14] MEDS: THEOPHYLLINE 5.33 MG/ML 30 ML/BOTTLE PO SCH ×3 (09:02→20:41)
[2019-08-14] MEDS: METOPROLOL TARTRATE 100 MG TABLET PO SCH ×2 (09:03→20:41)
[2019-08-14] MEDS: TOBRAMYCIN INJ 320 MG in SODIUM CHLORIDE 0.9% 100 ML IV SCH (09:03)
[2019-08-14] MEDS: PANTOPRAZOLE 40 MG VIAL IV SCH ×2 (09:03→20:40)
[2019-08-14] MEDS: DEXMEDETOMIDINE 200 MCG in SODIUM CHLORIDE 0.9% 48 ML IV PRN ×2 (09:26→21:12)
[2019-08-14] MEDS: MICAFUNGIN 100 MG in SODIUM CHLORIDE 0.9% 100 ML IV SCH (09:30)
[2019-08-14] MEDS: methylPREDNISolone SOD SUC 40 MG/1 ML VIAL IV SCH ×2 (12:12→23:48)
[2019-08-14] MEDS: LEVOFLOXACIN INJ 500 MG in PREMIX 1 EACH IV SCH (12:12)
[2019-08-14] MEDS: diphenhydrAMINE 25 MG/10 ML UDCUP PEG SCH (20:41)
[2019-08-14] MEDS: PROPOFOL 1,000 MG/100 ML BOTTLE IV SCH (20:42)
[2019-08-15] MEDS: ACETYLCYSTEINE 20% 800 MG/4 ML VIAL RESP TX SCH ×4 (01:13→20:04)
[2019-08-15] MEDS: ALBUTEROL 2.5 MG/3 ML NEB RESP TX PRN (01:13)
[2019-08-15] MEDS: dilTIAZem Drip 125 MG/125 ML PREMIX IV SCH (03:00)
[2019-08-15] MEDS: POTASSIUM CHLORIDE 20 MEQ/15 ML UDCUP PER TUBE SCH ×3 (03:14→18:36)
[2019-08-15 04:05] LABS: ABG HCO3 26.2 MMOL/L (20-26); ABG Oxygen Saturation 98.9 % (95-100); ABG PH 7.383 (7.35-7.45); ABG TCO2 25.3 MMOL/L (23-27); Allen Test Positive; Pt O2 Delivery Device Ventilator
[2019-08-15 04:46] LABS: Basophils % 0.6 % (0.0-0.8); Hematocrit 28.4 VOL% (42.0-52.0); Hemoglobin 8.8 GM/DL (14.0-18.0); Immature Granulocytes % 1.2 %; Immature Granulocytes Absolute 0.09 #; Lymphocytes # 0.2 10*3/uL (1.4-4.0); Lymphocytes % 2.1 % (21.2-54.2); Mean Corpuscular Volume 92.2 FL (87-102); Mean Platelet Volume 12.5 FL (9.6-12.0); Monocytes % 3.9 % (1.7-12.7); NRBC # 0.03 10*3/uL; Neutrophils % 92.2 % (38.7-73.9); Red Blood Count 3.08 MC/CUMM (3.8-5.5); Red Cell Distribution Width 16.4 % (9.3-17.3); White Blood Count 7.2 T/CUMM (4-12)
[2019-08-15 04:47] LABS: Platelet Count 83 T/CUMM (130-400)
[2019-08-15] MEDS: ALBUMIN 25% 25 GM in PREMIX 1 EACH IV SCH ×3 (04:58→20:41)
[2019-08-15 05:08] LABS: Band Neutrophils 4 % (0-10); Hypochromasia 1+; Ovalocytes Slight; Platelet Estimate Decreased; Segmented Neutrophils 93 % (50-85); Total Cells Counted 100
[2019-08-15 05:09] LABS: Microcytosis 1+
[2019-08-15 05:11] LABS: Albumin 4.7 G/DL (3.4-5.0); Bilirubin,Total 1.1 MG/DL (0.2-1.0); Calcium 8.9 MG/DL (8.5-10.1); Osmolality,Calculated 306.7 MOS/KG (273-304); Total Protein 6.6 G/DL (6.4-8.3)
[2019-08-15] MEDS: FUROSEMIDE 40 MG/4 ML VIAL IV SCH ×3 (05:20→21:00)
[2019-08-15] MEDS: INSULIN REGULAR 100 UNIT/ML SUBCUT SCH ×3 (05:20→17:43)
[2019-08-15] MEDS: ALBUTEROL 2.5 MG/3 ML NEB RESP TX SCH ×4 (07:24→20:04)
[2019-08-15] MEDS: TOBRAMYCIN 80 MG/2 ML VIAL RESP TX SCH ×2 (07:40→20:04)
[2019-08-15] MEDS: THEOPHYLLINE 5.33 MG/ML 30 ML/BOTTLE PO SCH ×3 (08:51→20:18)
[2019-08-15] MEDS: PANTOPRAZOLE 40 MG VIAL IV SCH ×2 (08:52→20:19)
[2019-08-15] MEDS: POTASSIUM PHOS/SOD PHOS POWDER 250 MG PACK PO SCH ×3 (08:52→22:25)
[2019-08-15] MEDS: hydrALAZINE 25 MG TABLET PO SCH ×4 (08:52→20:06)
[2019-08-15] MEDS: MONTELUKAST 10 MG TABLET PO SCH (08:52)
[2019-08-15] MEDS: METOPROLOL TARTRATE 100 MG TABLET PO SCH ×2 (08:52→20:07)
[2019-08-15] MEDS: AMIODARONE 200 MG TABLET PO SCH ×2 (08:52→20:06)
[2019-08-15] MEDS: DEXMEDETOMIDINE 200 MCG in SODIUM CHLORIDE 0.9% 48 ML IV PRN ×2 (09:39→20:45)
[2019-08-15] MEDS: MICAFUNGIN 100 MG in SODIUM CHLORIDE 0.9% 100 ML IV SCH (09:53)
[2019-08-15] MEDS: LEVOFLOXACIN INJ 500 MG in PREMIX 1 EACH IV SCH (11:45)
[2019-08-15] MEDS: methylPREDNISolone SOD SUC 40 MG/1 ML VIAL IV SCH ×2 (11:45→22:33)
[2019-08-15] MEDS: diphenhydrAMINE 25 MG/10 ML UDCUP PEG SCH (20:07)
[2019-08-15] MEDS: METOPROLOL TARTRATE 5 MG/5 ML VIAL IV PRN (20:35)
[2019-08-15] MEDS: PROPOFOL 1,000 MG/100 ML BOTTLE IV SCH (22:17)
[2019-08-15] MEDS: MORPHINE 4 MG/1 ML VIAL IV PRN (23:12)
[2019-08-16] MEDS: INSULIN REGULAR 100 UNIT/ML SUBCUT SCH ×4 (00:08→19:33)
[2019-08-16] MEDS: ACETYLCYSTEINE 20% 800 MG/4 ML VIAL RESP TX SCH ×5 (02:02→23:57)
[2019-08-16] MEDS: POTASSIUM CHLORIDE 20 MEQ/15 ML UDCUP PER TUBE SCH ×3 (02:04→19:34)
[2019-08-16] MEDS: dilTIAZem Drip 125 MG/125 ML PREMIX IV SCH (03:00)
[2019-08-16 04:05] LABS: ABG HCO3 27.6 MMOL/L (20-26); ABG Oxygen Saturation 92.2 % (95-100); ABG PCO2 42.9 MM HG (35-48); ABG PH 7.427 (7.35-7.45); ABG PO2 60.2 MM HG (80-95); Allen Test Positive; Pt O2 Delivery Device Ventilator
[2019-08-16] MEDS: ALBUMIN 25% 25 GM in PREMIX 1 EACH IV SCH ×3 (04:55→21:03)
[2019-08-16 05:05] LABS: Basophils # 0.1 10*3/uL (0.0-0.2); Basophils % 0.7 % (0.0-0.8); Hemoglobin 8.8 GM/DL (14.0-18.0); Immature Granulocytes % 0.8 %; Immature Granulocytes Absolute 0.08 #; Lymphocytes # 0.2 10*3/uL (1.4-4.0); Lymphocytes % 1.7 % (21.2-54.2); Mean Corpuscular HGB Conc 30.3 GM/DL (32-36); Mean Corpuscular Volume 93.5 FL (87-102); Mean Platelet Volume 12.6 FL (9.6-12.0); Monocytes % 3.5 % (1.7-12.7); NRBC # 0.04 10*3/uL; Neutrophils % 93.3 % (38.7-73.9); Platelet Count 118 T/CUMM (130-400); Red Cell Distribution Width 16.6 % (9.3-17.3); White Blood Count 10.4 T/CUMM (4-12)
[2019-08-16 05:12] LABS: INR 1.2; PT Patient Result 13.5 SECS (9.6-12.2); Partial Thromboplastin Time 33.1 SECS (20.8-36.0)
[2019-08-16] MEDS: FUROSEMIDE 40 MG/4 ML VIAL IV SCH ×3 (05:25→21:27)
[2019-08-16 05:26] LABS: Band Neutrophils 15 % (0-10); Hypochromasia 1+; Lymphocytes 3 % (20-55); Platelet Estimate Decreased; Segmented Neutrophils 80 % (50-85); Total Cells Counted 100
[2019-08-16 05:27] LABS: Microcytosis 1+
[2019-08-16] MEDS: DEXMEDETOMIDINE 200 MCG in SODIUM CHLORIDE 0.9% 48 ML IV PRN ×2 (05:30→17:00)
[2019-08-16 05:37] LABS: Albumin 4.5 G/DL (3.4-5.0); Bilirubin,Total 1.2 MG/DL (0.2-1.0); Osmolality,Calculated 311.3 MOS/KG (273-304); Total Protein 6.6 G/DL (6.4-8.3)
[2019-08-16] MEDS: TOBRAMYCIN 80 MG/2 ML VIAL RESP TX SCH ×2 (07:11→20:20)
[2019-08-16] MEDS: ALBUTEROL 2.5 MG/3 ML NEB RESP TX SCH ×4 (07:11→20:20)
[2019-08-16] MEDS: MONTELUKAST 10 MG TABLET PO SCH (10:03)
[2019-08-16] MEDS: METOPROLOL TARTRATE 100 MG TABLET PO SCH ×2 (10:04→20:41)
[2019-08-16] MEDS: AMIODARONE 200 MG TABLET PO SCH ×2 (10:04→20:41)
[2019-08-16] MEDS: POTASSIUM PHOS/SOD PHOS POWDER 250 MG PACK PO SCH ×3 (10:05→20:41)
[2019-08-16] MEDS: hydrALAZINE 25 MG TABLET PO SCH ×4 (10:05→20:41)
[2019-08-16] MEDS: THEOPHYLLINE 5.33 MG/ML 30 ML/BOTTLE PO SCH ×3 (10:05→20:41)
[2019-08-16] MEDS: PANTOPRAZOLE 40 MG VIAL IV SCH ×2 (10:05→21:03)
[2019-08-16] MEDS: MICAFUNGIN 100 MG in SODIUM CHLORIDE 0.9% 100 ML IV SCH (10:43)
[2019-08-16] MEDS: TOBRAMYCIN INJ 320 MG in SODIUM CHLORIDE 0.9% 100 ML IV SCH (10:43)
[2019-08-16] MEDS: MORPHINE 4 MG/1 ML VIAL IV PRN (13:50)
[2019-08-16] MEDS: LEVOFLOXACIN INJ 500 MG in PREMIX 1 EACH IV SCH (14:00)
[2019-08-16] MEDS: methylPREDNISolone SOD SUC 40 MG/1 ML VIAL IV SCH ×2 (14:00→22:33)
[2019-08-16] MEDS: diphenhydrAMINE 25 MG/10 ML UDCUP PEG SCH (20:41)
[2019-08-16 21:34] LABS: RBC,Peritoneal Fluid > 100000 T/CUMM
[2019-08-16] MEDS: PROPOFOL 1,000 MG/100 ML BOTTLE IV SCH (21:37)
[2019-08-17] MEDS: INSULIN REGULAR 100 UNIT/ML SUBCUT SCH ×4 (00:13→17:44)
[2019-08-17] MEDS: POTASSIUM CHLORIDE 20 MEQ/15 ML UDCUP PER TUBE SCH ×3 (01:36→17:43)
[2019-08-17] MEDS: DEXMEDETOMIDINE 200 MCG in SODIUM CHLORIDE 0.9% 48 ML IV PRN ×2 (02:32→12:55)
[2019-08-17] MEDS: dilTIAZem Drip 125 MG/125 ML PREMIX IV SCH (03:15)
[2019-08-17 04:28] LABS: ABG Base Excess 0.1 MMOL/L (-2.5-2.5); ABG HCO3 24.5 MMOL/L (20-26); ABG Oxygen Saturation 95.6 % (95-100); ABG PCO2 47.3 MM HG (35-48); ABG PH 7.349 (7.35-7.45); ABG TCO2 24.1 MMOL/L (23-27); Allen Test Positive; Pt O2 Delivery Device Ventilator
[2019-08-17 04:38] LABS: Basophils # 0.1 10*3/uL (0.0-0.2); Basophils % 0.7 % (0.0-0.8); Hematocrit 28.8 VOL% (42.0-52.0); Hemoglobin 8.7 GM/DL (14.0-18.0); Immature Granulocytes % 1.2 %; Immature Granulocytes Absolute 0.19 #; Lymphocytes # 0.2 10*3/uL (1.4-4.0); Lymphocytes % 1.1 % (21.2-54.2); Mean Corpuscular HGB Conc 30.2 GM/DL (32-36); Mean Corpuscular Volume 94.4 FL (87-102); Mean Platelet Volume 12.6 FL (9.6-12.0); Monocytes % 1.6 % (1.7-12.7); Neutrophils % 95.4 % (38.7-73.9); Platelet Count 181 T/CUMM (130-400); Red Blood Count 3.05 MC/CUMM (3.8-5.5); Red Cell Distribution Width 16.4 % (9.3-17.3); White Blood Count 15.5 T/CUMM (4-12)
[2019-08-17 04:58] LABS: Albumin 4.8 G/DL (3.4-5.0); Bilirubin,Total 1.3 MG/DL (0.2-1.0); Calcium 9.1 MG/DL (8.5-10.1); Total Protein 6.9 G/DL (6.4-8.3)
[2019-08-17 05:08] LABS: Band Neutrophils 1 % (0-10); Lymphocytes 2 % (20-55); Segmented Neutrophils 95 % (50-85); Total Cells Counted 100
[2019-08-17 05:09] LABS: Platelet Estimate Normal; Polychromasia Few
[2019-08-17] MEDS: ALBUMIN 25% 25 GM in PREMIX 1 EACH IV SCH ×3 (05:51→21:06)
[2019-08-17] MEDS: POTASSIUM CHLORIDE 20 MEQ/15 ML UDCUP PER TUBE PRN (05:52)
[2019-08-17] MEDS: FUROSEMIDE 40 MG/4 ML VIAL IV SCH ×3 (06:24→21:48)
[2019-08-17] MEDS: ALBUTEROL 2.5 MG/3 ML NEB RESP TX SCH ×4 (07:09→19:00)
[2019-08-17] MEDS: ACETYLCYSTEINE 20% 800 MG/4 ML VIAL RESP TX SCH ×3 (07:09→19:00)
[2019-08-17] MEDS: TOBRAMYCIN 80 MG/2 ML VIAL RESP TX SCH ×2 (07:41→19:00)
[2019-08-17] MEDS: POTASSIUM PHOS/SOD PHOS POWDER 250 MG PACK PO SCH ×3 (09:16→20:41)
[2019-08-17] MEDS: MONTELUKAST 10 MG TABLET PO SCH (09:16)
[2019-08-17] MEDS: METOPROLOL TARTRATE 100 MG TABLET PO SCH ×2 (09:16→20:42)
[2019-08-17] MEDS: AMIODARONE 200 MG TABLET PO SCH ×2 (09:16→20:41)
[2019-08-17] MEDS: THEOPHYLLINE 5.33 MG/ML 30 ML/BOTTLE PO SCH ×3 (09:17→20:42)
[2019-08-17] MEDS: hydrALAZINE 25 MG TABLET PO SCH ×4 (09:17→20:42)
[2019-08-17] MEDS: PANTOPRAZOLE 40 MG VIAL IV SCH ×2 (09:17→20:41)
[2019-08-17] MEDS: DEXTROSE 5% 1,000 ML IV SCH (10:44)
[2019-08-17] MEDS: CLINDAMYCIN INJ 300 MG in PREMIX 1 EACH IV SCH ×3 (10:45→23:17)
[2019-08-17] MEDS: MICAFUNGIN 100 MG in SODIUM CHLORIDE 0.9% 100 ML IV SCH (10:46)
[2019-08-17] MEDS: LEVOFLOXACIN INJ 500 MG in PREMIX 1 EACH IV SCH (11:53)
[2019-08-17] MEDS: methylPREDNISolone SOD SUC 40 MG/1 ML VIAL IV SCH ×2 (11:54→23:01)
[2019-08-17] MEDS: MORPHINE 4 MG/1 ML VIAL IV PRN (12:10)
[2019-08-17] MEDS: ACETAMINOPHEN 325 MG/10.15 ML UDCUP PO PRN (15:46)
[2019-08-17] MEDS ORDERED: LACTATED RINGERS 1,000 ML IV ONE ×2 (20:16→22:35)
[2019-08-17] MEDS: diphenhydrAMINE 25 MG/10 ML UDCUP PEG SCH (20:41)
[2019-08-17] MEDS: PROPOFOL 1,000 MG/100 ML BOTTLE IV SCH (21:32)
[2019-08-18] MEDS: INSULIN REGULAR 100 UNIT/ML SUBCUT SCH ×4 (00:12→19:08)
[2019-08-18] MEDS: ACETYLCYSTEINE 20% 800 MG/4 ML VIAL RESP TX SCH ×4 (00:20→19:21)
[2019-08-18] MEDS: POTASSIUM CHLORIDE 20 MEQ/15 ML UDCUP PER TUBE SCH ×3 (01:45→19:13)
[2019-08-18] MEDS: dilTIAZem Drip 125 MG/125 ML PREMIX IV SCH (03:07)
[2019-08-18] MEDS ORDERED: LACTATED RINGERS 1,000 ML IV ONE (03:22)
[2019-08-18] MEDS: DEXMEDETOMIDINE 200 MCG in SODIUM CHLORIDE 0.9% 48 ML IV PRN (04:07)
[2019-08-18] MEDS: CLINDAMYCIN INJ 300 MG in PREMIX 1 EACH IV SCH ×4 (04:07→22:10)
[2019-08-18 04:39] LABS: Basophils # 0.1 10*3/uL (0.0-0.2); Basophils % 0.5 % (0.0-0.8); Hematocrit 25.2 VOL% (42.0-52.0); Hemoglobin 7.3 GM/DL (14.0-18.0); Immature Granulocytes % 1.2 %; Immature Granulocytes Absolute 0.22 #; Lymphocytes # 0.2 10*3/uL (1.4-4.0); Mean Corpuscular Volume 98.8 FL (87-102); Mean Platelet Volume 12.7 FL (9.6-12.0); Monocytes % 0.7 % (1.7-12.7); NRBC # 0.02 10*3/uL; Neutrophils % 96.6 % (38.7-73.9); Platelet Count 184 T/CUMM (130-400); Red Blood Count 2.55 MC/CUMM (3.8-5.5); Red Cell Distribution Width 16.6 % (9.3-17.3); White Blood Count 18.4 T/CUMM (4-12)
[2019-08-18 04:53] LABS: ABG Base Excess -3.5 MMOL/L (-2.5-2.5); ABG HCO3 24.2 MMOL/L (20-26); ABG Oxygen Saturation 98.2 % (95-100); ABG PCO2 58.3 MM HG (35-48); ABG PH 7.236 (7.35-7.45); ABG PO2 135.5 MM HG (80-95); Pt O2 Delivery Device Ventilator
[2019-08-18 04:59] LABS: INR 1.5; PT Patient Result 16.2 SECS (9.6-12.2)
[2019-08-18 05:03] LABS: Albumin 2.9 G/DL (3.4-5.0); Bilirubin,Total 0.7 MG/DL (0.2-1.0); Calcium 7.6 MG/DL (8.5-10.1); Osmolality,Calculated 309.8 MOS/KG (273-304); Total Protein 4.3 G/DL (6.4-8.3)
[2019-08-18 05:09] LABS: Partial Thromboplastin Time 55.9 SECS (20.8-36.0)
[2019-08-18] MEDS: ALBUMIN 25% 25 GM in PREMIX 1 EACH IV SCH ×3 (05:20→20:46)
[2019-08-18 05:21] LABS: Band Neutrophils 10 % (0-10); Lymphocytes 3 % (20-55); Metamyelocytes 2 %; Nucleated Red Blood Cells 1 (0-5); Segmented Neutrophils 84 % (50-85); Total Cells Counted 100
[2019-08-18 05:22] LABS: Hypochromasia 1+; Ovalocytes Slight
[2019-08-18 05:23] LABS: Microcytosis 1+; Platelet Estimate Adequate
[2019-08-18] MEDS: FUROSEMIDE 40 MG/4 ML VIAL IV SCH ×3 (06:26→22:06)
[2019-08-18] MEDS: DEXTROSE 5% 1,000 ML IV SCH (06:27)
[2019-08-18] MEDS: ALBUTEROL 2.5 MG/3 ML NEB RESP TX SCH ×4 (08:20→19:21)
[2019-08-18] MEDS: PHENYLEPHRINE DRIP 40 MG/250 ML PREMIX IV PRN ×3 (09:00→20:23)
[2019-08-18] MEDS ORDERED: SODIUM CHLORIDE 0.9% 1,000 ML IV PRN (09:10)
[2019-08-18] MEDS: TOBRAMYCIN 80 MG/2 ML VIAL RESP TX SCH ×2 (09:30→19:21)
[2019-08-18] MEDS: POTASSIUM PHOS/SOD PHOS POWDER 250 MG PACK PO SCH ×3 (09:56→20:46)
[2019-08-18] MEDS: MONTELUKAST 10 MG TABLET PO SCH (09:56)
[2019-08-18] MEDS: AMIODARONE 200 MG TABLET PO SCH ×2 (09:56→20:33)
[2019-08-18] MEDS: METOPROLOL TARTRATE 100 MG TABLET PO SCH ×2 (09:56→20:33)
[2019-08-18] MEDS: hydrALAZINE 25 MG TABLET PO SCH ×4 (09:57→20:49)
[2019-08-18] MEDS: THEOPHYLLINE 5.33 MG/ML 30 ML/BOTTLE PO SCH ×3 (09:57→20:33)
[2019-08-18] MEDS: PANTOPRAZOLE 40 MG VIAL IV SCH ×2 (10:02→20:34)
[2019-08-18] MEDS: MICAFUNGIN 100 MG in SODIUM CHLORIDE 0.9% 100 ML IV SCH (10:21)
[2019-08-18] MEDS ORDERED: diphenhydrAMINE 25 MG/10 ML UDCUP PEG PRN (10:26)
[2019-08-18] MEDS: LEVOFLOXACIN INJ 500 MG in PREMIX 1 EACH IV SCH (10:47)
[2019-08-18] MEDS: methylPREDNISolone SOD SUC 40 MG/1 ML VIAL IV SCH ×2 (11:54→22:04)
[2019-08-18] MEDS ORDERED: SODIUM CHLORIDE 0.9% 1,000 ML IV ONE (12:00)
[2019-08-18] MEDS: PROPOFOL 1,000 MG/100 ML BOTTLE IV SCH (22:11)
[2019-08-19] MEDS: INSULIN REGULAR 100 UNIT/ML SUBCUT SCH ×2 (00:16→05:59)
[2019-08-19] MEDS: ALBUTEROL 2.5 MG/3 ML NEB RESP TX PRN (00:58)
[2019-08-19] MEDS: ACETYLCYSTEINE 20% 800 MG/4 ML VIAL RESP TX SCH ×2 (00:58→07:08)
[2019-08-19] MEDS: DEXTROSE 5% 1,000 ML IV SCH (02:25)
[2019-08-19] MEDS: PHENYLEPHRINE DRIP 40 MG/250 ML PREMIX IV PRN (02:33)
[2019-08-19] MEDS: POTASSIUM CHLORIDE 20 MEQ/15 ML UDCUP PER TUBE SCH (02:34)
[2019-08-19] MEDS: DEXMEDETOMIDINE 200 MCG in SODIUM CHLORIDE 0.9% 48 ML IV PRN (02:49)
[2019-08-19 03:04] LABS: ABG Base Excess -8.9 MMOL/L (-2.5-2.5); ABG HCO3 17.3 MMOL/L (20-26); ABG Oxygen Saturation 98.1 % (95-100); ABG PCO2 61.1 MM HG (35-48); ABG TCO2 19.7 MMOL/L (23-27); Allen Test Positive; Pt O2 Delivery Device Ventilator
[2019-08-19 03:45] LABS: Basophils % 0.1 % (0.0-0.8); Hematocrit 33.1 VOL% (42.0-52.0); Hemoglobin 9.8 GM/DL (14.0-18.0); Immature Granulocytes % 2.4 %; Lymphocytes # 0.2 10*3/uL (1.4-4.0); Lymphocytes % 0.8 % (21.2-54.2); Mean Corpuscular HGB Conc 29.6 GM/DL (32-36); Mean Corpuscular Volume 96.2 FL (87-102); Mean Platelet Volume 12.4 FL (9.6-12.0); Monocytes % 1.2 % (1.7-12.7); NRBC # 0.02 10*3/uL; Neutrophils % 95.5 % (38.7-73.9); Platelet Count 167 T/CUMM (130-400); Red Blood Count 3.44 MC/CUMM (3.8-5.5); Red Cell Distribution Width 16.8 % (9.3-17.3); White Blood Count 20.5 T/CUMM (4-12)
[2019-08-19 03:47] LABS: INR 1.3; PT Patient Result 14.3 SECS (9.6-12.2)
[2019-08-19 04:04] LABS: Albumin 4.5 G/DL (3.4-5.0); Calcium 8.1 MG/DL (8.5-10.1); Osmolality,Calculated 318.3 MOS/KG (273-304); Prealbumin 10.6 MG/DL (20-40); Total Protein 6.5 G/DL (6.4-8.3)
[2019-08-19] MEDS: dilTIAZem Drip 125 MG/125 ML PREMIX IV SCH (04:17)
[2019-08-19] MEDS: CLINDAMYCIN INJ 300 MG in PREMIX 1 EACH IV SCH (04:19)
[2019-08-19] MEDS: ALBUMIN 25% 25 GM in PREMIX 1 EACH IV SCH (04:19)
[2019-08-19 04:27] LABS: Partial Thromboplastin Time 45.5 SECS (20.8-36.0)
[2019-08-19] MEDS: FUROSEMIDE 40 MG/4 ML VIAL IV SCH (05:59)
[2019-08-19 06:01] LABS: Metamyelocytes 1 %; Segmented Neutrophils 98 % (50-85); Total Cells Counted 100
[2019-08-19 06:02] LABS: Platelet Estimate Adequate; Polychromasia Few
[2019-08-19] MEDS: ALBUTEROL 2.5 MG/3 ML NEB RESP TX SCH (07:08)
[2019-08-19] MEDS: TOBRAMYCIN 80 MG/2 ML VIAL RESP TX SCH (07:38)
[2019-08-19] MEDS: hydrALAZINE 25 MG TABLET PO SCH (09:05)
[2019-08-19] MEDS ORDERED: MORPHINE 4 MG/1 ML VIAL IV PRN (09:22)
[2019-08-19] MEDS: MORPHINE 4 MG/1 ML VIAL IV PRN ×3 (09:42→13:24)
[2019-08-19 11:36] VITALS: BP 67/37
== END 2019-08-19 14:11 | disposition expired | DRG 4 ==
LOC: N.CC 10:57
PROVIDERS: ADMIT Surgery; ATTEND Surgery
PROC: EGDWPEG (ICD-10-PCS; 2019-07-12 11:20)